=== PATIENT | female | born 1935 | race Caucasian/White ===

== ENCOUNTER → 2017-11-22 15:41 | Outpatient (CLI) | payer OTHER, SELFPAY ==
--- NOTE | 2017-11-22 15:44 | DI.RAD.S_ITS ---
PROCEDURE: XR ACUTE ABDOMEN SERIES INDICATIONS: 82 year-old female with chronic abdominal pain and diarrhea. TECHNIQUE: One view chest and two views of the abdomen were acquired. COMPARISON: [facility], CR, XR PELVIS 1 OR 2 VIEWS, 11/16/2017, 14:58. [facility], CR, XR PELVIS 1-2V, 10/22/2017, 9:43. [facility], CR, XR HIP W PEL IF DONE RT 2V, 10/22/2017, 7:39. [facility], CR, XR CHEST 1V, 10/22/2017, 10:40. FINDINGS: Surgical changes and devices: None. Chest: Lungs are clear. Heart size is normal. No pleural effusions. No pneumoperitoneum. Abdomen: Bowel gas pattern is normal, with stool in the transverse colon. No suspicious calcifications. Visualized solid organ contours appear normal. Bones: No suspicious bony lesions. Subacute fractures of the right pubic and ischial rami are again noted. IMPRESSION: 1. No imaging explanation for chronic abdominal pain. 2. Subacute right obturator ring fractures again noted. Dictated by: Chance Brandt M.D. on 11/22/2017 at 16:23 Approved by: Chance Brandt M.D. on 11/22/2017 at 16:26
[2017-11-22 16:51] LABS: RBC Urine None Seen (0-5/HPF)
[2017-11-22 17:08] LABS: Bilirubin Urine UA NEGATIVE (NEGATIVE); Color Urine UA YELLOW; Glucose Urine UA NEGATIVE (Normal); Ketones Urine UA TRACE (NEGATIVE); Leukocyte Esterase Urine UA TRACE (NEGATIVE); Nitrite Urine UA Negative (Negative); Occult Blood Urine UA NEGATIVE (Negative); Protein Urine UA NEGATIVE (Negative); Specific Gravity Urine UA 1.015 (1.000-1.035); Urobilinogen Urine UA 0.2 E.U./dL (0.2); pH Urine UA 7.5 (4.5-8.0)
[2017-11-22 17:15] LABS: Appearance Urine UA Slightly Cloudy
[2017-11-22 17:21] LABS: Add Manual Diff / Slide Review NO; Basophils Percent Auto 0.5 % (0-2); Eosinophils Percent Auto 5.5 % (2-4); Hematocrit 40.2 % (36-46); Hemoglobin 13.5 g/dL (12.0-16.0); Lymphocytes Percent Auto 27.7 % (25-40); Mean Corpuscular HGB Conc 33.5 % (30-36); Mean Corpuscular Hemoglobin 29.6 PG (26-34); Mean Corpuscular Volume 88.4 fL (80-100); Monocytes Percent Auto 7.6 % (3-14); Neutrophils Absolute Auto 4300 /uL (3000-5900); Neutrophils Percent Auto 58.7 % (50-75); Platelet Count 264 X10^3/uL (150-400); Red Blood Cell Count 4.54 X10^6/uL (4.0-5.2); Red Cell Distribution Width 13.8 % (11.6-14.8); White Blood Cell Count 7.3 X10^3/uL (4.5-11.0)
[2017-11-22 17:25] LABS: Bacteria Urine Few (2-10); Culture Indicated Urine Specimen Cultured; Squamous Epithelial Cell Urine 0-1 /HPF; WBC Urine 1-5/HPF (0-5/HPF)
[2017-11-22 17:35] LABS: Alanine Aminotransferase 26 IU/L (9-52); Albumin 4.5 g/dL (3.5-5.0); Albumin Globulin Ratio 1.3 (1.0-2.8); Alkaline Phosphatase 111 U/L (38-126); Aspartate Aminotransferase 37 IU/L (14-36); Bilirubin Total 0.4 mg/dL (0.2-1.3); Blood Urea Nitrogen 35 mg/dL (7-17); Calcium 10.8 mg/dL (8.4-10.2); Carbon Dioxide 32 mmol/L (22-32); Chloride 100 mmol/L (98-107); Estimated Glomerular Filt Rate > 60.0 mL/min (>60); Globulin 3.6 g/dL (1.7-4.1); Glucose 82 mg/dL (80-110); HEMOLYSIS 40 (0-50); Sodium 144 mmol/L (137-145); Total Protein 8.1 g/dL (6.3-8.2)
[2017-11-23 10:14] LABS: Thyroid Stimulating Hormone 3.45 uIU/mL (0.47-4.68)
[2017-11-23 12:54] LABS: Creatine Kinase 50 U/L (30-135)
== END ==
PROVIDERS: PCP Family Medicine; Visit Provider Nurse Practitioner Family
DX: K52.9 Noninfective gastroenteritis and colitis, unspecified (principal); S32.810A Multiple fractures of pelvis with stable disruption of pelvic ring, initial encounter for closed fracture; R79.89 Other specified abnormal findings of blood chemistry; M25.562 Pain in left knee; G89.29 Other chronic pain; R53.82 Chronic fatigue, unspecified; Z96.652 Presence of left artificial knee joint
CPT/HCPCS: 36415; 74022; 80053; 81001; 82550; 84443; 85025; 87086

== ENCOUNTER → 2017-11-30 12:31 | Outpatient (CLI) | payer OTHER, SELFPAY ==
[2017-11-30 14:19] LABS: Thyroid Stimulating Hormone 2.82 uIU/mL (0.47-4.68)
[2017-11-30 14:49] LABS: Vitamin D 25 Hydroxy (D3) 65.1 ng/mL (30.0-100.0)
== END ==
PROVIDERS: PCP Family Medicine; Visit Provider Specialist/Technologist Athletic Trainer
DX: M81.0 Age-related osteoporosis without current pathological fracture (principal); K52.9 Noninfective gastroenteritis and colitis, unspecified; R53.81 Other malaise; R53.82 Chronic fatigue, unspecified; R79.89 Other specified abnormal findings of blood chemistry
CPT/HCPCS: 36415; 82306; 84443

== ENCOUNTER → 2018-01-28 16:16 | Outpatient (CLI) | payer OTHER, SELFPAY ==
--- NOTE | 2018-01-28 16:17 | DI.RAD.S_ITS ---
PROCEDURE: XR PELVIS 1-2V INDICATIONS: HX of pelvic fracture. TECHNIQUE: One view(s) of the pelvis acquired. COMPARISON: [facility], CR, XR HIP W PEL IF DONE RT 2V, 10/22/2017, 7:39. [facility], CR, XR PELVIS 1-2V, 10/22/2017, 9:43. [facility] [place], CR, XR PELVIS 1 OR 2 VIEWS, 11/16/2017, 14:58. FINDINGS: Bones: Previous right ischial and pubic fractures have undergone exuberant callus formation with minimal change in alignment. 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 Irregular linear radiolucency through the right superior ramus is more prominent. This may represent bony resorption about a fracture line but is indeterminate. Soft tissues: Visualized bowel gas pattern is normal. No suspicious soft tissue calcifications. IMPRESSION: Healing of previous pelvic fractures show prominent callus formation and sclerosis, progressing since most recent prior outside study. Dictated by: Marcio Weber M.D. on 01/28/2018 at 16:38 Approved by: Marcio Weber M.D. on 01/28/2018 at 16:44
== END ==
PROVIDERS: Family Provider Family Medicine; PCP Family Medicine; Visit Provider Family Medicine
DX: S32.89XD Fracture of other parts of pelvis, subsequent encounter for fracture with routine healing (principal)
CPT/HCPCS: 72170

== ENCOUNTER 2018-03-12 15:15 | Outpatient (RCR) | payer OTHER, SELFPAY ==
--- NOTE | 2018-01-15 13:41 | PT.OIE ---
Current Diagnoses Pain in unspecified knee (01/10/18) Unspecified urinary incontinence (01/10/18) Fracture of unspecified parts of lumbosacral spine and pelvis, initial encounter for closed fracture (01/10/18) Past Medical History (Last Reviewed 11/09/17 @ 17:01 by Ana Sim DO) Hearing loss (Chronic 2015) Knee pain, left (Chronic Unknown) Osteoarthritis (Chronic 1999) Osteopenia (Chronic ~2002) Osteoporosis (Chronic ~2002) Urinary incontinence (Chronic ~2013) Anemia (Resolved ~1952) Fracture (Resolved 1939) Retinal detachment (Resolved 1998) Shoulder pain (Resolved 2014) Past Surgical History (Last Reviewed 11/09/17 @ 17:01 by Ana Sim DO) History of knee replacement Provider Visit Care Team Role Provider Type Ana Sim DO Attending Provider Physician Primary Care Provider Specialty: Family Practice Address: [address] [place] [address] Email: [email or web address] Physical Therapy Initial Evaluation PT-OP-A Visit Information Start: 01/10/18 15:14 Freq: Status: Active Protocol: Document 01/10/18 15:15 [facility] (Rec: 01/15/18 13:41 [facility] [id number]) Out-Patient Physical Therapy Visit Information Visit Information Visit Type Initial Evaluation Visit Start Time 15:15 Visit Stop Time 16:10 Total Visit Minutes 55 Visit Number 1 Number of [employer] Visits 0 Evaluation Information Evaluation Date 01/10/18 PT-OP-B Current Condition Start: 01/10/18 15:14 Freq: Status: Active Protocol: Document 01/10/18 15:15 [facility] (Rec: 01/10/18 16:19 [facility] [id number]) Current Condition History of Current Condition Onset Date 10/21/17 Current Complaints mild pain from pelvic fracture , primary c/o exacerbation of left knee pain History of Current Condition fractured pelvis Osteoarthritis left knee first TKA 2008, second 2013, knee pain persists. AFter injuring her pelvis, knee pain worsened. left LE swells, doesn't wear compression. Tried a knee brace. Tried aquatic exercise on her own for 30 min, tried to swim but can't. Has tried cold laser, ultrasound, e-stim. Prior Treatments and Tests PT, prior injections, heat, ices often especially after walking. x-ray of knee after fracture showed no problems. Has been told she doesnt have complex regional pain syndrome by 2 neurologists in [place], recent physician in [place] stated he thought she did per patient. Patient also reports prior cortisone injection left knee dissolved the outside fat pad. Future Testing and Treatments Planned None at this time. Treatment Goals Patient/Caregiver Goals Lessen the pain of left knee, increase activity level. PT-OP-C Subjective Start: 01/10/18 15:14 Freq: Status: Active Protocol: Document 01/10/18 15:15 [facility] (Rec: 01/15/18 13:41 [facility] [id number]) Patient Questionnaires Lower Extremity Functional Scale LEFS Impairment 60 to 79% Impaired (Score 17- 31) OP-PT Pain Assessment Pain Assessment Grid Paper Pain Assessment Grid Completed Yes Location r hip Pain Location Details lateral left knee Intensity 6 Scale Used Numeric (1 - 10) Description Aching Burning Chronic Tender Throbbing With Movement Frequency Frequent Pain Aggravating Factors Activity Exercise Walking Stair Climbing Pain Alleviating Factors None Pain Behaviors Pain Behaviors Guarding Wincing PT-OP-F Manual Assessment Start: 01/10/18 15:14 Freq: Status: Active Protocol: Document 01/10/18 15:15 [facility] (Rec: 01/15/18 13:41 [facility] [id number]) Manual Assessments Other Manual Assessments Other Manual Assessments Tender to palpation lateral left knee diffusely with no pinpoint area of tenderness. Observable lack of soft tissue super/lateral left knee. PT-OP-G Mobility & Gait Start: 01/10/18 15:14 Freq: Status: Active Protocol: Document 01/10/18 15:15 [facility] (Rec: 01/15/18 13:41 [facility] [id number]) OP Mobility Evaluation Bed Mobility Rolling indep Supine to and from Sit indep Transfers Sit to Stand indep but painful Functional Movements Squats painful OP Gait Assessment Gait Gait Assistance Required: Independent Assistive Devices Assistive Device None Gait Deviations General Gait Pattern Antalgic Decreased Stride Length Decreased Feet Clearance Factors Limiting Gait Function Factors Limiting Gait Function Pain Stair Climbing Evaluation Evaluation Level of Assist On Stairs Independent Devices Stair Climbing Assistive Devices Left Railing Right Railing Technique/Endurance Stair Climbing Direction Ascend and Descend Stair Climbing Technique Step to Step Number of Steps Climbed 4 Comments Stair Climbing Comments painful PT-OP-K Range of Motion Start: 01/10/18 15:14 Freq: Status: Active Protocol: Document 01/10/18 15:15 [facility] (Rec: 01/15/18 13:41 [facility] [id number]) Hip Goniometric Range of Motion Hip Measured in Degrees Left Flexion w/Knee Flexed 115 Straight Leg Raise 55 Extension 5 Abduction 40 Internal Rotation 40 External Rotation 45 Right Testing Position Supine Flexion w/Knee Flexed 120 Straight Leg Raise 60 Extension 5 Abduction 35 Internal Rotation 45 External Rotation 40 Hip ROM Limitations Hip ROM Limitations Soft Tissue Tightness Muscle Weakness Knee Goniometric Range of Motion Knee Measured in Degrees Left Knee ROM WFL No Flexion Active (degrees) 120 Extension Active (degrees) 6 Extension Passive (degrees) 5 Right Knee ROM WFL Yes Knee ROM Limitations Knee ROM Limitations Contracture Bony Restriction Ankle and Foot Goniometric Range of Motion Ankle and Foot ROM Limitations ROM Limitations Soft Tissue Tightness Comments bilateral ankle dorsiflexion to 5 deg PT-OP-M Strength Start: 01/10/18 15:14 Freq: Status: Active Protocol: Document 01/10/18 15:15 [facility] (Rec: 01/15/18 13:41 [facility] [id number]) Hip Strength Hip Manual Muscle Testing Left Flexion (L2) 4 Good Extension (S1) 3+ Fair+ Abduction 4- Good- External Rotation 3+ Fair+ Internal Rotation 4- Good- Right Flexion (L2) 4 Good Extension (S1) 3+ Fair+ Abduction 4- Good- External Rotation 3+ Fair+ Internal Rotation 4 Good Knee Strength Knee Manual Muscle Testing Left Flexion (S2) 4 Good Extension (L3) 4- Good- Reason Not Measured Pain Right Flexion (S2) 4+ Good+ Extension (L3) 4+ Good+ Ankle/Foot Strength Ankle and Foot Manual Muscle Testing Left Dorsiflexion (L4) 4+ Good+ Plantarflexion (S1) 4+ Good+ Right Dorsiflexion (L4) 4+ Good+ Plantarflexion (S1) 4+ Good+ PT-OP-Q Treatments Start: 01/10/18 15:14 Freq: Status: Active Protocol: Document 01/10/18 15:15 [facility] (Rec: 01/15/18 13:41 [facility] [id number]) Self-Care/Home Management Treatment Education Patient Education Home Exercise Program Other Education written handout issued PT-OP-R Modalities Start: 01/10/18 15:14 Freq: Status: Active Protocol: Document 01/10/18 15:15 [facility] (Rec: 01/15/18 13:41 [facility] [id number]) Hot Pack/Cold Pack Treatment Cold Pack Location left knee, pelvis Patient Position Hooklying Treatment Duration (minutes) 10 PT-OP-T Assessment and Plan Start: 01/10/18 15:14 Freq: Status: Active Protocol: Document 01/10/18 15:15 [facility] (Rec: 01/15/18 13:41 [facility] [id number]) Physical Therapy Assessment Rehab Potential Rehabilitation Potential Good Evaluation Complexity Number of Personal Factors/Comorbidities 3 or More Number of Body Systems Impaired 3 Clinical Presentation at Evaluation Evolving Impairments Impairments Activity Tolerance Gait Pain ROM Soft Tissue Mobility Strength Goals Four Impairment weakness Short Term Goal (STG) Instruct in HEP with progression as tolerated STG Duration 4 wks Jail Goal (LTG) Patient to demonstrate 5/5 muscle strength in darryl LE's LTG Duration 3 months Three Impairment soft tissue mobility: right hamstrings, hip flexors, quads , gastroc Short Term Goal (STG) Instruct in HEP STG Duration 2 wks Nps Goal (LTG) Improve ROM to WNL with patient indep with HEP LTG Duration 3 months Two Impairment gait dysfunction Nps Goal (LTG) Patient able to ambulate on level surfaces without a limp and ascend and descend stairs with minimal UE use with alternating pattern LTG Duration 3 months One Impairment pain left knee 6/10 Jail Goal (LTG) Decrease pain to no greater than 2/10 for improved function and quality of life. LTG Duration 3 months Assessment Summary Assessment Patient presents s/p pelvic fracture with primary complaint of persistent left knee pain which has worsened since pelvic fracture. Feel weakness and soft tissue tightness highly contributory. Additionally feel patient may benefit from orthotics and /or medial longitudinal arch strengthening due to increased pronation darryl feet with decreased arch height and eversion positioning darryl left greater than right Should benefit from physical therapy for pain management and progression of therapeutic exercises to address all impairment areas as noted. Physical Therapy Plan Frequency and Duration Frequency of Treatment 2x/Week Duration of Treatment 3 months Plan of Care Start Date 01/10/18 Plan of Care End Date 04/12/18 Therapeutic Interventions Therapeutic Interventions Aquatic Therapy Gait Training Home Exercise Program Manual Therapy Neuromuscular Re-education Orthotic/Prosthetic Management Patient/Caregiver Education Self-Care/Home Management Soft Tissue Mobilization Taping Therapeutic Activities Therapeutic Exercises Modalities Cold Pack/Ice Massage Electric Stimulation Hot Packs Iontophoresis Ultrasound Next Visit Focus/Plan Next Note Type Treatment Note Next Visit Plan Progression of ther ex as tolerated starting with recumbant stepper with emphasis on alignment and symmetry.
--- NOTE | 2018-01-17 16:43 | PT.OTN ---
Current Diagnoses Pain in unspecified knee (01/17/18) Unspecified urinary incontinence (01/17/18) Fracture of unspecified parts of lumbosacral spine and pelvis, initial encounter for closed fracture (01/17/18) Physical Therapy Treatment Note PT-OP-A Visit Information Start: 01/10/18 15:14 Freq: Status: Active Protocol: Document 01/17/18 15:15 [facility] (Rec: 01/17/18 16:26 [facility] [id number]) Out-Patient Physical Therapy Visit Information Visit Information Visit Type Treatment Note Visit Start Time 15:15 Visit Stop Time 16:15 Total Visit Minutes 60 Visit Number 2 PT-OP-B Current Condition Start: 01/10/18 15:14 Freq: Status: Active Protocol: Document 01/10/18 15:15 [facility] (Rec: 01/10/18 16:19 [facility] [id number]) Current Condition History of Current Condition Onset Date 10/21/17 Current Complaints mild pain from pelvic fracture , primary c/o exacerbation of left knee pain History of Current Condition fractured pelvis Osteoarthritis left knee first TKA 2008, second 2013, knee pain persists. AFter injuring her pelvis, knee pain worsened. left LE swells, doesn't wear compression. Tried a knee brace. Tried aquatic exercise on her own for 30 min, tried to swim but can't. Has tried cold laser, ultrasound, e-stim. Prior Treatments and Tests PT, prior injections, heat, ices often especially after walking. x-ray of knee after fracture showed no problems. Has been told she doesnt have complex regional pain syndrome by 2 neurologists in [place], recent physician in [place] stated he thought she did per patient. Patient also reports prior cortisone injection left knee dissolved the outside fat pad. Future Testing and Treatments Planned None at this time. Treatment Goals Patient/Caregiver Goals Lessen the pain of left knee, increase activity level. PT-OP-C Subjective Start: 01/10/18 15:14 Freq: Status: Active Protocol: Document 01/10/18 15:15 [facility] (Rec: 01/15/18 13:41 [facility] [id number]) Patient Questionnaires Lower Extremity Functional Scale LEFS Impairment 60 to 79% Impaired (Score 17- 31) OP-PT Pain Assessment Pain Assessment Grid Paper Pain Assessment Grid Completed Yes Location r hip Pain Location Details lateral left knee Intensity 6 Scale Used Numeric (1 - 10) Description Aching Burning Chronic Tender Throbbing With Movement Frequency Frequent Pain Aggravating Factors Activity Exercise Walking Stair Climbing Pain Alleviating Factors None Pain Behaviors Pain Behaviors Guarding [place]incing PT-OP-F Manual Assessment Start: 01/10/18 15:14 Freq: Status: Active Protocol: Document 01/10/18 15:15 [facility] (Rec: 01/15/18 13:41 [facility] [id number]) Manual Assessments Other Manual Assessments Other Manual Assessments Tender to palpation lateral left knee diffusely with no pinpoint area of tenderness. Observable lack of soft tissue super/lateral left knee. PT-OP-G Mobility & Gait Start: 01/10/18 15:14 Freq: Status: Active Protocol: Document 01/10/18 15:15 [facility] (Rec: 01/15/18 13:41 [facility] [id number]) OP Mobility Evaluation Bed Mobility Rolling indep Supine to and from Sit indep Transfers Sit to Stand indep but painful Functional Movements Squats painful OP Gait Assessment Gait Gait Assistance Required: Independent Assistive Devices Assistive Device None Gait Deviations General Gait Pattern Antalgic Decreased Stride Length Decreased Feet Clearance Factors Limiting Gait Function Factors Limiting Gait Function Pain Stair Climbing Evaluation Evaluation Level of Assist On Stairs Independent Devices Stair Climbing Assistive Devices Left Railing Right Railing Technique/Endurance Stair Climbing Direction Ascend and Descend Stair Climbing Technique Step to Step Number of Steps Climbed 4 Comments Stair Climbing Comments painful PT-OP-K Range of Motion Start: 01/10/18 15:14 Freq: Status: Active Protocol: Document 01/10/18 15:15 [facility] (Rec: 01/15/18 13:41 [facility] [id number]) Hip Goniometric Range of Motion Hip Measured in Degrees Left Flexion w/Knee Flexed 115 Straight Leg Raise 55 Extension 5 Abduction 40 Internal Rotation 40 External Rotation 45 Right Testing Position Supine Flexion w/Knee Flexed 120 Straight Leg Raise 60 Extension 5 Abduction 35 Internal Rotation 45 External Rotation 40 Hip ROM Limitations Hip ROM Limitations Soft Tissue Tightness Muscle Weakness Knee Goniometric Range of Motion Knee Measured in Degrees Left Knee ROM WFL No Flexion Active (degrees) 120 Extension Active (degrees) 6 Extension Passive (degrees) 5 Right Knee ROM WFL Yes Knee ROM Limitations Knee ROM Limitations Contracture Bony Restriction Ankle and Foot Goniometric Range of Motion Ankle and Foot ROM Limitations ROM Limitations Soft Tissue Tightness Comments bilateral ankle dorsiflexion to 5 deg PT-OP-M Strength Start: 01/10/18 15:14 Freq: Status: Active Protocol: Document 01/10/18 15:15 [facility] (Rec: 01/15/18 13:41 [facility] [id number]) Hip Strength Hip Manual Muscle Testing Left Flexion (L2) 4 Good Extension (S1) 3+ Fair+ Abduction 4- Good- External Rotation 3+ Fair+ Internal Rotation 4- Good- Right Flexion (L2) 4 Good Extension (S1) 3+ Fair+ Abduction 4- Good- External Rotation 3+ Fair+ Internal Rotation 4 Good Knee Strength Knee Manual Muscle Testing Left Flexion (S2) 4 Good Extension (L3) 4- Good- Reason Not Measured Pain Right Flexion (S2) 4+ Good+ Extension (L3) 4+ Good+ Ankle/Foot Strength Ankle and Foot Manual Muscle Testing Left Dorsiflexion (L4) 4+ Good+ Plantarflexion (S1) 4+ Good+ Right Dorsiflexion (L4) 4+ Good+ Plantarflexion (S1) 4+ Good+ PT-OP-Q Treatments Start: 01/10/18 15:14 Freq: Status: Active Protocol: Document 01/17/18 15:15 [facility] (Rec: 01/17/18 16:26 [facility] [id number]) Cardio Equipment Recumbent Elliptical (Biodex) Duration (Minutes) 5 Resistance 2 Therapeutic Exercises Supine Exercises 5 Supine Exercise Name quad set, Hs set Reps/Minutes 0 4 Supine Exercise Name SAQ Reps/Minutes 0 3 Supine Exercise Name SLR, bridge Reps/Minutes 10x 2 Supine Exercise Name hip ab/ER Equipment Used L2 TB Reps/Minutes 10x 1 Supine Exercise Name ball squeeze Reps/Minutes 10x Sidelying Exercises 1 Sidelying Exercise Name hip ab Reps/Minutes 10x Standing Exercises 1 Standing Exercise Name HC stretch Equipment Used BETY Reps/Minutes 2 Therapeutic Activity Therapeutic Activity 2 Name heel raises, toe raises Reps/Minutes 10 x ea Comments min UE support 1 Name tiltboard Reps/Minutes 5 min Comments bal fwd/bck EO and EC, wt shifts bal side to side Manual Therapy Treatment Taping 1 Body Location left knee Treatment Focus pain management Type of Tape Kinesio Tape Comments 2 Y strips Self-Care/Home Management Treatment Education Patient Education Home Exercise Program Other Education reviewed, further education, modification and new ex from today added: updated written handout PT-OP-R Modalities Start: 01/10/18 15:14 Freq: Status: Active Protocol: Document 01/17/18 15:15 [facility] (Rec: 01/17/18 16:43 [facility] [id number]) Hot Pack/Cold Pack Treatment Cold Pack Location left knee, pelvis Patient Position Hooklying Treatment Duration (minutes) 10 PT-OP-T Assessment and Plan Start: 01/10/18 15:14 Freq: Status: Active Protocol: Document 01/17/18 15:15 [facility] (Rec: 01/17/18 16:43 [facility] [id number]) Physical Therapy Plan Next Visit Focus/Plan Next Note Type Treatment Note Next Visit Plan assess response to last session, progress and modify ex as ok for strengthening, ROM, gait training, manual therapy and modalities as indicated.
--- NOTE | 2018-01-24 16:22 | PT.OTN ---
Current Diagnoses Pain in unspecified knee (01/24/18) Unspecified urinary incontinence (01/24/18) Fracture of unspecified parts of lumbosacral spine and pelvis, initial encounter for closed fracture (01/24/18) Physical Therapy Treatment Note PT-OP-A Visit Information Start: 01/10/18 15:14 Freq: Status: Active Protocol: Document 01/24/18 15:15 [facility] (Rec: 01/24/18 16:21 [facility] [id number]) Out-Patient Physical Therapy Visit Information Visit Information Visit Type Treatment Note Visit Start Time 15:15 Visit Stop Time 16:10 Total Visit Minutes 55 Visit Number 3 Number of INFORMATION SYSTEMS ANALYST Visits 0 Evaluation Information Evaluation Date 01/10/18 PT-OP-B Current Condition Start: 01/10/18 15:14 Freq: Status: Active Protocol: Document 01/10/18 15:15 [facility] (Rec: 01/10/18 16:19 [facility] [id number]) Current Condition History of Current Condition Onset Date 10/21/17 Current Complaints mild pain from pelvic fracture , primary c/o exacerbation of left knee pain History of Current Condition fractured pelvis Osteoarthritis left knee first TKA 2008, second 2013, knee pain persists. AFter injuring her pelvis, knee pain worsened. left LE swells, doesn't wear compression. Tried a knee brace. Tried aquatic exercise on her own for 30 min, tried to swim but can't. Has tried cold laser, ultrasound, e-stim. Prior Treatments and Tests PT, prior injections, heat, ices often especially after walking. x-ray of knee after fracture showed no problems. Has been told she doesnt have complex regional pain syndrome by 2 neurologists in [place], recent physician in [place] stated he thought she did per patient. Patient also reports prior cortisone injection left knee dissolved the outside fat pad. Future Testing and Treatments Planned None at this time. Treatment Goals Patient/Caregiver Goals Lessen the pain of left knee, increase activity level. PT-OP-C Subjective Start: 01/10/18 15:14 Freq: Status: Active Protocol: Document 01/24/18 15:15 [facility] (Rec: 01/24/18 16:22 [facility] [id number]) OP-PT Subjective Patient Comments Patient Comments reports knee really sore today. Has been trying to do her exercises but not sure doing some of them correctly. PT-OP-F Manual Assessment Start: 01/10/18 15:14 Freq: Status: Active Protocol: Document 01/10/18 15:15 [facility] (Rec: 01/15/18 13:41 [facility] [id number]) Manual Assessments Other Manual Assessments Other Manual Assessments Tender to palpation lateral left knee diffusely with no pinpoint area of tenderness. Observable lack of soft tissue super/lateral left knee. PT-OP-G Mobility & Gait Start: 01/10/18 15:14 Freq: Status: Active Protocol: Document 01/10/18 15:15 [facility] (Rec: 01/15/18 13:41 [facility] [id number]) OP Mobility Evaluation Bed Mobility Rolling indep Supine to and from Sit indep Transfers Sit to Stand indep but painful Functional Movements Squats painful OP Gait Assessment Gait Gait Assistance Required: Independent Assistive Devices Assistive Device None Gait Deviations General Gait Pattern Antalgic Decreased Stride Length Decreased Feet Clearance Factors Limiting Gait Function Factors Limiting Gait Function Pain Stair Climbing Evaluation Evaluation Level of Assist On Stairs Independent Devices Stair Climbing Assistive Devices Left Railing Right Railing Technique/Endurance Stair Climbing Direction Ascend and Descend Stair Climbing Technique Step to Step Number of Steps Climbed 4 Comments Stair Climbing Comments painful PT-OP-K Range of Motion Start: 01/10/18 15:14 Freq: Status: Active Protocol: Document 01/10/18 15:15 [facility] (Rec: 01/15/18 13:41 [facility] [id number]) Hip Goniometric Range of Motion Hip Measured in Degrees Left Flexion w/Knee Flexed 115 Straight Leg Raise 55 Extension 5 Abduction 40 Internal Rotation 40 External Rotation 45 Right Testing Position Supine Flexion w/Knee Flexed 120 Straight Leg Raise 60 Extension 5 Abduction 35 Internal Rotation 45 External Rotation 40 Hip ROM Limitations Hip ROM Limitations Soft Tissue Tightness Muscle Weakness Knee Goniometric Range of Motion Knee Measured in Degrees Left Knee ROM WFL No Flexion Active (degrees) 120 Extension Active (degrees) 6 Extension Passive (degrees) 5 Right Knee ROM WFL Yes Knee ROM Limitations Knee ROM Limitations Contracture Bony Restriction Ankle and Foot Goniometric Range of Motion Ankle and Foot ROM Limitations ROM Limitations Soft Tissue Tightness Comments bilateral ankle dorsiflexion to 5 deg PT-OP-M Strength Start: 01/10/18 15:14 Freq: Status: Active Protocol: Document 01/10/18 15:15 [facility] (Rec: 01/15/18 13:41 [facility] [id number]) Hip Strength Hip Manual Muscle Testing Left Flexion (L2) 4 Good Extension (S1) 3+ Fair+ Abduction 4- Good- External Rotation 3+ Fair+ Internal Rotation 4- Good- Right Flexion (L2) 4 Good Extension (S1) 3+ Fair+ Abduction 4- Good- External Rotation 3+ Fair+ Internal Rotation 4 Good Knee Strength Knee Manual Muscle Testing Left Flexion (S2) 4 Good Extension (L3) 4- Good- Reason Not Measured Pain Right Flexion (S2) 4+ Good+ Extension (L3) 4+ Good+ Ankle/Foot Strength Ankle and Foot Manual Muscle Testing Left Dorsiflexion (L4) 4+ Good+ Plantarflexion (S1) 4+ Good+ Right Dorsiflexion (L4) 4+ Good+ Plantarflexion (S1) 4+ Good+ PT-OP-Q Treatments Start: 01/10/18 15:14 Freq: Status: Active Protocol: Document 01/24/18 15:15 [facility] (Rec: 01/24/18 16:21 [facility] [id number]) Gym Equipment Shuttle Recovery Unilateral Squats Resistance 37 Shuttle Recovery Platform Stable Reps/Time 10 Bilateral Squats Resistance 75 Shuttle Recovery Platform Stable Reps/Time 10 Therapeutic Exercises Supine Exercises 4 Supine Exercise Name SAQ Reps/Minutes 0 3 Supine Exercise Name SLR, bridge Reps/Minutes 10x 2 Supine Exercise Name hip ab/ER Equipment Used L2 TB Reps/Minutes 10x 1 Supine Exercise Name ball squeeze Reps/Minutes 10x Sidelying Exercises 1 Sidelying Exercise Name hip ab Reps/Minutes 10x Comments verbal and manual cues for form Sitting Exercises 1 Sitting Exercise Name Hamstring curl Equipment Used L2 theraband Standing Exercises 1 Standing Exercise Name HC stretch Equipment Used BETY Reps/Minutes 2 Manual Therapy Treatment Soft Tissue Mobilization 1 Body Location left quads, IT band, HS Mobilization Type Myofascial Release Rolling Intensity/Depth Moderate Body Position Hooklying PT-OP-R Modalities Start: 01/10/18 15:14 Freq: Status: Active Protocol: Document 01/24/18 15:15 [facility] (Rec: 01/24/18 16:21 [facility] [id number]) Electric Stimulation Electric Stimulation Interferential Current (IFC) Body Location left knee Duration (Minutes) 15 Intensity 27 Contraction Type Normal Target/Sweep Sweep High/Low High Patient Position Hooklying Combined With Heat/Cold Cold Pack PT-OP-T Assessment and Plan Start: 01/10/18 15:14 Freq: Status: Active Protocol: Document 01/24/18 15:15 [facility] (Rec: 01/24/18 16:21 [facility] [id number]) Physical Therapy Assessment Goals Four Impairment weakness Short Term Goal (STG) Instruct in HEP with progression as tolerated STG Duration 4 wks Marketing Operations Assistant Goal (LTG) Patient to demonstrate 5/5 muscle strength in darryl LE's LTG Duration 3 months Three Impairment soft tissue mobility: right hamstrings, hip flexors, quads , gastroc Short Term Goal (STG) Instruct in HEP STG Duration 2 wks Residential Goal (LTG) Improve ROM to WNL with patient indep with HEP LTG Duration 3 months Two Impairment gait dysfunction Marketing Operations Assistant Goal (LTG) Patient able to ambulate on level surfaces without a limp and ascend and descend stairs with minimal UE use with alternating pattern LTG Duration 3 months One Impairment pain left knee 6/10 Residential Goal (LTG) Decrease pain to no greater than 2/10 for improved function and quality of life. LTG Duration 3 months Assessment Summary Assessment Pain persists, didn't feel tape helpful though interested in trying alternative taping technique Physical Therapy Plan Frequency and Duration Frequency of Treatment 2x/Week Duration of Treatment 3 months Plan of Care Start Date 01/10/18 Plan of Care End Date 04/12/18 Therapeutic Interventions Therapeutic Interventions Aquatic Therapy Gait Training Home Exercise Program Manual Therapy Neuromuscular Re-education Orthotic/Prosthetic Management Patient/Caregiver Education Self-Care/Home Management Soft Tissue Mobilization Taping Therapeutic Activities Therapeutic Exercises Modalities Cold Pack/Ice Massage Electric Stimulation Hot Packs Iontophoresis Ultrasound Next Visit Focus/Plan Next Note Type Treatment Note Next Visit Plan Assess fibular mobility. Progress ther ex as tolerated. Evaluate response to e-stim. Possibly try different kinesiotape tecnique
--- NOTE | 2018-01-29 15:08 | PT.OTN ---
Current Diagnoses Pain in unspecified knee (01/29/18) Unspecified urinary incontinence (01/29/18) Fracture of unspecified parts of lumbosacral spine and pelvis, initial encounter for closed fracture (01/29/18) Physical Therapy Treatment Note PT-OP-A Visit Information Start: 01/10/18 15:14 Freq: Status: Active Protocol: Document 01/29/18 12:46 [facility] (Rec: 01/29/18 13:29 [facility] [id number]) Out-Patient Physical Therapy Visit Information Visit Information Visit Type Treatment Note Visit Start Time 12:46 Visit Stop Time 13:36 Total Visit Minutes 50 Visit Number 4 Number of ASSOCIATE RESEARCH SCIENTIST Visits 0 Evaluation Information Evaluation Date 01/10/18 PT-OP-B Current Condition Start: 01/10/18 15:14 Freq: Status: Active Protocol: Document 01/10/18 15:15 [facility] (Rec: 01/10/18 16:19 [facility] [id number]) Current Condition History of Current Condition Onset Date 10/21/17 Current Complaints mild pain from pelvic fracture , primary c/o exacerbation of left knee pain History of Current Condition fractured pelvis Osteoarthritis left knee first TKA 2008, second 2013, knee pain persists. AFter injuring her pelvis, knee pain worsened. left LE swells, doesn't wear compression. Tried a knee brace. Tried aquatic exercise on her own for 30 min, tried to swim but can't. Has tried cold laser, ultrasound, e-stim. Prior Treatments and Tests PT, prior injections, heat, ices often especially after walking. x-ray of knee after fracture showed no problems. Has been told she doesnt have complex regional pain syndrome by 2 neurologists in [place], recent physician in [place] stated he thought she did per patient. Patient also reports prior cortisone injection left knee dissolved the outside fat pad. Future Testing and Treatments Planned None at this time. Treatment Goals Patient/Caregiver Goals Lessen the pain of left knee, increase activity level. PT-OP-C Subjective Start: 01/10/18 15:14 Freq: Status: Active Protocol: Document 01/29/18 12:46 [facility] (Rec: 01/29/18 13:29 [facility] [id number]) OP-PT Subjective Patient Comments Patient Comments Was unable to do anything after last appointment due to pain. Thought the EStim was too high. Couldn't make it to the gym. PT-OP-F Manual Assessment Start: 01/10/18 15:14 Freq: Status: Active Protocol: Document 01/10/18 15:15 [facility] (Rec: 01/15/18 13:41 [facility] [id number]) Manual Assessments Other Manual Assessments Other Manual Assessments Tender to palpation lateral left knee diffusely with no pinpoint area of tenderness. Observable lack of soft tissue super/lateral left knee. PT-OP-G Mobility & Gait Start: 01/10/18 15:14 Freq: Status: Active Protocol: Document 01/10/18 15:15 [facility] (Rec: 01/15/18 13:41 [facility] [id number]) OP Mobility Evaluation Bed Mobility Rolling indep Supine to and from Sit indep Transfers Sit to Stand indep but painful Functional Movements Squats painful OP Gait Assessment Gait Gait Assistance Required: Independent Assistive Devices Assistive Device None Gait Deviations General Gait Pattern Antalgic Decreased Stride Length Decreased Feet Clearance Factors Limiting Gait Function Factors Limiting Gait Function Pain Stair Climbing Evaluation Evaluation Level of Assist On Stairs Independent Devices Stair Climbing Assistive Devices Left Railing Right Railing Technique/Endurance Stair Climbing Direction Ascend and Descend Stair Climbing Technique Step to Step Number of Steps Climbed 4 Comments Stair Climbing Comments painful PT-OP-K Range of Motion Start: 01/10/18 15:14 Freq: Status: Active Protocol: Document 01/10/18 15:15 [facility] (Rec: 01/15/18 13:41 [facility] [id number]) Hip Goniometric Range of Motion Hip Measured in Degrees Left Flexion w/Knee Flexed 115 Straight Leg Raise 55 Extension 5 Abduction 40 Internal Rotation 40 External Rotation 45 Right Testing Position Supine Flexion w/Knee Flexed 120 Straight Leg Raise 60 Extension 5 Abduction 35 Internal Rotation 45 External Rotation 40 Hip ROM Limitations Hip ROM Limitations Soft Tissue Tightness Muscle Weakness Knee Goniometric Range of Motion Knee Measured in Degrees Left Knee ROM WFL No Flexion Active (degrees) 120 Extension Active (degrees) 6 Extension Passive (degrees) 5 Right Knee ROM WFL Yes Knee ROM Limitations Knee ROM Limitations Contracture Bony Restriction Ankle and Foot Goniometric Range of Motion Ankle and Foot ROM Limitations ROM Limitations Soft Tissue Tightness Comments bilateral ankle dorsiflexion to 5 deg PT-OP-M Strength Start: 01/10/18 15:14 Freq: Status: Active Protocol: Document 01/10/18 15:15 [facility] (Rec: 01/15/18 13:41 [facility] [id number]) Hip Strength Hip Manual Muscle Testing Left Flexion (L2) 4 Good Extension (S1) 3+ Fair+ Abduction 4- Good- External Rotation 3+ Fair+ Internal Rotation 4- Good- Right Flexion (L2) 4 Good Extension (S1) 3+ Fair+ Abduction 4- Good- External Rotation 3+ Fair+ Internal Rotation 4 Good Knee Strength Knee Manual Muscle Testing Left Flexion (S2) 4 Good Extension (L3) 4- Good- Reason Not Measured Pain Right Flexion (S2) 4+ Good+ Extension (L3) 4+ Good+ Ankle/Foot Strength Ankle and Foot Manual Muscle Testing Left Dorsiflexion (L4) 4+ Good+ Plantarflexion (S1) 4+ Good+ Right Dorsiflexion (L4) 4+ Good+ Plantarflexion (S1) 4+ Good+ PT-OP-Q Treatments Start: 01/10/18 15:14 Freq: Status: Active Protocol: Document 01/29/18 12:46 [facility] (Rec: 01/29/18 13:29 [facility] [id number]) Gait Training Gait Activity 1 Description MWM with gait Distance/Duration 15' Treatment Focus Minimizing L knee pain and correcting R toe off phase Manual Therapy Treatment Soft Tissue Mobilization 1 Body Location left quads, IT band, HS Mobilization Type Myofascial Release Rolling Intensity/Depth Moderate Body Position Hooklying Joint Mobilizations 1 Joint Fibulotibial joint, distal and proximal Direction Distal tib: super & anter; Proximal: posterior Grade II Body Position Sup, MWM Taping 1 Body Location left knee Treatment Focus space correction L fibular head Type of Tape Kinesio Tape Comments 3 I strips, star pattern Self-Care/Home Management Treatment Education Patient Education Home Exercise Program Other Education I/S and demonstrated proper removal of K-tape and I/S pt in proper wear time of K-tape. PT-OP-R Modalities Start: 01/10/18 15:14 Freq: Status: Active Protocol: Document 01/29/18 12:46 [facility] (Rec: 01/29/18 13:29 [facility] [id number]) Hot Pack/Cold Pack Treatment Cold Pack Location left knee Patient Position Hooklying Treatment Duration (minutes) 10 Comments Pt felt cryotherapy to pelvis was unnecessary. PT-OP-T Assessment and Plan Start: 01/10/18 15:14 Freq: Status: Active Protocol: Document 01/29/18 12:46 [facility] (Rec: 01/29/18 13:29 [facility] [id number]) Physical Therapy Assessment Assessment Summary Assessment Initially with WMW of L fibula the pt reported a little less pain with gait and weightbearing of the R LE. As gait training progressed pt reported return of pain by end or therapy and with gait. Physical Therapy Plan Next Visit Focus/Plan Next Note Type Treatment Note Next Visit Plan Assess response to Fibular mobilization, MWM activities, and different K-tape. Continue strengthening.
--- NOTE | 2018-02-05 16:29 | PT.OTN ---
Current Diagnoses Pain in unspecified knee (02/05/18) Unspecified urinary incontinence (02/05/18) Fracture of unspecified parts of lumbosacral spine and pelvis, initial encounter for closed fracture (02/05/18) Physical Therapy Treatment Note PT-OP-A Visit Information Start: 01/10/18 15:14 Freq: Status: Active Protocol: Document 02/05/18 16:18 [facility] (Rec: 02/05/18 16:29 [facility] [id number]) Out-Patient Physical Therapy Visit Information Visit Information Visit Type Treatment Note Visit Start Time 15:15 Visit Stop Time 16:15 Total Visit Minutes 60 Visit Number 5 Number of FIRE DEPARTMENT BATTALION CHIEF Visits 0 PT-OP-B Current Condition Start: 01/10/18 15:14 Freq: Status: Active Protocol: Document 01/10/18 15:15 [facility] (Rec: 01/10/18 16:19 [facility] [id number]) Current Condition History of Current Condition Onset Date 10/21/17 Current Complaints mild pain from pelvic fracture , primary c/o exacerbation of left knee pain History of Current Condition fractured pelvis Osteoarthritis left knee first TKA 2008, second 2013, knee pain persists. AFter injuring her pelvis, knee pain worsened. left LE swells, doesn't wear compression. Tried a knee brace. Tried aquatic exercise on her own for 30 min, tried to swim but can't. Has tried cold laser, ultrasound, e-stim. Prior Treatments and Tests PT, prior injections, heat, ices often especially after walking. x-ray of knee after fracture showed no problems. Has been told she doesnt have complex regional pain syndrome by 2 neurologists in [place], recent physician in [place] stated he thought she did per patient. Patient also reports prior cortisone injection left knee dissolved the outside fat pad. Future Testing and Treatments Planned None at this time. Treatment Goals Patient/Caregiver Goals Lessen the pain of left knee, increase activity level. PT-OP-C Subjective Start: 01/10/18 15:14 Freq: Status: Active Protocol: Document 02/05/18 16:18 [facility] (Rec: 02/05/18 16:29 [facility] [id number]) OP-PT Subjective Patient Comments Patient Comments Reports increased pain for several days after last PT session; whatever she did to my fibula really hurt. PT-OP-F Manual Assessment Start: 01/10/18 15:14 Freq: Status: Active Protocol: Document 01/10/18 15:15 [facility] (Rec: 01/15/18 13:41 [facility] [id number]) Manual Assessments Other Manual Assessments Other Manual Assessments Tender to palpation lateral left knee diffusely with no pinpoint area of tenderness. Observable lack of soft tissue super/lateral left knee. PT-OP-G Mobility & Gait Start: 01/10/18 15:14 Freq: Status: Active Protocol: Document 01/10/18 15:15 [facility] (Rec: 01/15/18 13:41 [facility] [id number]) OP Mobility Evaluation Bed Mobility Rolling indep Supine to and from Sit indep Transfers Sit to Stand indep but painful Functional Movements Squats painful OP Gait Assessment Gait Gait Assistance Required: Independent Assistive Devices Assistive Device None Gait Deviations General Gait Pattern Antalgic Decreased Stride Length Decreased Feet Clearance Factors Limiting Gait Function Factors Limiting Gait Function Pain Stair Climbing Evaluation Evaluation Level of Assist On Stairs Independent Devices Stair Climbing Assistive Devices Left Railing Right Railing Technique/Endurance Stair Climbing Direction Ascend and Descend Stair Climbing Technique Step to Step Number of Steps Climbed 4 Comments Stair Climbing Comments painful PT-OP-K Range of Motion Start: 01/10/18 15:14 Freq: Status: Active Protocol: Document 01/10/18 15:15 [facility] (Rec: 01/15/18 13:41 [facility] [id number]) Hip Goniometric Range of Motion Hip Measured in Degrees Left Flexion w/Knee Flexed 115 Straight Leg Raise 55 Extension 5 Abduction 40 Internal Rotation 40 External Rotation 45 Right Testing Position Supine Flexion w/Knee Flexed 120 Straight Leg Raise 60 Extension 5 Abduction 35 Internal Rotation 45 External Rotation 40 Hip ROM Limitations Hip ROM Limitations Soft Tissue Tightness Muscle Weakness Knee Goniometric Range of Motion Knee Measured in Degrees Left Knee ROM WFL No Flexion Active (degrees) 120 Extension Active (degrees) 6 Extension Passive (degrees) 5 Right Knee ROM WFL Yes Knee ROM Limitations Knee ROM Limitations Contracture Bony Restriction Ankle and Foot Goniometric Range of Motion Ankle and Foot ROM Limitations ROM Limitations Soft Tissue Tightness Comments bilateral ankle dorsiflexion to 5 deg PT-OP-M Strength Start: 01/10/18 15:14 Freq: Status: Active Protocol: Document 01/10/18 15:15 [facility] (Rec: 01/15/18 13:41 [facility] [id number]) Hip Strength Hip Manual Muscle Testing Left Flexion (L2) 4 Good Extension (S1) 3+ Fair+ Abduction 4- Good- External Rotation 3+ Fair+ Internal Rotation 4- Good- Right Flexion (L2) 4 Good Extension (S1) 3+ Fair+ Abduction 4- Good- External Rotation 3+ Fair+ Internal Rotation 4 Good Knee Strength Knee Manual Muscle Testing Left Flexion (S2) 4 Good Extension (L3) 4- Good- Reason Not Measured Pain Right Flexion (S2) 4+ Good+ Extension (L3) 4+ Good+ Ankle/Foot Strength Ankle and Foot Manual Muscle Testing Left Dorsiflexion (L4) 4+ Good+ Plantarflexion (S1) 4+ Good+ Right Dorsiflexion (L4) 4+ Good+ Plantarflexion (S1) 4+ Good+ PT-OP-Q Treatments Start: 01/10/18 15:14 Freq: Status: Active Protocol: Document 02/05/18 16:18 [facility] (Rec: 02/05/18 16:29 [facility] [id number]) Cardio Equipment Recumbent Stepper (Sci-Fit) Duration (Minutes) 5 Resistance 1 Other emphasis on neutral LE alignment Gym Equipment Shuttle Balance 1 Details chains red, standing bal, wt shifts Reps/Duration 10 min Therapeutic Exercises Sidelying Exercises 1 Sidelying Exercise Name hip ab Reps/Minutes 10x Comments verbal and manual cues for form Sitting Exercises 1 Sitting Exercise Name Hamstring curl Equipment Used L2 theraband Standing Exercises 2 Standing Exercise Name ankle df Equipment Used BETY Reps/Minutes 10x 1 Standing Exercise Name HC stretch Equipment Used BETY Reps/Minutes 2x 30 Manual Therapy Treatment Soft Tissue Mobilization 1 Body Location left IT band Mobilization Type Instrument Assisted Intensity/Depth Moderate Body Position Sidelying Comments rolling pin, muscle roller Pt instructed for home use PT-OP-R Modalities Start: 01/10/18 15:14 Freq: Status: Active Protocol: Document 02/05/18 16:18 [facility] (Rec: 02/05/18 16:29 [facility] [id number]) Hot Pack/Cold Pack Treatment Hot Pack Location left IT band Patient Position Hooklying Treatment Duration (minutes) 10 Iontophoresis Treatment Left Lateral Knee Treatment Medication Dexamethasone (-) Medication Amount (mL) (ml) 4 PT-OP-T Assessment and Plan Start: 01/10/18 15:14 Freq: Status: Active Protocol: Document 02/05/18 16:18 [facility] (Rec: 02/05/18 16:29 [facility] [id number]) Physical Therapy Assessment Goals Four Impairment weakness Short Term Goal (STG) Instruct in HEP with progression as tolerated STG Duration [address] Goal (LTG) Patient to demonstrate 5/5 muscle strength in darryl LE's LTG Duration 3 months Three Impairment soft tissue mobility: right hamstrings, hip flexors, quads , gastroc Short Term Goal (STG) Instruct in HEP STG Duration [address] Goal (LTG) Improve ROM to WNL with patient indep with HEP LTG Duration 3 months Two Impairment gait dysfunction Road Inspector Goal (LTG) Patient able to ambulate on level surfaces without a limp and ascend and descend stairs with minimal UE use with alternating pattern LTG Duration 3 months One Impairment pain left knee 6/10 Usp Goal (LTG) Decrease pain to no greater than 2/10 for improved function and quality of life. LTG Duration 3 months Assessment Summary Assessment Poor response to last session. Patient requires frequent cues for neutral LE alignment with all activities. Trial MH after manual treatment to IT band, iontophoresis. Physical Therapy Plan Frequency and Duration Frequency of Treatment 2x/Week Duration of Treatment 3 months Plan of Care Start Date 01/10/18 Plan of Care End Date 04/12/18 Therapeutic Interventions Therapeutic Interventions Aquatic Therapy Gait Training Home Exercise Program Manual Therapy Neuromuscular Re-education Orthotic/Prosthetic Management Patient/Caregiver Education Self-Care/Home Management Soft Tissue Mobilization Taping Therapeutic Activities Therapeutic Exercises Modalities Cold Pack/Ice Massage Electric Stimulation Hot Packs Iontophoresis Ultrasound Next Visit Focus/Plan Next Note Type Treatment Note Next Visit Plan Assess response to last session, progress ther ex, modalities as indicated.
--- NOTE | 2018-02-08 16:13 | PT.OTN ---
Current Diagnoses Pain in unspecified knee (02/08/18) Unspecified urinary incontinence (02/08/18) Fracture of unspecified parts of lumbosacral spine and pelvis, initial encounter for closed fracture (02/08/18) Physical Therapy Treatment Note PT-OP-A Visit Information Start: 01/10/18 15:14 Freq: Status: Active Protocol: Document 02/08/18 15:15 [facility] (Rec: 02/08/18 16:13 [facility] [id number]) Out-Patient Physical Therapy Visit Information Visit Information Visit Type Treatment Note Visit Start Time 15:15 Visit Stop Time 16:15 Total Visit Minutes 60 Visit Number 6 Number of COMPRESSION MOLDING MACHINE SETTER Visits 0 PT-OP-B Current Condition Start: 01/10/18 15:14 Freq: Status: Active Protocol: Document 01/10/18 15:15 [facility] (Rec: 01/10/18 16:19 [facility] [id number]) Current Condition History of Current Condition Onset Date 10/21/17 Current Complaints mild pain from pelvic fracture , primary c/o exacerbation of left knee pain History of Current Condition fractured pelvis Osteoarthritis left knee first TKA 2008, second 2013, knee pain persists. AFter injuring her pelvis, knee pain worsened. left LE swells, doesn't wear compression. Tried a knee brace. Tried aquatic exercise on her own for 30 min, tried to swim but can't. Has tried cold laser, ultrasound, e-stim. Prior Treatments and Tests PT, prior injections, heat, ices often especially after walking. x-ray of knee after fracture showed no problems. Has been told she doesnt have complex regional pain syndrome by 2 neurologists in [place], recent physician in [place] stated he thought she did per patient. Patient also reports prior cortisone injection left knee dissolved the outside fat pad. Future Testing and Treatments Planned None at this time. Treatment Goals Patient/Caregiver Goals Lessen the pain of left knee, increase activity level. PT-OP-C Subjective Start: 01/10/18 15:14 Freq: Status: Active Protocol: Document 02/08/18 15:15 [facility] (Rec: 02/08/18 16:13 [facility] [id number]) OP-PT Subjective Patient Comments Patient Comments States iontophoresis may have been helpful, not sure. PT-OP-F Manual Assessment Start: 01/10/18 15:14 Freq: Status: Active Protocol: Document 01/10/18 15:15 [facility] (Rec: 01/15/18 13:41 [facility] [id number]) Manual Assessments Other Manual Assessments Other Manual Assessments Tender to palpation lateral left knee diffusely with no pinpoint area of tenderness. Observable lack of soft tissue super/lateral left knee. PT-OP-G Mobility & Gait Start: 01/10/18 15:14 Freq: Status: Active Protocol: Document 01/10/18 15:15 [facility] (Rec: 01/15/18 13:41 [facility] [id number]) OP Mobility Evaluation Bed Mobility Rolling indep Supine to and from Sit indep Transfers Sit to Stand indep but painful Functional Movements Squats painful OP Gait Assessment Gait Gait Assistance Required: Independent Assistive Devices Assistive Device None Gait Deviations General Gait Pattern Antalgic Decreased Stride Length Decreased Feet Clearance Factors Limiting Gait Function Factors Limiting Gait Function Pain Stair Climbing Evaluation Evaluation Level of Assist On Stairs Independent Devices Stair Climbing Assistive Devices Left Railing Right Railing Technique/Endurance Stair Climbing Direction Ascend and Descend Stair Climbing Technique Step to Step Number of Steps Climbed 4 Comments Stair Climbing Comments painful PT-OP-K Range of Motion Start: 01/10/18 15:14 Freq: Status: Active Protocol: Document 01/10/18 15:15 [facility] (Rec: 01/15/18 13:41 [facility] [id number]) Hip Goniometric Range of Motion Hip Measured in Degrees Left Flexion w/Knee Flexed 115 Straight Leg Raise 55 Extension 5 Abduction 40 Internal Rotation 40 External Rotation 45 Right Testing Position Supine Flexion w/Knee Flexed 120 Straight Leg Raise 60 Extension 5 Abduction 35 Internal Rotation 45 External Rotation 40 Hip ROM Limitations Hip ROM Limitations Soft Tissue Tightness Muscle Weakness Knee Goniometric Range of Motion Knee Measured in Degrees Left Knee ROM WFL No Flexion Active (degrees) 120 Extension Active (degrees) 6 Extension Passive (degrees) 5 Right Knee ROM WFL Yes Knee ROM Limitations Knee ROM Limitations Contracture Bony Restriction Ankle and Foot Goniometric Range of Motion Ankle and Foot ROM Limitations ROM Limitations Soft Tissue Tightness Comments bilateral ankle dorsiflexion to 5 deg PT-OP-M Strength Start: 01/10/18 15:14 Freq: Status: Active Protocol: Document 01/10/18 15:15 [facility] (Rec: 01/15/18 13:41 [facility] [id number]) Hip Strength Hip Manual Muscle Testing Left Flexion (L2) 4 Good Extension (S1) 3+ Fair+ Abduction 4- Good- External Rotation 3+ Fair+ Internal Rotation 4- Good- Right Flexion (L2) 4 Good Extension (S1) 3+ Fair+ Abduction 4- Good- External Rotation 3+ Fair+ Internal Rotation 4 Good Knee Strength Knee Manual Muscle Testing Left Flexion (S2) 4 Good Extension (L3) 4- Good- Reason Not Measured Pain Right Flexion (S2) 4+ Good+ Extension (L3) 4+ Good+ Ankle/Foot Strength Ankle and Foot Manual Muscle Testing Left Dorsiflexion (L4) 4+ Good+ Plantarflexion (S1) 4+ Good+ Right Dorsiflexion (L4) 4+ Good+ Plantarflexion (S1) 4+ Good+ PT-OP-Q Treatments Start: 01/10/18 15:14 Freq: Status: Active Protocol: Document 02/08/18 15:15 [facility] (Rec: 02/08/18 16:13 [facility] [id number]) Cardio Equipment Recumbent Stepper (Sci-Fit) Duration (Minutes) 5 Resistance 1 Other emphasis on neutral LE alignment Gym Equipment Shuttle Recovery Unilateral Squats Resistance 75 R, Shuttle Recovery Platform Unstable Reps/Time 10 Bilateral Squats Resistance 100 Shuttle Recovery Platform Unstable Reps/Time 10 Shuttle Balance 1 Details chains red, standing bal, wt shifts Reps/Duration 10 min Therapeutic Exercises Supine Exercises 3 Supine Exercise Name SLR, bridge Reps/Minutes 10x Comments progressed bridge to leg lift Sidelying Exercises 1 Sidelying Exercise Name hip ab Reps/Minutes 10x Comments verbal and manual cues for form Sitting Exercises 1 Sitting Exercise Name Hamstring curl Equipment Used 50 lb darryl, 25 lb unil Standing Exercises 3 Standing Exercise Name Monster walks fwd, back, side Resistance L2 theraband 2 Standing Exercise Name ankle df Equipment Used BETY Reps/Minutes 10x 1 Standing Exercise Name HC stretch Equipment Used BETY Reps/Minutes 2x 30 PT-OP-R Modalities Start: 01/10/18 15:14 Freq: Status: Active Protocol: Document 02/08/18 15:15 [facility] (Rec: 02/08/18 16:13 [facility] [id number]) Electric Stimulation Electric Stimulation Interferential Current (IFC) Body Location left knee Duration (Minutes) 15 Intensity 13 Contraction Type Normal Target/Sweep Sweep High/Low High Patient Position Hooklying Combined With Heat/Cold Cold Pack Iontophoresis Treatment Left Lateral Knee Treatment Medication Dexamethasone (-) Medication Amount (mL) (ml) 4 PT-OP-T Assessment and Plan Start: 01/10/18 15:14 Freq: Status: Active Protocol: Document 02/08/18 15:15 [facility] (Rec: 02/08/18 16:13 [facility] [id number]) Physical Therapy Assessment Goals Four Impairment weakness Short Term Goal (STG) Instruct in HEP with progression as tolerated STG Duration 4 wks Assisted Goal (LTG) Patient to demonstrate 5/5 muscle strength in darryl LE's LTG Duration 3 months Three Impairment soft tissue mobility: right hamstrings, hip flexors, quads , gastroc Short Term Goal (STG) Instruct in HEP STG Duration 2 wks Drywall Mechanic Goal (LTG) Improve ROM to WNL with patient indep with HEP LTG Duration 3 months Two Impairment gait dysfunction Assisted Goal (LTG) Patient able to ambulate on level surfaces without a limp and ascend and descend stairs with minimal UE use with alternating pattern LTG Duration 3 months One Impairment pain left knee 6/10 Drywall Mechanic Goal (LTG) Decrease pain to no greater than 2/10 for improved function and quality of life. LTG Duration 3 months Assessment Summary Assessment Patient requires frequent cues for alignment, muscle activation with ther ex. Improving exercise tolerance overall. Was able to walk to PT approx 1/2 mile. Pain reported 4-5/10 today. Physical Therapy Plan Frequency and Duration Frequency of Treatment 2x/Week Duration of Treatment 3 months Plan of Care Start Date 01/10/18 Plan of Care End Date 04/12/18 Therapeutic Interventions Therapeutic Interventions Aquatic Therapy Gait Training Home Exercise Program Manual Therapy Neuromuscular Re-education Orthotic/Prosthetic Management Patient/Caregiver Education Self-Care/Home Management Soft Tissue Mobilization Taping Therapeutic Activities Therapeutic Exercises Modalities Cold Pack/Ice Massage Electric Stimulation Hot Packs Iontophoresis Ultrasound Next Visit Focus/Plan Next Note Type Treatment Note Next Visit Plan Progress with ther ex, manual treatment, modalities as neweded.
--- NOTE | 2018-02-12 16:37 | PT.OTN ---
Current Diagnoses Pain in unspecified knee (02/12/18) Unspecified urinary incontinence (02/12/18) Fracture of unspecified parts of lumbosacral spine and pelvis, initial encounter for closed fracture (02/12/18) Physical Therapy Treatment Note PT-OP-A Visit Information Start: 01/10/18 15:14 Freq: Status: Active Protocol: Document 02/12/18 16:36 SAK (Rec: 02/12/18 16:37 [facility] [id number]) Out-Patient Physical Therapy Visit Information Visit Information Visit Type Treatment Note Visit Start Time 15:15 Visit Stop Time 16:15 Visit Number 7 Evaluation Information Evaluation Date 01/10/18 PT-OP-B Current Condition Start: 01/10/18 15:14 Freq: Status: Active Protocol: Document 01/10/18 15:15 SAK (Rec: 01/10/18 16:19 SAK [id number]) Current Condition History of Current Condition Onset Date 10/21/17 Current Complaints mild pain from pelvic fracture , primary c/o exacerbation of left knee pain History of Current Condition fractured pelvis Osteoarthritis left knee first TKA 2008, second 2013, knee pain persists. AFter injuring her pelvis, knee pain worsened. left LE swells, doesn't wear compression. Tried a knee brace. Tried aquatic exercise on her own for 30 min, tried to swim but can't. Has tried cold laser, ultrasound, e-stim. Prior Treatments and Tests PT, prior injections, heat, ices often especially after walking. x-ray of knee after fracture showed no problems. Has been told she doesnt have complex regional pain syndrome by 2 neurologists in [place], recent physician in [place] stated he thought she did per patient. Patient also reports prior cortisone injection left knee dissolved the outside fat pad. Future Testing and Treatments Planned None at this time. Treatment Goals Patient/Caregiver Goals Lessen the pain of left knee, increase activity level. PT-OP-C Subjective Start: 01/10/18 15:14 Freq: Status: Active Protocol: Document 02/12/18 15:17 SAK (Rec: 02/12/18 16:08 SAK [id number]) OP-PT Subjective Patient Comments Patient Comments No change after last session. Yesterday had horrible day where she states she could hardly walk. Better ltoday. Didn't do exercises yesterday or today. PT-OP-F Manual Assessment Start: 01/10/18 15:14 Freq: Status: Active Protocol: Document 01/10/18 15:15 [facility] (Rec: 01/15/18 13:41 [facility] [id number]) Manual Assessments Other Manual Assessments Other Manual Assessments Tender to palpation lateral left knee diffusely with no pinpoint area of tenderness. Observable lack of soft tissue super/lateral left knee. PT-OP-G Mobility & Gait Start: 01/10/18 15:14 Freq: Status: Active Protocol: Document 01/10/18 15:15 [facility] (Rec: 01/15/18 13:41 [facility] [id number]) OP Mobility Evaluation Bed Mobility Rolling indep Supine to and from Sit indep Transfers Sit to Stand indep but painful Functional Movements Squats painful OP Gait Assessment Gait Gait Assistance Required: Independent Assistive Devices Assistive Device None Gait Deviations General Gait Pattern Antalgic Decreased Stride Length Decreased Feet Clearance Factors Limiting Gait Function Factors Limiting Gait Function Pain Stair Climbing Evaluation Evaluation Level of Assist On Stairs Independent Devices Stair Climbing Assistive Devices Left Railing Right Railing Technique/Endurance Stair Climbing Direction Ascend and Descend Stair Climbing Technique Step to Step Number of Steps Climbed 4 Comments Stair Climbing Comments painful PT-OP-K Range of Motion Start: 01/10/18 15:14 Freq: Status: Active Protocol: Document 01/10/18 15:15 [facility] (Rec: 01/15/18 13:41 [facility] [id number]) Hip Goniometric Range of Motion Hip Measured in Degrees Left Flexion w/Knee Flexed 115 Straight Leg Raise 55 Extension 5 Abduction 40 Internal Rotation 40 External Rotation 45 Right Testing Position Supine Flexion w/Knee Flexed 120 Straight Leg Raise 60 Extension 5 Abduction 35 Internal Rotation 45 External Rotation 40 Hip ROM Limitations Hip ROM Limitations Soft Tissue Tightness Muscle Weakness Knee Goniometric Range of Motion Knee Measured in Degrees Left Knee ROM WFL No Flexion Active (degrees) 120 Extension Active (degrees) 6 Extension Passive (degrees) 5 Right Knee ROM WFL Yes Knee ROM Limitations Knee ROM Limitations Contracture Bony Restriction Ankle and Foot Goniometric Range of Motion Ankle and Foot ROM Limitations ROM Limitations Soft Tissue Tightness Comments bilateral ankle dorsiflexion to 5 deg PT-OP-M Strength Start: 01/10/18 15:14 Freq: Status: Active Protocol: Document 01/10/18 15:15 [facility] (Rec: 01/15/18 13:41 [facility] [id number]) Hip Strength Hip Manual Muscle Testing Left Flexion (L2) 4 Good Extension (S1) 3+ Fair+ Abduction 4- Good- External Rotation 3+ Fair+ Internal Rotation 4- Good- Right Flexion (L2) 4 Good Extension (S1) 3+ Fair+ Abduction 4- Good- External Rotation 3+ Fair+ Internal Rotation 4 Good Knee Strength Knee Manual Muscle Testing Left Flexion (S2) 4 Good Extension (L3) 4- Good- Reason Not Measured Pain Right Flexion (S2) 4+ Good+ Extension (L3) 4+ Good+ Ankle/Foot Strength Ankle and Foot Manual Muscle Testing Left Dorsiflexion (L4) 4+ Good+ Plantarflexion (S1) 4+ Good+ Right Dorsiflexion (L4) 4+ Good+ Plantarflexion (S1) 4+ Good+ PT-OP-Q Treatments Start: 01/10/18 15:14 Freq: Status: Active Protocol: Document 02/12/18 15:17 [facility] (Rec: 02/12/18 16:35 [facility] [id number]) Therapeutic Exercises Prone Exercises 1 Prone Exercise Name trial quad stretch Comments painful Sidelying Exercises 2 Sidelying Exercise Name clamshell Reps/Minutes 10x 1 Sidelying Exercise Name hip ab Reps/Minutes 10x Comments verbal and manual cues for form Standing Exercises 5 Standing Exercise Name quad stretch trial Comments painful 4 Standing Exercise Name Shallow squats Reps/Minutes x 2 Standing Exercise Name ankle df Equipment Used BETY Reps/Minutes 10x 1 Standing Exercise Name HC stretch Equipment Used BETY Reps/Minutes 2x 30 Therapeutic Activity Therapeutic Activity 2 Name heel raises, toe raises Reps/Minutes 10 x ea Comments min UE support Manual Therapy Treatment Soft Tissue Mobilization 1 Body Location left IT band Mobilization Type Instrument Assisted Intensity/Depth Moderate Body Position Sidelying Comments rolling pin, muscle roller Pt instructed for home use Self-Care/Home Management Treatment Education Patient Education Home Exercise Program Other Education review and correction of performance of HEP, added shallow squats, corrected clamshell performance, hip abd performance PT-OP-R Modalities Start: 01/10/18 15:14 Freq: Status: Active Protocol: Document 02/12/18 15:17 [facility] (Rec: 02/12/18 16:35 [facility] [id number]) Iontophoresis Treatment Left Lateral Knee Treatment Medication Dexamethasone (-) Medication Amount (mL) (ml) 4 PT-OP-T Assessment and Plan Start: 01/10/18 15:14 Freq: Status: Active Protocol: Document 02/12/18 15:17 [facility] (Rec: 02/12/18 16:35 [facility] [id number]) Physical Therapy Assessment Goals Four Impairment weakness Short Term Goal (STG) Instruct in HEP with progression as tolerated STG Duration 4 wks Wage Analyst Goal (LTG) Patient to demonstrate 5/5 muscle strength in darryl LE's LTG Duration 3 months Three Impairment soft tissue mobility: right hamstrings, hip flexors, quads , gastroc Short Term Goal (STG) Instruct in HEP STG Duration 2 wks Wage Analyst Goal (LTG) Improve ROM to WNL with patient indep with HEP LTG Duration 3 months Two Impairment gait dysfunction [facility]iary Goal (LTG) Patient able to ambulate on level surfaces without a limp and ascend and descend stairs with minimal UE use with alternating pattern LTG Duration 3 months One Impairment pain left knee 6/10 [facility] Goal (LTG) Decrease pain to no greater than 2/10 for improved function and quality of life. LTG Duration 3 months Assessment Summary Assessment Patient continues with persistent pain, exacerbation 3 days after last session, cause uncertain. Trials of quad stretches in different positions painful. ligamentous testing. Most painful at joint line. Physical Therapy Plan Frequency and Duration Frequency of Treatment 2x/Week Duration of Treatment 3 months Plan of Care Start Date 01/10/18 Plan of Care End Date 04/12/18 Therapeutic Interventions Therapeutic Interventions Aquatic Therapy Gait Training Home Exercise Program Manual Therapy Neuromuscular Re-education Orthotic/Prosthetic Management Patient/Caregiver Education Self-Care/Home Management Soft Tissue Mobilization Taping Therapeutic Activities Therapeutic Exercises Modalities Cold Pack/Ice Massage Electric Stimulation Hot Packs Iontophoresis Ultrasound Next Visit Focus/Plan Next Note Type Treatment Note Next Visit Plan Progress with ther ex, manual treatment, modalities as needed.
--- NOTE | 2018-02-15 16:28 | PT.OTN ---
Current Diagnoses Pain in unspecified knee (02/15/18) Unspecified urinary incontinence (02/15/18) Fracture of unspecified parts of lumbosacral spine and pelvis, initial encounter for closed fracture (02/15/18) Physical Therapy Treatment Note PT-OP-A Visit Information Start: 01/10/18 15:14 Freq: Status: Active Protocol: Document 02/15/18 15:15 [facility] (Rec: 02/15/18 16:28 [facility] [id number]) Out-Patient Physical Therapy Visit Information Visit Information Visit Type Treatment Note Visit Start Time 15:15 Visit Stop Time 16:10 Total Visit Minutes 55 Visit Number 8 Number of [employer] Visits 0 PT-OP-B Current Condition Start: 01/10/18 15:14 Freq: Status: Active Protocol: Document 01/10/18 15:15 SAK (Rec: 01/10/18 16:19 [facility] [id number]) Current Condition History of Current Condition Onset Date 10/21/17 Current Complaints mild pain from pelvic fracture , primary c/o exacerbation of left knee pain History of Current Condition fractured pelvis Osteoarthritis left knee first TKA 2008, second 2013, knee pain persists. AFter injuring her pelvis, knee pain worsened. left LE swells, doesn't wear compression. Tried a knee brace. Tried aquatic exercise on her own for 30 min, tried to swim but can't. Has tried cold laser, ultrasound, e-stim. Prior Treatments and Tests PT, prior injections, heat, ices often especially after walking. x-ray of knee after fracture showed no problems. Has been told she doesnt have complex regional pain syndrome by 2 neurologists in [place], recent physician in [place] stated he thought she did per patient. Patient also reports prior cortisone injection left knee dissolved the outside fat pad. Future Testing and Treatments Planned None at this time. Treatment Goals Patient/Caregiver Goals Lessen the pain of left knee, increase activity level. PT-OP-C Subjective Start: 01/10/18 15:14 Freq: Status: Active Protocol: Document 02/15/18 15:15 SAK (Rec: 02/15/18 16:12 SAK [id number]) OP-PT Subjective Patient Comments Patient Comments In a lot of pain after last session. Worst pain at toe-off . PT-OP-F Manual Assessment Start: 01/10/18 15:14 Freq: Status: Active Protocol: Document 01/10/18 15:15 [facility] (Rec: 01/15/18 13:41 [facility] [id number]) Manual Assessments Other Manual Assessments Other Manual Assessments Tender to palpation lateral left knee diffusely with no pinpoint area of tenderness. Observable lack of soft tissue super/lateral left knee. PT-OP-G Mobility & Gait Start: 01/10/18 15:14 Freq: Status: Active Protocol: Document 01/10/18 15:15 [facility] (Rec: 01/15/18 13:41 [facility] [id number]) OP Mobility Evaluation Bed Mobility Rolling indep Supine to and from Sit indep Transfers Sit to Stand indep but painful Functional Movements Squats painful OP Gait Assessment Gait Gait Assistance Required: Independent Assistive Devices Assistive Device None Gait Deviations General Gait Pattern Antalgic Decreased Stride Length Decreased Feet Clearance Factors Limiting Gait Function Factors Limiting Gait Function Pain Stair Climbing Evaluation Evaluation Level of Assist On Stairs Independent Devices Stair Climbing Assistive Devices Left Railing Right Railing Technique/Endurance Stair Climbing Direction Ascend and Descend Stair Climbing Technique Step to Step Number of Steps Climbed 4 Comments Stair Climbing Comments painful PT-OP-K Range of Motion Start: 01/10/18 15:14 Freq: Status: Active Protocol: Document 01/10/18 15:15 [facility] (Rec: 01/15/18 13:41 [facility] [id number]) Hip Goniometric Range of Motion Hip Measured in Degrees Left Flexion w/Knee Flexed 115 Straight Leg Raise 55 Extension 5 Abduction 40 Internal Rotation 40 External Rotation 45 Right Testing Position Supine Flexion w/Knee Flexed 120 Straight Leg Raise 60 Extension 5 Abduction 35 Internal Rotation 45 External Rotation 40 Hip ROM Limitations Hip ROM Limitations Soft Tissue Tightness Muscle Weakness Knee Goniometric Range of Motion Knee Measured in Degrees Left Knee ROM WFL No Flexion Active (degrees) 120 Extension Active (degrees) 6 Extension Passive (degrees) 5 Right Knee ROM WFL Yes Knee ROM Limitations Knee ROM Limitations Contracture Bony Restriction Ankle and Foot Goniometric Range of Motion Ankle and Foot ROM Limitations ROM Limitations Soft Tissue Tightness Comments bilateral ankle dorsiflexion to 5 deg PT-OP-M Strength Start: 01/10/18 15:14 Freq: Status: Active Protocol: Document 01/10/18 15:15 [facility] (Rec: 01/15/18 13:41 [facility] [id number]) Hip Strength Hip Manual Muscle Testing Left Flexion (L2) 4 Good Extension (S1) 3+ Fair+ Abduction 4- Good- External Rotation 3+ Fair+ Internal Rotation 4- Good- Right Flexion (L2) 4 Good Extension (S1) 3+ Fair+ Abduction 4- Good- External Rotation 3+ Fair+ Internal Rotation 4 Good Knee Strength Knee Manual Muscle Testing Left Flexion (S2) 4 Good Extension (L3) 4- Good- Reason Not Measured Pain Right Flexion (S2) 4+ Good+ Extension (L3) 4+ Good+ Ankle/Foot Strength Ankle and Foot Manual Muscle Testing Left Dorsiflexion (L4) 4+ Good+ Plantarflexion (S1) 4+ Good+ Right Dorsiflexion (L4) 4+ Good+ Plantarflexion (S1) 4+ Good+ PT-OP-Q Treatments Start: 01/10/18 15:14 Freq: Status: Active Protocol: Document 02/15/18 15:15 [facility] (Rec: 02/15/18 16:28 [facility] [id number]) Cardio Equipment Recumbent Elliptical (Biodex) Duration (Minutes) 10 Resistance 2 Therapeutic Exercises Standing Exercises 2 Standing Exercise Name ankle df Equipment Used BETY Reps/Minutes 10x 1 Standing Exercise Name HC stretch Equipment Used BETY Reps/Minutes 2x 30 Manual Therapy Treatment Soft Tissue Mobilization 2 Body Location left quads, hamstrrings, IT band Mobilization Type Strumming Intensity/Depth Moderate Body Position Hooklying Comments palpable tightness left medial hamstring PT-OP-R Modalities Start: 01/10/18 15:14 Freq: Status: Active Protocol: Document 02/15/18 15:15 [facility] (Rec: 02/15/18 16:28 [facility] [id number]) Hot Pack/Cold Pack Treatment Hot Pack Location left quads, hamstrings, ITband Patient Position Hooklying Treatment Duration (minutes) 15 Patient Tolerance Good Comments to decrease muscle tightness and pain PT-OP-T Assessment and Plan Start: 01/10/18 15:14 Freq: Status: Active Protocol: Document 02/15/18 15:15 [facility] (Rec: 02/15/18 16:28 [facility] [id number]) Physical Therapy Assessment Goals Four Impairment weakness Short Term Goal (STG) Instruct in HEP with progression as tolerated STG Duration 4 wks Hypnotherapist Goal (LTG) Patient to demonstrate 5/5 muscle strength in darryl LE's LTG Duration 3 months Three Impairment soft tissue mobility: right hamstrings, hip flexors, quads , gastroc Short Term Goal (STG) Instruct in HEP STG Duration 2 wks Care Home Goal (LTG) Improve ROM to WNL with patient indep with HEP LTG Duration 3 months Two Impairment gait dysfunction Care Home Goal (LTG) Patient able to ambulate on level surfaces without a limp and ascend and descend stairs with minimal UE use with alternating pattern LTG Duration 3 months One Impairment pain left knee 6/10 Hypnotherapist Goal (LTG) Decrease pain to no greater than 2/10 for improved function and quality of life. LTG Duration 3 months Progress Towards Goals Progress Towards Goals Slow Progress - Other Assessment Summary Assessment Patient reports manual treatment followed by heat felt good today. Increased focus on LE IR with HC stretch for increased lateral stretching. Physical Therapy Plan Frequency and Duration Frequency of Treatment 2x/Week Duration of Treatment 3 months Plan of Care Start Date 01/10/18 Plan of Care End Date 04/12/18 Therapeutic Interventions Therapeutic Interventions Aquatic Therapy Gait Training Home Exercise Program Manual Therapy Neuromuscular Re-education Orthotic/Prosthetic Management Patient/Caregiver Education Self-Care/Home Management Soft Tissue Mobilization Taping Therapeutic Activities Therapeutic Exercises Modalities Cold Pack/Ice Massage Electric Stimulation Hot Packs Iontophoresis Ultrasound Next Visit Focus/Plan Next Note Type Treatment Note Next Visit Plan Assess response to last session, determine need for further PT.
--- NOTE | 2018-03-06 15:47 | PT.OTN ---
Current Diagnoses Pain in unspecified knee (03/06/18) Unspecified urinary incontinence (03/06/18) Fracture of unspecified parts of lumbosacral spine and pelvis, initial encounter for closed fracture (03/06/18) Physical Therapy Treatment Note PT-OP-A Visit Information Start: 01/10/18 15:14 Freq: Status: Active Protocol: Document 03/06/18 15:34 [facility] (Rec: 03/06/18 15:47 [facility] [id number]) Out-Patient Physical Therapy Visit Information Visit Information Visit Type Treatment Note Visit Start Time 14:30 Visit Stop Time 15:20 Total Visit Minutes 50 Visit Number 9 Number of CROP RESEARCH SCIENTIST Visits 0 PT-OP-B Current Condition Start: 01/10/18 15:14 Freq: Status: Active Protocol: Document 01/10/18 15:15 [facility] (Rec: 01/10/18 16:19 [facility] [id number]) Current Condition History of Current Condition Onset Date 10/21/17 Current Complaints mild pain from pelvic fracture , primary c/o exacerbation of left knee pain History of Current Condition fractured pelvis Osteoarthritis left knee first TKA 2008, second 2013, knee pain persists. AFter injuring her pelvis, knee pain worsened. left LE swells, doesn't wear compression. Tried a knee brace. Tried aquatic exercise on her own for 30 min, tried to swim but can't. Has tried cold laser, ultrasound, e-stim. Prior Treatments and Tests PT, prior injections, heat, ices often especially after walking. x-ray of knee after fracture showed no problems. Has been told she doesnt have complex regional pain syndrome by 2 neurologists in [place], recent physician in [place] stated he thought she did per patient. Patient also reports prior cortisone injection left knee dissolved the outside fat pad. Future Testing and Treatments Planned None at this time. Treatment Goals Patient/Caregiver Goals Lessen the pain of left knee, increase activity level. PT-OP-C Subjective Start: 01/10/18 15:14 Freq: Status: Active Protocol: Document 03/06/18 15:34 [facility] (Rec: 03/06/18 15:47 [facility] [id number]) OP-PT Subjective Patient Comments Patient Comments Had a bad few days after last PT session again, better today . Trying to get scheduled with pain doctor. PT-OP-F Manual Assessment Start: 01/10/18 15:14 Freq: Status: Active Protocol: Document 01/10/18 15:15 [facility] (Rec: 01/15/18 13:41 [facility] [id number]) Manual Assessments Other Manual Assessments Other Manual Assessments Tender to palpation lateral left knee diffusely with no pinpoint area of tenderness. Observable lack of soft tissue super/lateral left knee. PT-OP-G Mobility & Gait Start: 01/10/18 15:14 Freq: Status: Active Protocol: Document 01/10/18 15:15 [facility] (Rec: 01/15/18 13:41 [facility] [id number]) OP Mobility Evaluation Bed Mobility Rolling indep Supine to and from Sit indep Transfers Sit to Stand indep but painful Functional Movements Squats painful OP Gait Assessment Gait Gait Assistance Required: Independent Assistive Devices Assistive Device None Gait Deviations General Gait Pattern Antalgic Decreased Stride Length Decreased Feet Clearance Factors Limiting Gait Function Factors Limiting Gait Function Pain Stair Climbing Evaluation Evaluation Level of Assist On Stairs Independent Devices Stair Climbing Assistive Devices Left Railing Right Railing Technique/Endurance Stair Climbing Direction Ascend and Descend Stair Climbing Technique Step to Step Number of Steps Climbed 4 Comments Stair Climbing Comments painful PT-OP-K Range of Motion Start: 01/10/18 15:14 Freq: Status: Active Protocol: Document 01/10/18 15:15 [facility] (Rec: 01/15/18 13:41 [facility] [id number]) Hip Goniometric Range of Motion Hip Measured in Degrees Left Flexion w/Knee Flexed 115 Straight Leg Raise 55 Extension 5 Abduction 40 Internal Rotation 40 External Rotation 45 Right Testing Position Supine Flexion w/Knee Flexed 120 Straight Leg Raise 60 Extension 5 Abduction 35 Internal Rotation 45 External Rotation 40 Hip ROM Limitations Hip ROM Limitations Soft Tissue Tightness Muscle Weakness Knee Goniometric Range of Motion Knee Measured in Degrees Left Knee ROM WFL No Flexion Active (degrees) 120 Extension Active (degrees) 6 Extension Passive (degrees) 5 Right Knee ROM WFL Yes Knee ROM Limitations Knee ROM Limitations Contracture Bony Restriction Ankle and Foot Goniometric Range of Motion Ankle and Foot ROM Limitations ROM Limitations Soft Tissue Tightness Comments bilateral ankle dorsiflexion to 5 deg PT-OP-M Strength Start: 01/10/18 15:14 Freq: Status: Active Protocol: Document 01/10/18 15:15 [facility] (Rec: 01/15/18 13:41 [facility] [id number]) Hip Strength Hip Manual Muscle Testing Left Flexion (L2) 4 Good Extension (S1) 3+ Fair+ Abduction 4- Good- External Rotation 3+ Fair+ Internal Rotation 4- Good- Right Flexion (L2) 4 Good Extension (S1) 3+ Fair+ Abduction 4- Good- External Rotation 3+ Fair+ Internal Rotation 4 Good Knee Strength Knee Manual Muscle Testing Left Flexion (S2) 4 Good Extension (L3) 4- Good- Reason Not Measured Pain Right Flexion (S2) 4+ Good+ Extension (L3) 4+ Good+ Ankle/Foot Strength Ankle and Foot Manual Muscle Testing Left Dorsiflexion (L4) 4+ Good+ Plantarflexion (S1) 4+ Good+ Right Dorsiflexion (L4) 4+ Good+ Plantarflexion (S1) 4+ Good+ PT-OP-Q Treatments Start: 01/10/18 15:14 Freq: Status: Active Protocol: Document 03/06/18 15:34 [facility] (Rec: 03/06/18 15:47 [facility] [id number]) Therapeutic Exercises Sitting Exercises 2 Sitting Exercise Name towel scrunch Comments for strengthenng of medial longitudinal arch Therapeutic Activity Therapeutic Activity 3 Comments reassessment of LE alignment, discussion of benefits of orthotics. Manual Therapy Treatment Taping 2 Body Location left foot Treatment Focus arch support, realignment Type of Tape Kinesio Tape Self-Care/Home Management Treatment Education Other Education Superfeet orthotics; multiple types and sizes tried; Webster size F seems most appropriate. Patient to go to [employer] for certified fitter. Discussion/education regarding importance of LE alignment for improved biomechanics and reduction of pain. PT-OP-R Modalities Start: 01/10/18 15:14 Freq: Status: Active Protocol: Document 02/15/18 15:15 [facility] (Rec: 02/15/18 16:28 [facility] [id number]) Hot Pack/Cold Pack Treatment Hot Pack Location left quads, hamstrings, ITband Patient Position Hooklying Treatment Duration (minutes) 15 Patient Tolerance Good Comments to decrease muscle tightness and pain PT-OP-T Assessment and Plan Start: 01/10/18 15:14 Freq: Status: Active Protocol: Document 03/06/18 15:34 [facility] (Rec: 03/06/18 15:47 [facility] [id number]) Physical Therapy Assessment Goals Four Impairment weakness Short Term Goal (STG) Instruct in HEP with progression as tolerated STG Duration 4 wks Custodial Goal (LTG) Patient to demonstrate 5/5 muscle strength in darryl LE's LTG Duration 3 months Three Impairment soft tissue mobility: right hamstrings, hip flexors, quads , gastroc Short Term Goal (STG) Instruct in HEP STG Duration 2 wks Custodial Goal (LTG) Improve ROM to WNL with patient indep with HEP LTG Duration 3 months Two Impairment gait dysfunction [facility] Goal (LTG) Patient able to ambulate on level surfaces without a limp and ascend and descend stairs with minimal UE use with alternating pattern LTG Duration 3 months One Impairment pain left knee 6/10 [facility] Goal (LTG) Decrease pain to no greater than 2/10 for improved function and quality of life. LTG Duration 3 months Progress Towards Goals Progress Comments No significant progress with pain. Assessment Summary Assessment Patient has decreased left longitudinal arch, had previously discussed orthotics but willing to revisit discussion due to persistent pain. Recommended patient see certified fitter due to difficulty with good fit in clinic today. Physical Therapy Plan Frequency and Duration Frequency of Treatment 2x/Week Duration of Treatment 3 months Plan of Care Start Date 01/10/18 Plan of Care End Date 04/12/18 Therapeutic Interventions Therapeutic Interventions Aquatic Therapy Gait Training Home Exercise Program Manual Therapy Neuromuscular Re-education Orthotic/Prosthetic Management Patient/Caregiver Education Self-Care/Home Management Soft Tissue Mobilization Taping Therapeutic Activities Therapeutic Exercises Modalities Cold Pack/Ice Massage Electric Stimulation Hot Packs Iontophoresis Ultrasound Next Visit Focus/Plan Next Note Type Treatment Note Next Visit Plan 1 further PT session scheduled ; evaluate response to orthotics, review HEP, self- care.
--- NOTE | 2018-03-12 16:20 | PT.OTN ---
Current Diagnoses Pain in unspecified knee (03/12/18) Unspecified urinary incontinence (03/12/18) Fracture of unspecified parts of lumbosacral spine and pelvis, initial encounter for closed fracture (03/12/18) Physical Therapy Treatment Note PT-OP-A Visit Information Start: 01/10/18 15:14 Freq: Status: Active Protocol: Document 03/12/18 16:08 [facility] (Rec: 03/12/18 16:20 [facility] [id number]) Out-Patient Physical Therapy Visit Information Visit Information Visit Type Treatment Note Visit Start Time 15:15 Visit Stop Time 16:00 Total Visit Minutes 45 Visit Number 10 Number of GROCERY BUYER Visits 0 PT-OP-B Current Condition Start: 01/10/18 15:14 Freq: Status: Active Protocol: Document 01/10/18 15:15 [facility] (Rec: 01/10/18 16:19 [facility] [id number]) Current Condition History of Current Condition Onset Date 10/21/17 Current Complaints mild pain from pelvic fracture , primary c/o exacerbation of left knee pain History of Current Condition fractured pelvis Osteoarthritis left knee first TKA 2008, second 2013, knee pain persists. AFter injuring her pelvis, knee pain worsened. left LE swells, doesn't wear compression. Tried a knee brace. Tried aquatic exercise on her own for 30 min, tried to swim but can't. Has tried cold laser, ultrasound, e-stim. Prior Treatments and Tests PT, prior injections, heat, ices often especially after walking. x-ray of knee after fracture showed no problems. Has been told she doesnt have complex regional pain syndrome by 2 neurologists in [place], recent physician in [place] stated he thought she did per patient. Patient also reports prior cortisone injection left knee dissolved the outside fat pad. Future Testing and Treatments Planned None at this time. Treatment Goals Patient/Caregiver Goals Lessen the pain of left knee, increase activity level. PT-OP-C Subjective Start: 01/10/18 15:14 Freq: Status: Active Protocol: Document 03/12/18 16:08 [facility] (Rec: 03/12/18 16:20 [facility] [id number]) OP-PT Subjective Patient Comments Patient Comments Patient reports continued pain , trying to do HEP, but discouraged. Just started an anti-depressant. Went to have orthotic fitting but wasn't pleased with expertise of staff at [facility]; asks for further PT help. Also reminds PT of leg length discrepancy. PT-OP-F Manual Assessment Start: 01/10/18 15:14 Freq: Status: Active Protocol: Document 01/10/18 15:15 [facility] (Rec: 01/15/18 13:41 [facility] [id number]) Manual Assessments Other Manual Assessments Other Manual Assessments Tender to palpation lateral left knee diffusely with no pinpoint area of tenderness. Observable lack of soft tissue super/lateral left knee. PT-OP-G Mobility & Gait Start: 01/10/18 15:14 Freq: Status: Active Protocol: Document 01/10/18 15:15 [facility] (Rec: 01/15/18 13:41 [facility] [id number]) OP Mobility Evaluation Bed Mobility Rolling indep Supine to and from Sit indep Transfers Sit to Stand indep but painful Functional Movements Squats painful OP Gait Assessment Gait Gait Assistance Required: Independent Assistive Devices Assistive Device None Gait Deviations General Gait Pattern Antalgic Decreased Stride Length Decreased Feet Clearance Factors Limiting Gait Function Factors Limiting Gait Function Pain Stair Climbing Evaluation Evaluation Level of Assist On Stairs Independent Devices Stair Climbing Assistive Devices Left Railing Right Railing Technique/Endurance Stair Climbing Direction Ascend and Descend Stair Climbing Technique Step to Step Number of Steps Climbed 4 Comments Stair Climbing Comments painful PT-OP-K Range of Motion Start: 01/10/18 15:14 Freq: Status: Active Protocol: Document 01/10/18 15:15 [facility] (Rec: 01/15/18 13:41 [facility] [id number]) Hip Goniometric Range of Motion Hip Measured in Degrees Left Flexion w/Knee Flexed 115 Straight Leg Raise 55 Extension 5 Abduction 40 Internal Rotation 40 External Rotation 45 Right Testing Position Supine Flexion w/Knee Flexed 120 Straight Leg Raise 60 Extension 5 Abduction 35 Internal Rotation 45 External Rotation 40 Hip ROM Limitations Hip ROM Limitations Soft Tissue Tightness Muscle Weakness Knee Goniometric Range of Motion Knee Measured in Degrees Left Knee ROM WFL No Flexion Active (degrees) 120 Extension Active (degrees) 6 Extension Passive (degrees) 5 Right Knee ROM WFL Yes Knee ROM Limitations Knee ROM Limitations Contracture Bony Restriction Ankle and Foot Goniometric Range of Motion Ankle and Foot ROM Limitations ROM Limitations Soft Tissue Tightness Comments bilateral ankle dorsiflexion to 5 deg PT-OP-M Strength Start: 01/10/18 15:14 Freq: Status: Active Protocol: Document 01/10/18 15:15 [facility] (Rec: 01/15/18 13:41 [facility] [id number]) Hip Strength Hip Manual Muscle Testing Left Flexion (L2) 4 Good Extension (S1) 3+ Fair+ Abduction 4- Good- External Rotation 3+ Fair+ Internal Rotation 4- Good- Right Flexion (L2) 4 Good Extension (S1) 3+ Fair+ Abduction 4- Good- External Rotation 3+ Fair+ Internal Rotation 4 Good Knee Strength Knee Manual Muscle Testing Left Flexion (S2) 4 Good Extension (L3) 4- Good- Reason Not Measured Pain Right Flexion (S2) 4+ Good+ Extension (L3) 4+ Good+ Ankle/Foot Strength Ankle and Foot Manual Muscle Testing Left Dorsiflexion (L4) 4+ Good+ Plantarflexion (S1) 4+ Good+ Right Dorsiflexion (L4) 4+ Good+ Plantarflexion (S1) 4+ Good+ PT-OP-Q Treatments Start: 01/10/18 15:14 Freq: Status: Active Protocol: Document 03/12/18 16:08 [facility] (Rec: 03/12/18 16:20 [facility] [id number]) Cardio Equipment Recumbent Elliptical (Biodex) Duration (Minutes) 10 Resistance 2 Therapeutic Exercises Standing Exercises 2 Standing Exercise Name ankle df Equipment Used BETY Reps/Minutes 10x 1 Standing Exercise Name HC stretch Equipment Used BETY Reps/Minutes 2x 30 Self-Care/Home Management Treatment Education Other Education Cut 1/16th inch and 1/8th inch cork for shoe; instructed patient in wearing schedule trial starting with smallest. Reassessed Superfeet fit, got Size F in Green back in stock ; appeared to be best fit for patient. If cork inserts not helpful will obtain orthotics Activities Self-Care/Home Management Activities reviewed HEP, use of ice and heat. PT-OP-R Modalities Start: 01/10/18 15:14 Freq: Status: Active Protocol: Document 02/15/18 15:15 [facility] (Rec: 02/15/18 16:28 [facility] [id number]) Hot Pack/Cold Pack Treatment Hot Pack Location left quads, hamstrings, ITband Patient Position Hooklying Treatment Duration (minutes) 15 Patient Tolerance Good Comments to decrease muscle tightness and pain PT-OP-T Assessment and Plan Start: 01/10/18 15:14 Freq: Status: Active Protocol: Document 03/12/18 16:08 [facility] (Rec: 03/12/18 16:20 [facility] [id number]) Physical Therapy Assessment Goals Four Impairment weakness Short Term Goal (STG) Instruct in HEP with progression as tolerated STG Duration 4 wks White Mixing Operator Goal (LTG) Patient to demonstrate 5/5 muscle strength in darryl LE's LTG Duration 3 months Three Impairment soft tissue mobility: right hamstrings, hip flexors, quads , gastroc Short Term Goal (STG) Instruct in HEP STG Duration 2 wks White Mixing Operator Goal (LTG) Improve ROM to WNL with patient indep with HEP LTG Duration 3 months Two Impairment gait dysfunction White Mixing Operator Goal (LTG) Patient able to ambulate on level surfaces without a limp and ascend and descend stairs with minimal UE use with alternating pattern LTG Duration 3 months One Impairment pain left knee 6/10 White Mixing Operator Goal (LTG) Decrease pain to no greater than 2/10 for improved function and quality of life. LTG Duration 3 months Progress Towards Goals Progress Comments Patient demonstrates some mild improvements in strength but pain persists. She will try cork in shoe as instructed, if not helpful will obtain orthtics for trial. Is working with her physician regarding referral to pain specialist. Assessment Summary Assessment No further PT indicated at this time. Patient to followll-up with her physician . Physical Therapy Plan Discharge Physical Therapy Discharge Comments no significant progress, discharge from PT.
== END 2018-03-12 18:00 ==
LOC: PHYS 15:15
PROVIDERS: PCP Family Medicine; Visit Provider Family Medicine
DX: R32 Unspecified urinary incontinence (principal); M25.569 Pain in unspecified knee; S32.9XXA Fracture of unspecified parts of lumbosacral spine and pelvis, initial encounter for closed fracture
CPT/HCPCS: 97010; 97014; 97110; 97116; 97140; 97162; 97530; 97535; G0283

== ENCOUNTER 2018-03-28 12:18 | Day surgery (SDC) | payer OTHER, SELFPAY ==
[2018-03-28 12:33] VITALS: BMI 23.3
[2018-03-28] MEDS: PROPARACAINE 0.5% OPHTH SOL 2 DROPS EYE-OP (12:35)
[2018-03-28] MEDS: CATARACT EYE COMPOUND (10 DROPS/SYRINGE) 3 DROPS EYE-OP (12:40)
[2018-03-28 12:47] VITALS: BMI 23.3
[2018-03-28 12:48] VITALS: BP 140/74; PULSE 86; RESP 20; TEMP 36.6; O2SAT 100
--- NOTE | 2018-03-28 13:43 | PM.PREOP ---
Pre-operative Note Interval Note Pre-op Check: Yes History & Physical Reviewed by Physician Changes: No
[2018-03-28] MEDS: CHONDROIDTIN/SOD HYALURONATE 1.05 ML SYRINGE INTRAOCULA (14:17)
[2018-03-28] MEDS: LIDOCAINE JELLY 2% 5 ML 1 APPLIC TOP (14:18)
[2018-03-28] MEDS: MOXIFLOXACIN OPHTH DROPS 3 ML BOTTLE 2 DROPS INJ ×2 (14:18→14:19)
[2018-03-28] MEDS: PHENYLEPHRINE/LIDOCAINE VIAL (OR) 0.2 ML EYE-OP (14:19)
[2018-03-28] MEDS: BALANCED SALT IRRIG SOLN NO.2 500 ML, EPINEPHrine 1 MG IRR (14:20)
--- NOTE | 2018-03-28 14:49 | PM.OP.1 ---
Operative Date/Time/Diagnoses Date of procedure: 03/28/18 Time of procedure: 14:49 Pre-op diagnosis: Visually significant cataract, right eye Post-op diagnosis: same
--- NOTE | 2018-03-28 14:49 | PM.OP.1 ---
Procedure & Clinicians Procedure: cataract extraction with intraocular lens implant, right eye Same procedure as scheduled: Yes Surgeon: Chidi Vaughn Anesthesia Type: MAC +/- Operative Notes Procedure in detail: The patient was brought back into the operating room. Timeout was performed, the correct patient, procedure and site were confirmed. The patient's cornea was marked with a reference marker. The right eye was prepped and draped in the typical sterile fashion. A paracentesis was created left to the main wound site. 1% preservative free lidocaine was injected into the anterior chamber, then visoelastic was injected. The main wound was created with a 2.6mm Keratome and a capsulorhexis was created with a cystotome and Utrada forceps. The lens was removed with phaocemulsification and the bag was polished. The bag was inflated with viscoelastic. The cornea was marked at 180 degrees. An Gridsum ZCT 225 20.5D lens was inserted into the bag and rotated to 180 degrees. The wound was hydrated and found to be water tight. The eye was found to be at physiologic pressure. The patient tolerated the procedure well. Complications: none Condition: stable Disposition: same day surgery
[2018-03-28 14:50] VITALS: BP 147/76; PULSE 69; RESP 12; TEMP 36.7; O2SAT 98
--- NOTE | 2018-03-28 14:52 | P.OP_ITS ---
Procedure & Clinicians Procedure: cataract extraction with intraocular lens implant, right eye Same procedure as scheduled: Yes Surgeon: Chidi Vaughn Anesthesia Type: MAC +/- Operative Notes Procedure in detail: The patient was brought back into the operating room. Timeout was performed, the correct patient, procedure and site were confirmed. The patient's cornea was marked with a reference marker. The right eye was prepped and draped in the typical sterile fashion. A paracentesis was created left to the main wound site. 1% preservative free lidocaine was injected into the anterior chamber, then visoelastic was injected. The main wound was created with a 2.6mm Keratome and a capsulorhexis was created with a cystotome and Utrada forceps. The lens was removed with phaocemulsification and the bag was polished. The bag was inflated with viscoelastic. The cornea was marked at 180 degrees. An FundedByMe ZCT 225 20.5D lens was inserted into the bag and rotated to 180 degrees. The wound was hydrated and found to be water tight. The eye was found to be at physiologic pressure. The patient tolerated the procedure well. Complications: none Condition: stable Disposition: same day surgery
== END 2018-03-28 15:05 ==
LOC: OR 12:19
PROVIDERS: Family Provider Family Medicine; PCP Family Medicine; Visit Provider Ophthalmology
DX: H25.21 Age-related cataract, morgagnian type, right eye (principal)
CPT/HCPCS: J0171; J2250; J3010; V2787

== ENCOUNTER 2018-04-25 14:22 | Day surgery (SDC) | payer OTHER, SELFPAY ==
[2018-04-25] MEDS: PROPARACAINE 0.5% OPHTH SOL 2 DROPS EYE-OP (16:18)
[2018-04-25] MEDS: CATARACT EYE COMPOUND (10 DROPS/SYRINGE) 3 DROPS EYE-OP (16:20)
[2018-04-25 16:24] VITALS: BP 153/82; PULSE 72; RESP 16; TEMP 36.7; O2SAT 100; BMI 24.1
[2018-04-25] MEDS: PHENYLEPHRINE/LIDOCAINE VIAL (OR) 0.2 ML EYE-OP (17:00)
[2018-04-25] MEDS: MOXIFLOXACIN OPHTH DROPS 3 ML BOTTLE 2 DROPS INJ (17:00)
[2018-04-25] MEDS: CHONDROIDTIN/SOD HYALURONATE 1.05 ML SYRINGE INTRAOCULA (17:00)
[2018-04-25] MEDS: BALANCED SALT IRRIG SOLN NO.2 500 ML, EPINEPHrine 1 MG IRR (17:01)
[2018-04-25] MEDS: TETRACAINE 0.5% OPHTH DROPS 15 ML 2 DROPS EYE-LEFT (17:02)
--- NOTE | 2018-04-25 17:20 | PM.OP.1 ---
Procedure & Clinicians Procedure: Cataract extraction with intraocular lens implant left eye Indications: blurry vision Surgeon: Chidi Vaughn Click Yes if Unassisted: Yes Anesthesia Type: MAC +/- Operative Notes Procedure in detail: The patient was brought to the operating suite. The correct patient, surgical site and lens were confirmed. 0.5 % tetracaine drops were placed in the left eye. The cornea was marked with a reference marker. The patient was prepped and draped in the typical sterile manner. A lid speculum was placed in the eye. A paracentesis port was created with a side-port blade. 0.1 mL of 1% preservative free lidocaine was injected into the anterior chamber. Viscoelastic was injected into the anterior chamber. A 2.6mm keratome was used to create a clear corneal temporal incision. Cystotome and Utrata forceps were used to create a continuous curvilinear capsulorrhexis. Balanced salt solution was used to hydrodissect the nucleus. Phacoemulsification was used to remove the lens. The capsular bag was inflated with viscoelastic. A Velez [id number] 22.0CD lens was inserted into the capsule and rotated to 10 degrees. Viscoelastic was removed and the wound hydrated. The wound was found to be leak free and the eye was assessed to be at normal physiologic pressure. 0.1mL Vigamox was injected into the anterior chamber. The lid speculum was removed and the patient left the operating room in excellent condition. Condition: stable Disposition: same day surgery
[2018-04-25 17:22] VITALS: BP 149/76; PULSE 78; RESP 16; TEMP 36.8; O2SAT 99
--- NOTE | 2018-04-25 17:23 | P.OP_ITS ---
Procedure & Clinicians Procedure: Cataract extraction with intraocular lens implant left eye Indications: blurry vision Surgeon: Chidi Vaughn Click Yes if Unassisted: Yes Anesthesia Type: MAC +/- Operative Notes Procedure in detail: The patient was brought to the operating suite. The correct patient, surgical site and lens were confirmed. 0.5 % tetracaine drops were placed in the left eye. The cornea was marked with a reference marker. The patient was prepped and draped in the typical sterile manner. A lid speculum was placed in the eye. A paracentesis port was created with a side- port blade. 0.1 mL of 1% preservative free lidocaine was injected into the anterior chamber. Viscoelastic was injected into the anterior chamber. A 2.6mm keratome was used to create a clear corneal temporal incision. Cystotome and Utrata forceps were used to create a continuous curvilinear capsulorrhexis. Balanced salt solution was used to hydrodissect the nucleus. Phacoemulsification was used to remove the lens. The capsular bag was inflated with viscoelastic. A Velez [id number] 22.0CD lens was inserted into the capsule and rotated to 10 degrees. Viscoelastic was removed and the wound hydrated. The wound was found to be leak free and the eye was assessed to be at normal physiologic pressure. 0.1mL Vigamox was injected into the anterior chamber. The lid speculum was removed and the patient left the operating room in excellent condition. Condition: stable Disposition: same day surgery
== END 2018-04-25 17:44 | disposition home or self-care (01) ==
LOC: OR 14:23
PROVIDERS: Family Provider Family Medicine; PCP Family Medicine; Visit Provider Ophthalmology
DX: H25.12 Age-related nuclear cataract, left eye (principal)
CPT/HCPCS: J0171; J2250; J2704; V2787

== ENCOUNTER → 2018-05-07 14:52 | Outpatient (CLI) | payer OTHER, SELFPAY ==
[2018-05-10 19:06] LABS: Clostridium Difficile Tox PCR Negative for C. diff
== END ==
PROVIDERS: Family Provider Family Medicine; PCP Family Medicine; Visit Provider Family Medicine
DX: R19.7 Diarrhea, unspecified (principal)
CPT/HCPCS: 87493

== ENCOUNTER → 2018-05-10 09:41 | Outpatient (CLI) | payer OTHER, SELFPAY | PROVIDERS: PCP Family Medicine; Visit Provider Family Medicine | DX: R19.7 Diarrhea, unspecified (principal) | CPT/HCPCS: 87015; 87045; 87177; 87427; 87899 ==

== ENCOUNTER → 2018-08-26 11:14 | Outpatient (CLI) | payer OTHER, SELFPAY ==
--- NOTE | 2018-08-26 | DI.MG.S_ITS ---
BILATERAL DIGITAL SCREENING MAMMOGRAM 3D/2D WITH CAD: 08/26/2018 CLINICAL: Routine screening. Family history of breast cancer. Comparison is made to exams dated: 07/12/2017 mammogram - [facility], 04/03/2016 mammogram, and 03/29/2015 mammogram - [facility]. There are scattered fibroglandular elements in both breasts. Current study was also evaluated with a Computer Aided Detection (CAD) system. There are benign calcifications in both breasts. No significant masses, calcifications, or other findings are seen in either breast. There has been no significant interval change. IMPRESSION: There is no mammographic evidence of malignancy. A 1 year screening mammogram is recommended. This exam was interpreted at Station ID: [id number]. NOTE: For mammograms, a report in lay terms will be sent to the patient. Approximately 15% of breast malignancies will not be visualized mammographically. In the management of a palpable breast mass, a negative mammogram must not discourage biopsy of a clinically suspicious lesion. Electronically Signed By: Adán tomlinson/danelle:08/26/2018 12:44:58 letter sent: Normal Exam ACR BI-RADS Category 2: Benign Finding(s) 3342F
== END ==
PROVIDERS: Family Provider Family Medicine; PCP Family Medicine; Visit Provider Family Medicine
DX: Z12.31 Encounter for screening mammogram for malignant neoplasm of breast (principal); Z80.3 Family history of malignant neoplasm of breast
CPT/HCPCS: 77063; 77067

== ENCOUNTER → 2018-09-20 13:34 | Outpatient (CLI) | payer OTHER, SELFPAY ==
--- NOTE | 2018-09-20 13:36 | DI.RAD.S_ITS ---
This blank DEXA report has been sent in error by the PACS system. The correct and complete report will be forthcoming in 1-2 days. Thank you for your patience and understanding. Dictated by: Jonh Mcclelland M.D. on 09/20/2018 at 15:16 Approved by: Jonh Mcclelland M.D. on 09/20/2018 at 15:17
== END ==
PROVIDERS: Family Provider Family Medicine; PCP Family Medicine; Visit Provider Family Medicine
DX: M85.852 Other specified disorders of bone density and structure, left thigh (principal); Z78.0 Asymptomatic menopausal state
CPT/HCPCS: 77080

== ENCOUNTER → 2018-12-21 09:30 | Outpatient (CLI) | payer OTHER, SELFPAY ==
--- NOTE | 2018-12-21 09:32 | DI.MRI.S_ITS ---
PROCEDURE: MR LUMBAR SPINE WO CON INDICATIONS: Low back pain with left lower extremity symptoms TECHNIQUE: Noncontrast sagittal T1 spin echo and T2 fast echo, sagittal STIR, axial T1 and T2 fast spin echo through the lumbar spine. In cases with scoliosis, additional coronal T2 fast spin echo may be performed. COMPARISON: None. FINDINGS: Image quality: Excellent. Alignment and Curvature: There is normal bony alignment. Bone Marrow: Chronic appearing mild T11 compression fracture is seen. Spinal Cord: Conus medullaris terminates at the L1 .Visualized cord demonstrates normal signal and size. Paraspinous Soft Tissues: No paravertebral masses. L1-L2: Broad-based posterior disc bulge and bilateral facet disease. Mild central canal narrowing. Partial effacement of both lateral recesses with bilaterally symmetric appearance. No right foraminal stenosis. Moderate right foraminal narrowing. L2-L3: Broad-based posterior disc bulge and bilateral facet disease. Mild central canal narrowing. Partial effacement of both lateral recesses with bilaterally symmetric appearance. Mild bilateral foraminal narrowing. L3-L4: Broad-based posterior disc bulge and bilateral facet arthropathy. Mild central canal stenosis. Partial effacement of both lateral recesses with bilaterally symmetric appearance. Moderate left foraminal narrowing with nerve root compression. Mild right foraminal narrowing L4-L5: Broad-based posterior disc bulge bilateral facet arthropathy. Mild central canal narrowing. No definite left foraminal stenosis. Severe right foraminal narrowing with nerve root compression. L5-S1: Broad-based posterior disc bulge mild facet arthropathy. Superimposed central disc protrusion, with mild central canal narrowing. Partial effacement of both lateral recesses with bilaterally symmetric appearance. Mild to moderate left foraminal narrowing. Moderate to severe right foraminal stenosis with nerve root compression. IMPRESSION: Multilevel lumbar spondylosis and facet arthropathy with mild central canal stenoses. Diffuse bilateral foraminal narrowing as detailed above by spinal level. Chronic mild T11 compression fracture. Dictated by: Sekou Carroll M.D. on 12/23/2018 at 10:40 Approved by: Sekou Carroll M.D. on 12/23/2018 at 10:59
== END ==
PROVIDERS: PCP Family Medicine; Visit Provider Physical Medicine & Rehabilitation
DX: M54.5 Low back pain (principal); M47.26 Other spondylosis with radiculopathy, lumbar region; M47.27 Other spondylosis with radiculopathy, lumbosacral region; M48.061 Spinal stenosis, lumbar region without neurogenic claudication; M48.07 Spinal stenosis, lumbosacral region; M48.54XA Collapsed vertebra, not elsewhere classified, thoracic region, initial encounter for fracture
CPT/HCPCS: 72148

== ENCOUNTER → 2018-12-26 12:50 | Outpatient (CLI) | payer OTHER, SELFPAY | PROVIDERS: PCP Family Medicine; Visit Provider Physical Medicine & Rehabilitation | DX: G89.29 Other chronic pain (principal); Z96.652 Presence of left artificial knee joint; M47.27 Other spondylosis with radiculopathy, lumbosacral region; Z96.659 Presence of unspecified artificial knee joint | CPT/HCPCS: 95885; 95886; 95912 ==

== ENCOUNTER → 2018-12-31 09:15 | Outpatient (CLI) | payer OTHER, SELFPAY ==
--- NOTE | 2018-12-31 09:17 | DI.US.S_ITS ---
PROCEDURE: US ARTERIAL DUPLEX LE LT INDICATIONS: Rule out arterial vs. venous occlusions TECHNIQUE: Color and pulse Doppler interrogation was performed of the left lower extremity arterial system, with image documentation. COMPARISON: None. FINDINGS: Common femoral artery: 116 cm/sec, with triphasic flow. Deep femoral artery: 72 cm/sec, with triphasic flow. Proximal superficial femoral artery: 89 cm/sec, with triphasic flow. Mid superficial femoral artery: 111 cm/sec, with triphasic flow. Distal superficial femoral artery: 68 cm/sec, with triphasic flow. Popliteal artery: 73 cm/sec, with triphasic flow. Posterior tibial artery: 85 cm/sec, with triphasic flow seen proximally. Biphasic flow is seen in distal posterior tibial artery.. Anterior tibial artery/dorsalis pedis: 68 cm/sec, with triphasic flow seen in proximal and midportion of anterior tibial artery and biphasic flow seen in the most distal anterior tibial artery. Biphasic flow is also seen within dorsalis pedis artery. Major-scale imaging description: Mild amount of atherosclerotic calcifications are seen scattered throughout left lower extremity arteries. IMPRESSION: Findings heart suggestive of 20-49% stenosis involving left mid posterior tibial and anterior tibial arteries. Dictated by: Jonh Mcclelland M.D. on 01/01/2019 at 14:38 Approved by: Jonh Mcclelland M.D. on 01/01/2019 at 14:42
== END ==
PROVIDERS: PCP Family Medicine; Visit Provider Physical Medicine & Rehabilitation
DX: M25.562 Pain in left knee (principal); M47.27 Other spondylosis with radiculopathy, lumbosacral region; G89.29 Other chronic pain; Z96.652 Presence of left artificial knee joint
CPT/HCPCS: 93926; J0702; J2250; J3010

== ENCOUNTER → 2019-02-04 12:40 | Outpatient (CLI) | payer OTHER, SELFPAY ==
--- NOTE | 2019-02-04 | DI.RAD.S_ITS ---
PROCEDURE: FL UPPER GI W AIR INDICATIONS: Dysphagia COMPARISON: None. FINDINGS: KUB: Preprocedural hosting engineer film demonstrates a normal bowel gas pattern. No suspicious abdominal calcifications. Visualized solid organ contours appear normal. Bony structures appear unremarkable. Esophagus: Esophageal mucosa is normal on air-contrast views. On single-contrast views, there is decreased esophageal peristalsis. No strictures, extrinsic mass effects, or diverticula. No hiatal hernia. There is severe spontaneous gastroesophageal reflux to the level of the cervical esophagus Stomach: The stomach is normally distensible, with normal rugal fold thickness. No mucosal masses or ulcers. Pylorus and duodenal bulb appear normal in morphology. Duodenal folds are normal in thickness as well. IMPRESSION: Severe gastroesophageal reflux to the level of the cervical esophagus. Esophageal dysmotility. Dictated by: Sekou Carroll M.D. on 02/04/2019 at 13:50 Approved by: Sekou Carroll M.D. on 02/04/2019 at 13:51
== END ==
PROVIDERS: PCP Family Medicine; Visit Provider Internal Medicine Gastroenterology
DX: K21.9 Gastro-esophageal reflux disease without esophagitis (principal); K22.4 Dyskinesia of esophagus
CPT/HCPCS: 74247

== ENCOUNTER 2019-03-04 12:31 | Outpatient (CLI) | payer OTHER, SELFPAY ==
[2019-03-04] VITALS (10 sets, daily range): BP systolic 120–150; BP diastolic 63–81; PULSE 62–90; RESP 16–18; TEMP 36.2; O2SAT 95–100
--- NOTE | 2019-03-04 12:33 | DI.RAD.S_ITS ---
PROCEDURE: PAIN L/S TRANSFORAMINAL INJECT INDICATIONS: RADICULOPATHY FINDINGS: Fluoroscopic spot filming was performed to verify placement of spinal needles at the left side at L5-S1 needle tip localization for transforaminal epidural steroid injection. level(s), as labeled on the films. Appropriate location(s) of the needle tip(s) was confirmed by injection of iodinated contrast. IMPRESSION: Successful needle tip localization as discussed. Dictated by: Lopez De La Rosa M.D. on 03/04/2019 at 14:50 Approved by: Lopez De La Rosa M.D. on 03/04/2019 at 14:51
[2019-03-04] MEDS: MIDAZOLAM 5 MG/5 ML VIAL IV (13:31)
[2019-03-04] MEDS: fentaNYL 100 MCG/2 ML INJ 50 MCG IV (13:32)
[2019-03-04] MEDS: IOPAMIDOL 15 ML VIAL 3 ML INJ (13:37)
[2019-03-04] MEDS: BUPIVACAINE 0.25% (PF) VIAL 2 ML INJ (13:38)
[2019-03-04] MEDS: DEXAMETHASONE 10 MG/ML VIAL 20 MG INJ (13:38)
[2019-03-04] MEDS: BETAMETHASONE 30 MG/5 ML MDV 6 MG INJ (13:39)
--- NOTE | 2019-03-04 13:43 | PC.NURSE ---
ASSISTING PT OFF TABLE AND TRANSPORTING TO POST PROC AREA IN STABLE CONDITION. PT CARE PASSED OFF TO JACQUELYN Martinez RN.
--- NOTE | 2019-03-04 13:44 | PM.PROC.1 ---
Procedures Date/Time Date of procedure: 03/04/19 Time of procedure: 13:44 General Procedure description: PREOP DIAGNOSIS 1. FORMAINAL STENOSIS WITH LE SYMPTOMS POST OP DIAGNOSIS 1. FORMAINAL STENOSIS WITH LE SYMPTOMS PROCEDURES 1. FLUOROSCOPICALLY GUIDED CONTRAST CONTROLLED TRANSFORAMINAL EPIDURAL STEROID INJECTION - Left L5/S1 PHYSICIAN: Nazario Pickering DO INDICATIONS: Malaika is referred by for treatment of Foraminal Stenosis with Left LE Symptoms FINDINGS Foraminal Nerve Root Compression secondary to disc disease and facet hypertrophy DESCRIPTION OF PROCEDURE: Following review of allergy and review of potential side effects and complications, including, but not necessarily limited to, infection, allergic reaction, local tissue breakdown, stroke, temporary or permanent nerve injury, paralysis, and possible , the patient indicated that the patient understood and agreed to proceed. An informed consent document was signed by the patient, witnessed by a nurse, and placed in the patient's chart. Additionally, other treatment options including medications, modalities, and physical therapy were reviewed with the patient. After review of previous anaesthesic history and IV conscious sedation the patient was deemed safe to proceed with todays procedure with IV conscious sedation as ASA class II designation. Safety time-out was performed to confirm patient ID, procedure to be performed and site of procedure. IV sedation was accomplished with a combination of 2mg of Versed and 50mcg of Fentanyl was administered by the RN after DO order, titrated to patient comfort during the course of the procedure while the patient remained responsive to all verbal commands In the prone position following sterile prep and drape of the lumbar region, the Left L5/S1 posterior neuroforamen was identified fluoroscopically. The skin was anesthetized via a 25-gauge 1.5-inch needle with 1% lidocaine solution. At this point, a 25-gauge 3.5-inch spinal needle was atraumatically introduced and advanced under fluoroscopic guidance through the posterior Left L5/S1 neuroforamen to approximately the anterior aspect of the canal. Depth was confirmed on lateral view. Following negative aspiration, injection of approximately 1.5 cc of Isovue 200 under live fluoroscopy in the AP view confirmed excellent flow along the nerve root, into the epidural space without vascular or intrathecal uptake observed Radiological data, including multiple fluoroscopic views of the lumbosacral spine, reveal a spinal needle at the Left L5/S1 posterior neuroforamen. Subsequent views show flow of contrast material flowing superiorly and inferiorly along the nerve root confirming epidural flow. Subsequently, a test dose of 1.5 cc of 1% lidocaine solution was administered and patient was observed for two minutes for signs or symptoms of complications, including abdominal pain, shortness of breath, bilateral upper or lower extremity weakness, nausea and vomiting, prior to steroid injection. At this point, a total of 3cc or 20mg of dexamethasone and 6mg betamethasone was injected without incident. The procedure tolerated the procedure well without signs or symptoms of complications prior to transfer to the recovery area continued monitoring without incident. The patient was then transferred to the recovery area where they were observed for an appropriate time after the injection. The patient reported a VAS score of 7 prior to the procedure and a post-procedure VAS of 0. Total Fluoroscopy Time: 20.9 seconds Total Conscious Sedation Time: 24min POST OP INSTRUCTIONS The patient was provided a Pain Log to continue to record their response to the target-specific procedure prior to follow-up visit with their referring physician. Additionally, specific post-injection care instructions and a contact number to our office were provided if concerns arise regarding possible complications associated with the procedure are suspected. Nazario Pickering DO Complications: none
--- NOTE | 2019-03-04 14:11 | PC.NURSE ---
reading her book, denies visual changes, double visions or blurriness.
--- NOTE | 2019-03-04 14:17 | PC.NURSE ---
pt still unsteady on her feet at this time, warm blanket provided and sitting in the recliner. reading her book.
--- NOTE | 2019-03-04 14:17 | PC.NURSE ---
1347 pt arrived via w/c post procedure, with minimal asssist with transfer to w/c to recliner, resuming care from hayley dalal. ice water and cookies provided, tolerated well.
--- NOTE | 2019-03-04 14:34 | PC.NURSE ---
pt eating cookies , drinking water, still unsteady on her feet at this time.
--- NOTE | 2019-03-04 15:42 | PC.NURSE ---
1504 called chip, eta 1530
== END 2019-03-04 15:30 | disposition home or self-care (01) ==
PROVIDERS: PCP Family Medicine; Visit Provider Physical Medicine & Rehabilitation
DX: M48.07 Spinal stenosis, lumbosacral region (principal); M51.17 Intervertebral disc disorders with radiculopathy, lumbosacral region; M47.27 Other spondylosis with radiculopathy, lumbosacral region
CPT/HCPCS: 64483; 99152; J0702; J1100; J2250; J3010

== ENCOUNTER → 2019-07-09 10:42 | Outpatient (CLI) | payer OTHER, SELFPAY ==
--- NOTE | 2019-07-09 | DI.RAD.S_ITS ---
PROCEDURE: FL BARIUM SWALLOW INDICATIONS: Dysphagia, unspecified COMPARISON: None. FINDINGS: Function: There is normal esophageal peristalsis. No elicited gastroesophageal reflux. There is normal transit of a calibrated barium tablet through the esophagus into the stomach. Morphology: Air-contrast images demonstrate normal mucosal morphology. Single contrast views show no esophageal strictures, extrinsic mass effects, or diverticula. Limited images of the stomach demonstrate normal appearance. IMPRESSION: Normal esophagram. Dictated by: Lopez De La Rosa M.D. on 07/09/2019 at 14:41 Approved by: Lopez De La Rosa M.D. on 07/09/2019 at 14:41
== END ==
PROVIDERS: PCP Family Medicine; Visit Provider Internal Medicine Gastroenterology
DX: R13.10 Dysphagia, unspecified (principal)
CPT/HCPCS: 74220

== ENCOUNTER 2019-08-18 09:10 | Outpatient (RCR) | payer OTHER, SELFPAY ==
--- NOTE | 2019-08-18 10:26 | ST.OPIE ---
Visit Care Team Role Provider Type CARLOS Laguna Primary Care Provider [employer] Specialty: Family Practice Address: [address] [place] [address], [id number] Email: [email or web address] Joshua Chaves MD Attending Provider Non-Staff Referring Provider Specialty: Internal Medicine Address: [address] [place] [address], [id number] Email: Speech-Language Pathology Initial Evaluation PIERCING SPECIALIST Clinical Swallow Evaluation Start: 08/18/19 10:07 Freq: Status: Active Protocol: Document 08/18/19 10:10 TLC (Rec: 08/18/19 10:26 TLC [id number]) Clinical Swallow Evaluation Session Time Visit Start Time 09:30 Visit Stop Time 10:00 Total Visit Minutes 30 Visit Information Visit Number 1 Plan of Care Dates 08/18/2019-08/19/2019 Insurance Information [employer] Referral Referring Physician Dr. Joshua Chaves, Able Bodied Seaman Reason for Referral Dysphagia Setting Assessment Location Outpatient Care Visit Type Note Type Initial Evaluation Patient Information Identification Type Name History Malaika is an 84 year old female with dysphagia of solid foods. She reports ~3 times per week she has difficulty swallowing and feels like there's a blockage. She denies any difficulty with liquids. She underwent an upper GI on which revealed severe gastroesophageal reflux to the level of the cervical esophagus and esophageal dysmotility with diminished peristalsis. She underwent a barium swallow on 07/09/19 which was normal. Subjective Observations Malaika arrived on time. She was alert, oriented and cooperative during the evaluation. Findings Dysphagia Type Esophageal Impressions Based on conversation with the patient and a review of her medical records, Malaika does not report symptoms associated with oral or pharyngeal phase dysphagia. Her symptoms are consistent with findings of esophageal dysmotility and reflux. We discussed compensatory strategies and environmental modifications including small bites/sips, slow rate, alternating liquids /solids, remaining upright after meals, avoiding spicy or acidic foods, raising head of bed and avoiding eating 1-2 hours before bedtime. She was also provided with a handout on reflux precautions. Malaika was in agreement with recommendations and verbalized understanding. No further therapy warranted at this time . Patient was instructed to follow up with her PCP if symptoms worsen. An MBSS could be considered at that time. Treatment Plan Appropriate for Therapy No
== END 2019-08-19 13:12 ==
LOC: SP 09:10
PROVIDERS: PCP Nurse Practitioner; Referring Provider Internal Medicine Gastroenterology; Visit Provider Internal Medicine Gastroenterology
DX: R13.10 Dysphagia, unspecified (principal)
CPT/HCPCS: 92610

== ENCOUNTER → 2019-12-09 08:49 | Outpatient (CLI) | payer OTHER, SELFPAY ==
--- NOTE | 2019-12-09 | DI.MG.S_ITS ---
BILATERAL DIGITAL SCREENING MAMMOGRAM 3D/2D WITH CAD: 12/09/2019 CLINICAL: Routine screening. Family history of breast cancer. Comparison is made to exams dated: 08/26/2018 mammogram, 07/12/2017 mammogram - [facility], and 04/03/2016 mammogram - [facility]. There are scattered fibroglandular elements in both breasts. Current study was also evaluated with a Computer Aided Detection (CAD) system. There are benign calcifications in both breasts. No significant masses, calcifications, or other findings are seen in either breast. There has been no significant interval change. IMPRESSION: There is no mammographic evidence of malignancy. A 1 year screening mammogram is recommended. This exam was interpreted at Station ID: [id number]. NOTE: For mammograms, a report in lay terms will be sent to the patient. Approximately 15% of breast malignancies will not be visualized mammographically. In the management of a palpable breast mass, a negative mammogram must not discourage biopsy of a clinically suspicious lesion. Electronically Signed By: Mandy solares/danelle:12/09/2019 09:14:28 letter sent: Normal Exam ACR BI-RADS Category 2: Benign Finding(s) 3342F
== END ==
PROVIDERS: PCP Nurse Practitioner; Referring Provider Nurse Practitioner; Visit Provider Nurse Practitioner
DX: Z12.31 Encounter for screening mammogram for malignant neoplasm of breast (principal); Z80.3 Family history of malignant neoplasm of breast
CPT/HCPCS: 77063; 77067

== ENCOUNTER → 2019-12-15 13:56 | Outpatient (CLI) | payer OTHER, SELFPAY ==
[2019-12-16 08:41] LABS: Parathyroid Hormone Int 87 pg/mL (15-65)
== END ==
PROVIDERS: PCP Nurse Practitioner; Referring Provider Physician Assistant Medical; Visit Provider Physician Assistant Medical
DX: E83.52 Hypercalcemia (principal)
CPT/HCPCS: 36415; 83970

== ENCOUNTER → 2020-01-20 14:23 | Outpatient (CLI) | payer OTHER, SELFPAY ==
[2020-01-20 15:05] LABS: Alanine Aminotransferase 15 IU/L (<35); Albumin 4.3 g/dL (3.5-5.0); Albumin Globulin Ratio 1.4 (1.0-2.8); Alkaline Phosphatase 81 U/L (38-126); Aspartate Aminotransferase 31 IU/L (14-36); BUN Creatinine Ratio 31.7 (6-22); Bilirubin Total 0.7 mg/dL (0.2-1.3); Blood Urea Nitrogen 19 mg/dL (7-17); Calcium 9.7 mg/dL (8.4-10.2); Carbon Dioxide 26 mmol/L (22-32); Chloride 101 mmol/L (98-107); Estimated Glomerular Filt Rate > 60.0 mL/min (>60); Globulin 3.1 g/dL (1.7-4.1); Glucose 92 mg/dL (80-110); HEMOLYSIS < 15 (0-50); Magnesium 1.9 mg/dL (1.6-2.3); Sodium 135 mmol/L (137-145); Total Protein 7.4 g/dL (6.3-8.2)
[2020-01-20 15:46] LABS: Microalbumi Creatinin Ratio Ur 46.1 ug/mg CR (<30); Microalbumin Urine Random < 0.6 mg/dL (0-1.6)
[2020-01-20 15:56] LABS: Free T3, Triiodothyronine Free 3.41 pg/mL (2.77-5.27); Free T4, Direct Thyroxine 1.24 ng/dL (0.78-2.19)
== END ==
PROVIDERS: PCP Nurse Practitioner; Referring Provider Nurse Practitioner; Visit Provider Nurse Practitioner
DX: M79.89 Other specified soft tissue disorders (principal); R01.1 Cardiac murmur, unspecified
CPT/HCPCS: 36415; 80053; 82043; 82570; 83735; 84439; 84443; 84481

== ENCOUNTER → 2020-02-12 07:55 | Outpatient (CLI) | payer OTHER, SELFPAY ==
--- NOTE | 2020-02-12 08:16 | DI.ECHO.S_ITS ---
Echocardiogram Report + + :Name: PHANI STAUFFER Study Date: 02/12/2020 Height: 66 in : :[facility] Weight: 144 lb : : Gender: Female BSA: 1.7 m2 : :: 1935 Age: 84 yrs BP: 156/89 mmHg: :Reason For Study: HEART MURMUR : : Performed By: Anitha Holder : :Referring: TONY LAMAS : + + Interpretation Summary There is mild proximal septal thickening noted. The left ventricular ejection fraction is normal. There are no focal wall motion abnormalities. Diastolic parameters suggest a relaxation abnormality of the left ventricle, consistent with probable normal filling pressures. The right ventricle is normal in size and function. There is a round echodensity associated with anterior mitral leaflet without independent motion, indicating calcification. The aortic valve is also calcified with a relatively discreet calcification associated with the non-coronary cusp and in some views there is question of fusion of the non- and left coronary cusp. There is no hemodynamically significant aortic stenosis. No prior echo for comparison. Procedure: A two-dimensional transthoracic echocardiogram with color flow and Doppler was performed. The study quality was technically adequate. There is no prior echocardiogram noted for this patient. The heart rate ranged between 59-70 bpm during the study. Left Ventricle: The left ventricle is normal in size. There is mild proximal septal thickening noted. The ejection fraction is estimated to be 60-65%. The left ventricular ejection fraction is normal. There are no focal wall motion abnormalities. Diastolic parameters suggest a relaxation abnormality of the left ventricle, consistent with probable normal filling pressures. Right Ventricle: The right ventricle is normal in size and function. Atria: The left atrium is moderately dilated. Right atrial size is normal. There is no Doppler evidence for an interatrial shunt. Mitral Valve: The mitral valve leaflets are mildly calcified. There is mild mitral annular calcification. There is mild mitral regurgitation. Aortic Valve: The aortic valve is not well visualized. The aortic valve is moderately calcified. There is mild aortic valve sclerosis. There is no hemodynamically significant valvular aortic stenosis. The peak aortic velocity is 1.9 m/sec. No aortic regurgitation is present. Tricuspid Valve: The tricuspid valve is normal in structure and function. There is mild to moderate tricuspid regurgitation. The right ventricular systolic pressure is estimated to be at least 33 mmHg based on an estimated right atrial pressure of 3 mm Hg. Pulmonic Valve: The pulmonic valve is not well visualized. The pulmonic valve is not well seen, but is grossly normal. There is no pulmonic valvular regurgitation. Great Vessels: The aortic root is normal size. The ascending aorta is normal in size. The IVC is of normal diameter and collapses greater than 50% with a sniff. This suggests a low right atrial pressure of 3 mm Hg. Pericardium/ Pleura There is no pericardial effusion. There is no pleural effusion. MMode/2D Measurements & Calculations LVIDd: 3.8 cm LVOT diam: 1.8 cm LVIDs: 2.4 cm Ao root diam: 2.9 cm FS: 36.2 % asc Aorta Diam: 2.8 cm EPSS: 0.48 cm Ao Arch Diam (Prox Trans): 2.3 cm IVSd: 0.77 cm LVPWd: 0.77 cm LV rodas. diameter/BSA (cm/m^2): 2.2 LV sys. diameter/BSA (cm/m^2): 1.4 LA A2 area: 22.5 cm2 RA long axis: 5.5 cm LA A4 area: 18.3 cm2 RA area: 15.5 cm2 LA length (vol): 5.0 cm RA vol: 37.1 ml LA vol: 70.1 ml RA : 21.3 ml/m2 LA vol index: 40.3 ml/m2 IVC diam: 1.7 cm RVD1 (basal): 3.3 cm TAPSE: 1.9 cm Doppler Measurements & Calculations Ao V2 max: 198.9 cm/sec LVOT Max Michael: 90.0 cm/sec Ao V2 mean: 151.4 cm/sec LV V1 max P.2 mmHg Ao max P.8 mmHg LV V1 VTI: 24.0 cm Ao mean P.0 mmHg ARABELLA(I,D): 1.2 cm2 Ao V2 VTI: 51.8 cm ARABELLA(V,D): 1.1 cm2 sev ratio: 0.46 ARABELLA indexed to BSA (cm^2/m^2): 0.66 MV E max michael: 109.9 cm/sec TR max michael: 267.6 cm/sec MV A max michael: 114.9 cm/sec TR max P.7 mmHg MV E/A: 0.96 PA V2 max: 75.6 cm/sec Med Peak E' Michael: 5.4 cm/sec PA V2 mean: 49.5 cm/sec E/E' med: 20.5 PA mean P.1 mmHg Lat Peak E' Michael: 6.5 cm/sec PA pr(Accel): 46.5 mmHg E/E' lat: 16.8 E/e' average: 18.7 MV dec time: 0.29 sec MVA(VTI): 1.4 cm2 MV V2 mean: 78.3 cm/sec SV(LVOT): 59.7 ml MV mean P.8 mmHg MV V2 VTI: 41.4 cm Electronically signed by: Richardson Berg M.D. on Reading Physician:02/12/2020 08:26 PM
== END ==
PROVIDERS: PCP Nurse Practitioner; Referring Provider Nurse Practitioner; Visit Provider Nurse Practitioner
DX: I08.3 Combined rheumatic disorders of mitral, aortic and tricuspid valves (principal); R01.1 Cardiac murmur, unspecified
CPT/HCPCS: 93306

== ENCOUNTER → 2020-03-16 09:41 | Outpatient (CLI) | payer OTHER, SELFPAY | PROVIDERS: PCP Nurse Practitioner; Visit Provider Specialist | DX: N39.0 Urinary tract infection, site not specified (principal); N95.2 Postmenopausal atrophic vaginitis; N39.41 Urge incontinence; R39.9 Unspecified symptoms and signs involving the genitourinary system | CPT/HCPCS: 81002; 87086; 99214 ==

== ENCOUNTER → 2020-07-28 14:30 | Outpatient (CLI) | payer OTHER, SELFPAY ==
[2020-07-28 16:28] LABS: Alanine Aminotransferase 15 IU/L (<35); Albumin 4.3 g/dL (3.5-5.0); Albumin Globulin Ratio 1.3 (1.0-2.8); Alkaline Phosphatase 76 U/L (38-126); Aspartate Aminotransferase 29 IU/L (14-36); BUN Creatinine Ratio 34.6 (6-22); Bilirubin Total 0.3 mg/dL (0.2-1.3); Blood Urea Nitrogen 27 mg/dL (7-17); Calcium 10.1 mg/dL (8.4-10.2); Carbon Dioxide 30 mmol/L (22-32); Chloride 102 mmol/L (98-107); Estimated Glomerular Filt Rate > 60.0 mL/min (>60); Globulin 3.3 g/dL (1.7-4.1); Glucose 120 mg/dL (80-110); HEMOLYSIS < 15 (0-50); Potassium 4.2 mmol/L (3.4-5.1); Sodium 137 mmol/L (137-145); Total Protein 7.6 g/dL (6.3-8.2)
[2020-07-29 09:32] LABS: Parathyroid Hormone Int 69 pg/mL (15-65)
== END ==
PROVIDERS: PCP Nurse Practitioner; Referring Provider Internal Medicine; Visit Provider Internal Medicine
DX: E21.3 Hyperparathyroidism, unspecified (principal); M81.0 Age-related osteoporosis without current pathological fracture
CPT/HCPCS: 36415; 80053; 82306; 83970

== ENCOUNTER → 2020-10-15 10:07 | Outpatient (CLI) | payer OTHER, SELFPAY | PROVIDERS: PCP Nurse Practitioner; Referring Provider Nurse Practitioner; Visit Provider Nurse Practitioner | DX: M85.851 Other specified disorders of bone density and structure, right thigh (principal); Z78.0 Asymptomatic menopausal state | CPT/HCPCS: 77080 ==

== ENCOUNTER → 2020-12-09 10:07 | Outpatient (CLI) | payer OTHER, SELFPAY ==
--- NOTE | 2020-12-09 10:10 | DI.MG.S_ITS ---
BILATERAL DIGITAL SCREENING MAMMOGRAM 3D/2D WITH CAD: 12/09/2020 CLINICAL: Routine screening. Family history of breast cancer. Comparison is made to exams dated: 12/09/2019 mammogram, 08/26/2018 mammogram, and 07/12/2017 mammogram - [facility]. There are scattered fibroglandular elements in both breasts. Current study was also evaluated with a Computer Aided Detection (CAD) system. There are benign calcifications in both breasts. No significant masses, calcifications, or other findings are seen in either breast. There has been no significant interval change. IMPRESSION: BENIGN There is no mammographic evidence of malignancy. A 1 year screening mammogram is recommended. This exam was interpreted at Station ID: [id number]. NOTE: For mammograms, a report in lay terms will be sent to the patient. Approximately 15% of breast malignancies will not be visualized mammographically. In the management of a palpable breast mass, a negative mammogram must not discourage biopsy of a clinically suspicious lesion. Electronically Signed By: Kannan holman/danelle:12/09/2020 10:39:06 letter sent: Normal Exam ACR BI-RADS Category 2: Benign Finding(s) 3342F
== END ==
PROVIDERS: PCP Nurse Practitioner; Referring Provider Nurse Practitioner; Visit Provider Nurse Practitioner
DX: Z12.31 Encounter for screening mammogram for malignant neoplasm of breast (principal); Z80.3 Family history of malignant neoplasm of breast
CPT/HCPCS: 77063; 77067

== ENCOUNTER → 2021-05-03 10:34 | Outpatient (CLI) | payer OTHER, SELFPAY ==
[2021-05-04 08:06] LABS: Varicella IgG Antibody 2934 index (Immune >165)
== END ==
PROVIDERS: PCP Nurse Practitioner; Referring Provider Nurse Practitioner; Visit Provider Nurse Practitioner
DX: Z23 Encounter for immunization (principal)
CPT/HCPCS: 36415; 86787

== ENCOUNTER → 2021-05-16 15:45 | Outpatient (CLI) | payer OTHER, SELFPAY ==
--- NOTE | 2021-05-16 15:47 | DI.RAD.S_ITS ---
PROCEDURE: XR FEMUR LT MIN 2V INDICATIONS: left leg pain TECHNIQUE: 2 views of the femur were acquired. COMPARISON: None. FINDINGS: Bones: No fractures or dislocations. No suspicious bony lesions. Left knee arthroplasty with extended tibial and femoral stems. Soft tissues: No suspicious soft tissue calcifications or masses. IMPRESSION: Postsurgical sequelae. No acute fracture. No osseous lesion. If symptoms and/or clinical suspicion for pathology persist, further assessment with repeat, or advanced imaging (e.g., CT, MRI, or bone scan) may be helpful for further assessment. Dictated by: Ashish Valles M.D. on 05/16/2021 at 16:24 Approved by: Ashish Valles M.D. on 05/16/2021 at 16:57
== END ==
PROVIDERS: PCP Nurse Practitioner; Referring Provider Physician Assistant; Visit Provider Physician Assistant
DX: M79.605 Pain in left leg (principal); Z96.652 Presence of left artificial knee joint
CPT/HCPCS: 73552

== ENCOUNTER 2021-05-17 10:59 | Emergency (ER) | payer OTHER, SELFPAY ==
[2021-05-17] VITALS (7 sets, daily range): BP systolic 129–169; BP diastolic 60–70; PULSE 66–79; O2SAT 96–99; BMI 23.3
--- NOTE | 2021-05-17 12:46 | ED_ITS ---
HPI - Extremity Injury (Lower) <Praveen Matias PA-C - Last Filed: 05/17/21 18:53> General Chief Complaint: Extremity Injury, Lower Stated Complaint: Severe pain in left leg Time Seen by Provider: 05/17/21 12:03 Source: patient Mode of arrival: Wheelchair Limitations: no limitations History of Present Illness HPI Narrative: Patient is an 86-year-old female presenting to the emergency department today for an evaluation left hip pain. Patient states that she has been swimming recently and noticed the sudden onset of pain following a swim session. She states that her pain began last week and has gradually gotten worse, describing it as a sharp pain that worsens with weight-bearing. Additionally, she states that she has been taking Tylenol at home with minimal improvement in her sy mptoms. She denies additional injury. She denies fever, chills, chest pain, shortness of breath, nausea, vomiting, diarrhea, abdominal pain, cough, urinary incontinence, fecal incontinence, unusual swelling of the legs,or numbness and tingling in the bilateral lower extremities. No other concerns voiced at this time. Patient was seen at the walk-in clinic on 05/16/2021 and had a left femur x-ray performed that did not show acute abnormality. Related Data Home Medications Medication Instructions Recorded Confirmed multivitamin (Multiple Vitamins) 1 tab PO QDAY #0 02/05/17 05/16/21 megga red 1 cap PO DAILY 02/27/18 05/16/21 denosumab 60 mg/mL subcutaneous 60 mg SUBCUT [id number] 09/25/18 05/16/21 syringe (Prolia) L.acidoph, paracasei,B. lactis 10 cell PO 03/16/20 05/16/21 billion cell capsule (Digestive Advantage Advanced Probiotic) cholecalciferol (vitamin D3) 25 25 mcg PO DAILY 12/27/20 05/16/21 mcg (1,000 unit) capsule mecobalamin (vitamin B12) 1,000 1,000 mcg PO DAILY 12/27/20 05/16/21 mcg chewable tablet pregabalin 75 mg capsule 75 mg PO TID 05/25/21 Previous Rx's Medication Instructions Recorded meloxicam 15 mg tablet 15 mg PO DAILY #90 tab 08/03/20 solifenacin 10 mg tablet (Vesicare) 15 mg PO DAILY #90 tab 04/14/21 estradiol (Estrace) 1 g VAG DAILY #42.5 gram 04/22/21 Disabled Parking Permit See Rx Instructions .ROUTE 05/03/21 .COMPLEX #1 unit baclofen 5 mg tablet 5 mg PO TID #30 tab 05/23/21 tramadol 50 mg tablet 50 mg PO BID PRN #20 tab 05/25/21 metaxalone 800 mg tablet 800 mg PO TID PRN #30 tab 05/27/21 Allergies Allergy/AdvReac Type Severity Reaction Status Date / Time No Known Drug Allergies Allergy Verified 05/23/21 14:15 Review of Systems <Praveen Matias PA-C - Last Filed: 05/17/21 18:53> Constitutional Constitutional: Denies chills, Denies fatigue, Denies fever(s), Denies frequent falls, Denies lethargy and Denies weakness Eyes Eyes: Denies loss of vision ENT Ears, Nose, Mouth, and Throat: Denies dizziness and Denies neck pain Cardiovascular Cardiovascular: Denies chest pain, Denies irregular heart rhythm, Denies lightheadedness, Denies palpitations, Denies dyspnea, Denies dyspnea on exertion and Denies orthopnea Respiratory Respiratory: Denies cough, Denies dyspnea, Denies dyspnea on exertion and Denies wheezing Gastrointestinal Gastrointestinal: Denies abdominal pain, Denies change in bowel habits, Denies diarrhea, Denies nausea and Denies vomiting Genitourinary Genitourinary: Denies hematuria, Denies flank pain, Denies urinary incontinence and Denies urinary urgency Musculoskeletal Musculoskeletal: Denies back pain, Reports arthralgias (Left hip pain, left knee pain (knee pain is chronic)), Denies joint swelling, Denies muscle weakness, Denies neck pain, Denies numbness and Denies tingling Neurologic Neurologic: Denies behavioral changes, Denies confusion, Denies dizziness, Denies frequent falls, Denies loss of vision, Denies numbness, Denies tingling and Denies weakness Psychiatric Psychiatric: Denies behavioral changes and Denies confusion Endocrine Endocrine: Denies fatigue and Denies palpitations Allergic/Immunologic Allergic/Immunologic: Denies wheezing Patient History <Praveen Matias PA-C - Last Filed: 05/17/21 18:53> Medical History Anemia (~1953) Arthritis Bilateral knee pain Chronic 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 Chronic right-sided low back pain without sciatica Compression fracture of T11 vertebra Decreased range of motion of both knees Decreased range of motion of right knee Fracture (1940) Hearing loss (2016) Heart valve calcification Knee pain, left (Unknown) Knee pain, left Knee pain, right Left leg pain Lower extremity edema Lower urinary tract symptoms (LUTS) Lumbar region somatic dysfunction Lumbosacral spondylosis with radiculopathy Murmur Nocturia more than twice per night Onychomycosis Osteoarthritis (1999) Osteopenia (~2002) Osteoporosis (~2002) Other spondylosis with radiculopathy, lumbosacral region Pelvic somatic dysfunction Polyneuropathic pain Polyneuropathy Postmenopausal atrophic vaginitis Radiculopathy of lumbosacral region Retinal detachment (1998) Right shoulder pain Sacral region somatic dysfunction Segmental and somatic dysfunction of abdomen and other regions Shoulder pain (2014) Somatic dysfunction of lower extremity Swelling of lower extremity Urge incontinence Urinary incontinence (~2013) Surgical History History of knee replacement History of stem cell transplant History of total knee arthroplasty Total knee replacement status Family History Father Mental health problem Mother Heart disease Grandmother Breast cancer Social History household members: none Smoking Status: Never smoker alcohol intake: current substance use type: does not use Smoking Status: Never smoker Substance Use Type: does not use Exam <Praveen Matias PA-C - Last Filed: 05/17/21 18:53> Narrative Exam Narrative: GENERAL: 86 year old patient appears stated age. Well-developed patient, in mild distress. HEAD: Atraumatic. Normocephalic. EYES: Pupils equal round and reactive. Extraocular motions intact. No scleral icterus. No injection or drainage. ENT: Nose without bleeding, purulent drainage. Throat without erythema, tonsillar hypertrophy or exudate. Airway patent. NECK: Trachea midline. Non tender CARDIOVASCULAR: Regular rate and rhythm without murmurs, gallops, or rubs. RESPIRATORY: Clear to auscultation. Breath sounds equal bilaterally. No wheezes, rales, or rhonchi. GASTROINTESTINAL: Abdomen soft, non-tender, nondistended. EXTREMITIES: No edema. Tenderness to palpation appreciated over the lateral aspect of the left hip from the knee extending proximally to the hip. No swelling, ecchymosis, warmth appreciated throughout the left lower extremity. Gross motor function intact throughout the bilateral lower extremities. Good sensation appreciated throughout the bilateral lower extremities to light touch. BACK: Nontender without deformity or crepitance. No flank tenderness. NEURO: AOx3. SKIN: No rash or erythema of visible areas Initial Vital Signs Initial Vital Signs: Vital Signs Pulse Rate 79 05/17/21 11:16 Blood Pressure 169/68 H 05/17/21 11:16 Pulse Oximetry 99 05/17/21 11:16 <Dony Benoit MD - Last Filed: 05/31/21 01:30> Initial Vital Signs Initial Vital Signs: Vital Signs Pulse Rate 79 05/17/21 11:16 Blood Pressure 169/68 H 05/17/21 11:16 Pulse Oximetry 99 05/17/21 11:16 Course <Praveen Matias PA-C - Last Filed: 05/17/21 18:53> Course Course Narrative: IM Toradol 30 mg administered. Orders Ordered: Discontinued Medications Ketorolac Tromethamine (Ketorolac 30 Mg/Ml Vial) 30 mg IM NOW ONE Stop: 05/17/21 12:41 Last Admin: 05/17/21 13:33 Dose: 30 mg Documented by: AUAYSHA Vital Signs Vital signs: Vital Signs - 8 hr 05/17/21 11:16 05/17/21 11:30 05/17/21 12:00 Pulse Rate 79 75 66 Blood Pressure 169/68 H Pulse Oximetry 99 99 97 05/17/21 12:24 05/17/21 12:30 05/17/21 13:00 Pulse Rate 69 76 73 Blood Pressure 129/60 152/70 H Pulse Oximetry 96 98 96 05/17/21 13:30 Pulse Rate 71 Blood Pressure Pulse Oximetry 96 <Dony Benoit MD - Last Filed: 05/31/21 01:30> Orders Ordered: Discontinued Medications Ketorolac Tromethamine (Ketorolac 30 Mg/Ml Vial) 30 mg IM NOW ONE Stop: 05/17/21 12:41 Last Admin: 05/17/21 13:33 Dose: 30 mg Documented by: AUPDIKE Vital Signs Vital signs: Vital Signs - 8 hr 05/17/21 11:16 05/17/21 11:30 05/17/21 12:00 Pulse Rate 79 75 66 Blood Pressure 169/68 H Pulse Oximetry 99 99 97 05/17/21 12:24 05/17/21 12:30 05/17/21 13:00 Pulse Rate 69 76 73 Blood Pressure 129/60 152/70 H Pulse Oximetry 96 98 96 05/17/21 13:30 Pulse Rate 71 Blood Pressure Pulse Oximetry 96 MDM - Extremity Injury (Lower) <Praveen Matias PA-C - Last Filed: 05/17/21 18:53> MDM Narrative Medical decision making narrative: To consider fracture versus dislocation versus sprain versus strain. Overall history and physical examination are reassuring. Additionally, recent x-ray of the femur did not show acute abnormality when taken at the walk-in clinic. No excessive swelling, erythema, or induration appreciated on exam. Patient appears tender to palpation that the area of the TFL and hip bursa. Further, patient is not experiencing any focal neurological deficits or changes. At this time patient feels comfortable receiving an intramuscular injection of Toradol today. She agrees to plan to begin a steroid taper pack and be discharged home today. Strict return precautions discussed with the patient prior to discharge. Discharge Plan Departure Patient Disposition: Home Clinical Impression: Acute pain of left hip Instructions: DI for Hip Pain Activity Restrictions/Additional Instructions: *You have been diagnosed with acute left hip pain *What to do: *Please continue to take your regular medications as directed. [X] New medication prescriptions sent to your pharmacy: [facility] [ ] New medication written as a paper prescription [ ] No new medications given *Please follow up with your primary care provider in 2-3 days, call for an appoi ntment. Let them know you were seen in the Emergency Department and that we ask that you be seen in follow up. We will electronically transmit a record of today's note if your PCP is in our system *If you do not have a primary care provider please contact the [facility] Resource line at [phone]. They will ask some questions about your medical history and help get you set up with a doctor in the community. *Return to Emergency Department if you should have any new, worsening or concerning symptoms, such as fever greater than 101 F, shaking chills, worsening pain, persistent vomiting or other bothersome symptoms. Prescriptions: No Action megga red 1 cap PO DAILY 0RF multivitamin [Multiple Vitamins] 1 EACH tablet 1 tab PO QDAY Qty: 0 0RF Prolia 60 mg/mL syringe 60 mg SUBCUT [id number] 0RF estradiol [Estrace] 0.01 % (0.1 mg/gram) cream 1 g VAG DAILY Qty: 42.5 3RF Rx Instructions: for 12 nights, then twice a week thereafter tramadol 50 mg tablet 50 mg PO BID PRN (Reason: pain) Qty: 20 0RF Rx Instructions: Take 1 tab up to twice daily as needed for pain pregabalin 75 mg capsule 75 mg PO TID 0RF metaxalone 800 mg tablet 800 mg PO TID PRN (Reason: muscle pain) Qty: 30 1RF Rx Instructions: Take 1/2 to 1 tab up to 3x/day as needed for pain meloxicam 15 mg tablet 15 mg PO DAILY Qty: 90 3RF Hold Instructions: while on ketorolac Rx Instructions: Take 1 tab by mouth daily for pain cholecalciferol (vitamin D3) 25 mcg (1,000 unit) capsule 25 mcg PO DAILY 0RF mecobalamin (vitamin B12) 1,000 mcg tablet,chewable 1,000 mcg PO DAILY 0RF baclofen 5 mg tablet 5 mg PO TID Qty: 30 1RF Rx Instructions: Take 1 tab up to 3x/day for left leg pain/spasms Disabled Parking Permit See Rx Instructions .ROUTE .COMPLEX Qty: 1 0RF Rx Instructions: I find this patient to be medically disabled and qualify for disabled parking as indicated and signed on the accompanying disabled parking application for individuals. Digestive Advantage Advanced 10 billion cell capsule PO 0RF solifenacin [Vesicare] 10 mg tablet 15 mg PO DAILY Qty: 90 5RF Referrals: Aimee Chance ARNP [Primary Care Provider] - <Dony Benoit MD - Last Filed: 05/31/21 01:30> [facility] I was immediately available in the department for consultation. This documentation has been reviewed and I agree with assessment and plan. Supervised by Dony Benoit MD
[2021-05-17] MEDS: KETOROLAC 30 MG/ML VIAL IM (13:33)
--- NOTE | 2021-06-03 12:29 | PC.NURSE ---
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
== END 2021-05-17 14:21 | disposition home or self-care (01) ==
PROVIDERS: Emergency Provider Physician Assistant; PCP Nurse Practitioner
DX: M25.552 Pain in left hip (principal)
CPT/HCPCS: 96372; 99283; J1885

== ENCOUNTER → 2021-07-25 08:57 | Outpatient (CLI) | payer OTHER, SELFPAY ==
--- NOTE | 2021-07-25 | DI.CT.S_ITS ---
PROCEDURE: CT PELVIS W CON INDICATIONS: PAIN IN LEFT HIP AND LEG TECHNIQUE: After the administration of intravenous contrast, 5 mm thick sections acquired from the iliac crests to the symphysis. 5 mm coronal and sagittal reformats were acquired. For radiation dose reduction, the following was used: automated exposure control, adjustment of mA and/or kV according to patient size. COMPARISON: [facility], CT, CT LE LT W CON, 07/25/2021, 9:31. FINDINGS: Image quality: Excellent. Peritoneum and bowel: Bowel loops demonstrate normal wall thickness and caliber. No free fluid or air. Genitourinary: Uterus is normal. No adnexal mass. Bladder wall thickness is normal. Nodes and vessels: No iliac, pelvic, or inguinal adenopathy by size criteria. Iliac vessels demonstrate normal size and enhancement. Bones: No acute fracture or dislocation. No suspicious bony lesions. There are healing fractures of the right right superior and inferior pubic rami. [id number] degenerative disc and facet disease at L4-L5 and L5-S1. Moderate symmetric hip and SI joint degeneration. Miscellaneous: Mild stranding of the gluteus muscles at the musculotendinous junction over the greater trochanter of the left femur. No fluid collections to suggest greater trochanteric bursitis. No inguinal hernias. IMPRESSION: 1. No acute osseous abnormalities. 2. Healing fractures of the right superior and inferior pubic rami. 3. Moderate symmetric degenerative joint disease of the hips and sacroiliac joints 4. [id number] degenerative disc and facet disease in lower lumbar spine. 5. Mild stranding of the gluteus muscles at the musculotendinous junction over the left greater trochanter of femur, suggesting mild strain. Recommend clinical correlation. If clinically indicated, MRI may be helpful. There is no fluid collection over the greater trochanter to suggest greater trochanteric bursitis. Dictated by: Cachorro Pierce M.D. on 07/25/2021 at 10:25 Approved by: Cachorro Pierce M.D. on 07/25/2021 at 11:47
--- NOTE | 2021-07-25 | DI.CT.S_ITS ---
PROCEDURE: CT LE LT W CON INDICATIONS: PAIN IN LEFT HIP AND LEG TECHNIQUE: After the administration of intravenous contrast, 3 mm axial sections acquired of the left hip, left femur, and left knee with coronal and sagittal reformats. COMPARISON: None. FINDINGS: Image quality: Diagnostic. Susceptibility artifacts from left knee prosthesis are seen.. Bones: Patient is status post left total knee arthroplasty with significant beam hardening artifact seen. Mild to moderate left hip joint osteoarthritic changes are seen with joint space narrowing and subchondral sclerosis. No left hip fracture or dislocation. No suspicious intraosseous lesion. No evidence of avascular necrosis of femoral head. Alignment of left knee is anatomic. No gross hardware loosening or failure. No acute left knee fracture or dislocation. No suspicious intraosseous lesion. Soft tissues: There is no enhancing soft tissue mass or discrete drainable fluid collection. No intramuscular mass or fluid collection is seen. No significant left hip joint effusion is seen. Small to moderate left knee joint effusion is noted, no calcified intra-articular loose body. No soft tissue abnormality is seen in visualized portion of proximal to mid left lower leg. Quadriceps tendon and patellar tendon are intact. No left inguinal lymphadenopathy is seen. IMPRESSION: 1. Mild to moderate left hip joint osteoarthritis. No hip fracture or dislocation. No evidence of avascular necrosis of femoral head. No suspicious intraosseous lesion. 2. Prior left total knee arthroplasty with anatomic left knee alignment. No gross hardware loosening or failure. No left knee fracture or dislocation. 3. No area of abnormal soft tissue enhancement. No soft tissue mass or fluid collection is seen. No inguinal lymphadenopathy. 4. Suggestion of small to moderate left knee joint effusion, no calcified intra-articular loose body. No abnormal soft tissue calcifications. Dictated by: Jonh Mcclelland M.D. on 07/25/2021 at 10:17 Approved by: Jonh Mcclelland M.D. on 07/25/2021 at 10:24
[2021-07-25 09:29] LABS: BUN Creatinine Ratio 35.3 (6-22); Blood Urea Nitrogen 30 mg/dL (7-17); Estimated Glomerular Filt Rate > 60.0 mL/min (>60)
== END ==
PROVIDERS: PCP Nurse Practitioner; Referring Provider Nurse Practitioner; Visit Provider Nurse Practitioner
DX: M79.605 Pain in left leg (principal); M25.552 Pain in left hip; M16.12 Unilateral primary osteoarthritis, left hip; Z96.652 Presence of left artificial knee joint
CPT/HCPCS: 36415; 72193; 73701; 82565; 84520; Q9967

== ENCOUNTER → 2021-08-01 14:07 | Outpatient (CLI) | payer OTHER, SELFPAY ==
--- NOTE | 2021-08-01 14:07 | DI.MRI.S_ITS ---
PROCEDURE: MR HIP LT WO CON INDICATIONS: Abnormal CT of pelvis TECHNIQUE: Noncontrast coronal T1 spin echo and STIR through the bony pelvis. Coronal and axial T2 fast spin echo with fat saturation, sagittal T1 spin echo, and oblique axial T2 fast spin echo with fat saturation through the hip. COMPARISON: [facility], CT, CT PELVIS W CON, 07/25/2021, 9:31. FINDINGS: Image quality: Some images are degraded by motion artifact. Bones and joints: Remote fracture deformity of the right superior and inferior pubic rami. No intraosseous lesions or fractures. No avascular necrosis of the femoral heads. Tendons and ligaments: The gluteus medius and minimus tendons appear intact, without associated muscle atrophy. T2 hyperintense signal overlies the bilateral greater trochanters, compatible with mild bursitis. The nearby proximal iliotibial band also appears intact. The iliopsoas tendon appears intact, without adjacent bursal fluid collections or evidence for impingement syndrome. The origin of the hamstring tendon is intact at the ischial tuberosity The ligamentum teres appears intact where visualized. Labrum and cartilage: The acetabular labrum appears intact in the absence of intra-articular contrast. Signal heterogeneity and thinning of the hyaline cartilage. Soft tissues: Visualized muscles demonstrate normal bulk and internal signal. The proximal sciatic neurovascular bundle appears normal adjacent to the hamstring tendons. No free pelvic fluid. Bladder wall thickness is normal. Genitourinary structures and bowel loops appear normal where visualized. IMPRESSION: 1. Mild bilateral trochanteric bursitis. Dictated by: Marlon Toro M.D. on 08/01/2021 at 16:35 Approved by: Marlon Toro M.D. on 08/01/2021 at 16:43
== END ==
PROVIDERS: PCP Nurse Practitioner; Referring Provider Nurse Practitioner; Visit Provider Nurse Practitioner
DX: M70.62 Trochanteric bursitis, left hip (principal); M70.61 Trochanteric bursitis, right hip; R93.89 Abnormal findings on diagnostic imaging of other specified body structures; M79.605 Pain in left leg
CPT/HCPCS: 73721

== ENCOUNTER 2021-11-24 09:39 | Emergency (ER) | payer OTHER, SELFPAY ==
--- NOTE | 2021-11-24 09:50 | ED.LOWEXIN ---
HPI - Extremity Injury (Lower) General Chief Complaint: Extremity Problem,Nontraumatic Stated Complaint: Pain in left foot x 2 weeks Time Seen by Provider: 11/24/21 09:47 History of Present Illness HPI Narrative: Patient is 86-year-old female presents with left foot pain ongoing for couple of weeks. She states it is worse at nighttime so bad that she can not sleep. She has been taking meloxicam and pregabalin for some time after knee surgery and still having pain. She describes sharp shooting pain is that goes up into her leg and into her foot. No fever chills. She says during the daytime she really has no issues his pain is definitely worse at night. She denies any falling or injury. Related Data Home Medications Medication Instructions Recorded Confirmed multivitamin (Multiple Vitamins) 1 tab PO QDAY ##0 02/05/17 07/26/21 megga red 1 cap PO DAILY 02/27/18 07/26/21 denosumab 60 mg/mL subcutaneous 60 mg SUBCUT [id number] 09/25/18 07/26/21 syringe (Prolia) L.acidoph, paracasei,B. lactis 10 cell PO 03/16/20 07/26/21 billion cell capsule (Digestive Advantage Advanced Probiotic) cholecalciferol (vitamin D3) 25 25 mcg PO DAILY 12/27/20 07/26/21 mcg (1,000 unit) capsule mecobalamin (vitamin B12) 1,000 1,000 mcg PO DAILY 12/27/20 07/26/21 mcg chewable tablet ibuprofen 200 mg tablet 200 mg PO Q6H PRN 07/11/21 07/26/21 Previous Rx's Medication Instructions Recorded estradiol (Estrace) 1 g vaginal DAILY #42.5 grams 04/22/21 Disabled Parking Permit See Rx Instructions .Route 05/03/21 .COMPLEX #1 unit solifenacin 10 mg tablet (Vesicare) 15 mg PO DAILY 90 days #135 tabs 07/11/21 metaxalone 800 mg tablet 800 mg PO TID PRN muscle pain #30 07/26/21 tabs meloxicam 15 mg tablet 15 mg PO DAILY #90 tabs 08/09/21 pregabalin 75 mg capsule 75 mg PO TID #270 caps 10/01/21 gabapentin 300 mg capsule 300 mg PO BEDTIME #30 caps 11/24/21 hydrocodone 5 mg-acetaminophen 325 1 tab PO Q6H PRN pain #10 tabs 11/24/21 mg tablet Allergies Allergy/AdvReac Type Severity Reaction Status Date / Time No Known Drug Allergies Allergy Verified 07/26/21 11:58 Review of Systems Review of Systems Narrative: GENERAL: Denies chills,fever HEENT: Denies throat pain RESPIRATORY: Denies dyspnea, cough, wheezing CARDIOVASCULAR: Denies chest pain, palpitations GASTROINTESTINAL: Denies nausea, vomiting MUSCULOSKELETAL: See HPI SKIN: No rash, no laceration, no pruritus NEUROLOGIC: Denies weakness, dizziness, headache, numbness 8 point review of systems is negative except for those stated above and HPI Patient History Medical History Anemia (~1953) Arthritis Bilateral knee pain Bursitis, trochanteric Chronic 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 Chronic right-sided low back pain without sciatica Compression fracture of T11 vertebra Decreased range of motion of both knees Decreased range of motion of right knee Degenerative disc disease, lumbar Degenerative joint disease (DJD) of hip Fracture (1940) Hearing loss (2016) Heart valve calcification Knee pain, left (Unknown) Knee pain, left Knee pain, right Left leg pain Lower extremity edema Lower urinary tract symptoms (LUTS) Lumbar region somatic dysfunction Lumbosacral spondylosis with radiculopathy Murmur Muscle strain of left gluteal region Nocturia more than twice per night Onychomycosis Osteoarthritis (1999) Osteoarthritis of left hip Osteopenia (~2002) Osteoporosis (~2002) Other spondylosis with radiculopathy, lumbosacral region Pelvic somatic dysfunction Polyneuropathic pain Polyneuropathy Postmenopausal atrophic vaginitis Radiculopathy of lumbosacral region Retinal detachment (1998) Right shoulder pain Sacral region somatic dysfunction Segmental and somatic dysfunction of abdomen and other regions Shoulder pain (2014) Somatic dysfunction of lower extremity Strain of gluteus medius of left lower extremity Swelling of lower extremity Urge incontinence Urinary incontinence (~2013) Surgical History History of knee replacement History of stem cell transplant History of total knee arthroplasty Total knee replacement status Family History Father Mental health problem Mother Heart disease Grandmother Breast cancer Social History household members: none Smoking Status: Never smoker alcohol intake: current substance use type: does not use Smoking Status: Never smoker Substance Use Type: does not use Exam Initial Vital Signs Initial Vital Signs: Vital Signs Temperature 96.9 F L 11/24/21 09:51 Pulse Rate 81 11/24/21 09:51 Respiratory Rate 16 11/24/21 09:51 Blood Pressure 149/65 H 11/24/21 09:51 Pulse Oximetry 96 11/24/21 09:51 Oxygen Delivery Method 11/24/21 09:51 GENERAL: Alert pleasant 86-year-old female no acute distress CARDIOVASCULAR: peripheral pulses in tact, cap refill <2 sec RESPIRATORY: No respiratory distress, speaks in full sentences without difficulty EXTREMITIES: Normal range of motion, no clubbing or edema. Neurovascularly intact Left foot no erythema no swelling no obvious deformity strong distal pedal pulse intact Achilles intact foot is stable NEUROLOGICAL: Cranial nerves II through XII grossly intact. Normal gait and speech. SKIN: Warm, dry, no petechiae, no rashes or lesions. Course Vital Signs Vital signs: Vital Signs - 8 hr 11/24/21 09:51 11/24/21 10:14 Temperature 96.9 F L Pulse Rate 81 Respiratory Rate 16 Blood Pressure 149/65 H 139/65 Pulse Oximetry 96 Oxygen Delivery Method Room Air MDM - Extremity Injury (Lower) MDM Narrative Medical decision making narrative: Patient is describing neuropathy like pain. She is taking pregabalin which does seem to be working and most of her pain is at night. Will change her over to gabapentin. She has a tele health appointment with PCP on December 01 however her pain is quite severe will also give her a couple hydrocodone. Discharge Plan Departure Patient Disposition: Home Clinical Impression: Neuropathy Activity Restrictions/Additional Instructions: *You have been diagnosed with neuropathy *What to do: Unfortunately at this time there is not much to do but we will change your medication to see if it helps. *Continue to take medications as directed--> SENT TO [facility] Stop taking pregabalin Start taking gabapentin 300 mg at night [place] 1 tablet at night or every 6 hours only if severe pain *Follow up with your primary care provider in 2-3 days or call [phone] *Return to ER if you should have increasing pain, calling, fever redness or any new, worsening or concerning symptoms CONTROLLED SUBSTANCE DISCHARGE (Narcotoic/benzodiazepine/Flexeril/Phenergan) 1. You have been prescribed narcotic medications, it does have acetaminophen/Tylenol/paracetamol in it, DO NOT TAKE MORE THAN 4,00mg in 24 hours of Tylenol. TRAMADOL DOES NOT CONTAIN TYLENOL 2. Please understand that we cannot provide further refills of narcotics, benzodiazepines or controlled substances through the ED and her pain management will need to be through your provider. 3. While on these medications you cannot drive or operate heavy machinery. 4. You cannot sign legal documents or perform any duties such as this. 5. As long as you're taking opiate pain medications he should also be taking a stool softener such as Colace, Dulcolax, MiraLAX or prune juice, to help avoid constipation. Prescriptions: New hydrocodone-acetaminophen 5-325 mg tablet 1 tab PO Q6H PRN (Reason: pain) Qty: 10 0RF gabapentin 300 mg capsule 300 mg PO BEDTIME Qty: 30 0RF No Action megga red 1 cap PO DAILY multivitamin [Multiple Vitamins] 1 EACH tablet 1 tab PO QDAY Qty: 0 Prolia 60 mg/mL syringe 60 mg SUBCUT [id number] estradiol [Estrace] 0.01 % (0.1 mg/gram) cream 1 g VAG DAILY Qty: 42.5 3RF Rx Instructions: for 12 nights, then twice a week thereafter meloxicam 15 mg tablet 15 mg PO DAILY Qty: 90 3RF Hold Instructions: while on ketorolac Rx Instructions: Take 1 tab by mouth daily for pain pregabalin 75 mg capsule 75 mg PO TID Qty: 270 3RF cholecalciferol (vitamin D3) 25 mcg (1,000 unit) capsule 25 mcg PO DAILY mecobalamin (vitamin B12) 1,000 mcg tablet,chewable 1,000 mcg PO DAILY ibuprofen 200 mg tablet 200 mg PO Q6H PRN solifenacin [Vesicare] 10 mg tablet 15 mg PO DAILY 90 Days Qty: 135 5RF Rx Instructions: Take 15mg (1 1/2) tabs daily for urinary symptoms metaxalone 800 mg tablet 800 mg PO TID PRN (Reason: muscle pain) Qty: 30 0RF Rx Instructions: Take 1 tab up to 3x/day as needed for pain Disabled Parking Permit See Rx Instructions .ROUTE .COMPLEX Qty: 1 0RF Rx Instructions: I find this patient to be medically disabled and qualify for disabled parking as indicated and signed on the accompanying disabled parking application for individuals. Digestive Advantage Advanced 10 billion cell capsule PO Referrals: Aimee Chance ARNP [Primary Care Provider] - Visit Report Forms: Patient Portal/API
[2021-11-24 09:51] VITALS: BP 149/65; PULSE 81; RESP 16; TEMP 36.1; O2SAT 96; BMI 24.2
[2021-11-24 10:14] VITALS: BP 139/65
== END 2021-11-24 10:15 | disposition home or self-care (01) ==
PROVIDERS: Emergency Provider Emergency Medicine; PCP Nurse Practitioner
DX: G62.9 Polyneuropathy, unspecified (principal)
CPT/HCPCS: 99281

== ENCOUNTER → 2021-12-06 15:06 | Outpatient (CLI) | payer OTHER, SELFPAY | PROVIDERS: Family Provider Nurse Practitioner; PCP Nurse Practitioner; Referring Provider Nurse Practitioner; Visit Provider Nurse Practitioner ==

== ENCOUNTER → 2022-01-03 16:45 | Outpatient (CLI) | payer OTHER, SELFPAY ==
[2022-01-03 19:23] LABS: Appearance Urine UA CLEAR; Bilirubin Urine UA NEGATIVE (NEGATIVE); Color Urine UA YELLOW; Glucose Urine UA NEGATIVE (Negative); Ketones Urine UA NEGATIVE (NEGATIVE); Leukocyte Esterase Urine UA 2+ (NEGATIVE); Nitrite Urine UA NEGATIVE (Negative); Occult Blood Urine UA NEGATIVE (Negative); Protein Urine UA TRACE (Negative); Specific Gravity Urine UA 1.025 (1.000-1.035); Urobilinogen Urine UA 0.2 E.U./dL (0.2)
[2022-01-03 19:54] LABS: Culture Indicated Urine Specimen Cultured; RBC Urine 0-1/HPF (0-5/HPF); Squamous Epithelial Cell Urine 1-5 /HPF (0-5/HPF); Transitional Epi Cells Urine 5-10/HPF (0-5/HPF); WBC Urine 10-30/HPF (0-5/HPF)
[2022-01-03 19:55] LABS: Bacteria Urine Few (2-10)
== END ==
PROVIDERS: Family Provider Nurse Practitioner; PCP Nurse Practitioner; Referring Provider Nurse Practitioner; Visit Provider Nurse Practitioner
DX: R30.0 Dysuria (principal)
CPT/HCPCS: 81001; 87086

== ENCOUNTER → 2022-01-06 11:19 | Outpatient (CLI) | payer OTHER, SELFPAY ==
--- NOTE | 2022-01-06 11:22 | DI.RAD.S_ITS ---
PROCEDURE: XR KNEE RT 3V INDICATIONS: right knee pain TECHNIQUE: 3 views of the knee were acquired. COMPARISON: [facility], CR, XR KNEE ARTHRITIC SERIES BI, 12/12/2019, 9:19. [facility], CR, XR KNEE ARTHRITIC SERIES LT, 05/06/2019, 9:13. FINDINGS: Bones: No fractures or dislocations. No suspicious bony lesions. Moderate tricompartmental knee joint degeneration. Chondrocalcinosis. Soft tissues: Trace joint effusion. No suspicious soft tissue calcifications. IMPRESSION: 1. Moderate degenerative joint disease. 2. Chondrocalcinosis. Common etiologies are CPPD and hyperparathyroidism. 3. Trace knee joint effusion. Dictated by: Cachorro Pierce M.D. on 01/06/2022 at 17:15 Approved by: Cachorro Pierce M.D. on 01/06/2022 at 17:17
== END ==
PROVIDERS: Family Provider Nurse Practitioner; PCP Nurse Practitioner; Referring Provider Nurse Practitioner; Visit Provider Nurse Practitioner
DX: M11.261 Other chondrocalcinosis, right knee (principal); M17.11 Unilateral primary osteoarthritis, right knee; M25.561 Pain in right knee
CPT/HCPCS: 73562

== ENCOUNTER → 2022-02-08 16:16 | Outpatient (CLI) | payer OTHER, SELFPAY ==
[2022-02-08 17:10] LABS: Appearance Urine UA CLEAR; Bilirubin Urine UA NEGATIVE (NEGATIVE); Color Urine UA YELLOW; Glucose Urine UA NEGATIVE (Negative); Ketones Urine UA NEGATIVE (NEGATIVE); Leukocyte Esterase Urine UA TRACE (NEGATIVE); Nitrite Urine UA NEGATIVE (Negative); Occult Blood Urine UA NEGATIVE (Negative); Protein Urine UA NEGATIVE (Negative); Specific Gravity Urine UA 1.015 (1.000-1.035); Urobilinogen Urine UA 0.2 E.U./dL (0.2)
[2022-02-08 17:17] LABS: pH Urine UA 6.5 (4.5-8.0)
[2022-02-08 17:30] LABS: Bacteria Urine None Seen; Culture Indicated Urine Specimen Cultured; RBC Urine 0-1/HPF (0-5/HPF); Squamous Epithelial Cell Urine 0-1 /HPF (0-5/HPF); WBC Urine 0-1/HPF (0-5/HPF)
[2022-02-09 17:08] LABS: Hep C Virus Ab w/Reflex Quant NEGATIVE s/c (NEGATIVE)
== END ==
PROVIDERS: Family Provider Nurse Practitioner; PCP Nurse Practitioner; Referring Provider Nurse Practitioner; Visit Provider Nurse Practitioner
DX: Z11.59 Encounter for screening for other viral diseases (principal); N39.0 Urinary tract infection, site not specified
CPT/HCPCS: 36415; 81001; 86803; 87086

== ENCOUNTER → 2022-02-14 16:15 | Outpatient (CLI) | payer OTHER, SELFPAY ==
[2022-02-14 17:20] LABS: Appearance Urine UA CLEAR; Bilirubin Urine UA NEGATIVE (NEGATIVE); Color Urine UA YELLOW; Glucose Urine UA NEGATIVE (Negative); Ketones Urine UA NEGATIVE (NEGATIVE); Leukocyte Esterase Urine UA NEGATIVE (NEGATIVE); Nitrite Urine UA NEGATIVE (Negative); Occult Blood Urine UA NEGATIVE (Negative); Protein Urine UA NEGATIVE (Negative); Specific Gravity Urine UA <=1.005 (1.000-1.035); Urobilinogen Urine UA 0.2 E.U./dL (0.2)
[2022-02-14 17:38] LABS: Bacteria Urine Occasional (0-1); Culture Indicated Urine Cult Not Indicated; RBC Urine 0-1/HPF (0-5/HPF); Squamous Epithelial Cell Urine 0-1 /HPF (0-5/HPF); WBC Urine None Seen (0-5/HPF)
== END ==
PROVIDERS: Family Provider Nurse Practitioner; PCP Nurse Practitioner; Referring Provider Nurse Practitioner; Visit Provider Nurse Practitioner
DX: N39.0 Urinary tract infection, site not specified (principal); R30.9 Painful micturition, unspecified
CPT/HCPCS: 81001

== ENCOUNTER → 2022-03-15 16:18 | Outpatient (CLI) | payer OTHER, SELFPAY ==
--- NOTE | 2022-03-15 16:19 | DI.MG.S_ITS ---
BILATERAL DIGITAL SCREENING MAMMOGRAM 3D/2D WITH CAD: 03/15/2022 CLINICAL: Routine screening. Family history of breast cancer. Comparison is made to exams dated: 12/09/2020 mammogram, 12/09/2019 mammogram, and 08/26/2018 mammogram - [facility]. There are scattered areas of fibroglandular density in both breasts (category b / 25%-50% glandular tissue). Current study was also evaluated with a Computer Aided Detection (CAD) system. There are benign calcifications in both breasts. No significant masses, calcifications, or other findings are seen in either breast. There has been no significant interval change. IMPRESSION: BENIGN There is no mammographic evidence of malignancy. A 1 year screening mammogram is recommended. Based on the Tyrer Cuzick model (a risk assessment model) the patient's lifetime risk is 0.3% and her 10 year risk is 0.0%. According to the ACR, ACS, and NCCN guidelines, an annual breast MRI exam along with mammogram is recommended if the patient's lifetime risk is 20% or greater. This exam was interpreted at Station ID: [id number]. NOTE: For mammograms, a report in lay terms will be sent to the patient. Approximately 15% of breast malignancies will not be visualized mammographically. In the management of a palpable breast mass, a negative mammogram must not discourage biopsy of a clinically suspicious lesion. Electronically Signed By: Axel kirkpatrick/danelle:03/16/2022 09:12:06 letter sent: Normal Exam ACR BI-RADS Category 2: Benign Finding(s) 3342F
== END ==
PROVIDERS: Family Provider Nurse Practitioner; PCP Nurse Practitioner; Referring Provider Nurse Practitioner; Visit Provider Nurse Practitioner
DX: Z12.31 Encounter for screening mammogram for malignant neoplasm of breast (principal); Z80.3 Family history of malignant neoplasm of breast
CPT/HCPCS: 77063; 77067

== ENCOUNTER 2022-07-06 13:45 | Outpatient (RCR) | payer OTHER, SELFPAY ==
--- NOTE | 2022-06-23 17:58 | PT.OIE ---
Current Diagnoses Unspecified urinary incontinence (06/23/22) Nocturia (06/23/22) Past Medical History (Last Reviewed 01/11/22 @ 14:18 by CARLOS Laguna) Anemia (~1953) Arthritis Bilateral knee pain Bursitis, trochanteric Chronic 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 Chronic right-sided low back pain without sciatica Compression fracture of T11 vertebra Decreased range of motion of both knees Decreased range of motion of right knee Degenerative disc disease, lumbar Degenerative joint disease (DJD) of hip Fracture (1940) Frequent UTI Hearing loss (2016) Heart valve calcification Incontinence in female Knee pain, left (Unknown) Knee pain, left Knee pain, right Left leg pain Lower extremity edema Lower urinary tract symptoms (LUTS) Lumbar region somatic dysfunction Lumbosacral spondylosis with radiculopathy Murmur Muscle strain of left gluteal region Nocturia more than twice per night Onychomycosis Osteoarthritis (1999) Osteoarthritis of left hip Osteopenia (~2002) Osteoporosis (~2002) Other spondylosis with radiculopathy, lumbosacral region Pelvic somatic dysfunction Polyneuropathic pain Polyneuropathy Postmenopausal atrophic vaginitis Radiculopathy of lumbosacral region Retinal detachment (1998) Right shoulder pain Sacral region somatic dysfunction Segmental and somatic dysfunction of abdomen and other regions Shoulder pain (2014) Somatic dysfunction of lower extremity Strain of gluteus medius of left lower extremity Swelling of lower extremity Urge incontinence Urinary incontinence (~2013) Past Surgical History (Last Reviewed 01/11/22 @ 14:18 by CARLOS Laguna) History of knee replacement History of stem cell transplant History of total knee arthroplasty Total knee replacement status Visit Care Team Role Provider Type CARLOS Laguna Attending Provider Advanced Picker Family Provider Primary Care Provider Referring Provider Specialty: Family Practice Address: [address] [place] [address], [facility] Email: [email or web address] Therapy Initial Evaluation PT-OP-A Visit Information Start: 06/19/22 16:28 Freq: Status: Active Protocol: Document 06/23/22 14:33 LRN (Rec: 06/23/22 17:58 LRN [id number]) Out-Patient Physical Therapy Visit Information Visit Information Visit Type Re-Evaluation Visit Start Time 14:33 Visit Stop Time 15:22 Total Visit Minutes 49 Visit Number 07/02 Evaluation Information Evaluation Date 06/23/22 Precautions Precautions L TKA in 2016 and ~2010, Osteoporosis/Osteopenia, Osteoarthritis, L lateral thigh pain after stretching in swimming pool. PT-OP-B Current Condition Start: 06/19/22 16:28 Freq: Status: Active Protocol: Document 06/23/22 14:33 LRN (Rec: 06/23/22 17:58 LRN [id number]) Current Condition History of Current Condition Onset Date 20 yrs ago and has progressively worsened Current Complaints Taking up to 20 mg of medication for incontinence History of Current Condition Pt reports urinary incontinence for a long time requiring progressive increase use of Vesacare or Solifenacin medication causing her to dry up and she still leaks at nighttime and gets up to 1-2x/night with leakage. She feels when her medication was increased it didn't really help her level of continence. She uses a maxi-pad 1-2x/night, that she thinks is for urinary incontinence. She wears no pads during the day and rarely leaks, only when she doesn't pay attention to her having to go. She was taking Estrodial and believes she developed a UTI through repeated insertion of the cream filled tub, therefore she stopped using the cream. Prior Treatments and Tests Medications prescribed that she doesn't feel is helpful ( Vesacare or Solifenacin) Treatment Goals Patient/Caregiver Goals Pt goal is to strengthen the PF and eliminate the need for a pad at night. Prior Functional Status Baseline Function- ADL's Independent Baseline Function- Mobility Independent Baseline Function- Gait Ambs with SPC Baseline Function- Other At least 10 yrs ago was able to sleep through the night without urinary leakage. Walks 2x/day outside for 1 hr and daily ex's at home for her knee. Personal Factors Other Personal Factors That May Effect Osteoporosis/Osteopenia, Therapy/Recovery Osteoarthritis. PT-OP-C Subjective Start: 06/19/22 16:28 Freq: Status: Active Protocol: Document 06/23/22 14:33 LRN (Rec: 06/23/22 17:58 LRN [id number]) Patient Questionnaires Pelvic Pain and Urgency/Frequency Patient Symptom Scale Pelvic Pain Score ........ PT-OP-I Pelvic Floor Start: 06/19/22 16:28 Freq: Status: Active Protocol: Document 06/23/22 14:33 LRN (Rec: 06/23/22 17:58 LRN [id number]) Pelvic Floor Assessment Urine Pelvic Floor Surgery No Urinary Symptoms Urge Sensation Leakage Size Medium Nocturia 1-2 Pads Used In 24 Hours 1-2 Urine Pad Type Maxi Pad Bowel Bowel Surgery No Bowel Symptoms Constipation Bowel Movement Frequency 1/day [place] Stool Chart Comments Stool type 3-4 Perineal Descent Resting Absent Bearing Absent Contraction Ability Voluntary Contraction Weak Voluntary Relaxation Weak Manual Muscle Testing Left 3 Manual Muscle Testing Right 2 Manual Muscle Testing Anterior 3 Manual Muscle Testing Posterior 0 Muscle Endurance (Seconds) 3 Number of Quick Contractions In 10 2 Seconds Comments Pelvic Floor Comments PF strength is obtained by use of gluteals, abdominals and hip AD muscle substitution. Firm stool is felt in the rectum. PT-OP-J Posture/Palpation/Skin Start: 06/19/22 16:28 Freq: Status: Active Protocol: Document 06/23/22 14:33 LRN (Rec: 06/23/22 17:58 LRN [id number]) Posture Evaluation Position Standing Head/C-Spine Posture Forward Head T-Spine Posture Increased Kyphosis L-Spine Posture Decreased Lordosis PT-OP-K Range of Motion Start: 06/19/22 16:28 Freq: Status: Active Protocol: Document 06/23/22 14:33 LRN (Rec: 06/23/22 17:58 LRN [id number]) Lumbar Spine Range of Motion Lumbar Spine Active Degrees Testing Position Standing Flexion 45 Extension 0 Rotation Left 10 Rotation Right 20 Lateral Flexion Left 25 Lateral Flexion Right 30 Hip Goniometric Range of Motion Hip Right Passive Testing Position Supine Abduction 40 Internal Rotation 40 External Rotation 40 Left Passive Testing Position Supine Abduction 45 Internal Rotation 25 External Rotation 50 PT-OP-M Strength Start: 06/19/22 16:28 Freq: Status: Active Protocol: Document 06/23/22 14:33 LRN (Rec: 06/23/22 17:58 LRN [id number]) Hip Strength Hip Manual Muscle Testing Right Flexion (L2) 5 Normal Abduction 5 Normal Adduction 2- Poor- External Rotation 5 Normal Internal Rotation 5 Normal Left Flexion (L2) 5 Normal Abduction 5 Normal Adduction 2+ Poor+ External Rotation 2 Poor Internal Rotation 5 Normal PT-OP-Q Treatments Start: 01/02/23 16:28 Freq: Status: Active Protocol: Document 06/23/22 14:33 LRN (Rec: 06/23/22 17:58 LRN [id number]) Self-Care/Home Management Treatment Education Other Education Discussed results of evaluation, goals, and plan of care (POC). Pt agreeable to goals and POC. Pt educated in use of Bladder Diary and I/S in tracking for 1 week. Discussed use of 2 different diaries for tracking of bladder. PT-OP-T Assessment and Plan Start: 06/19/22 16:28 Freq: Status: Active Protocol: Document 06/23/22 14:33 LRN (Rec: 06/23/22 17:58 LRN [id number]) Physical Therapy Assessment Rehab Potential Rehabilitation Potential Good Evaluation Complexity Number of Personal Factors/Comorbidities 1-2 Number of Body Systems Impaired 4 or More Clinical Presentation at Evaluation Stable Impairments Impairments Activity Tolerance,Posture,ROM ,Strength Other Impairments Dry PF tissues. Possible constipation. Goals Three Impairment Pt is not able to perform a PF contraction in the absence of abdominal/gluteal/hip AD muscles. Short Term Goal (STG) Pt will be aware of the sensation of a proper PF contraction. STG Duration 08/07/22 Deli Cook Goal (LTG) Pt will be able to isolate a PF contraction without overuse of the outer abdominal, gluteal, and hip AD muscles. LTG Duration 09/21/22 Two Impairment PF weakness with urinary leakage with a strong urge Impairment Left 3/5, Right 2/5, Anterior 3/5, Posterior 0/5. Endurance: 3 secs. Quick Contractions: 2 secs. Short Term Goal (STG) Pt will be educated in urinary delay technique. STG Duration 06/30/22 Nursing Home Goal (LTG) Strengthen the PF to eliminate the need for a pad at night. LTG Duration 09/21/22 One Impairment Pt lacks appropriate self care HEP. Short Term Goal (STG) Education in proper methods for transfer with coordination of breathing, and proper vulvar/genital care. STG Duration 07/14/22 Deli Cook Goal (LTG) Pt will be independent with a self care HEP of PF/core strengthening and hip ROM exercises. LTG Duration 09/21/22 Assessment Summary Assessment Pt presents with stress urinary incontinence, with pt' s primary c/o being nighttime urinary leakage while on urinary incontinence medications. Pt doesn't feel daytime leakage is a problem because it rarely happens. The pt has PF weakness that is exacerbated by her poor posture. She is not able to perform an isolated PF contraction but demonstrates much substitution to perform a contraction. When assessed there was hardened stool palpable in the rectum; therefore constipation may be a factor in her level of incontinence. Her external PF tissues appear dry and fragile, but the pt has stopped use of her estrodial cream due to fears that it will cause a UTI. Pt may need discussion with referring physician regarding use of a possible cream to improve tissue health if there is a poor response to therapy. The pt will benefit from skilled physical therapy to achieve the above stated goals. Physical Therapy Plan Frequency and Duration Frequency of Treatment 1x/Week Plan of Care Start Date 06/23/22 Plan of Care End Date 08/07/22 Therapeutic Interventions Therapeutic Interventions Home Exercise Program,Manual Therapy,Neuromuscular Re- education,Patient/Caregiver Education,Self-Care/Home Management,Soft Tissue Mobilization,Therapeutic Activities,Therapeutic Exercises Modalities Biofeedback,Electric Stimulation Next Visit Focus/Plan Next Note Type Treatment Note Next Visit Plan Assess for bowel dysfunction & abdominal mobility & improve soft tissue (bladder) mobility if needed. Review bladder diary and make recommendation for proper fluid/food intake, Pt education in urinary delay technique. Pt education in proper Kegel without use of substitute muscles, pt education in proper vulvar/genital care, deep breathing and transfers, discuss foods, and water intake. Ex: PF/core/TA stab/hip strengthening, improve hip mobility (L hip IR, R hip ER/ AB), Pelvic stab (start Roll in/outs if tolerated).
--- NOTE | 2022-06-23 17:59 | PT.OPPOC ---
Physical, Occupational & Speech Therapy At [facility] Current Diagnoses Unspecified urinary incontinence (06/23/22) Nocturia (06/23/22) Visit Care Team Role Provider Type CARLOS Laguna Attending Provider Advanced Motor Equipment Captain Family Provider Primary Care Provider Referring Provider Specialty: Family Practice Address: [address] [place] [address], [facility] Email: [email or web address] Plan Of Care PT-OP-T Assessment and Plan Start: 06/19/22 16:28 Freq: Status: Active Protocol: Document 06/23/22 14:33 LRN (Rec: 06/23/22 17:58 LRN [id number]) Physical Therapy Assessment Rehab Potential Rehabilitation Potential Good Evaluation Complexity Number of Personal Factors/Comorbidities 1-2 Number of Body Systems Impaired 4 or More Clinical Presentation at Evaluation Stable Impairments Impairments Activity Tolerance,Posture,ROM ,Strength Other Impairments Dry PF tissues. Possible constipation. Goals Three Impairment Pt is not able to perform a PF contraction in the absence of abdominal/gluteal/hip AD muscles. Short Term Goal (STG) Pt will be aware of the sensation of a proper PF contraction. STG Duration 08/07/22 Half-Way Goal (LTG) Pt will be able to isolate a PF contraction without overuse of the outer abdominal, gluteal, and hip AD muscles. LTG Duration 09/21/22 Two Impairment PF weakness with urinary leakage with a strong urge Impairment Left 3/5, Right 2/5, Anterior 3/5, Posterior 0/5. Endurance: 3 secs. Quick Contractions: 2 secs. Short Term Goal (STG) Pt will be educated in urinary delay technique. STG Duration 06/30/22 Half-Way Goal (LTG) Strengthen the PF to eliminate the need for a pad at night. LTG Duration 09/21/22 One Impairment Pt lacks appropriate self care HEP. Short Term Goal (STG) Education in proper methods for transfer with coordination of breathing, and proper vulvar/genital care. STG Duration 07/14/22 Cutter Helper Goal (LTG) Pt will be independent with a self care HEP of PF/core strengthening and hip ROM exercises. LTG Duration 09/21/22 Assessment Summary Assessment Pt presents with stress urinary incontinence, with pt' s primary c/o being nighttime urinary leakage while on urinary incontinence medications. Pt doesn't feel daytime leakage is a problem because it rarely happens. The pt has PF weakness that is exacerbated by her poor posture. She is not able to perform an isolated PF contraction but demonstrates much substitution to perform a contraction. When assessed there was hardened stool palpable in the rectum; therefore constipation may be a factor in her level of incontinence. Her external PF tissues appear dry and fragile, but the pt has stopped use of her estrodial cream due to fears that it will cause a UTI. Pt may need discussion with referring physician regarding use of a possible cream to improve tissue health if there is a poor response to therapy. The pt will benefit from skilled physical therapy to achieve the above stated goals. Physical Therapy Plan Frequency and Duration Frequency of Treatment 1x/Week Plan of Care Start Date 06/23/22 Plan of Care End Date 08/07/22 Therapeutic Interventions Therapeutic Interventions Home Exercise Program,Manual Therapy,Neuromuscular Re- education,Patient/Caregiver Education,Self-Care/Home Management,Soft Tissue Mobilization,Therapeutic Activities,Therapeutic Exercises Modalities Biofeedback,Electric Stimulation Next Visit Focus/Plan Next Note Type Treatment Note Next Visit Plan Assess for bowel dysfunction & abdominal mobility & improve soft tissue (bladder) mobility if needed. Review bladder diary and make recommendation for proper fluid/food intake, Pt education in urinary delay technique. Pt education in proper Kegel without use of substitute muscles, pt education in proper vulvar/genital care, deep breathing and transfers, discuss foods, and water intake. Ex: PF/core/TA stab/hip strengthening, improve hip mobility (L hip IR, R hip ER/ AB), Pelvic stab (start Roll in/outs if tolerated). Plan of Care Dates Plan of Care Start Date 06/23/22 Plan of Care End Date 08/07/22 Electronically Signed by: Lillian Mills, PT 06/23/22 5139 If you are in agreement with this Plan of Care, please return a signed and dated copy. I have reviewed this Plan of Care and certify that the skilled therapy services above are required to meet the patient?s needs. Physician Signature Date Printed Name and Credentials Clinical Instructor Signature Printed Name and Credentials
--- NOTE | 2022-06-29 15:12 | PT.OTN ---
Current Diagnoses Unspecified urinary incontinence (06/29/22) Nocturia (06/29/22) Physical Therapy Treatment Note PT-OP-A Visit Information Start: 06/19/22 16:28 Freq: Status: Active Protocol: Document 06/29/22 13:49 LRN (Rec: 06/29/22 15:11 LRN [id number]) Out-Patient Physical Therapy Visit Information Visit Information Visit Type Treatment Note Visit Start Time 13:49 Visit Stop Time 14:30 Total Visit Minutes 41 Visit Number 08/02 Evaluation Information Evaluation Date 06/23/22 Precautions Precautions L TKA in 2016 and ~2010, Osteoporosis/Osteopenia, Osteoarthritis, L lateral thigh pain after stretching in swimming pool. PT-OP-B Current Condition Start: 06/19/22 16:28 Freq: Status: Active Protocol: Document 06/23/22 14:33 LRN (Rec: 06/23/22 17:58 LRN [id number]) Current Condition History of Current Condition Onset Date 20 yrs ago and has progressively worsened Current Complaints Taking up to 20 mg of medication for incontinence History of Current Condition Pt reports urinary incontinence for a long time requiring progressive increase use of Vesacare or Solifenacin medication causing her to dry up and she still leaks at nighttime and gets up to 1-2x/night with leakage. She feels when her medication was increased it didn't really help her level of continence. She uses a maxi-pad 1-2x/night, that she thinks is for urinary incontinence. She wears no pads during the day and rarely leaks, only when she doesn't pay attention to her having to go. She was taking Estrodial and believes she developed a UTI through repeated insertion of the cream filled tub, therefore she stopped using the cream. Prior Treatments and Tests Medications prescribed that she doesn't feel is helpful ( Vesacare or Solifenacin) Treatment Goals Patient/Caregiver Goals Pt goal is to strengthen the PF and eliminate the need for a pad at night. Prior Functional Status Baseline Function- ADL's Independent Baseline Function- Mobility Independent Baseline Function- Gait Ambs with SPC Baseline Function- Other At least 10 yrs ago was able to sleep through the night without urinary leakage. Walks 2x/day outside for 1 hr and daily ex's at home for her knee. Personal Factors Other Personal Factors That May Effect Osteoporosis/Osteopenia, Therapy/Recovery Osteoarthritis. PT-OP-C Subjective Start: 06/19/22 16:28 Freq: Status: Active Protocol: Document 06/29/22 13:49 LRN (Rec: 06/29/22 15:11 LRN [id number]) OP-PT Subjective Patient Comments Patient Comments States she tried drinking 80oz of fluid but was up all night . PT-OP-I Pelvic Floor Start: 06/19/22 16:28 Freq: Status: Active Protocol: Document 06/23/22 14:33 LRN (Rec: 06/23/22 17:58 LRN [id number]) Pelvic Floor Assessment Urine Pelvic Floor Surgery No Urinary Symptoms Urge Sensation Leakage Size Medium Nocturia 1-2 Pads Used In 24 Hours 1-2 Urine Pad Type Maxi Pad Bowel Bowel Surgery No Bowel Symptoms Constipation Bowel Movement Frequency 1/day [place] Stool Chart Comments Stool type 3-4 Perineal Descent Resting Absent Bearing Absent Contraction Ability Voluntary Contraction Weak Voluntary Relaxation Weak Manual Muscle Testing Left 3 Manual Muscle Testing Right 2 Manual Muscle Testing Anterior 3 Manual Muscle Testing Posterior 0 Muscle Endurance (Seconds) 3 Number of Quick Contractions In 10 2 Seconds Comments Pelvic Floor Comments PF strength is obtained by use of gluteals, abdominals and hip AD muscle substitution. Firm stool is felt in the rectum. PT-OP-J Posture/Palpation/Skin Start: 06/19/22 16:28 Freq: Status: Active Protocol: Document 06/23/22 14:33 LRN (Rec: 06/23/22 17:58 LRN [id number]) Posture Evaluation Position Standing Head/C-Spine Posture Forward Head T-Spine Posture Increased Kyphosis L-Spine Posture Decreased Lordosis PT-OP-K Range of Motion Start: 06/19/22 16:28 Freq: Status: Active Protocol: Document 06/23/22 14:33 LRN (Rec: 06/23/22 17:58 LRN [id number]) Lumbar Spine Range of Motion Lumbar Spine Active Degrees Testing Position Standing Flexion 45 Extension 0 Rotation Left 10 Rotation Right 20 Lateral Flexion Left 25 Lateral Flexion Right 30 Hip Goniometric Range of Motion Hip Right Passive Testing Position Supine Abduction 40 Internal Rotation 40 External Rotation 40 Left Passive Testing Position Supine Abduction 45 Internal Rotation 25 External Rotation 50 PT-OP-M Strength Start: 06/19/22 16:28 Freq: Status: Active Protocol: Document 06/23/22 14:33 LRN (Rec: 06/23/22 17:58 LRN [id number]) Hip Strength Hip Manual Muscle Testing Right Flexion (L2) 5 Normal Abduction 5 Normal Adduction 2- Poor- External Rotation 5 Normal Internal Rotation 5 Normal Left Flexion (L2) 5 Normal Abduction 5 Normal Adduction 2+ Poor+ External Rotation 2 Poor Internal Rotation 5 Normal PT-OP-Q Treatments Start: 06/19/22 16:28 Freq: Status: Active Protocol: Document 06/29/22 13:49 LRN (Rec: 06/29/22 15:11 LRN [id number]) Therapeutic Exercises Supine Exercises Isolated PF >< Supine Exercise Name Isolated PF >< training Reps/Minutes 12' Comments Extra time taken for PF training with phys/self phys & v cuing needed. Self-Care/Home Management Treatment Education Other Education Pt educated in woman's anatomy of the pelvic bowl. Reviewed & discussed at length pt's Bladder/bowel diary and recommendations were discussed to normalize times between voids and to decrease number of voids at nighttime. Recommended pt try to add one cup of fluid in AM and to not force urinary or bowel voiding . Education in possible reasons for long void times (ex-drop in bladder). Discussed pt's fears of restarting estrodial applications. Pt is afraid of UTI's. Recommended pt speak to referring physician regarding fears. Activities Self-Care/Home Management Activities Issued handouts for bowel/ bladder diary and Pelvic Organ Anatomy. PT-OP-T Assessment and Plan Start: 06/19/22 16:28 Freq: Status: Active Protocol: Document 06/29/22 13:49 LRN (Rec: 06/29/22 15:11 LRN [id number]) Physical Therapy Assessment Goals Three Impairment Pt is not able to perform a PF contraction in the absence of abdominal/gluteal/hip AD muscles. Short Term Goal (STG) Pt will be aware of the sensation of a proper PF contraction. STG Duration 08/07/22 Nursing Home Goal (LTG) Pt will be able to isolate a PF contraction without overuse of the outer abdominal, gluteal, and hip AD muscles. LTG Duration 09/21/22 Two Impairment PF weakness with urinary leakage with a strong urge Impairment Left 3/5, Right 2/5, Anterior 3/5, Posterior 0/5. Endurance: 3 secs. Quick Contractions: 2 secs. Short Term Goal (STG) Pt will be educated in urinary delay technique. STG Duration 06/30/22 Oil Agent Goal (LTG) Strengthen the PF to eliminate the need for a pad at night. LTG Duration 09/21/22 One Impairment Pt lacks appropriate self care HEP. Short Term Goal (STG) Education in proper methods for transfer with coordination of breathing, and proper vulvar/genital care. STG Duration 07/14/22 Oil Agent Goal (LTG) Pt will be independent with a self care HEP of PF/core strengthening and hip ROM exercises. 06/29/22: Pt I/S in PF contraction in isolation of substitute muscles. LTG Duration 09/21/22 progressed 06/29/22 Assessment Summary Assessment Quetionable whether pt was able to perform a PF contraction in the abscence of her substitute muscles (gluts , TA, hip AD's). Pt is drinking less than 1/2 her body wgt (72 oz) in oz's, ~60- 69 oz's, (one time 92 oz's resulted in a large leakage at nighttime). She repeatedly has a big gap btn voids from 10a-7p (9 hrs). Her voiding times are long at 10-15 oz. Physical Therapy Plan Frequency and Duration Frequency of Treatment 1x/Week Plan of Care Start Date 06/23/22 Plan of Care End Date 08/07/22 Next Visit Focus/Plan Next Note Type Treatment Note Next Visit Plan Review 2nd diary, focus on bowel recommendations and make recommendations for food intake. Try EMG biofeedback for isolation of PF from substitue ms. Will consider PF contraction with EStim if pt tissue health improved. Review PF contraction in abscence of substitute muscles . Consider Biofeedback for PF coontraction in abscense of substitute ms. Assess for bowel dysfunction & abdominal mobility & improve soft tissue (bladder) mobility if needed. Pt education in urinary delay technique. Pt education in proper Kegel without use of substitute muscles, pt education in proper vulvar/genital care, deep breathing and transfers, discuss foods, and water intake. Ex: PF/core/TA stab/hip strengthening, improve hip mobility (L hip IR, R hip ER/ AB), Pelvic stab (start Roll in/outs if tolerated).
--- NOTE | 2022-07-06 18:05 | PT.OTN ---
Current Diagnoses Unspecified urinary incontinence (07/06/22) Nocturia (07/06/22) Physical Therapy Treatment Note PT-OP-A Visit Information Start: 06/19/22 16:28 Freq: Status: Active Protocol: Document 07/06/22 13:46 LRN (Rec: 07/06/22 18:04 LRN [id number]) Out-Patient Physical Therapy Visit Information Visit Information Visit Type Treatment Note Visit Start Time 13:46 Visit Stop Time 14:29 Total Visit Minutes 43 Visit Number 08/30 Evaluation Information Evaluation Date 06/23/22 Precautions Precautions L TKA in 2016 and ~2010, Osteoporosis/Osteopenia, Osteoarthritis, L lateral thigh pain after stretching in swimming pool. PT-OP-B Current Condition Start: 06/19/22 16:28 Freq: Status: Active Protocol: Document 06/23/22 14:33 LRN (Rec: 06/23/22 17:58 LRN [id number]) Current Condition History of Current Condition Onset Date 20 yrs ago and has progressively worsened Current Complaints Taking up to 20 mg of medication for incontinence History of Current Condition Pt reports urinary incontinence for a long time requiring progressive increase use of Vesacare or Solifenacin medication causing her to dry up and she still leaks at nighttime and gets up to 1-2x/night with leakage. She feels when her medication was increased it didn't really help her level of continence. She uses a maxi-pad 1-2x/night, that she thinks is for urinary incontinence. She wears no pads during the day and rarely leaks, only when she doesn't pay attention to her having to go. She was taking Estrodial and believes she developed a UTI through repeated insertion of the cream filled tub, therefore she stopped using the cream. Prior Treatments and Tests Medications prescribed that she doesn't feel is helpful ( Vesacare or Solifenacin) Treatment Goals Patient/Caregiver Goals Pt goal is to strengthen the PF and eliminate the need for a pad at night. Prior Functional Status Baseline Function- ADL's Independent Baseline Function- Mobility Independent Baseline Function- Gait Ambs with SPC Baseline Function- Other At least 10 yrs ago was able to sleep through the night without urinary leakage. Walks 2x/day outside for 1 hr and daily ex's at home for her knee. Personal Factors Other Personal Factors That May Effect Osteoporosis/Osteopenia, Therapy/Recovery Osteoarthritis. PT-OP-C Subjective Start: 06/19/22 16:28 Freq: Status: Active Protocol: Document 07/06/22 13:46 LRN (Rec: 07/06/22 18:04 LRN [id number]) OP-PT Subjective Patient Comments Patient Comments Noticed with an urge, the urine flows, but without an urge it takes her longer to void, because it leaks out. Walks 1-2x/day and doesn't seem to have an urge then. PT-OP-I Pelvic Floor Start: 06/19/22 16:28 Freq: Status: Active Protocol: Document 07/06/22 13:46 LRN (Rec: 07/06/22 18:04 LRN [id number]) Pelvic Floor Assessment Prolapse Prolapse Comments No prolapse noted Contraction Ability Voluntary Contraction Weak Voluntary Relaxation Weak Manual Muscle Testing Left 3 Manual Muscle Testing Right 2 Manual Muscle Testing Anterior 3 Manual Muscle Testing Posterior 0 Muscle Endurance (Seconds) 3 Number of Quick Contractions In 10 4 Seconds Comments Pelvic Floor Comments No stool felt in rectum. PT-OP-J Posture/Palpation/Skin Start: 06/19/22 16:28 Freq: Status: Active Protocol: Document 06/23/22 14:33 LRN (Rec: 06/23/22 17:58 LRN [id number]) Posture Evaluation Position Standing Head/C-Spine Posture Forward Head T-Spine Posture Increased Kyphosis L-Spine Posture Decreased Lordosis PT-OP-K Range of Motion Start: 06/19/22 16:28 Freq: Status: Active Protocol: Document 06/23/22 14:33 LRN (Rec: 06/23/22 17:58 LRN [id number]) Lumbar Spine Range of Motion Lumbar Spine Active Degrees Testing Position Standing Flexion 45 Extension 0 Rotation Left 10 Rotation Right 20 Lateral Flexion Left 25 Lateral Flexion Right 30 Hip Goniometric Range of Motion Hip Right Passive Testing Position Supine Abduction 40 Internal Rotation 40 External Rotation 40 Left Passive Testing Position Supine Abduction 45 Internal Rotation 25 External Rotation 50 PT-OP-M Strength Start: 06/19/22 16:28 Freq: Status: Active Protocol: Document 06/23/22 14:33 LRN (Rec: 06/23/22 17:58 LRN [id number]) Hip Strength Hip Manual Muscle Testing Right Flexion (L2) 5 Normal Abduction 5 Normal Adduction 2- Poor- External Rotation 5 Normal Internal Rotation 5 Normal Left Flexion (L2) 5 Normal Abduction 5 Normal Adduction 2+ Poor+ External Rotation 2 Poor Internal Rotation 5 Normal PT-OP-Q Treatments Start: 06/19/22 16:28 Freq: Status: Active Protocol: Document 07/06/22 13:46 LRN (Rec: 07/06/22 18:04 LRN [id number]) Therapeutic Exercises Supine Exercises PF Long Holds Supine Exercise Name Long Holds Reps/Minutes 10 SH x 10 PF Quick Flicks Supine Exercise Name Quick Flicks Reps/Minutes 6' Isolated PF >< Supine Exercise Name Isolated PF >< training Reps/Minutes 12' Comments Extra time taken for PF training with phys/self phys & v cuing needed. Self-Care/Home Management Treatment Education Other Education Extensive Review of 2nd diary, focused on bowel recommendations and discussed for food intake recommendation (fiber, fluids, etc). Activities Self-Care/Home Management Activities Issued, discussed & reviewed bladder irritants. PT-OP-T Assessment and Plan Start: 06/19/22 16:28 Freq: Status: Active Protocol: Document 07/06/22 13:46 LRN (Rec: 07/06/22 18:04 LRN [id number]) Physical Therapy Assessment Goals Three Impairment Pt is not able to perform a PF contraction in the absence of abdominal/gluteal/hip AD muscles. Short Term Goal (STG) Pt will be aware of the sensation of a proper PF contraction. STG Duration 08/07/22 Online Community Manager Goal (LTG) Pt will be able to isolate a PF contraction without overuse of the outer abdominal, gluteal, and hip AD muscles. 07/06/22: Pt educated in isolation of PF from substitute muscles. LTG Duration 09/21/22 progressing Two Impairment PF weakness with urinary leakage with a strong urge Impairment Left 3/5, Right 2/5, Anterior 3/5, Posterior 0/5. Endurance: 3 secs. Quick Contractions: 2 secs. Short Term Goal (STG) Pt will be educated in urinary delay technique. STG Duration 06/30/22 Online Community Manager Goal (LTG) Strengthen the PF to eliminate the need for a pad at night. LTG Duration 09/21/22 One Impairment Pt lacks appropriate self care HEP. Short Term Goal (STG) Education in proper methods for transfer with coordination of breathing, and proper vulvar/genital care. STG Duration 07/14/22 Online Community Manager Goal (LTG) Pt will be independent with a self care HEP of PF/core strengthening and hip ROM exercises. 06/29/22: Pt I/S in PF contraction in isolation of substitute muscles. LTG Duration 09/21/22 progressed 06/29/22 Assessment Summary Assessment Per pt bladder diary, she is forcing urinating due to long times between voids. After much discussion of her bladder diary it was impressed upon the pt to not force voiding to prevent onset of cystocele or rectecele. Pt may have slight rectocele starting but not obvious. Pt is primarily having urinary leakage first in AM. Pt receptive to discussion and education of Physical Therapy Plan Frequency and Duration Frequency of Treatment 1x/Week Plan of Care Start Date 06/23/22 Plan of Care End Date 08/07/22 Next Visit Focus/Plan Next Note Type Treatment Note Next Visit Plan Might Try EMG biofeedback for isolation of PF from substitue ms. Would consider PF contraction with EStim if pt tissue health improved. Review PF contraction in abscence of substitute muscles . Consider Biofeedback for PF coontraction in abscense of substitute ms. Assess for bowel dysfunction & abdominal mobility & improve soft tissue (bladder) mobility if needed. Pt education in urinary delay technique. Pt education in proper Kegel without use of substitute muscles, pt education in proper vulvar/genital care, deep breathing and transfers, discuss foods, and water intake. Ex: PF/core/TA stab/hip strengthening, improve hip mobility (L hip IR, R hip ER/ AB), Pelvic stab (start Roll in/outs if tolerated).
--- NOTE | 2023-02-01 10:16 | PT.OPDS ---
Current Diagnoses Unspecified urinary incontinence (07/06/22) Nocturia (07/06/22) Visit Care Team Role Provider Type CARLOS Laguna Attending Provider Advanced Raw Scales Operator Family Provider Primary Care Provider Referring Provider Specialty: Family Practice Address: [address] [place] [address], [facility] Email: [email or web address] Visit Number Visit Number 08/30 Discharge Summary PT-OP-B Current Condition Start: 06/19/22 16:28 Freq: Status: Active Protocol: Document 06/23/22 14:33 LRN (Rec: 06/23/22 17:58 LRN [id number]) Current Condition History of Current Condition Onset Date 20 yrs ago and has progressively worsened Current Complaints Taking up to 20 mg of medication for incontinence History of Current Condition Pt reports urinary incontinence for a long time requiring progressive increase use of Vesacare or Solifenacin medication causing her to dry up and she still leaks at nighttime and gets up to 1-2x/night with leakage. She feels when her medication was increased it didn't really help her level of continence. She uses a maxi-pad 1-2x/night, that she thinks is for urinary incontinence. She wears no pads during the day and rarely leaks, only when she doesn't pay attention to her having to go. She was taking Estrodial and believes she developed a UTI through repeated insertion of the cream filled tub, therefore she stopped using the cream. Prior Treatments and Tests Medications prescribed that she doesn't feel is helpful ( Vesacare or Solifenacin) Treatment Goals Patient/Caregiver Goals Pt goal is to strengthen the PF and eliminate the need for a pad at night. Prior Functional Status Baseline Function- ADL's Independent Baseline Function- Mobility Independent Baseline Function- Gait Ambs with SPC Baseline Function- Other At least 10 yrs ago was able to sleep through the night without urinary leakage. Walks 2x/day outside for 1 hr and daily ex's at home for her knee. Personal Factors Other Personal Factors That May Effect Osteoporosis/Osteopenia, Therapy/Recovery Osteoarthritis. PT-OP-C Subjective Start: 06/19/22 16:28 Freq: Status: Active Protocol: Document 07/06/22 13:46 LRN (Rec: 07/06/22 18:04 LRN [id number]) OP-PT Subjective Patient Comments Patient Comments Noticed with an urge, the urine flows, but without an urge it takes her longer to void, because it leaks out. Walks 1-2x/day and doesn't seem to have an urge then. PT-OP-I Pelvic Floor Start: 06/19/22 16:28 Freq: Status: Active Protocol: Document 07/06/22 13:46 LRN (Rec: 07/06/22 18:04 LRN [id number]) Pelvic Floor Assessment Prolapse Prolapse Comments No prolapse noted Contraction Ability Voluntary Contraction Weak Voluntary Relaxation Weak Manual Muscle Testing Left 3 Manual Muscle Testing Right 2 Manual Muscle Testing Anterior 3 Manual Muscle Testing Posterior 0 Muscle Endurance (Seconds) 3 Number of Quick Contractions In 10 4 Seconds Comments Pelvic Floor Comments No stool felt in rectum. PT-OP-J Posture/Palpation/Skin Start: 06/19/22 16:28 Freq: Status: Active Protocol: Document 06/23/22 14:33 LRN (Rec: 06/23/22 17:58 LRN [id number]) Posture Evaluation Position Standing Head/C-Spine Posture Forward Head T-Spine Posture Increased Kyphosis L-Spine Posture Decreased Lordosis PT-OP-K Range of Motion Start: 06/19/22 16:28 Freq: Status: Active Protocol: Document 06/23/22 14:33 LRN (Rec: 06/23/22 17:58 LRN [id number]) Lumbar Spine Range of Motion Lumbar Spine Active Degrees Testing Position Standing Flexion 45 Extension 0 Rotation Left 10 Rotation Right 20 Lateral Flexion Left 25 Lateral Flexion Right 30 Hip Goniometric Range of Motion Hip Right Passive Testing Position Supine Abduction 40 Internal Rotation 40 External Rotation 40 Left Passive Testing Position Supine Abduction 45 Internal Rotation 25 External Rotation 50 PT-OP-M Strength Start: 06/19/22 16:28 Freq: Status: Active Protocol: Document 06/23/22 14:33 LRN (Rec: 06/23/22 17:58 LRN [id number]) Hip Strength Hip Manual Muscle Testing Right Flexion (L2) 5 Normal Abduction 5 Normal Adduction 2- Poor- External Rotation 5 Normal Internal Rotation 5 Normal Left Flexion (L2) 5 Normal Abduction 5 Normal Adduction 2+ Poor+ External Rotation 2 Poor Internal Rotation 5 Normal PT-OP-T Assessment and Plan Start: 06/19/22 16:28 Freq: Status: Active Protocol: Document 02/01/23 10:14 LRN (Rec: 02/01/23 10:16 LRN [id number]) Physical Therapy Assessment Goals Three Impairment Pt is not able to perform a PF contraction in the absence of abdominal/gluteal/hip AD muscles. Short Term Goal (STG) Pt will be aware of the sensation of a proper PF contraction. STG Duration 08/07/22 High Wire Artist Goal (LTG) Pt will be able to isolate a PF contraction without overuse of the outer abdominal, gluteal, and hip AD muscles. 07/06/22: Pt educated in isolation of PF from substitute muscles. LTG Duration 09/21/22 progressing Two Impairment PF weakness with urinary leakage with a strong urge Impairment Left 3/5, Right 2/5, Anterior 3/5, Posterior 0/5. Endurance: 3 secs. Quick Contractions: 2 secs. Short Term Goal (STG) Pt will be educated in urinary delay technique. STG Duration 06/30/22 High Wire Artist Goal (LTG) Strengthen the PF to eliminate the need for a pad at night. LTG Duration 09/21/22 One Impairment Pt lacks appropriate self care HEP. Short Term Goal (STG) Education in proper methods for transfer with coordination of breathing, and proper vulvar/genital care. STG Duration 07/14/22 Correction Goal (LTG) Pt will be independent with a self care HEP of PF/core strengthening and hip ROM exercises. 06/29/22: Pt I/S in PF contraction in isolation of substitute muscles. LTG Duration 09/21/22 progressed 06/29/22 Assessment Summary Assessment Pt was seen for 2 treatment visits with the last visit on 07/06/22. The pt called on to request cancel of all remaining visits and discharge from therapy. Goals not met, pt did not complete plan of care. Physical Therapy Plan Discharge Physical Therapy Discharge Reasons Patient Request Discharge Comments Early discharge. Thank you for your referral.
== END 2023-02-05 12:35 | disposition home or self-care (01) ==
LOC: PHYS 13:45
PROVIDERS: Family Provider Nurse Practitioner; PCP Nurse Practitioner; Referring Provider Nurse Practitioner; Visit Provider Nurse Practitioner
DX: R32 Unspecified urinary incontinence (principal); R35.1 Nocturia
CPT/HCPCS: 97110; 97162; 97535

== ENCOUNTER → 2022-08-07 14:27 | Outpatient (CLI) | payer OTHER, SELFPAY | PROVIDERS: Family Provider Nurse Practitioner; PCP Nurse Practitioner; Referring Provider Urology; Visit Provider Urology | DX: R39.15 Urgency of urination (principal) | CPT/HCPCS: 87086 ==

== ENCOUNTER → 2022-10-17 09:50 | Outpatient (CLI) | payer OTHER, SELFPAY ==
--- NOTE | 2022-10-17 10:21 | DI.DEXA.S_ITS ---
Bone Density Report Name: PAHNI STAUFFER Age: 87 Sex: Female Ethnicity: White Date of : 1935 Indication: osteopenia; monitoring treatment; Referring Provider: TONY LAMAS Study: Bone densitometry was performed. Exam Date: October 17, 2022 Accession number: [id number] Bone Density: Region BMD T-score Z-score Classification AP Spine(L1-L4) 0.961 -0.8 2.1 Normal Femoral Neck (Left) 0.649 -1.8 0.7 Osteopenia Total Hip (Left) 0.735 -1.7 0.6 Osteopenia Femoral Neck (Right) 0.635 -1.9 0.6 Osteopenia Total Hip (Right) 0.791 -1.2 1.1 Osteopenia Total Hip Mean 0.763 -1.5 0.9 Osteopenia World Health Organization criteria for BMD impression classify patients as: Normal (T-score at or above -1.0), Osteopenia (T-score between -1.0 and -2.5), or Osteoporosis (T-score at or below -2.5). 10-year Fracture Risk: FRAX not reported because: Treated for osteoporosis Previous Exams: -- Region Exam Age BMD T-score BMD Change BMD Change Date g/cm2 vs Baseline vs Previous -- AP Spine (L1-L4) 10/17/2022 87 0.961 -0.8 0.060 (6.7%)# 0.060 (6.7%)# 10/15/2020 85 0.901 -1.3 Total Hip(Left) 10/17/2022 87 0.735 -1.7 -0.046 (-5.8%)# -0.046 (-5.8%)# 10/15/2020 85 0.780 -1.3 Total Hip(Right) 10/17/2022 87 0.791 -1.2 -0.019 (-2.3%)# -0.019 (-2.3%)# 10/15/2020 85 0.809 -1.1 -- *Denotes significance at 95% confidence level, LSC for AP Spine = 0.022 g/cm2, LSC for Total Hip = 0.027 g/cm2 # Denotes dissimilar scan types or analysis methods Impression: The patient has low bone mass, based on the Right Femoral Neck T-score. No significant bone loss was observed. Discussion: PATIENT UNDER TREATMENT WITH NO SIGNIFICANT BMD LOSS SINCE LAST EXAM. In an untreated patient, BMD typically declines with age. A lack of decline or gain is usually a sign that treatment is efficacious and fracture risk is reduced. It is important to ask patients whether they are taking their medications and to encourage continued and appropriate compliance with their osteoporosis therapies to reduce fracture risk. It is also important to review their risk factors and encourage appropriate calcium and vitamin D intakes, exercise, fall prevention and other lifestyle measures. Follow-Up: Consider a repeat BMD and Vertebral Fracture Assessment (VFA) exam in 2 years or sooner if medically necessary, to reassess this patient's status. Reported by: MILAGRO ORELLANA M.D. on 10/17/2022 10:39:00 AM.
== END ==
PROVIDERS: Family Provider Nurse Practitioner; PCP Nurse Practitioner; Referring Provider Nurse Practitioner; Visit Provider Nurse Practitioner
DX: M81.0 Age-related osteoporosis without current pathological fracture (principal); Z79.83 Long term (current) use of bisphosphonates; Z78.0 Asymptomatic menopausal state
CPT/HCPCS: 77080

== ENCOUNTER → 2022-12-20 15:21 | Outpatient (CLI) | payer OTHER, SELFPAY ==
[2022-12-20 17:34] LABS: Appearance Urine UA CLEAR; Bilirubin Urine UA NEGATIVE (NEGATIVE); Color Urine UA YELLOW; Glucose Urine UA NEGATIVE (Negative); Ketones Urine UA NEGATIVE (NEGATIVE); Leukocyte Esterase Urine UA TRACE (NEGATIVE); Nitrite Urine UA NEGATIVE (Negative); Occult Blood Urine UA NEGATIVE (Negative); Protein Urine UA TRACE (Negative); Urobilinogen Urine UA 0.2 E.U./dL (0.2)
[2022-12-20 18:14] LABS: Bacteria Urine Occasional (0-1); Culture Indicated Urine Specimen Cultured; RBC Urine None Seen (0-5/HPF); Squamous Epithelial Cell Urine 0-1 /HPF (0-5/HPF); WBC Urine 5-10/HPF (0-5/HPF)
== END ==
PROVIDERS: Family Provider Nurse Practitioner; PCP Nurse Practitioner; Referring Provider Nurse Practitioner; Visit Provider Nurse Practitioner
DX: R30.0 Dysuria (principal)
CPT/HCPCS: 81001; 87086

== ENCOUNTER → 2022-12-21 11:40 | Outpatient (CLI) | payer OTHER, SELFPAY ==
--- NOTE | 2022-12-21 11:41 | DI.RAD.S_ITS ---
PROCEDURE: XR LUMBAR SPINE MIN 4V INDICATIONS: Low back pain TECHNIQUE: 5 views of the lumbar spine were acquired, including bilateral oblique views. COMPARISON: None. FINDINGS: Bones: 5 nonrib-bearing vertebrae are present. There is mild, approximately 5 millimeters of L2-L3 retrolisthesis. There is convex right scoliosis of the lumbar spine. No vertebral body compression fractures. No suspicious bony lesions. Moderate L1-L2, L2-L3 and L5-S1 degenerative disc disease. Mild L3-L4 and L4-L5 degenerative disc disease. Moderate L 2-L3, L3-L4, L4-L5 and L5-S1 facet arthropathy. Subacute or chronic right obturator ring fractures. Soft tissues: Overlying bowel gas pattern is normal. No suspicious soft tissue calcifications. Oblique images: No pars defects. IMPRESSION: 1. Multilevel degenerative disc disease. 2. Multilevel facet arthropathy. 3. No fracture. No acute osseous lesion. If symptoms and/or clinical suspicion for pathology persists, evaluation with MRI should be considered for further assessment. 4. Convex right scoliosis. 5. Subacute or chronic right obturator ring fractures. Please correlate with clinical findings. Dictated by: Bryanna Brown MD, PhD on 12/21/2022 at 13:20 Approved by: Bryanna Brown MD, PhD on 12/21/2022 at 13:21
== END ==
PROVIDERS: Family Provider Nurse Practitioner; PCP Nurse Practitioner; Referring Provider Anesthesiology; Visit Provider Anesthesiology
DX: M51.16 Intervertebral disc disorders with radiculopathy, lumbar region (principal); M51.17 Intervertebral disc disorders with radiculopathy, lumbosacral region; M47.26 Other spondylosis with radiculopathy, lumbar region; M47.27 Other spondylosis with radiculopathy, lumbosacral region; S32.89XA Fracture of other parts of pelvis, initial encounter for closed fracture; M41.9 Scoliosis, unspecified; M79.605 Pain in left leg; M70.61 Trochanteric bursitis, right hip; M25.562 Pain in left knee; M54.50 Low back pain, unspecified
CPT/HCPCS: 72110; 99214

== ENCOUNTER → 2023-01-02 13:47 | Outpatient (CLI) | payer OTHER, SELFPAY ==
--- NOTE | 2023-01-02 13:48 | DI.MRI.S_ITS ---
PROCEDURE: MR LUMBAR SPINE WO CON INDICATIONS: LLE pain, ? radiculopathy TECHNIQUE: Noncontrast sagittal T1 spin echo and T2 fast echo, sagittal STIR, and T2 fast spin echo through the lumbar spine. In cases with scoliosis, additional coronal T2 fast spin echo may be performed. COMPARISON: [facility], MR, MR LUMBAR SPINE WO CON, 12/21/2018, 9:36. FINDINGS: Image quality: Excellent. Alignment and Curvature: Rightward curvature of the lumbar spine with a Mattson angle of 22? consistent with dextroscoliosis.. Bone Marrow: Marrow is of normal overall signal. No acute vertebral body compression fractures. Spinal Cord: Conus medullaris terminates at the L1 level. Visualized cord demonstrates normal signal and size. Paraspinous Soft Tissues: No paravertebral masses. T11-12: Diffuse disc bulge with large anterior osteophytes. The foramina have mild stenosis. The central canal is mildly narrowed but patent. T12-L1: Diffuse disc bulge and disc osteophytes cause moderate bilateral foraminal stenosis. Facet and ligamentum flavum hypertrophy. Minimal central canal stenosis. L1-L2: Disc space narrowing on the right inner curvature of the spine. Diffuse disc bulge is seen with a left foraminal protrusion causing severe left foraminal stenosis and moderate right foraminal stenosis. The central canal has mild stenosis overall, however the foraminal disc bulge encroaches upon the lateral recess on the left. L2-L3: Diffuse disc bulge and disc osteophytes with facet hypertrophy worse on the left causes mild bilateral foraminal stenosis. L3-L4: Diffuse disc bulge and disc osteophytes. There is facet hypertrophy. Mild to moderate bilateral foraminal stenosis. The central canal has mild stenosis. L4-L5: Diffuse disc bulge and disc osteophytes with facet hypertrophy more severe on the right causing severe right foraminal stenosis and mild left foraminal stenosis. The central canal is patent. L5-S1: There is disc space narrowing with endplate degenerative changes and disc osteophytes with a diffuse disc bulge. There is facet hypertrophy. IMPRESSION: 1. Multilevel lumbar spondylosis and facet hypertrophy causing foraminal and central canal stenosis as detailed above. Compared to 12/21/2018 there is no significant interval change. 2. Chronic mild T11 compression fracture. 3. Dextroscoliosis. Dictated by: Qasim Myrick M.D. on 01/03/2023 at 10:02 Approved by: Qasim Myrick M.D. on 01/03/2023 at 10:21
== END ==
PROVIDERS: Family Provider Nurse Practitioner; PCP Nurse Practitioner; Referring Provider Anesthesiology; Visit Provider Anesthesiology
DX: M47.26 Other spondylosis with radiculopathy, lumbar region (principal); M47.27 Other spondylosis with radiculopathy, lumbosacral region; M41.9 Scoliosis, unspecified; M48.54XA Collapsed vertebra, not elsewhere classified, thoracic region, initial encounter for fracture
CPT/HCPCS: 72148

== ENCOUNTER → 2023-02-09 15:25 | Outpatient (CLI) | payer OTHER, SELFPAY | PROVIDERS: Family Provider Nurse Practitioner; PCP Nurse Practitioner; Referring Provider Physician Assistant Medical; Visit Provider Physician Assistant Medical | DX: N32.81 Overactive bladder (principal) | CPT/HCPCS: 87086 ==

== ENCOUNTER 2023-02-14 09:43 | Outpatient (CLI) | payer OTHER, SELFPAY ==
[2023-02-14] VITALS (8 sets, daily range): BP systolic 137–172; BP diastolic 65–77; PULSE 65–72; RESP 15–20; TEMP 36.6; O2SAT 97–99
--- NOTE | 2023-02-14 09:44 | DI.RAD.S_ITS ---
PROCEDURE: PAIN L INTERLAMINAR/CAUDAL INJ INDICATIONS: RADICULOPATHY COMPARISON: [facility], MR, MR LUMBAR SPINE WO CON, 01/02/2023, 14:17. FINDINGS: Fluoroscopic spot filming was performed to verify placement of a spinal needle at the L1-L2 level, as labeled on the films. Appropriate location of the needle tip was confirmed by injection of iodinated contrast. IMPRESSION: Intraprocedural examination within normal limits. Dictated by: Lavon Moore M.D. on 02/14/2023 at 13:06 Approved by: Lavon Moore M.D. on 02/14/2023 at 13:07
[2023-02-14] MEDS: MIDAZOLAM 2 MG/2 ML VIAL 1 MG IV (10:16)
[2023-02-14] MEDS: DEXAMETHASONE 10 MG/ML VIAL INJ (10:21)
[2023-02-14] MEDS: IOPAMIDOL 15 ML VIAL 3 ML INJ (10:22)
--- NOTE | 2023-02-14 12:27 | P.PCN_ITS ---
Date/Time/Diagnoses Date of procedure: 02/14/23 Time of procedure: 10:00 Procedure Notes Physician: Duane Núñez Total Fluoroscopy time (seconds): 23 Total sedation minutes: 13 Procedure in detail & Post-procedure care: L1-2 Interlaminar Epidural Steroid Injection Indications: Malaika is presenting for treatment of lumbar radiculopathy with low back and leg pain. Preoperative diagnosis: Lumbar radiculopathy Postoperative diagnosis: Same Focused Examination: Ax3 Mood and affect are normal Vital Signs: VSS ASA: 2 Consent: Following review of allergies and potential side effects/complications, including, but not necessarily limited to, infection, allergic reaction, local tissue breakdown, stroke, temporary or permanent nerve injury, paralysis, and possible , the patient indicated that they understood and agreed to proc eed.? An informed consent document was signed by the patient, witnessed by a nurse and placed in the patient's chart.? Additionally, other treatment options including medications and physical therapy were reviewed with the patient. All questions were answered. Site was then marked. Anesthesia: After review of previous anesthetic history and IV conscious sedation, the patient was deemed safe to proceed with today's procedure with IV conscious sedation. IV sedation was accomplished with midazolam 1 mg administered by the RN after order by Dr. Núñez. Sedation was titrated to patient comfort during the course of the procedure. Patient remained responsive to all verbal commands. Position: Prone Monitoring: NIBP, Pulse oximetry, 3 lead EKG Needle used: 18 G 3.5? Tuohy Contrast: Isovue 300M Injectate: Dexamethasone 10 mg with 1% lidocaine 2 mL Technique: The skin was prepped with chloraprep and then draped in a sterile fashion. Time out was performed as per protocol. Oxygen applied via NC. Skin and subcutaneous structures of the needle entry site was then infiltrated with 3 mL of lidocaine 1%. Under AP, lateral and contralateral oblique fluoroscopic control, the Tuohy needle was guided into the L1-2 epidural space. The space was accessed with loss of resistance technique. Isovue 300M was then injected and the spread was consistent with the epidural space. There was no evidence for intravascular or intrathecal uptake. After negative aspiration, the above- mentioned injectate was then slowly administered and the needle withdrawn. The patient expressed no unusual discomfort or paresthesias during the injection. Band-Aids applied to injection sites. EBL: less than 1 ml Complications: None Post Procedure: Patient was taken to the recovery and monitored. The patient was provided a Pain Log to continue to record the patient's response to the target- specific procedure prior to the patient's follow-up visit with the referring physician. Patient was stable upon discharge. Detailed post procedure instructions were provided. Patient was asked to call in the event of worsening pain, fever, weakness, numbness or bladder or bowel incontinence.
== END 2023-02-14 10:47 | disposition home or self-care (01) ==
LOC: RAD 09:44
PROVIDERS: Family Provider Nurse Practitioner; PCP Nurse Practitioner; Referring Provider Anesthesiology; Visit Provider Anesthesiology
DX: M54.16 Radiculopathy, lumbar region (principal)
CPT/HCPCS: 62323; 99152; J1100; J2250

== ENCOUNTER → 2023-03-20 09:25 | Outpatient (CLI) | payer OTHER, SELFPAY ==
--- NOTE | 2023-03-20 | DI.MG.S_ITS ---
BILATERAL DIGITAL SCREENING MAMMOGRAM 3D/2D WITH CAD: 03/20/2023 CLINICAL: Routine screening. Family history of breast cancer. Comparison is made to exams dated: 03/15/2022 mammogram, 12/09/2020 mammogram, and 12/09/2019 mammogram - [facility]. There are scattered areas of fibroglandular density in both breasts (category b / 25%-50% glandular tissue). Current study was also evaluated with a Computer Aided Detection (CAD) system. No significant masses, calcifications, or other findings are seen in either breast. There has been no significant interval change. IMPRESSION: NEGATIVE There is no mammographic evidence of malignancy. A 1 year screening mammogram is recommended. This exam was interpreted at Station ID: [id number]. NOTE: For mammograms, a report in lay terms will be sent to the patient. Approximately 15% of breast malignancies will not be visualized mammographically. In the management of a palpable breast mass, a negative mammogram must not discourage biopsy of a clinically suspicious lesion. Electronically Signed By: Edwige [email or web address]/[email or web address]:03/20/2023 17:14:20 letter sent: Normal Exam ACR BI-RADS Category 1: Negative [id number]
== END ==
PROVIDERS: Family Provider Nurse Practitioner; PCP Nurse Practitioner; Referring Provider Nurse Practitioner; Visit Provider Nurse Practitioner
DX: Z12.31 Encounter for screening mammogram for malignant neoplasm of breast (principal); Z80.3 Family history of malignant neoplasm of breast
CPT/HCPCS: 77063; 77067

== ENCOUNTER → 2023-05-31 10:13 | Outpatient (CLI) | payer OTHER, SELFPAY | PROVIDERS: Family Provider Nurse Practitioner; PCP Nurse Practitioner; Referring Provider Anesthesiology; Visit Provider Anesthesiology | DX: M54.50 Low back pain, unspecified (principal); M54.16 Radiculopathy, lumbar region | CPT/HCPCS: 95886; 95909 ==

== ENCOUNTER → 2023-07-04 12:07 | Outpatient (CLI) | payer OTHER, SELFPAY ==
[2023-07-04 13:15] LABS: Add Manual Diff / Slide Review NO; Basophils Absolute Auto 0 /uL (0-100); Basophils Percent Auto 0.6 % (0-2); Eosinophils Absolute Auto 300 /uL (0-450); Hemoglobin 13.5 g/dL (12.0-16.0); Lymphocytes Absolute Auto 1600 /uL (1100-4500); Lymphocytes Percent Auto 25.1 % (25-40); Mean Corpuscular HGB Conc 33.6 % (30-36); Mean Corpuscular Hemoglobin 29.5 PG (26-34); Mean Corpuscular Volume 87.8 fL (80-100); Monocytes Absolute Auto 400 /uL (0-900); Monocytes Percent Auto 6.6 % (3-14); Neutrophils Absolute Auto 3900 /uL (1500-7000); Neutrophils Percent Auto 62.7 % (50-75); Platelet Count 237 X10^3/uL (150-400); Red Blood Cell Count 4.56 X10^6/uL (4.0-5.2); Red Cell Distribution Width 13.5 % (11.6-14.8); White Blood Cell Count 6.2 X10^3/uL (4.5-11.0)
[2023-07-04 13:43] LABS: Alanine Aminotransferase 19 IU/L (<35); Albumin 4.3 g/dL (3.5-5.0); Albumin Globulin Ratio 1.3 (1.0-2.8); Alkaline Phosphatase 66 U/L (38-126); Aspartate Aminotransferase 35 IU/L (14-36); BUN Creatinine Ratio 43.3 (6-22); Bilirubin Total 0.7 mg/dL (0.2-1.3); Blood Urea Nitrogen 29 mg/dL (7-17); Calcium 10.1 mg/dL (8.4-10.2); Carbon Dioxide 28 mmol/L (22-32); Chloride 100 mmol/L (98-107); Cholesterol 225 mg/dL (140-199); Estimated Glomerular Filt Rate > 60 mL/min (>60); Globulin 3.2 g/dL (1.7-4.1); Glucose 90 mg/dL (80-110); HDL Cholesterol 75 mg/dL (40-60); HEMOLYSIS < 15 (0-50); LDL Cholesterol Calculated 135 mg/dL (<100); Potassium 4.3 mmol/L (3.4-5.1); Sodium 135 mmol/L (137-145); Total Protein 7.5 g/dL (6.3-8.2); Triglycerides 77 mg/dL (35-150)
[2023-07-04 13:58] LABS: Free T3, Triiodothyronine Free 3.69 pg/mL (2.77-5.27); Free T4, Direct Thyroxine 1.28 ng/dL (0.78-2.19)
[2023-07-04 14:12] LABS: Thyroid Stimulating Hormone 3.58 uIU/mL (0.47-4.68)
[2023-07-04 16:23] LABS: Creatinine Urine Random 28.7 mg/dL
[2023-07-04 16:29] LABS: Microalbumi Creatinin Ratio Ur 45.2 ug/mg CR (<30); Microalbumin Urine Random 1.3 mg/dL (0-1.6)
== END ==
PROVIDERS: Family Provider Nurse Practitioner; PCP Nurse Practitioner; Referring Provider Nurse Practitioner; Visit Provider Nurse Practitioner
DX: E78.5 Hyperlipidemia, unspecified (principal); M81.0 Age-related osteoporosis without current pathological fracture; Z13.6 Encounter for screening for cardiovascular disorders; Z79.899 Other long term (current) drug therapy
CPT/HCPCS: 36415; 80053; 80061; 82043; 82570; 84439; 84443; 84481; 85025

== ENCOUNTER 2023-07-04 12:09 | Outpatient (CLI) | payer OTHER, SELFPAY ==
[2023-07-04] VITALS (8 sets, daily range): BP systolic 119–144; BP diastolic 60–99; PULSE 72–78; RESP 14–22; TEMP 36.5; O2SAT 94–98
--- NOTE | 2023-07-04 13:00 | DI.RAD.S_ITS ---
PROCEDURE: PAIN L/S TRANSFORAMINAL INJECT INDICATIONS: radiculopathy COMPARISON: [facility], , PAIN L/S TRANSFORAMINAL INJECT, 03/04/2019, 13:20. FINDINGS: Fluoroscopic spot filming was performed to verify placement of spinal needles at the left L5-S1 level(s), as labeled on the films. Appropriate location(s) of the needle tip(s) was confirmed by injection of iodinated contrast. IMPRESSION: Fluoroscopic guidance utilized for an L5-S1 transforaminal epidural steroid injection. Dictated by: Aaron Tatum M.D. on 07/04/2023 at 14:55 Approved by: Aaron Tatum M.D. on 07/04/2023 at 14:55
[2023-07-04] MEDS: MIDAZOLAM 2 MG/2 ML VIAL 1 MG IV (13:05)
[2023-07-04] MEDS: DEXAMETHASONE 10 MG/ML VIAL INJ (13:13)
[2023-07-04] MEDS: iopamidoL 15 ML VIAL 3 ML INJ (13:14)
--- NOTE | 2023-07-04 13:27 | P.PCN_ITS ---
Date/Time/Diagnoses Date of procedure: 07/04/23 Time of procedure: 13:00 Procedure Notes Physician: Duane Núñez Total Fluoroscopy time (seconds): 16 Total sedation minutes: 10 Procedure in detail & Post-procedure care: Left L5-S1 Transforaminal Epidural Steroid Injection Indications: Malaika is presenting for treatment of lumbar radiculopathy with low back and leg pain. Preoperative diagnosis: Lumbar radiculopathy Postoperative diagnosis: Same Focused Examination: Ax3 Mood and affect are normal Vital Signs: VSS ASA: 2 Consent: Following review of allergies and potential side effects/complications, including, but not necessarily limited to, infection, allergic reaction, local tissue breakdown, stroke, temporary or permanent nerve injury, paralysis, and possible , the patient indicated that they understood and agreed to proceed.? An informed consent document was signed by the patient, witnessed by a nurse and placed in the patient's chart.? Additionally, other treatment options including medications and physical therapy were reviewed with the patient. All questions were answered. Site was then marked. Anesthesia: After review of previous anesthetic history and IV conscious sedation, the patient was deemed safe to proceed with today's procedure with IV conscious sedation. IV sedation was accomplished with midazolam 1 mg administered by the RN after order by Dr. Núñez. Sedation was titrated to patient comfort during the course of the procedure. Patient remained responsive to all verbal commands. Position: Prone Monitoring: NIBP, Pulse oximetry, 3 lead EKG Needle used: 22G 3.5 inch spinal needle Contrast: Isovue 300M Injectate: 10 mg Dexamethasone mixed with 1% lidocaine 1 ml and normal saline 1 mL Technique: The skin was prepped with chloraprep and draped in a sterile fashion. Time out was performed as per protocol. Oxygen applied via NC. Skin and subcutaneous structures of the needle entry site were infiltrated with 3mL of lidocaine 1%. Under fluoroscopic guidance, using an ipsilateral oblique view,?a 22 gauge 3.5 inch needle was advanced to the base of the left L5?pedicle.? The needle was advanced to the superio-posterior aspect of the neural foramen under lateral view.? Oblique and AP views were rechecked. No paresthesias noted by the patient during needle placement. In AP view and utilizing real-time digital subtraction fluoroscopy, 2 ml contrast was slowly injected. Epidural spread was observed without evidence for intravascular nor intrathecal uptake. Contrast spread was seen craniocaudally. The above injectate was then administered without paresthesias and the needle was subsequently withdrawn. Band-Aids applied to injection sites. EBL: less than 1 ml Complications: None Post Procedure: Patient was taken to the recovery and monitored. The patient was provided a Pain Log to continue to record the patient's response to the target- specific procedure prior to the patient's follow-up visit with the referring physician. Patient was stable upon discharge. Detailed post procedure instructions were provided. Patient was asked to call in the event of worsening pain, fever, weakness, numbness or bladder or bowel incontinence.
== END 2023-07-04 13:35 | disposition home or self-care (01) ==
PROVIDERS: Family Provider Nurse Practitioner; PCP Nurse Practitioner; Referring Provider Anesthesiology; Visit Provider Anesthesiology
DX: M54.16 Radiculopathy, lumbar region (principal); Z13.6 Encounter for screening for cardiovascular disorders; M81.0 Age-related osteoporosis without current pathological fracture; E78.5 Hyperlipidemia, unspecified; Z79.899 Other long term (current) drug therapy
CPT/HCPCS: 36415; 64483; 80053; 80061; 82043; 82570; 84439; 84443; 84481; 85025; 99152; J1100; J2250

== ENCOUNTER → 2023-07-23 15:14 | Outpatient (CLI) | payer OTHER, SELFPAY | LOC: LAB 15:16 | PROVIDERS: Family Provider Nurse Practitioner; PCP Nurse Practitioner; Referring Provider Urology; Visit Provider Urology | DX: N32.81 Overactive bladder (principal) | CPT/HCPCS: 87086 ==

== ENCOUNTER → 2023-08-14 15:36 | Outpatient (CLI) | payer OTHER, SELFPAY | PROVIDERS: Family Provider Nurse Practitioner; PCP Nurse Practitioner; Referring Provider Urology; Visit Provider Urology | DX: N39.41 Urge incontinence (principal); N32.81 Overactive bladder | CPT/HCPCS: 87086 ==

== ENCOUNTER → 2023-12-24 10:46 | Outpatient (CLI) | payer OTHER, SELFPAY | PROVIDERS: Family Provider Nurse Practitioner; PCP Nurse Practitioner; Visit Provider Nurse Practitioner Family | DX: S81.801A Unspecified open wound, right lower leg, initial encounter (principal) | CPT/HCPCS: 87070; 87075; 87077; 87147; 87205 ==

== ENCOUNTER → 2023-12-25 16:43 | Outpatient (CLI) | payer OTHER, SELFPAY | PROVIDERS: Family Provider Nurse Practitioner; PCP Nurse Practitioner; Referring Provider Urology; Visit Provider Urology | DX: N39.41 Urge incontinence (principal); N32.81 Overactive bladder | CPT/HCPCS: 87086 ==

== ENCOUNTER → 2024-01-09 09:21 | Outpatient (CLI) | payer OTHER, SELFPAY | LOC: WC 09:26 | PROVIDERS: Family Provider Nurse Practitioner; PCP Nurse Practitioner; Referring Provider Student in an Organized Health Care Education/Training Program; Visit Provider Surgery | DX: L97.812 Non-pressure chronic ulcer of other part of right lower leg with fat layer exposed (principal); R60.0 Localized edema; L53.9 Erythematous condition, unspecified | CPT/HCPCS: 11042; 99203; 99213 ==

== ENCOUNTER → 2024-01-16 09:02 | Outpatient (CLI) | payer OTHER, SELFPAY | PROVIDERS: Family Provider Nurse Practitioner; PCP Nurse Practitioner; Referring Provider Student in an Organized Health Care Education/Training Program; Visit Provider Nurse Practitioner Family | DX: S81.801A Unspecified open wound, right lower leg, initial encounter (principal); L98.8 Other specified disorders of the skin and subcutaneous tissue | CPT/HCPCS: 11042; 99213 ==

== ENCOUNTER → 2024-01-23 11:36 | Outpatient (CLI) | payer OTHER, SELFPAY | LOC: WC 11:36 | PROVIDERS: Family Provider Nurse Practitioner; PCP Nurse Practitioner; Referring Provider Student in an Organized Health Care Education/Training Program; Visit Provider Surgery | DX: L97.812 Non-pressure chronic ulcer of other part of right lower leg with fat layer exposed (principal) | CPT/HCPCS: 11042 ==

== ENCOUNTER → 2024-01-30 09:31 | Outpatient (CLI) | payer OTHER, SELFPAY | LOC: WC 09:32 | PROVIDERS: Family Provider Nurse Practitioner; PCP Nurse Practitioner; Referring Provider Student in an Organized Health Care Education/Training Program; Visit Provider Surgery | DX: L97.812 Non-pressure chronic ulcer of other part of right lower leg with fat layer exposed (principal); L03.115 Cellulitis of right lower limb | CPT/HCPCS: 11042 ==

== ENCOUNTER → 2024-02-06 08:56 | Outpatient (CLI) | payer OTHER, SELFPAY | PROVIDERS: Family Provider Nurse Practitioner; PCP Nurse Practitioner; Referring Provider Student in an Organized Health Care Education/Training Program; Visit Provider Surgery | DX: L97.812 Non-pressure chronic ulcer of other part of right lower leg with fat layer exposed (principal) | CPT/HCPCS: 11042 ==

== ENCOUNTER 2024-03-10 12:42 | Observation (INO) | payer OTHER, SELFPAY ==
[2024-03-10] VITALS (8 sets, daily range): BP systolic 114–163; BP diastolic 65–84; PULSE 68–87; RESP 18–19; TEMP 36.1–36.6; O2SAT 93–99; BMI 22.6
--- NOTE | 2024-03-10 13:24 | DI.RAD.S_ITS ---
PROCEDURE: XR CHEST 1V INDICATIONS: ams TECHNIQUE: One view of the chest was acquired. COMPARISON: [facility], CR, XR CHEST 1V, 10/22/2017, 10:40. FINDINGS: Surgical changes and devices: None. Lungs and pleura: Lungs are clear. No pleural effusions or pneumothorax. Mediastinum: Mediastinal contours appear normal. Heart size is normal. Bones and chest wall: No suspicious bony lesions. Overlying soft tissues appear unremarkable. IMPRESSION: No acute cardiopulmonary abnormality is seen. Dictated by: Elton Cisneros M.D. on 03/10/2024 at 14:15 Approved by: Elton Cisneros M.D. on 03/10/2024 at 14:16
--- NOTE | 2024-03-10 13:24 | DI.CT.S_ITS ---
PROCEDURE: CT HEAD/BRAIN WO CON INDICATIONS: ams TECHNIQUE: Noncontrast 4.5 mm thick angled axial sections acquired from the foramen magnum to the vertex, with coronal and sagittal reformats. For radiation dose reduction, the following was used: automated exposure control, adjustment of mA and/or kV according to patient size. COMPARISON: [facility], CR, XR CHEST 1V, 03/10/2024, 13:26. [facility], CT, CT HEAD/BRAIN WO CON, 10/22/2017, 10:56. FINDINGS: Image quality: Diagnostic. CSF spaces: Basal cisterns are patent. No extra-axial fluid collections. The ventricles are symmetric in size and shape. Brain: No intracranial bleeds or masses. There is cerebral volume loss for age, with resultant ventricular and sulcal prominence. There are periventricular and deep white matter chronic small vessel ischemic changes. There is intracranial internal carotid artery atherosclerosis. Skull and face: Calvarium and visualized facial bones appear intact, without suspicious lesions. Sinuses: Visualized sinuses and mastoids are clear. IMPRESSION: Unremarkable noncontrast head CT for age, stable from prior. Dictated by: Lavon Moore M.D. on 03/10/2024 at 12:55 Approved by: Lavon Moore M.D. on 03/10/2024 at 12:56
--- NOTE | 2024-03-10 13:25 | ED_ITS ---
HPI - Altered Mental Status General Chief Complaint: Altered Mental Status Stated Complaint: disoriented, unaware of surroundings Time Seen by Provider: 03/10/24 13:19 History of Present Illness HPI narrative: Patient is 88-year-old female past medical history of frequent UTIs, comes into the ED from home for evaluation of increased confusion. Patient presents with family member, patient was found wandering around grocery store few days ago, was able to get back home with help of police, family member at bedside states that she checked on her today and seemed more confused than normal. At time of initial evaluation patient is A&O x3 follows all commands appropriately. Not Complaining of any symptoms. Related Data Home Medications Medication Instructions Recorded Confirmed multivitamin (Multiple Vitamins 1 tab PO QDAY ##0 02/05/17 01/02/24 tablet) megga red 1 cap PO DAILY 02/27/18 01/02/24 denosumab 60 mg/mL subcutaneous 60 mg SUBCUT [id number] 09/25/18 01/02/24 syringe (Prolia) L.acidoph, paracasei,B. lactis 10 cell PO 03/16/20 01/02/24 billion cell capsule (Digestive Advantage Advanced Probiotic) cholecalciferol (vitamin D3) 25 25 mcg PO DAILY 12/27/20 01/02/24 mcg (1,000 unit) capsule mecobalamin (vitamin B12) 1,000 1,000 mcg PO DAILY 12/27/20 01/02/24 mcg chewable tablet Previous Rx's Medication Instructions Recorded Disabled Parking Permit See Rx Instructions .Route 05/03/21 .COMPLEX #1 unit gabapentin 300 mg capsule 900 mg (3 x 300 mg) PO TID 90 days 12/24/22 #810 caps venlafaxine 75 mg capsule,extended 75 mg PO BEDTIME #90 caps 09/10/23 release 24 hr meloxicam 15 mg tablet 15 mg PO DAILY #90 tabs 11/05/23 mupirocin 2 % topical ointment 1 applic topical TID #22 grams 12/24/23 ciprofloxacin HCl 500 mg tablet 500 mg PO BID #20 tabs 01/04/24 Allergies Allergy/AdvReac Type Severity Reaction Status Date / Time No Known Drug Allergies Allergy Unverified 01/02/24 11:40 Review of Systems Review of Systems Narrative: HEENT: Denies headache, eye drainage, eye irritation, head trauma, sore throat, voice change Cardiovascular: Denies any chest pain, palpitations, shortness of breath, tachycardia Respiratory: Denies any shortness of breath, cough, wheeze, stridor GI/: Denies any abdominal pain, nausea, vomiting, diarrhea, bright red blood per rectum, melanotic stools, urinary frequency, urinary retention, dysuria, hematuria MSK: Denies any joint pain, muscle pains, swelling Skin: Denies any rashes, lesions, discoloration Neuro: Denies any headache, lightheadedness, dizziness, fainting, weakness Psych: Denies SI/HI Patient History Medical History Peripheral neuropathy Lumbar spondylosis Low back pain Lumbar radiculopathy Left leg pain Elevated low density lipoprotein (LDL) cholesterol level Family history of diabetes mellitus Right foot pain Left hip pain Hip bursitis, left Frequent UTI Incontinence in female (~2019) Bursitis, trochanteric Degenerative disc disease, lumbar Osteoarthritis of left hip Muscle strain of left gluteal region Degenerative joint disease (DJD) of hip Strain of gluteus medius of left lower extremity Nocturia more than twice per night Somatic dysfunction of lower extremity Segmental and somatic dysfunction of abdomen and other regions Sacral region somatic dysfunction Pelvic somatic dysfunction Lumbar region somatic dysfunction Chronic right-sided low back pain without sciatica Lower extremity edema Urge incontinence Lower urinary tract symptoms (LUTS) Postmenopausal atrophic vaginitis Arthritis Heart valve calcification Swelling of lower extremity Murmur Decreased range of motion of both knees Bilateral knee pain Polyneuropathic pain Decreased range of motion of right knee Right shoulder pain Knee pain, right Onychomycosis Knee pain, left Radiculopathy of lumbosacral region Other spondylosis with radiculopathy, lumbosacral region Polyneuropathy Compression fracture of T11 vertebra Lumbosacral spondylosis with radiculopathy Chronic 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 Knee pain, left (Unknown) Osteoarthritis (2000) Shoulder pain (2015) Osteoporosis (~2002) Osteopenia (~2002) Fracture (1940) Anemia (~1953) Retinal detachment (1998) Hearing loss (2016) Urinary incontinence (~2013) Surgical History History of stem cell transplant Total knee replacement status History of total knee arthroplasty History of knee replacement Family History Father Mental health problem Mother Heart disease Grandmother Breast cancer Social History household members: none Smoking Status: Never smoker alcohol intake: current substance use type: does not use Smoking Status: Never smoker alcohol intake frequency: holidays/special occasions only Substance Use Type: does not use Exam Narrative Exam Narrative: General: Cooperative, comfortable, well-developed, not in acute distress HEENT: Normocephalic, atraumatic, PERRLA, normal sclera, eyelids normal, Neck: Active full range of motion, atraumatic Chest: Normal to inspection, negative crepitus, no overlying erythema ecchymosis Respiratory: Normal respiratory effort, not in acute respiratory distress, clear to auscultation bilaterally negative cough, wheeze, tachypnea, rhonchi, rales Cardiology: Regular rate rhythm negative gallop, murmur, rubs GI/: Normal to inspection, soft, nonrigid, no tenderness to palpation, exam deferred MSK: Full range of active range of motion of all 4 extremities, atraumatic Skin: No rashes lesions noted Neuro: Alert awake oriented x3, moves all 4 extremities spontaneously, cranial nerves intact, able to answer all questions appropriately follows commands appropriately Psych: Cooperative, negative suicidal or homicidal ideations Initial Vital Signs Initial Vital Signs: Vital Signs Temperature 97.5 F L 03/10/24 12:53 Pulse Rate 84 03/10/24 12:53 Respiratory Rate 18 03/10/24 12:53 Blood Pressure 114/65 03/10/24 12:53 Pulse Oximetry 97 03/10/24 12:53 Oxygen Delivery Method Room Air 03/10/24 12:53 Course Orders Ordered: ED Orders 03/10/24 13:00 Urinalysis and Microscopic Stat Urine Culture Stat 03/10/24 13:22 Complete Blood Count AUTO DIFF Stat Comprehensive Metabolic Panel Stat Lactate (Lactic Acid) Stat MAG [Magnesium] Stat PTT Partial Thromboplastin [place] Stat Prothrombin Time INR Stat TSH [Thyroid Stimulating Hormone] Stat Troponin & CK Cardiac Panel Stat EKG-12 Lead Stat 03/10/24 13:24 CT head/brain wo con Stat XR chest 1V Stat 03/10/24 13:42 Urinalysis and Microscopic Stat 03/10/24 13:59 Ammonia (NH3) Stat 03/10/24 14:14 Blood Culture Stat Sodium Chloride (Normal Saline 0.9%) 1,000 mls @ 150 mls/hr IV CONT NKECHI Last Admin: 03/10/24 14:45 Dose: 150 mls/hr Vital Signs Vital signs: Vital Signs - 8 hr 03/10/24 12:53 Temperature 97.5 F L Pulse Rate 84 Respiratory Rate 18 Blood Pressure 114/65 Pulse Oximetry 97 Oxygen Delivery Method Room Air MDM - Altered Mental Status Differential Diagnosis Differential diagnosis: Likely altered mental status, dementia, hyponatremia, other (Hypercalcemia) and subarachnoid hemorrhage Medical Records Attestation: I reviewed the patient's medical records. Lab Data Attestation: I reviewed the patient's lab results. 03/10/24 13:22 03/10/24 13:22 Labs: Lab Results 03/10/24 03/10/24 03/10/24 Range/Units 13:00 13:22 13:59 WBC 9.0 (4.5-11.0) X10^3/uL RBC 4.92 (4.0-5.2) X10^6/uL Hgb 14.5 (12.0-16.0) g/dL Hct 42.9 (36-46) % MCV 87.3 (80-100) fL MCH 29.5 (26-34) PG MCHC 33.8 (30-36) % RDW 14.0 (11.6-14.8) % Plt Count 240 (150-400) X10^3/uL Neut % (Auto) 74.4 (50-75) % Lymph % (Auto) 16.2 L (25-40) % [place] % (Auto) 9.1 (3-14) % Eos % (Auto) 0.0 L (2-4) % Baso % (Auto) 0.3 (0-2) % Neut # (Auto) 6700 (0820-1944) /uL Lymph # (Auto) 1400 (6722-7223) /uL [place] # (Auto) 800 (0-900) /uL Eos # (Auto) 0 (0-450) /uL Baso # (Auto) 0 (0-100) /uL PT 12.4 (9.4-12.5) SECONDS INR 1.1 (0.9-1.3) APTT 34 (25.1-36.5) SECONDS Sodium 136 L (137-145) mmol/L Potassium 3.8 (3.4-5.1) mmol/L Chloride 99 (98-107) mmol/L Carbon Dioxide 29 (22-32) mmol/L BUN 19 H (7-17) mg/dL Creatinine 0.86 (0.52-1.04) mg/dL Estimated GFR > 60 (>60) mL/min BUN/Creatinine Ratio 22.1 H (6-22) Glucose 112 H (80-110) mg/dL Lactate 2.2 H (0.7-2.1) mmol/L Calcium 13.0 H* (8.4-10.2) mg/dL Magnesium 1.9 (1.6-2.3) mg/dL Total Bilirubin 0.8 (0.2-1.3) mg/dL AST 37 H (14-36) IU/L ALT 31 (<35) IU/L Alkaline Phosphatase 114 (38-126) U/L Ammonia < 9 L (9-30) umol/L Total Creatine Kinase 30 (30-135) U/L Troponin I 0.026 (0.01-0.034) ng/mL Total Protein 8.0 (6.3-8.2) g/dL Albumin 4.5 (3.5-5.0) g/dL Globulin 3.5 (1.7-4.1) g/dL Albumin/Globulin Ratio 1.3 (1.0-2.8) Urine Color Yellow Urine Appearance Sl cloudy Urine pH 7.0 (4.5-8.0) Ur Specific [place] 1.010 (1.000-1.035) Urine Protein Negative (Negative) Urine Glucose (UA) Negative (Negative) g/dL Urine Ketones Negative (NEGATIVE) Urine Occult Blood Negative (Negative) Urine Nitrate Negative (Negative) Urine Bilirubin Negative (NEGATIVE) Urine Urobilinogen 1.0 (0.2) E.U./dL Ur Leukocyte Esterase 1+ H (NEGATIVE) Urine RBC None seen (0-5/HPF) Urine WBC 1-5/hpf (0-5/HPF) Ur Squamous Epith Cells 1-5 /hpf (0-5/HPF) Amorphous Sediment 2+ Urine Bacteria Few (2-10) H (None) Ur Culture Indicated? Specimen cultured Vol Urine Centrifuged 10ml (spun) ECG Data Attestation: I personally reviewed and interpreted this ECG as follows: MDM Narrative Medical decision making narrative: Patient is a 88-year-old female history of hypertension hyperlipidemia brought in by family for increased confusion. Was found wandering around grocery store a few days ago patient now more confused according to sister who checked in on her today. Patient A&O x3 however does appear pleasantly confused lab work consistent with hypercalcemia of 13, therefore will require admission for fluids and repeat lab work. The patient's management plan was discussed Dr. Londono, who agrees to admit the patient to their service and assumes care of this patient at this time. Full admission orders will be placed by the primary team. Discharge Plan Departure Patient Disposition: Admitted As Inpatient Clinical Impression: Acute metabolic encephalopathy, Hypercalcemia Admit Date/Time: 03/10/24 14:50
[2024-03-10 13:29] LABS: Appearance Urine UA SL CLOUDY; Bilirubin Urine UA NEGATIVE (NEGATIVE); Color Urine UA YELLOW; Glucose Urine UA NEGATIVE (Negative); Ketones Urine UA NEGATIVE (NEGATIVE); Leukocyte Esterase Urine UA 1+ (NEGATIVE); Nitrite Urine UA NEGATIVE (Negative); Occult Blood Urine UA NEGATIVE (Negative); Protein Urine UA NEGATIVE (Negative)
[2024-03-10 13:38] LABS: Amorphous Sediment Urine 2+; Bacteria Urine Few (2-10); Culture Indicated Urine Specimen Cultured; RBC Urine None Seen (0-5/HPF); Squamous Epithelial Cell Urine 1-5 /HPF (0-5/HPF); Urine Volume 10mL (spun); WBC Urine 1-5/HPF (0-5/HPF)
[2024-03-10 13:40] LABS: Add Manual Diff / Slide Review NO; Basophils Absolute Auto 0 /uL (0-100); Basophils Percent Auto 0.3 % (0-2); Eosinophils Absolute Auto 0 /uL (0-450); Hematocrit 42.9 % (36-46); Hemoglobin 14.5 g/dL (12.0-16.0); Lymphocytes Absolute Auto 1400 /uL (1100-4500); Lymphocytes Percent Auto 16.2 % (25-40); Mean Corpuscular HGB Conc 33.8 % (30-36); Mean Corpuscular Hemoglobin 29.5 PG (26-34); Mean Corpuscular Volume 87.3 fL (80-100); Monocytes Absolute Auto 800 /uL (0-900); Monocytes Percent Auto 9.1 % (3-14); Neutrophils Absolute Auto 6700 /uL (1500-7000); Neutrophils Percent Auto 74.4 % (50-75); Platelet Count 240 X10^3/uL (150-400); Red Blood Cell Count 4.92 X10^6/uL (4.0-5.2)
[2024-03-10 13:46] LABS: INR 1.1 (0.9-1.3); Prothrombin Time 12.4 SECONDS (9.4-12.5)
[2024-03-10 13:49] LABS: PTT Partial Thromboplastin Tim 34 SECONDS (25.1-36.5)
[2024-03-10 13:51] LABS: Alanine Aminotransferase 31 IU/L (<35); Albumin 4.5 g/dL (3.5-5.0); Albumin Globulin Ratio 1.3 (1.0-2.8); Alkaline Phosphatase 114 U/L (38-126); Aspartate Aminotransferase 37 IU/L (14-36); BUN Creatinine Ratio 22.1 (6-22); Bilirubin Total 0.8 mg/dL (0.2-1.3); Blood Urea Nitrogen 19 mg/dL (7-17); Carbon Dioxide 29 mmol/L (22-32); Chloride 99 mmol/L (98-107); Creatine Kinase 30 U/L (30-135); Estimated Glomerular Filt Rate > 60 mL/min (>60); Globulin 3.5 g/dL (1.7-4.1); Glucose 112 mg/dL (80-110); HEMOLYSIS < 15 (0-50); Potassium 3.8 mmol/L (3.4-5.1); Sodium 136 mmol/L (137-145)
[2024-03-10 13:52] LABS: Magnesium 1.9 mg/dL (1.6-2.3)
[2024-03-10 13:53] LABS: Lactate (Lactic Acid) 2.2 mmol/L (0.7-2.1)
[2024-03-10 14:03] LABS: Troponin I 0.026 ng/mL (0.01-0.034)
[2024-03-10 14:27] LABS: Ammonia (NH3) < 9 umol/L (9-30)
[2024-03-10] MEDS: SODIUM CHLORIDE 0.9% 1,000 ML 150 ML IV (14:45)
[2024-03-10 14:59] LABS: Thyroid Stimulating Hormone 2.08 uIU/mL (0.47-4.68)
--- NOTE | 2024-03-10 15:10 | P.HP_ITS ---
History of Present Illness History of Present Illness Date Patient Seen: 03/10/24 Chief complaint: disoriented, unaware of surroundings Narrative: From ED doctor: Patient is 88-year-old female past medical history of frequent UTIs, comes into the ED from home for evaluation of increased confusion. Patient presents with family member, patient was found wandering around grocery store few days ago, was able to get back home with help of police, family member at bedside states that she checked on her today and seemed more confused than normal. At time of initial evaluation patient is A&O x3 follows all commands appropriately. Not Complaining of any symptoms. Additional information: She was found wandering 2 days ago and apparently police were called and she was returned home. Her sister checked on her today and found her to be grossly confused and brought her to the emergency department. There she was found to have a calcium of 13. She was no history of hypercalcemia. Her last calcium was checked earlier this year and was normal. She denies excessive intake of calcium or issues like this in her past. She was no history of cancer or hyperparathyroidism. She was a past history of lower back pain with radiculopathy, as well as frequent urinary tract infection and lower extremity edema. She knows that she was confused. She can not really give any history in terms of the timeline of her confusion. She does live alone. She denies any memory of a specific incident or other problems. She does note she was in the hospital and that is 2023. [facility] Medical History Peripheral neuropathy Lumbar spondylosis Low back pain Lumbar radiculopathy Left leg pain Elevated low density lipoprotein (LDL) cholesterol level Family history of diabetes mellitus Right foot pain Left hip pain Hip bursitis, left Frequent UTI Incontinence in female (~2019) Bursitis, trochanteric Degenerative disc disease, lumbar Osteoarthritis of left hip Muscle strain of left gluteal region Degenerative joint disease (DJD) of hip Strain of gluteus medius of left lower extremity Nocturia more than twice per night Somatic dysfunction of lower extremity Segmental and somatic dysfunction of abdomen and other regions Sacral region somatic dysfunction Pelvic somatic dysfunction Lumbar region somatic dysfunction Chronic right-sided low back pain without sciatica Lower extremity edema Urge incontinence Lower urinary tract symptoms (LUTS) Postmenopausal atrophic vaginitis Arthritis Heart valve calcification Swelling of lower extremity Murmur Decreased range of motion of both knees Bilateral knee pain Polyneuropathic pain Decreased range of motion of right knee Right shoulder pain Knee pain, right Onychomycosis Knee pain, left Radiculopathy of lumbosacral region Other spondylosis with radiculopathy, lumbosacral region Polyneuropathy Compression fracture of T11 vertebra Lumbosacral spondylosis with radiculopathy Chronic 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 Knee pain, left (Unknown) Osteoarthritis (2000) Shoulder pain (2015) Osteoporosis (~2003) Osteopenia (~2002) Fracture (1940) Anemia (~1953) Retinal detachment (1998) Hearing loss (2016) Urinary incontinence (~2013) Surgical History History of stem cell transplant Total knee replacement status History of total knee arthroplasty History of knee replacement Family History Father Mental health problem Mother Heart disease Grandmother Breast cancer Social History household members: none Smoking Status: Never smoker alcohol intake: current substance use type: does not use Meds Home Medications and Allergies Home Medications Medication Instructions Recorded Confirmed Type meloxicam 15 mg tablet 15 mg PO DAILY #90 tabs 11/05/23 03/10/24 Rx gabapentin 300 mg capsule 900 mg PO 3XD 03/10/24 03/10/24 History venlafaxine 75 mg capsule,extended 75 mg PO ONCE PM 03/10/24 03/10/24 History release 24 hr Allergies Allergy/AdvReac Type Severity Reaction Status Date / Time No Known Drug Allergies Allergy Unverified 01/02/24 11:40 Review of Systems Review of Systems Narrative: ROS is limited by her confusion. She does deny current chest pain, abdominal pain, or any other pain in her body. She also eyes dyspnea. Exam Vital Signs (past 8 hours): - 03/10/24 12:53 03/10/24 13:10 03/10/24 13:30 Temperature 97.5 F L Pulse Rate 84 78 72 Respiratory Rate 18 Blood Pressure 114/65 Pulse Oximetry 97 93 95 Oxygen Delivery Method Room Air 03/10/24 13:30 03/10/24 14:00 03/10/24 14:00 Temperature Pulse Rate 70 Respiratory Rate Blood Pressure 136/84 161/75 H Pulse Oximetry 98 Oxygen Delivery Method 03/10/24 14:30 03/10/24 14:30 Temperature Pulse Rate 71 Respiratory Rate Blood Pressure 151/70 H Pulse Oximetry 99 Oxygen Delivery Method Room Air Oxygen Delivery Method Room Air Narrative Exam Narrative: NAD, alert and oriented to person, place, and year with fluent speech. Somewhat confused and a little anxious. Normocephalic skull, EOMI, anicteric sclera, symmetric pupils. Oropharynx unremarkable, no droop. Neck supple, midline trachea, no adenopathy. Lungs clear, normal rate and effort. Heart regular, no murmur gallop or rub. Abdomen is soft, non distended and non tender. Extremities are free of edema. Skin is free of rash or lesions. Joints are not swollen or deformed. Judgment appears to be normal. Objective Imaging Multiple studies:: Radiologist's impression: Brain CT: Unremarkable noncontrast head CT for age, stable from prior. Chest x-ray: No acute cardiopulmonary abnormality is seen. Labs 03/10/24 13:22 03/10/24 13:22 Labs: Laboratory Results - last 24 hr 03/10/24 03/10/24 03/10/24 13:00 13:22 13:59 WBC 9.0 RBC 4.92 Hgb 14.5 Hct 42.9 MCV 87.3 MCH 29.5 MCHC 33.8 RDW 14.0 Plt Count 240 Neut % (Auto) 74.4 Lymph % (Auto) 16.2 L [place] % (Auto) 9.1 Eos % (Auto) 0.0 L Baso % (Auto) 0.3 Neut # (Auto) 6700 Lymph # (Auto) 1400 [place] # (Auto) 800 Eos # (Auto) 0 Baso # (Auto) 0 PT 12.4 INR 1.1 APTT 34 Sodium 136 L Potassium 3.8 Chloride 99 Carbon Dioxide 29 BUN 19 H Creatinine 0.86 Estimated GFR > 60 BUN/Creatinine Ratio 22.1 H Glucose 112 H Lactate 2.2 H Calcium 13.0 H* Magnesium 1.9 Total Bilirubin 0.8 AST 37 H ALT 31 Alkaline Phosphatase 114 Ammonia < 9 L Total Creatine Kinase 30 Troponin I 0.026 Total Protein 8.0 Albumin 4.5 Globulin 3.5 Albumin/Globulin Ratio 1.3 TSH 2.08 Urine Color Yellow Urine Appearance Sl cloudy Urine pH 7.0 Ur Specific [place] 1.010 Urine Protein Negative Urine Glucose (UA) Negative Urine Ketones Negative Urine Occult Blood Negative Urine Nitrate Negative Urine Bilirubin Negative Urine Urobilinogen 1.0 Ur Leukocyte Esterase 1+ H Urine RBC None seen Urine WBC 1-5/hpf Ur Squamous Epith Cells 1-5 /hpf Amorphous Sediment 2+ Urine Bacteria Few (2-10) H Ur Culture Indicated? Specimen cultured Vol Urine Centrifuged 10ml (spun) Assessment & Plan Assessment & Plan narrative: 1. Hypercalcemia, present on admission and active. 2. Metabolic encephalopathy secondary to hypercalcemia, present on admission and active. 3. Lactic acidosis, present on admission and active. Plan: -IV fluids, and Calcitonin 4u/kg SQ. Monitor calcium. May repeat Q12hr for 2-4 doses if a response is seen. -check PTH to rule out per hyperparathyroidism. -monitor mental status. Full resuscitation. YOMAIRA is 9 25 if her calcium improves. Inpatient status, 2 midnights of hospital care are expected to be required to treat her calcium. Time-Based Coding :: 35 min spent with patient and on the chart (including review of chart, obtaining history, exam, reviewing outside data, placing orders, documenting exam and treatment plan, and counseling patient) on 03/10. Quality MIPS - Admit I confirm the patient?s Advance Care Plan is present, Code status is documented, Surrogate decision maker is in patient?s record [If Yes, STOP here]: Yes MIPS - Meds 'Current medications' to include all prescriptions, [id number] products, herbals, cannabis/cannabidiol products, and vitamin/mineral/dietary (nutritional) supplements. I have utilized all available resources to obtain, update, or review the patient?s current medications. [If Yes, STOP here]: Yes
[2024-03-10 15:11] LABS: Reflexed Lactate in 2 Hours Y
--- NOTE | 2024-03-10 15:19 | PC.NURSE ---
Friend Adeline lives on [facility] and will cloth picker patient when she is discharged, update her [phone]
[2024-03-10] MEDS: CALCITONIN,SALMON 400 UNITS/2 ML MDV 250 UNITS SUBCUT (16:00)
[2024-03-10 16:37] LABS: Lactate 2HR (Lactic Acid Rflx) 1.5 mmol/L (0.7-2.1)
[2024-03-10] MEDS: cefTRIAXone 1,000 MG in SODIUM CHLORIDE 0.9% 100 ML 200 MG IV (18:05)
--- NOTE | 2024-03-10 18:59 | PC.NURSE ---
Patient was brought up from ER to room 223 approx 1520. Assisted to bed, patient knows she is in hospital, knows month and year, but repeats several times that she just doesn't know whats going on and feels like her brain is not working right. Patient oriented to room and call light, bed alarm activated for safety. IV fluids infusing normal saline at 125cc per hour. Patient has been impulsive and forgetful and has attempted to get up out of bed without calling multiple times. Face and ears flushed. Denies pain, remains afebrile. Dr. Londono updated, continue to monitor.
[2024-03-10] MEDS: HEPARIN 5,000 UNIT/ML VIAL 5000 UNIT SUBCUT (20:51)
[2024-03-10] MEDS: ONDANSETRON 4 MG/2 ML INJ IV (21:48)
[2024-03-10] MEDS: SODIUM CHLORIDE 0.9% 1,000 ML 125 ML IV (23:32)
[2024-03-11] VITALS (8 sets, daily range): BP systolic 113–158; BP diastolic 64–79; PULSE 71–78; RESP 15–18; TEMP 36.2–36.5; O2SAT 97–99
[2024-03-11 04:25] LABS: Add Manual Diff / Slide Review NO; Basophils Absolute Auto 0 /uL (0-100); Basophils Percent Auto 0.3 % (0-2); Eosinophils Absolute Auto 0 /uL (0-450); Hematocrit 36.9 % (36-46); Hemoglobin 12.8 g/dL (12.0-16.0); Lymphocytes Absolute Auto 1100 /uL (1100-4500); Lymphocytes Percent Auto 11.9 % (25-40); Mean Corpuscular HGB Conc 34.6 % (30-36); Mean Corpuscular Hemoglobin 30.1 PG (26-34); Mean Corpuscular Volume 86.9 fL (80-100); Monocytes Absolute Auto 800 /uL (0-900); Monocytes Percent Auto 8.8 % (3-14); Neutrophils Absolute Auto 7100 /uL (1500-7000); Platelet Count 212 X10^3/uL (150-400); Red Blood Cell Count 4.25 X10^6/uL (4.0-5.2); Red Cell Distribution Width 13.3 % (11.6-14.8)
[2024-03-11 04:39] LABS: Alanine Aminotransferase 26 IU/L (<35); Albumin 3.7 g/dL (3.5-5.0); Albumin Globulin Ratio 1.3 (1.0-2.8); Alkaline Phosphatase 94 U/L (38-126); Aspartate Aminotransferase 34 IU/L (14-36); BUN Creatinine Ratio 19.7 (6-22); Bilirubin Total 0.5 mg/dL (0.2-1.3); Blood Urea Nitrogen 14 mg/dL (7-17); Calcium 10.3 mg/dL (8.4-10.2); Carbon Dioxide 24 mmol/L (22-32); Chloride 107 mmol/L (98-107); Estimated Glomerular Filt Rate > 60 mL/min (>60); Globulin 2.9 g/dL (1.7-4.1); Glucose 117 mg/dL (80-110); HEMOLYSIS 16 (0-50); Potassium 3.6 mmol/L (3.4-5.1); Sodium 138 mmol/L (137-145); Total Protein 6.6 g/dL (6.3-8.2)
--- NOTE | 2024-03-11 07:48 | P.PN_ITS ---
Subjective Subjective Interval history: Summary: She was admitted with a metabolic encephalopathy and hypercalcemia as well as urinary tract infection. S: She feels back to normal and wants to go home. Her calcium did correct overnight. She did appear dehydrated. She did not eat this morning and notes her appetite has been down. She denies any urinary symptoms. Exam Vital Signs (past 8 hours): - 03/11/24 00:00 03/11/24 04:00 Temperature 97.4 F L 97.1 F L Pulse Rate 78 76 Respiratory Rate 16 15 Blood Pressure 133/66 113/64 Pulse Oximetry 97 98 Oxygen Flow Rate 0 0 Oxygen Delivery Method Room Air Oxygen Flow Rate 0 Narrative Exam Narrative: NAD, alert and oriented. Fluent speech. Appropriate speech and cognition. She answers all questions without hesitation and accurately. Lungs are clear, normal rate and effort. Heart is regular, no murmur gallop or rub. Abdomen is soft, non distended. Extremities are free of edema. Objective Labs 03/11/24 04:13 03/11/24 04:13 Labs: Laboratory Results - last 24 hr 03/10/24 03/10/24 03/10/24 13:00 13:22 13:59 WBC 9.0 RBC 4.92 Hgb 14.5 Hct 42.9 MCV 87.3 MCH 29.5 MCHC 33.8 RDW 14.0 Plt Count 240 Neut % (Auto) 74.4 Lymph % (Auto) 16.2 L [place] % (Auto) 9.1 Eos % (Auto) 0.0 L Baso % (Auto) 0.3 Neut # (Auto) 6700 Lymph # (Auto) 1400 [place] # (Auto) 800 Eos # (Auto) 0 Baso # (Auto) 0 PT 12.4 INR 1.1 APTT 34 Sodium 136 L Potassium 3.8 Chloride 99 Carbon Dioxide 29 BUN 19 H Creatinine 0.86 Estimated GFR > 60 BUN/Creatinine Ratio 22.1 H Glucose 112 H Lactate 2.2 H Calcium 13.0 H* Magnesium 1.9 Total Bilirubin 0.8 AST 37 H ALT 31 Alkaline Phosphatase 114 Ammonia < 9 L Total Creatine Kinase 30 Troponin I 0.026 Total Protein 8.0 Albumin 4.5 Globulin 3.5 Albumin/Globulin Ratio 1.3 TSH 2.08 Urine Color Yellow Urine Appearance Sl cloudy Urine pH 7.0 Ur Specific [place] 1.010 Urine Protein Negative Urine Glucose (UA) Negative Urine Ketones Negative Urine Occult Blood Negative Urine Nitrate Negative Urine Bilirubin Negative Urine Urobilinogen 1.0 Ur Leukocyte Esterase 1+ H Urine RBC None seen Urine WBC 1-5/hpf Ur Squamous Epith Cells 1-5 /hpf Amorphous Sediment 2+ Urine Bacteria Few (2-10) H Ur Culture Indicated? Specimen cultured Vol Urine Centrifuged 10ml (spun) 03/10/24 03/11/24 16:07 04:13 WBC 9.0 RBC 4.25 Hgb 12.8 Hct 36.9 MCV 86.9 MCH 30.1 MCHC 34.6 RDW 13.3 Plt Count 212 Neut % (Auto) 79.0 H Lymph % (Auto) 11.9 L [place] % (Auto) 8.8 Eos % (Auto) 0.0 L Baso % (Auto) 0.3 Neut # (Auto) 7100 H Lymph # (Auto) 1100 [place] # (Auto) 800 Eos # (Auto) 0 Baso # (Auto) 0 PT INR APTT Sodium 138 Potassium 3.6 Chloride 107 Carbon Dioxide 24 BUN 14 Creatinine 0.71 Estimated GFR > 60 BUN/Creatinine Ratio 19.7 Glucose 117 H Lactate 1.5 Calcium 10.3 H Magnesium Total Bilirubin 0.5 AST 34 ALT 26 Alkaline Phosphatase 94 Ammonia Total Creatine Kinase Troponin I Total Protein 6.6 Albumin 3.7 Globulin 2.9 Albumin/Globulin Ratio 1.3 TSH Urine Color Urine Appearance Urine pH Ur Specific [place] Urine Protein Urine Glucose (UA) Urine Ketones Urine Occult Blood Urine Nitrate Urine Bilirubin Urine Urobilinogen Ur Leukocyte Esterase Urine RBC Urine WBC Ur Squamous Epith Cells Amorphous Sediment Urine Bacteria Ur Culture Indicated? Vol Urine Centrifuged [facility] Medical History Peripheral neuropathy Lumbar spondylosis Low back pain Lumbar radiculopathy Left leg pain Elevated low density lipoprotein (LDL) cholesterol level Family history of diabetes mellitus Right foot pain Left hip pain Hip bursitis, left Frequent UTI Incontinence in female (~2020) Bursitis, trochanteric Degenerative disc disease, lumbar Osteoarthritis of left hip Muscle strain of left gluteal region Degenerative joint disease (DJD) of hip Strain of gluteus medius of left lower extremity Nocturia more than twice per night Somatic dysfunction of lower extremity Segmental and somatic dysfunction of abdomen and other regions Sacral region somatic dysfunction Pelvic somatic dysfunction Lumbar region somatic dysfunction Chronic right-sided low back pain without sciatica Lower extremity edema Urge incontinence Lower urinary tract symptoms (LUTS) Postmenopausal atrophic vaginitis Arthritis Heart valve calcification Swelling of lower extremity Murmur Decreased range of motion of both knees Bilateral knee pain Polyneuropathic pain Decreased range of motion of right knee Right shoulder pain Knee pain, right Onychomycosis Knee pain, left Radiculopathy of lumbosacral region Other spondylosis with radiculopathy, lumbosacral region Polyneuropathy Compression fracture of T11 vertebra Lumbosacral spondylosis with radiculopathy Chronic 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 Knee pain, left (Unknown) Osteoarthritis (2000) Shoulder pain (2015) Osteoporosis (~2002) Osteopenia (~2002) Fracture (1940) Anemia (~1953) Retinal detachment (1998) Hearing loss (2015) Urinary incontinence (~2013) Surgical History History of stem cell transplant Total knee replacement status History of total knee arthroplasty History of knee replacement Family History Father Mental health problem Mother Heart disease Grandmother Breast cancer Social History household members: none Smoking Status: Never smoker alcohol intake: current substance use type: does not use Assessment & Plan Assessment & Plan narrative: 1. Hypercalcemia, present on admission and active. Calcium is improved to 10.3. 2. Metabolic encephalopathy secondary to hypercalcemia, present on admission and active. 3. Lactic acidosis, present on admission and active. 4. Urinary tract infection, present on admission and active. Plan: -IV fluids, and Calcitonin 4u/kg SQ. Monitor calcium. This is improved to 10.3. -check PTH to rule out per hyperparathyroidism. PTH is pending. -monitor mental status. This appears to be back to baseline. -continue antibiotics and follow cultures. -PT and OT evaluations to assess discharge planning needs. Full resuscitation. YOMAIRA is 03/12 if her calcium and mental status improves. Inpatient status, 2 midnights of hospital care are expected to be required to treat her calcium. Time-Based Coding :: [TOTAL MINUTES] spent with patient and on the chart (including review of chart, obtaining history, exam, reviewing outside data, placing orders, documenting exam and treatment plan, and counseling patient) on [DATE]. Quality VTE Deep Vein Thrombosis/Pulmonary Embolism Present on Admission: No
[2024-03-11] MEDS: SODIUM CHLORIDE 0.9% 1,000 ML 125 ML IV ×2 (08:00→15:37)
[2024-03-11] MEDS: HEPARIN 5,000 UNIT/ML VIAL 5000 UNIT SUBCUT ×2 (08:21→21:15)
--- NOTE | 2024-03-11 12:19 | CM.DANOTE ---
DCP Assessment Note Pt is an 88yo F here with low calcium/suspected UTI/acute confusion. PCP was Aimee Chance, now Claudia Calderón but has yet to meet with her yet Payer [facility] and self pay POULTRY PROCESSOR reviewed EMR. PT pending. YOMAIRA unknown at this time. POULTRY PROCESSOR met with pt and sister Nancy in room. Pt lives alone at [facility]. Sister Nancy is her emergency contact, and she lives on [address]. Pt uses a cane and walking sticks at baseline, no hx of HH or SNF. Open to HH if indicated, no preference for agency. pt reports things have been going well in the [facility] apartments at [place]. Reports she has yet to meet with Dr. Calderón since Aimee chance left, hopeful for sooner appointment since her stay in the hospital. Sister Nancy reports she would transport home. POULTRY PROCESSOR reached out to TCM OP team about f/u appointment/potential need for increased assistance at [facility] sooner? per TCM, appt scheduled for 03/[address] Calderón. POULTRY PROCESSOR shared this with pt, excited and in agreement with plan. P: YOMAIRA pending, maybe tomorrow? PT eval pending, f/u if HH ref needed. transport with sister. CM team will continue to follow closely VIRY De Leon Discharge Planning/Care Management CM Discharge Assessment Start: 03/11/24 12:17 Freq: Status: Active Protocol: Document 03/11/24 12:17 (Rec: 03/11/24 12:18 [id number]) Discharge Planning Assessment Assigned Engineering Operator VIRY Yanez DPOA/Assigned Designee Name sister Cruz Contact Information [phone] Advance Directives? Yes Advance Directives on File No History Provided By Patient,Medical Record Prior Living Arrangements House Household Members none Type of transporation used prior to Drives own vehicle admit Independent with ADL's Yes Is patient alert and oriented? Yes DME Already Rented / Owned Cane Discharge Plan Home Transportation Arrangement sister in POV Additional Comment pending PT eval SNF/HH Preference no HH preference Whiteboard Updated in Patient Room with Yes name and ext. # of Engineering Operator Review Status In Process Please Provide Date Initial DC 03/11/24 Assessment Was Performed Next Review Type Continued Stay Review
--- NOTE | 2024-03-11 14:40 | PT.IIE ---
Current Diagnoses Hypercalcemia (03/10/24) Surgical History (Last Reviewed 03/10/24 @ 15:12 by Jose E Londono MD) History of knee replacement History of stem cell transplant History of total knee arthroplasty Total knee replacement status Medical History (Last Reviewed 03/10/24 @ 15:12 by Jose E Londono MD) Anemia (~1953) Arthritis Bilateral knee pain Bursitis, trochanteric Chronic 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 Chronic right-sided low back pain without sciatica Compression fracture of T11 vertebra Decreased range of motion of both knees Decreased range of motion of right knee Degenerative disc disease, lumbar Degenerative joint disease (DJD) of hip Elevated low density lipoprotein (LDL) cholesterol level Family history of diabetes mellitus Fracture (1940) Frequent UTI Hearing loss (2015) Heart valve calcification Hip bursitis, left Incontinence in female (~2019) Knee pain, left (Unknown) Knee pain, left Knee pain, right Left hip pain Left leg pain Low back pain Lower extremity edema Lower urinary tract symptoms (LUTS) Lumbar radiculopathy Lumbar region somatic dysfunction Lumbar spondylosis Lumbosacral spondylosis with radiculopathy Murmur Muscle strain of left gluteal region Nocturia more than twice per night Onychomycosis Osteoarthritis (1999) Osteoarthritis of left hip Osteopenia (~2002) Osteoporosis (~2002) Other spondylosis with radiculopathy, lumbosacral region Pelvic somatic dysfunction Peripheral neuropathy Polyneuropathic pain Polyneuropathy Postmenopausal atrophic vaginitis Radiculopathy of lumbosacral region Retinal detachment (1998) Right foot pain Right shoulder pain Sacral region somatic dysfunction Segmental and somatic dysfunction of abdomen and other regions Shoulder pain (2014) Somatic dysfunction of lower extremity Strain of gluteus medius of left lower extremity Swelling of lower extremity Urge incontinence Urinary incontinence (~2013) Physical Therapy Inpatient Evaluation/Re-Eval M1 PT/OT-IP Prior Functional Status Start: 03/11/24 16:10 Freq: NEEDED Status: Active Protocol: Document 03/11/24 14:40 AB (Rec: 03/11/24 16:29 AB [id number]) Medical Review Prior Functional Status Medical History Reviewed Yes Communication able to make needs known; with confusion Mobility and Gait pt stated that she was independent with all mobilities and ambulation without AD indoors but occasionally uses a SPC; uses a SPC for outdoor mobility; pt stated that she still drives Social History Household Members none Living Arrangements House Number of Floors (Floors) One Floor Number of Stairs To Enter/Railing? pt lives at [facility]: one step to enter her apartment per pt Home Environment Standard Height Toilet,Walk in Shower,Built-In Shower Seat Home Equipment Straight Cane,Raised Toilet Seat w/Armrests,Hand Held Shower,Grab Bars Near Toilet, Grab Bars In Shower M2 PT-IP Current Condition Start: 03/11/24 16:10 Freq: NEEDED Status: Active Protocol: Document 03/11/24 14:40 AB (Rec: 03/11/24 16:29 AB [id number]) Physical Therapy Current Condition Current Condition Evaluation Date 03/11/24 Treatment Diagnosis acute metabolic encephalopathy ; hypercalcemia; difficulty in walking Onset Date 03/10/24 M3 PT-IP Subjective Start: 03/11/24 16:10 Freq: NEEDED Status: Active Protocol: Document 03/11/24 14:40 AB (Rec: 03/11/24 16:29 AB [id number]) Subjective Physical Therapy Visit Type Type Initial Evaluation Visit Start Time 14:40 Visit Stop Time 15:10 Number of SIGNALER Visits 0 Physical Therapy Visit Comments Patient Comments requesting to use the toilet Therapy Pain Assessment Pain Present Pain Present Denied Pain M4 PT-IP Mobility and Gait Start: 03/11/24 16:10 Freq: NEEDED Status: Active Protocol: Document 03/11/24 14:40 AB (Rec: 03/11/24 16:29 AB [id number]) PT-Bed Mobility Assessment Supine to Sit Supine to Sit Standby Assistance Sit to Supine Sit to Supine Standby Assistance PT-Transfer Assessment Sit to and From Stand Sit to and from Stand Contact Guard Assistance,1 Person Assistance,Use of Upper Extremities Equipment Transfer Assistive Device Gait Belt,Front Wheeled Walker Orthotic/Prosthetic Devices or Brace: No Transfers Transfer Destination Toilet Transfer Technique ambulated Transfer Ability Level of Assist Standby Assistance,Contact Guard Assistance,1 Person Assistance,Use of Upper Extremities Comments Mobility Comments checked on pt and pt midway of getting out of the bed. pt stated that she has to use the toilet but can wait. informed pt that she has to call for assistance. pt stated that she knows but it is not urgent to go to the toilet. pt has decrease safety awareness and with confusion. pt agreed to do PT. obtained PLOF and home set up. pt completed supine to sit SBA. able to sit on EOb SBA. completed sit to stand CGA and ambulated to the toilet using FWW CGA. pt required cues for safety. completed sit to stand from the toilet CGA and ambulated towards the sink using FWW SBA. able to stand holding on to FWW.counter for suport while completing handwashing. pt needs cues for safety. pt ambulated to the chair using fWW SBA. Assessed ambulation without AD and completed in room ~ 20 ft min A and cues. presents with unsteady gait and with (+) shakiness/tremors. pt sat on EOB. Assessed ambulation using SPC and pt completed in room ~ 25 ft SBA to CGA and cues. pt requested to go back to bed. sit to supine SBA. positioned pt on the bed. call light and table placed within reach. informed pt regarding safety and to use SPC at all time at home and pt agreed. requested OT eval order for ADL needs and cognitive assessment. informed child welfare caseworker and hospitalist. Gait Assessment Gait Gait Assistance Required: Standby Assistance,Contact Guard Assist,Minimum Assistance,1 Person Assist Distance (Feet) 25 Able to Maintain Weight Bearing Status Yes During Gait Assistive Devices Assistive Device None,Gait Belt,Straight Cane, Front Wheeled Walker Orthotic/Prosthetic Devices or Brace: No Gait Deviations General Gait Pattern Antalgic,Decreased Stride Length,Decreased Feet Clearance Factors Limiting Gait Function Factors Limiting Gait Function Decreased Activity Tolerance, Decreased Strength,Difficulty Following Directions,Poor Balance,Poor Safety Awareness PT-Balance Assessment Sitting Balance and Reactions Static Sitting Balance Ability Good Dynamic Sitting Balance Ability Good Standing Balance and Reactions Static Standing Balance Ability Fair Dynamic Standing Balance Ability Fair Device Used SPC M5 PT-IP Objective Assessments Start: 03/11/24 16:10 Freq: NEEDED Status: Active Protocol: Document 03/11/24 14:40 AB (Rec: 03/11/24 16:29 AB [id number]) Orientation Orientation/Cognition Level of Alertness Confusional State Orientation Name Safety Awareness Decreased Safety Awareness Memory Description Short Term Impaired,Drafter Electrical Impaired Gross Range of Motion Lower Extremity ROM Assessment Within Functional Limits Strength Lower Extremity Strength Assessment Left Impaired Hip 4-/5 Knee 4-/5 Comments Strength Comments RLE: 4+/5 Coordination Assessment Gross Coordination Gross Coordination WNL Sensation Assessment Sensation Gross Sensation WNL Muscle Tone Muscle Tone WNL Yes M6 PT-IP Treatment Start: 03/11/24 16:10 Freq: NEEDED Status: Active Protocol: Document 03/11/24 14:40 AB (Rec: 03/11/24 16:29 AB [id number]) Physical Therapy Treatment Education Education Provided Safety M7 PT-IP Assessment and Plan Start: 03/11/24 16:10 Freq: NEEDED Status: Active Protocol: Document 03/11/24 14:40 AB (Rec: 03/11/24 16:29 AB [id number]) PT Summary Assessment and Plan Potential Rehabilitation Potential Fair Status of Condition at Evaluation Evolving Summary Impairments Strength,Balance,Coordination, Tone,Cognition,Bed Mobility, Transfers,Gait,Activity Tolerance Progress Towards Goals Slow Progress due to Pain Assessment Summary pt is an 88 y/o F who presented to the ED with increase confusion. pt admitted for acture metabolic encephalopathy and hypercalcemia. pt requiring SBA with bed mobility, CGA with ambulation using FWW/SPC. assessed ambulation without AD and pt needing min A and with unsteady gait. Recommending use of AD at this time. pt has been using SPC on/off prior to admission. pt continues to have confusion and decrease safety awareness affecting independence. Requested OT eval order to hospitalist. pt lives at [facility] and will need assistance at home. pt will require home health services. will continuet o assess. Goals Bed Mobility Goal Independent Transfer Goal Independent,Cane Gait Goal Independent,Cane Gait Distance 200 Other Goals improve transfers, ambulation without AD mod I ~ 300 ft up/down 1 step without AD/ using SPC mod I Days to Meet Goals 10 Frequency of Treatment Frequency Of Treatment Once a Day Treatment Plan Physical Therapy Treatment Plan Bed Mobility Training,Transfer Training,Gait Training, Therapeutic Exercise,Balance Retraining,Discharge Planning, Hot or Cold Pack,Neuromuscular Re-ed,Coordination Retraining Precautions Other Precautions safety Recommendations To Nursing Amount of Assist Needed 1 Person Assist Discharge Recommendations PT Discharge Recommendations Home with Assistance,Home Health Transportation Needs at Discharge Private Vehicle,Wheelchair/ Cabulance
[2024-03-11] MEDS: cefTRIAXone 1,000 MG in SODIUM CHLORIDE 0.9% 100 ML 200 MG IV (17:19)
[2024-03-12] VITALS: BP 147/65; PULSE 71; RESP 14; TEMP 36.2; O2SAT 97
[2024-03-12 04:00] VITALS: BP 129/68; PULSE 79; RESP 14; TEMP 36.3; O2SAT 97
[2024-03-12 04:23] LABS: Add Manual Diff / Slide Review NO; Basophils Absolute Auto 0 /uL (0-100); Basophils Percent Auto 0.2 % (0-2); Eosinophils Absolute Auto 0 /uL (0-450); Hematocrit 33.4 % (36-46); Hemoglobin 11.7 g/dL (12.0-16.0); Lymphocytes Absolute Auto 1100 /uL (1100-4500); Lymphocytes Percent Auto 17.3 % (25-40); Mean Corpuscular HGB Conc 34.9 % (30-36); Mean Corpuscular Hemoglobin 30.1 PG (26-34); Mean Corpuscular Volume 86.1 fL (80-100); Monocytes Absolute Auto 500 /uL (0-900); Monocytes Percent Auto 7.7 % (3-14); Neutrophils Absolute Auto 4800 /uL (1500-7000); Neutrophils Percent Auto 74.8 % (50-75); Platelet Count 217 X10^3/uL (150-400); Red Blood Cell Count 3.88 X10^6/uL (4.0-5.2); Red Cell Distribution Width 13.6 % (11.6-14.8); White Blood Cell Count 6.5 X10^3/uL (4.5-11.0)
[2024-03-12 04:34] LABS: Alanine Aminotransferase 42 IU/L (<35); Albumin 3.1 g/dL (3.5-5.0); Albumin Globulin Ratio 1.1 (1.0-2.8); Alkaline Phosphatase 78 U/L (38-126); Aspartate Aminotransferase 43 IU/L (14-36); BUN Creatinine Ratio 11.5 (6-22); Bilirubin Total 0.5 mg/dL (0.2-1.3); Blood Urea Nitrogen 6 mg/dL (7-17); Calcium 9.9 mg/dL (8.4-10.2); Carbon Dioxide 24 mmol/L (22-32); Chloride 107 mmol/L (98-107); Estimated Glomerular Filt Rate > 60 mL/min (>60); Globulin 2.9 g/dL (1.7-4.1); Glucose 100 mg/dL (80-110); HEMOLYSIS < 15 (0-50); Sodium 135 mmol/L (137-145)
[2024-03-12 08:00] VITALS: BP 136/70; PULSE 70; RESP 16; TEMP 36.3; O2SAT 98
--- NOTE | 2024-03-12 08:16 | P.PN_ITS ---
Subjective Subjective Interval history: Summary: She was admitted with confusion, hypercalcemia, and possible urinary tract infection. Subjective: She was closer to her baseline today from her perspective in her sister's perspective. She will be staying with her sister for a while after discharge. Urine culture was equivocal, we will stop antibiotics at 3 days. She denies any headache. Her slums score was 22/30. Exam Vital Signs (past 8 hours): - 03/12/24 04:00 Temperature 97.3 F L Pulse Rate 79 Respiratory Rate 14 Blood Pressure 129/68 Pulse Oximetry 97 Oxygen Flow Rate 0 Oxygen Delivery Method Room Air Oxygen Flow Rate 0 Narrative Exam Narrative: NAD, alert and oriented. Fluent speech. Lungs are clear, normal rate and effort. Heart is regular, no murmur gallop or rub. Abdomen is soft, non distended. Extremities are free of edema. Objective Labs 03/12/24 04:06 03/12/24 04:06 Labs: Laboratory Results - last 24 hr 03/12/24 04:06 WBC 6.5 RBC 3.88 L Hgb 11.7 L Hct 33.4 L MCV 86.1 MCH 30.1 MCHC 34.9 RDW 13.6 Plt Count 217 Neut % (Auto) 74.8 Lymph % (Auto) 17.3 L [place] % (Auto) 7.7 Eos % (Auto) 0.0 L Baso % (Auto) 0.2 Neut # (Auto) 4800 Lymph # (Auto) 1100 [place] # (Auto) 500 Eos # (Auto) 0 Baso # (Auto) 0 Sodium 135 L Potassium 3.0 L Chloride 107 Carbon Dioxide 24 BUN 6 L Creatinine 0.52 Estimated GFR > 60 BUN/Creatinine Ratio 11.5 Glucose 100 Calcium 9.9 Total Bilirubin 0.5 AST 43 H ALT 42 H Alkaline Phosphatase 78 Total Protein 6.0 L Albumin 3.1 L Globulin 2.9 Albumin/Globulin Ratio 1.1 [facility] Medical History Peripheral neuropathy Lumbar spondylosis Low back pain Lumbar radiculopathy Left leg pain Elevated low density lipoprotein (LDL) cholesterol level Family history of diabetes mellitus Right foot pain Left hip pain Hip bursitis, left Frequent UTI Incontinence in female (~2019) Bursitis, trochanteric Degenerative disc disease, lumbar Osteoarthritis of left hip Muscle strain of left gluteal region Degenerative joint disease (DJD) of hip Strain of gluteus medius of left lower extremity Nocturia more than twice per night Somatic dysfunction of lower extremity Segmental and somatic dysfunction of abdomen and other regions Sacral region somatic dysfunction Pelvic somatic dysfunction Lumbar region somatic dysfunction Chronic right-sided low back pain without sciatica Lower extremity edema Urge incontinence Lower urinary tract symptoms (LUTS) Postmenopausal atrophic vaginitis Arthritis Heart valve calcification Swelling of lower extremity Murmur Decreased range of motion of both knees Bilateral knee pain Polyneuropathic pain Decreased range of motion of right knee Right shoulder pain Knee pain, right Onychomycosis Knee pain, left Radiculopathy of lumbosacral region Other spondylosis with radiculopathy, lumbosacral region Polyneuropathy Compression fracture of T11 vertebra Lumbosacral spondylosis with radiculopathy Chronic 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 Knee pain, left (Unknown) Osteoarthritis (1999) Shoulder pain (2015) Osteoporosis (~2002) Osteopenia (~2002) Fracture (1940) Anemia (~1952) Retinal detachment (1998) Hearing loss (2015) Urinary incontinence (~2013) Surgical History History of stem cell transplant Total knee replacement status History of total knee arthroplasty History of knee replacement Family History Father Mental health problem Mother Heart disease Grandmother Breast cancer Social History household members: none Smoking Status: Never smoker alcohol intake: current substance use type: does not use Assessment & Plan Assessment & Plan narrative: 1. Hypercalcemia, present on admission and active. Calcium is improved to 10.3. 2. Metabolic encephalopathy secondary to hypercalcemia, present on admission and active. 3. Lactic acidosis, present on admission and active. 4. Urinary tract infection, present on admission and active. Plan: -stop IV fluids -MRI brain to rule out evidence of occult stroke. -PTH is pending -anticipate discharge later today with follow up with PCP to review PTH and repeat calcium in the next 2 weeks. -complete 3 days of antibiotics. Full resuscitation. YOMAIRA is 03/12 if her calcium and mental status improves. Inpatient status, 2 midnights of hospital care are expected to be required to treat her calcium. Time-Based Coding :: [TOTAL MINUTES] spent with patient and on the chart (including review of chart, obtaining history, exam, reviewing outside data, placing orders, documenting exam and treatment plan, and counseling patient) on [DATE]. Quality VTE Deep Vein Thrombosis/Pulmonary Embolism Present on Admission: No
[2024-03-12] MEDS: HEPARIN 5,000 UNIT/ML VIAL 5000 UNIT SUBCUT (09:03)
[2024-03-12] MEDS: GABAPENTIN 300 MG CAPSULE 900 MG PO (09:03)
--- NOTE | 2024-03-12 09:45 | OT.IP.EVAL ---
Current Diagnoses Hypercalcemia (03/10/24) Past Medical History (Last Reviewed 03/10/24 @ 15:12 by Jose E Londono MD) Anemia (~1953) Arthritis Bilateral knee pain Bursitis, trochanteric Chronic 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 Chronic right-sided low back pain without sciatica Compression fracture of T11 vertebra Decreased range of motion of both knees Decreased range of motion of right knee Degenerative disc disease, lumbar Degenerative joint disease (DJD) of hip Elevated low density lipoprotein (LDL) cholesterol level Family history of diabetes mellitus Fracture (1940) Frequent UTI Hearing loss (2015) Heart valve calcification Hip bursitis, left Incontinence in female (~2019) Knee pain, left (Unknown) Knee pain, left Knee pain, right Left hip pain Left leg pain Low back pain Lower extremity edema Lower urinary tract symptoms (LUTS) Lumbar radiculopathy Lumbar region somatic dysfunction Lumbar spondylosis Lumbosacral spondylosis with radiculopathy Murmur Muscle strain of left gluteal region Nocturia more than twice per night Onychomycosis Osteoarthritis (1999) Osteoarthritis of left hip Osteopenia (~2002) Osteoporosis (~2002) Other spondylosis with radiculopathy, lumbosacral region Pelvic somatic dysfunction Peripheral neuropathy Polyneuropathic pain Polyneuropathy Postmenopausal atrophic vaginitis Radiculopathy of lumbosacral region Retinal detachment (1998) Right foot pain Right shoulder pain Sacral region somatic dysfunction Segmental and somatic dysfunction of abdomen and other regions Shoulder pain (2014) Somatic dysfunction of lower extremity Strain of gluteus medius of left lower extremity Swelling of lower extremity Urge incontinence Urinary incontinence (~2013) Surgical History (Last Reviewed 03/10/24 @ 15:12 by Jose E Londono MD) History of knee replacement History of stem cell transplant History of total knee arthroplasty Total knee replacement status Occupational Therapy Inpatient Evaluation/Re-Eval M1 PT/OT-IP Prior Functional Status Start: 03/11/24 16:10 Freq: NEEDED Status: Active Protocol: Document 03/12/24 08:45 [facility] (Rec: 03/12/24 12:47 [facility] [id number]) Medical Review Prior Functional Status Medical History Reviewed Yes Communication able to make needs known; with confusion Mobility and Gait pt stated that she was independent with all mobilities and ambulation without AD indoors but occasionally uses a SPC; uses a SPC for outdoor mobility; pt stated that she still drives Activities of Daily Living and IADL's Pt states prior independent with all ADL,IADL, and drives. Social History Household Members none Living Arrangements House Number of Floors (Floors) One Floor Number of Stairs To Enter/Railing? pt lives at [facility]: one step to enter her apartment per pt Home Environment Standard Height Toilet,Walk in Shower,Built-In Shower Seat Home Equipment Straight Cane,Raised Toilet Seat w/Armrests,Hand Held Shower,Grab Bars Near Toilet, Grab Bars In Shower M2 OT-IP Current Condition Start: 03/12/24 12:18 Freq: Status: Active Protocol: Document 03/12/24 08:45 [facility] (Rec: 03/12/24 12:47 [facility] [id number]) Occupational Therapy Current Condition Current Condition Evaluation Date 03/12/24 Treatment Diagnosis Hypercalcemia resulting in acute metabolic encephalopathy , UTI Diagnosis Onset Date 03/10/24 M3 OT- IP Subjective and Pain Start: 03/12/24 12:18 Freq: Status: Active Protocol: Document 03/12/24 08:45 [facility] (Rec: 03/12/24 12:47 [facility] [id number]) OT- Subjective Occupational Therapy Visit Type Type Initial Evaluation Visit Start Time 08:45 Visit Stop Time 09:45 Occupational Therapy Visit Comments Patient Comments Pt's sister present at the end of the session. Patient/Caregiver Goals To go home. OT Pain Assessment Pain When Pain Assessed At Rest Pain Present Pain Present Denied Pain M4 OT- IP ADL's Start: 03/12/24 12:18 Freq: Status: Active Protocol: Document 03/12/24 08:45 [facility] (Rec: 03/12/24 12:47 [facility] [id number]) OT LCC-Oxhg-Egophrs General Evaluation Self-Feeding Ability Independent OT ADL-Grooming General Evaluation Grooming Ability Independent OT ADL-Oral Care General Eval Oral Care Ability Independent OT ADL-Dressing General Eval Lower Body Dressing Ability Independent OT ADL-Toileting General Evaluation Toileting Ability Independent OT ADL-Bathing Comments OT Bathing Comments NOt performed, would benefit from supervision. M5 OT- IP IADL's Start: 03/12/24 12:18 Freq: Status: Active Protocol: Document 03/12/24 08:45 [facility] (Rec: 03/12/24 12:47 [facility] [id number]) OT-Instrumental Activities of Daily Living Deficits IADL Deficits Identified Deficits Home Safety Awareness Home Safety Comments Pt aware not thinking as well as usual, but insistent that she will be able to drive now. At this time due to pt's confusion would be best for her to stay at her sister's house or have her sister stay with her initially. Medication Management Medication Management Comments Pt will benefit from supervision. Money Management Money Management Comments Pt will benefit from assist. Meal Preparation Meal Preparation Comments Pt will benefit from assist. Couples Therapist Couples Therapist Comments Pt will benefit from assist. Driving Driving Concerns Identified Regarding Safety M6 OT- IP Functional Cognition Start: 03/12/24 12:18 Freq: Status: Active Protocol: Document 03/12/24 08:45 [facility] (Rec: 03/12/24 12:47 [facility] [id number]) Cognitive Factors Limiting Selfcare Function Cognitive Ability Level of Alertness Alert,Confusional State Patient Orientation Name,Age,Birthday,Month,Date, Year,Day of Week,Place, Situation Attention Span Ability Capable of Focused Attention, Capable of Sustained Attention Ability to Follow Commands Able to Follow One Step Commands Memory Description Short Term Impaired,Working Impaired Safety Awareness Underestimates Need for Assistance Cognitive Tests SLUMS Pt scored 22/30 which implies mild cognitive deficits- pt also has UTI. Pt not able to recall 1/5 objects after time passed, not able to draw the hour hands correctly on the clock after time given and able to answer 3/4 questions right after time passed. Cognitive Comments Cognitive Assessment Comments Pt having difficulty with her thinking at this time and partially may also be due to pt not having her hearing aid present at the hospital. Pt unable to complete [place] Making Part B which implies severe impairments for mental flexibility, executive functioning, task switching, visual attention, and speed of processing. Pt strongly suggested not to drive at this time, pt's sister agreed. OT- Vision and Hearing OT- Hearing Assessment OT- Hearing Assessment Hearing Impaired,Use of Hearing Aids OT- Vision Assessment Visual Acuity Glasses All The Time Visual Attentiveness WFL Occular Pursuits WFL Visual Convergence WFL Visual Keller WFL Vision Assessment Comments Pt states does not always wear her glasses. M7 OT- IP Mobility and Balance Start: 03/12/24 12:18 Freq: Status: Active Protocol: Document 03/12/24 08:45 [facility] (Rec: 03/12/24 12:47 [facility] [id number]) OT-Transfer Assessment Sit to and From Stand Sit to and from Stand Standby Assistance Transfers Transfer Ability Standby Assistance Technique Transfer Destination Chair Transfer Technique Stand Step Pivot Devices Transfer Assistive Devices Front Wheeled Walker Comments Mobility Comments SBA with FWW in the room. OT- Balance Assessment Sitting Balance and Reactions Static Sitting Balance Ability Normal Dynamic Sitting Balance Ability Good Standing Balance and Reactions Static Standing Balance Ability Good Dynamic Standing Balance Ability Fair M8 OT- IP Objective Assessments Start: 03/12/24 12:18 Freq: Status: Active Protocol: Document 03/12/24 08:45 [facility] (Rec: 03/12/24 12:47 [facility] [id number]) OT Gross Range of Motion Upper Extremity Range of Motion Assessment Within Functional Limits OT Strength Upper Extremity Strength Assessment Within Functional Limits OT- Coordination Assessment Upper Extremity Finger to Nose Test Right UE Impaired Comments Coordination Comments Initially right finger off and able to touch her nose accurately after several attempts. M9 OT- IP Assessment and Plan Start: 03/12/24 12:18 Freq: Status: Active Protocol: Document 03/12/24 08:45 [facility] (Rec: 03/12/24 12:47 [facility] [id number]) OT Summary Assessment and Plan Potential Rehabilitation Potential Good Analytic Complexity at Evaluation Moderate Summary OT Impairments Balance,Functional Cognition, Functional Mobility,Bathing, Shower Transfers Progress Towards Goals Progressing Toward Goals Assessment Summary Pt MOD complexity and main barriers are high level balance, IADL needs, and scored 22/30 on the SLUMS which implies mild neurocognitive disorder. Pt not able to complete [place] Making Part B which alternating between numbers and letter. Pt not able to complete the assessment implies severe impairments for visual attention, speed of processing, executive function , mental flexibility, and task switching. Pt's sister agreed to stay with her initially especially as pt not thinking well at this time. Pt to go home with assist and home health. Goals Dressing Goal Independent Toileting Goal Independent Bathing Goal Independent Toilet Transfer Goal Independent Shower Transfer Goal Independent Days to Meet Goals 5 Frequency of Treatment Frequency Of Treatment Once a Day Treatment Plan OT Treatment Plan ADL Training,Functional Cognition Training,Functional Mobility,Patient/Family Education,Discharge Planning Discharge Recommendations OT Discharge Recommendations Home with 08/01 Assist Available,Home Health Transportation Needs at Discharge Private Vehicle
--- NOTE | 2024-03-12 10:14 | DI.MRI.S_ITS ---
PROCEDURE: MR HEAD/BRAIN WO CON INDICATIONS: confusion r/o CVA TECHNIQUE: Non-contrast axial T1 spin echo, axial T2 fast spin echo, sagittal and axial FLAIR, coronal T2 fast spin echo, axial gradient echo, axial diffusion and ADC through the brain. COMPARISON: [facility], CT, CT HEAD/BRAIN WO CON, 03/10/2024, 13:32. FINDINGS: Image quality: Excellent. CSF spaces: Ventricles appear symmetric in size and shape. Basal cisterns are patent. No extra-axial fluid collections. Brain: No intracranial bleeds or mass effects. There is cerebral volume loss for age. There are periventricular and deep white matter chronic small vessel ischemic changes. Brainstem appears normal. Diffusion-weighted images show no acute infarct. No chronic ischemic insults. Normal intravascular flow voids are present. Skull and face: Calvarial bone marrow is normal in signal. Bilateral lens replacements. Otherwise, the orbits are unremarkable. Sinuses: Sinuses and mastoids are clear. IMPRESSION: No acute or subacute infarct. No acute intracranial abnormalities. Age-related global volume loss and chronic microvascular ischemic changes. Dictated by: Elton Cisneros M.D. on 03/12/2024 at 11:45 Approved by: Elton Cisneros M.D. on 03/12/2024 at 11:47
[2024-03-12] MEDS: POTASSIUM CHLORIDE 20 MEQ TAB 40 MEQ PO (10:39)
--- NOTE | 2024-03-12 11:37 | PT.IPTN ---
Current Diagnoses Hypercalcemia (03/10/24) Physical Therapy Treatment Note M2 PT-IP Current Condition Start: 03/11/24 16:10 Freq: NEEDED Status: Active Protocol: Document 03/11/24 14:40 AB (Rec: 03/11/24 16:29 AB [id number]) Physical Therapy Current Condition Current Condition Evaluation Date 03/11/24 Treatment Diagnosis acute metabolic encephalopathy ; hypercalcemia; difficulty in walking Onset Date 03/10/24 M3 PT-IP Subjective Start: 03/11/24 16:10 Freq: NEEDED Status: Active Protocol: Document 03/12/24 12:01 TS (Rec: 03/12/24 12:12 TS [id number]) Subjective Physical Therapy Visit Type Type Treatment Note Visit Start Time 11:37 Visit Stop Time 12:00 Notes Sister in the room Number of RACE STEWARD Visits 1 Physical Therapy Visit Comments Patient Comments Pt found resting in chair, she is agreeable to PT. M4 PT-IP Mobility and Gait Start: 03/11/24 16:10 Freq: NEEDED Status: Active Protocol: Document 03/12/24 12:01 TS (Rec: 03/12/24 12:12 TS [id number]) PT-Transfer Assessment Sit to and From Stand Sit to and from Stand Contact Guard Assistance,1 Person Assistance,Use of Upper Extremities Equipment Transfer Assistive Device None,Gait Belt Orthotic/Prosthetic Devices or Brace: No Comments Mobility Comments STS with no AD CGA, pt uses BUE support pushing from arms of the chair. She ambulates ~ 500' CGA/SBA with SPC, has x1LOB uses wall for balance. Pt ambulates back to room, all needs met. Gait Assessment Gait Gait Assistance Required: Standby Assistance,Contact Guard Assist,1 Person Assist Distance (Feet) 500 Able to Maintain Weight Bearing Status Yes During Gait Assistive Devices Assistive Device Gait Belt,Straight Cane Orthotic/Prosthetic Devices or Brace: No Gait Deviations General Gait Pattern Antalgic,Decreased Stride Length,Decreased Feet Clearance Factors Limiting Gait Function Factors Limiting Gait Function Decreased Activity Tolerance, Decreased Strength,Difficulty Following Directions,Poor Balance,Poor Safety Awareness PT-Balance Assessment Sitting Balance and Reactions Static Sitting Balance Ability Good Dynamic Sitting Balance Ability Good Standing Balance and Reactions Static Standing Balance Ability Fair Dynamic Standing Balance Ability Fair Device Used SPC M5 PT-IP Objective Assessments Start: 03/11/24 16:10 Freq: NEEDED Status: Active Protocol: Document 03/11/24 14:40 AB (Rec: 03/11/24 16:29 AB [id number]) Orientation Orientation/Cognition Level of Alertness Confusional State Orientation Name Safety Awareness Decreased Safety Awareness Memory Description Short Term Impaired,Skiver Sock Linings Impaired Gross Range of Motion Lower Extremity ROM Assessment Within Functional Limits Strength Lower Extremity Strength Assessment Left Impaired Hip 4-/5 Knee 4-/5 Comments Strength Comments RLE: 4+/5 Coordination Assessment Gross Coordination Gross Coordination WNL Sensation Assessment Sensation Gross Sensation WNL Muscle Tone Muscle Tone WNL Yes M6 PT-IP Treatment Start: 03/11/24 16:10 Freq: NEEDED Status: Active Protocol: Document 03/12/24 12:01 TS (Rec: 03/12/24 12:12 TS [id number]) Physical Therapy Treatment Education Education Provided Safety M7 PT-IP Assessment and Plan Start: 03/11/24 16:10 Freq: NEEDED Status: Active Protocol: Document 03/12/24 12:01 TS (Rec: 03/12/24 12:12 TS [id number]) PT Summary Assessment and Plan Potential Rehabilitation Potential Fair Summary Impairments Strength,Balance,Coordination, Tone,Cognition,Bed Mobility, Transfers,Gait,Activity Tolerance Progress Towards Goals Progressing Toward Goals Assessment Summary Malaika is making some progress with her mobility. She is CGA for STS with use of no AD. She ambulates long distances with use of SPC. She has x1LOB while ambulating and used wall for balance support. She is to d/c home with her sister to watch her and with HHPT. PT is recommending home with assist and HHPT. Goals Bed Mobility Goal Independent Transfer Goal Independent,Cane Gait Goal Independent,Cane Gait Distance 200 Other Goals improve transfers, ambulation without AD mod I ~ 300 ft up/down 1 step without AD/ using SPC mod I Days to Meet Goals 10 Frequency of Treatment Frequency Of Treatment Once a Day Treatment Plan Physical Therapy Treatment Plan Bed Mobility Training,Transfer Training,Gait Training, Therapeutic Exercise,Balance Retraining,Discharge Planning, Hot or Cold Pack,Neuromuscular Re-ed,Coordination Retraining Precautions Other Precautions safety Recommendations To Nursing Amount of Assist Needed Standby Assistance Discharge Recommendations PT Discharge Recommendations Home with Assistance,Home Health Transportation Needs at Discharge Private Vehicle
[2024-03-12 11:42] VITALS: BP 153/78; PULSE 69; RESP 16; TEMP 36.4; O2SAT 98
--- NOTE | 2024-03-12 11:54 | CM.DPNOTE ---
Addendum entered by VIRY De Leon 03/12/24 12:13: Per chart review, pt to dc today. CC Jocelyn to scan f2f into chart and share dc information with Tanya from [facility] SL Addendum entered by VIRY De Leon 03/12/24 11:59: Add to previous note, confirmed plan for f/u august with PCP with sister and pt for 03/21 at 0930. Pt and sister report verbal understanding this f/u appointment is necessary to continue to have the opportunity to work with [facility] SL Original Note: DCP Note INSTRUCTOR OF EDUCATION reviewed EMR. Per hospitalist in morning rounds, brain MRI pending. Per OT, SLUMS of 22, may stay with sister on [place]. Per provider, dc today vs tomorrow. INSTRUCTOR OF EDUCATION placed referral with [facility] due to potential for [place]. Tanya agreed to review. Likely able to accept. INSTRUCTOR OF EDUCATION met with pt and sister in room. report plan now is for pt to dc home to [place] with sister to stay with her there. INSTRUCTOR OF EDUCATION gave them [facility] information. INSTRUCTOR OF EDUCATION answered questions about healthcare/financial POA, encouraged pt to either find previously completed ppwk vs complete new POA paperwork. Pt and sister Deny other DCP needs at this time. INSTRUCTOR OF EDUCATION completed f2f and order for HH. P: anticipate dc home to [place] today Sunday vs tomorrow with [facility] to follow. Sister to transport. CM team will continue to follow as needed VIRY De Leon
--- NOTE | 2024-03-12 12:07 | PM.DS.1 ---
History of Present Illness History of Present Illness Chief complaint: disoriented, unaware of surroundings Narrative: From ED doctor: Patient is 88-year-old female past medical history of frequent UTIs, comes into the ED from home for evaluation of increased confusion. Patient presents with family member, patient was found wandering around grocery store few days ago, was able to get back home with help of police, family member at bedside states that she checked on her today and seemed more confused than normal. At time of initial evaluation patient is A&O x3 follows all commands appropriately. Not Complaining of any symptoms. Additional information: She was found wandering 2 days ago and apparently police were called and she was returned home. Her sister checked on her today and found her to be grossly confused and brought her to the emergency department. There she was found to have a calcium of 13. She was no history of hypercalcemia. Her last calcium was checked earlier this year and was normal. She denies excessive intake of calcium or issues like this in her past. She was no history of cancer or hyperparathyroidism. She was a past history of lower back pain with radiculopathy, as well as frequent urinary tract infection and lower extremity edema. She knows that she was confused. She can not really give any history in terms of the timeline of her confusion. She does live alone. She denies any memory of a specific incident or other problems. She does note she was in the hospital and that is 2023. Discharge Providers Provider Date of admission: 03/10/24 14:50 Discharge Date: 03/12/24 Primary care physician: CARLOS Laguna Consults: 03/11/24 09:19 Consult to Physical Therapy Evaluate & Treat Comment: Physician Instructions: Evaluate and Treat 03/11/24 15:53 Consult to Occupational Therapy Evaluate & Treat Comment: Physician Instructions: Evaluate and treat 03/12/24 11:53 Consult to Home Health Routine Comment: Reason For Exam: RN/PT/OT Discharge provider: Jose E Londono MD Summary Hospital Course Discharge Diagnosis: 1. Hypercalcemia, present on admission and resolved. Calcium is improved to 10.3. 2. Metabolic encephalopathy secondary to hypercalcemia, present on admission and improved. 3. Lactic acidosis, present on admission and resolved. 4. Urinary tract infection, present on admission and improved. Hospital Course: She was admitted with confusion and had hypercalcemia as well as a possible UTI. She was treated with calcitonin and IV fluids with improvement of her calcium. A PTH was obtained in his pending at the time of discharge. She was given ceftriaxone while here and we will go home on cephalexin. Her urinary culture revealed early growth on day 1, and then 3 or more organisms on final. She was no history of hypercalcemia. An MRI of the brain was obtained and was unremarkable. Her sister did feel that she was fairly close to baseline and was going to take her home with her after the hospital discharge. She has a follow up appointment their PCP on March 21. She needs a repeat CMP to recheck calcium at that time as well as follow up on the pending PTH. She appeared dehydrated at the time of presentation. Slums score was 22/30. Status at Discharge Cognitive/behavioral status at discharge: oriented Functional status at discharge: independent ambulation Overall status at discharge: patient is back to baseline Time Spent with Patient Time spent: Greater than 30 minutes Exam Vital Signs (past 8 hours): - 03/12/24 08:00 03/12/24 11:42 Temperature 97.3 F L 97.6 F Pulse Rate 70 69 Respiratory Rate 16 16 Blood Pressure 136/70 153/78 H Pulse Oximetry 98 98 Oxygen Flow Rate 0 0 Oxygen Delivery Method Room Air Oxygen Flow Rate 0 Narrative Exam Narrative: NAD, alert and oriented. Fluent speech. Lungs are clear, normal rate and effort. Heart is regular, no murmur gallop or rub. Abdomen is soft, non distended. Extremities are free of edema. Objective Imaging Multiple studies:: Radiologist's impression: MRI brain: No acute or subacute infarct. No acute intracranial abnormalities. Age-related global volume loss and chronic microvascular ischemic changes. Head CT: Unremarkable noncontrast head CT for age, stable from prior. Chest x-ray: No acute cardiopulmonary abnormality is seen. Labs 03/12/24 04:06 03/12/24 04:06 Labs: Laboratory Results - last 24 hr 03/12/24 04:06 WBC 6.5 RBC 3.88 L Hgb 11.7 L Hct 33.4 L MRI brain: MCV 86.1 MCH 30.1 MCHC 34.9 RDW 13.6 Plt Count 217 Neut % (Auto) 74.8 Lymph % (Auto) 17.3 L [place] % (Auto) 7.7 Eos % (Auto) 0.0 L Baso % (Auto) 0.2 Neut # (Auto) 4800 Lymph # (Auto) 1100 [place] # (Auto) 500 Eos # (Auto) 0 Baso # (Auto) 0 Sodium 135 L Potassium 3.0 L Chloride 107 Carbon Dioxide 24 BUN 6 L Creatinine 0.52 Estimated GFR > 60 BUN/Creatinine Ratio 11.5 Glucose 100 Calcium 9.9 Total Bilirubin 0.5 AST 43 H ALT 42 H Alkaline Phosphatase 78 Total Protein 6.0 L Albumin 3.1 L Globulin 2.9 Albumin/Globulin Ratio 1.1 [facility] Medical History Peripheral neuropathy Lumbar spondylosis Low back pain Lumbar radiculopathy Left leg pain Elevated low density lipoprotein (LDL) cholesterol level Family history of diabetes mellitus Right foot pain Left hip pain Hip bursitis, left Frequent UTI Incontinence in female (~2019) Bursitis, trochanteric Degenerative disc disease, lumbar Osteoarthritis of left hip Muscle strain of left gluteal region Degenerative joint disease (DJD) of hip Strain of gluteus medius of left lower extremity Nocturia more than twice per night Somatic dysfunction of lower extremity Segmental and somatic dysfunction of abdomen and other regions Sacral region somatic dysfunction Pelvic somatic dysfunction Lumbar region somatic dysfunction Chronic right-sided low back pain without sciatica Lower extremity edema Urge incontinence Lower urinary tract symptoms (LUTS) Postmenopausal atrophic vaginitis Arthritis Heart valve calcification Swelling of lower extremity Murmur Decreased range of motion of both knees Bilateral knee pain Polyneuropathic pain Decreased range of motion of right knee Right shoulder pain Knee pain, right Onychomycosis Knee pain, left Radiculopathy of lumbosacral region Other spondylosis with radiculopathy, lumbosacral region Polyneuropathy Compression fracture of T11 vertebra Lumbosacral spondylosis with radiculopathy Chronic 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 Knee pain, left (Unknown) Osteoarthritis (2000) Shoulder pain (2015) Osteoporosis (~2002) Osteopenia (~2002) Fracture (1940) Anemia (~1953) Retinal detachment (1998) Hearing loss (2016) Urinary incontinence (~2013) Surgical History History of stem cell transplant Total knee replacement status History of total knee arthroplasty History of knee replacement Family History Father Mental health problem Mother Heart disease Grandmother Breast cancer Social History household members: none Smoking Status: Never smoker alcohol intake: current substance use type: does not use Discharge Assessment & Plan Assessment and Plan Assessment: 1. Hypercalcemia, present on admission and resolved. Calcium is improved to 10.3. 2. Metabolic encephalopathy secondary to hypercalcemia, present on admission and improved. 3. Lactic acidosis, present on admission and resolved. 4. Urinary tract infection, present on admission and improved. Plan of Treatment: Discharge home with cephalexin q.i.d. for 3 additional days and follow up as scheduled on March 21 with Crystal khan. Needs a repeat CMP and follow up on pending PTH. If her calcium is elevated again we will need to continue workup for etiology. Discharge Plan Discharge Plan Patient Disposition: Home Provider Discharge Comment: Improved mental status, stable for discharge home with sister. We will continue antibiotics for 7 more days for possible urinary tract infection. PCP follow up as scheduled for March 21, we will need repeat CMP at that time to recheck calcium. Discharge orders & Medications Prescriptions: New cephalexin 500 mg capsule 500 mg PO QID Qty: 10 0RF Continued venlafaxine 75 mg capsule,extended release 24hr 75 mg PO ONCE PM Discontinued meloxicam 15 mg tablet 15 mg PO DAILY Qty: 90 0RF Hold Instructions: while on ketorolac Rx Instructions: Take 1 tab by mouth daily for pain gabapentin 300 mg capsule 900 mg PO 3XD Follow up/Referrals: Aimee Chance ARNP [Primary Care Provider] - Discharge Health Status Multidrug resistant organism: No MDRO Diet/Activity/Treatments Diet: Regular Skin/Wound/Dressing Care Report to your healthcare provider any signs of infection, such as:: chills, fever and increased pain Visit Report/Discharge Packet Instructions: DI for Urinary Tract Infection (UTI), DI for Hypercalcemia Stand Alone Forms: Patient Portal/API Discharge Data Primary Care Provider: Aimee Chance Attending Provider: Jose E Londono Admit Date/Time: 03/10/24 14:50 Quality VTE Deep Vein Thrombosis/Pulmonary Embolism Present on Admission: No
[2024-03-12 13:36] LABS: Calcium 10.4 mg/dL (8.7-10.3); Parathyroid Hormone, Intact 76 pg/mL (15-65)
--- NOTE | 2024-03-12 14:07 | PC.NURSE ---
Day shift: DIscharge instructions gone over with patient and patient's friend. All questions answered, patient stated understanding. PIV and tele removed prior to discharge. PCT Nesha escorted patient via wheelchair to exit. All belongings with patient.
== END 2024-03-12 14:00 | disposition home or self-care (01) ==
LOC: ED 14:51 → AC 17:20
PROVIDERS: Admitting Provider Hospitalist; Emergency Provider Student in an Organized Health Care Education/Training Program; Family Provider Nurse Practitioner; PCP Nurse Practitioner; Referring Provider Student in an Organized Health Care Education/Training Program; Visit Provider Hospitalist
DX: R41.0 Disorientation, unspecified (principal); E83.52 Hypercalcemia; G93.41 Metabolic encephalopathy; E87.20 Acidosis, unspecified
CPT/HCPCS: 36415; 70450; 70551; 71045; 80053; 81001; 82140; 82310; 82550; 83605; 83735; 83970; 84443; 84484; 85025; 85610; 85730; 87040; 87086; 96361; 96365; 96366; 96372; 96375; 97116; 97129; 97162; 97166; 97530; 97535; 99284; G0378; J0630; J0696; J1644; J2405

== ENCOUNTER 2024-03-18 12:29 | Inpatient (IN) | payer OTHER, SELFPAY ==
[2024-03-10 14:55] VITALS: BMI 22.6
[2024-03-18] VITALS (13 sets, daily range): BP systolic 132–201; BP diastolic 75–95; PULSE 70–95; RESP 13–26; TEMP 36.3–36.6; O2SAT 94–97; BMI 20.9
--- NOTE | 2024-03-18 12:47 | DI.RAD.S_ITS ---
PROCEDURE: XR CHEST 1V INDICATIONS: altered mental status TECHNIQUE: One view of the chest was acquired. COMPARISON: [facility], RICK, XR CHEST 1V, 03/10/2024, 13:26. [facility], RICK, XR CHEST 1V, 10/22/2017, 10:40. FINDINGS: Surgical changes and devices: None. Lungs and pleura: Lungs are clear. No pleural effusions or pneumothorax. Mediastinum: Mediastinal contours appear normal. Heart size is normal. Bones and chest wall: No suspicious bony lesions. Overlying soft tissues appear unremarkable. IMPRESSION: No acute cardiopulmonary abnormality is seen. Dictated by: Aaron Tatum M.D. on 03/18/2024 at 13:10 Approved by: Aaron Tatum M.D. on 03/18/2024 at 13:11
--- NOTE | 2024-03-18 12:55 | EKG_ITS ---
[facility] [address] [place] [address] Test Date: 2024-03-18 Pat Name: Malaika Perkins Department: [facility] Room: Gender: Female Flat Clothier: KAVITHA : 1935 Requested By: Order Number: [id number] Reading MD: Suman Padilla MD Measurements Intervals [place] Rate: 76 P: 83 NM: 176 QRS: 35 QRSD: 84 T: 104 QT: 358 QTc: 402 Interpretive Statements Normal sinus rhythm Nonspecific ST and T wave abnormality Electronically Signed On 03-18-2024 16:11:47 PDT by Suman Padilla MD
[2024-03-18 13:05] LABS: Add Manual Diff / Slide Review NO; Basophils Absolute Auto 0 /uL (0-100); Basophils Percent Auto 0.2 % (0-2); Eosinophils Absolute Auto 0 /uL (0-450); Hemoglobin 14.2 g/dL (12.0-16.0); Lymphocytes Absolute Auto 800 /uL (1100-4500); Lymphocytes Percent Auto 7.8 % (25-40); Mean Corpuscular HGB Conc 34.6 % (30-36); Mean Corpuscular Hemoglobin 30.1 PG (26-34); Mean Corpuscular Volume 86.9 fL (80-100); Monocytes Absolute Auto 800 /uL (0-900); Monocytes Percent Auto 8.4 % (3-14); Neutrophils Absolute Auto 8400 /uL (1500-7000); Neutrophils Percent Auto 83.6 % (50-75); Platelet Count 260 X10^3/uL (150-400); Red Blood Cell Count 4.72 X10^6/uL (4.0-5.2); Red Cell Distribution Width 13.9 % (11.6-14.8); White Blood Cell Count 10.1 X10^3/uL (4.5-11.0)
[2024-03-18 13:11] LABS: Alanine Aminotransferase 80 IU/L (<35); Albumin 4.2 g/dL (3.5-5.0); Albumin Globulin Ratio 1.2 (1.0-2.8); Alkaline Phosphatase 110 U/L (38-126); Ammonia (NH3) < 9 umol/L (9-30); Aspartate Aminotransferase 64 IU/L (14-36); BUN Creatinine Ratio 26.1 (6-22); Bilirubin Total 0.7 mg/dL (0.2-1.3); Blood Urea Nitrogen 23 mg/dL (7-17); Carbon Dioxide 34 mmol/L (22-32); Chloride 98 mmol/L (98-107); Estimated Glomerular Filt Rate > 60 mL/min (>60); Globulin 3.4 g/dL (1.7-4.1); Glucose 179 mg/dL (80-110); HEMOLYSIS < 15 (0-50); Potassium 3.1 mmol/L (3.4-5.1); Sodium 139 mmol/L (137-145); Total Protein 7.6 g/dL (6.3-8.2)
[2024-03-18] MEDS: SODIUM CHLORIDE 0.9% 1,000 ML 1000 ML IV (13:21)
--- NOTE | 2024-03-18 13:31 | ED_ITS ---
HPI - Altered Mental Status General Chief Complaint: Altered Mental Status Stated Complaint: AMS Time Seen by Provider: 03/18/24 13:31 Source: patient and family Mode of arrival: Ambulatory History of Present Illness HPI narrative: Patient is a 88-year-old female history of frequent UTIs comes into the ED for evaluation of increased confusion. Patient was seen here previously by me for similar symptoms at that time was found to be hypercalcemic and admitted. Patient does live at home alone. Patient is brought in by family member again due to persistent confusion. States that she has been intermittently staying with the patient has been compliant with the antibiotics that she was sent home with for her urinary tract infection. No other trauma or falls, at time of evaluation patient is A&O x3 follows commands no focal deficits but does appear pleasantly confused. Review of records show patient with improved calcium after fluids and calcitonin, was instructed to have follow up with PCP on 03/21, PTH was still pending at time of discharge. Related Data Home Medications Medication Instructions Recorded Confirmed venlafaxine 75 mg capsule,extended 75 mg PO ONCE PM 03/10/24 03/10/24 release 24 hr Previous Rx's Medication Instructions Recorded cephalexin 500 mg capsule 500 mg PO QID #10 caps 03/12/24 Allergies Allergy/AdvReac Type Severity Reaction Status Date / Time No Known Drug Allergies Allergy Unverified 01/02/24 11:40 Review of Systems Review of Systems Narrative: HEENT: Denies headache, eye drainage, eye irritation, head trauma, sore throat, voice change Cardiovascular: Denies any chest pain, palpitations, shortness of breath, tachycardia Respiratory: Denies any shortness of breath, cough, wheeze, stridor GI/: Denies any abdominal pain, nausea, vomiting, diarrhea, bright red blood per rectum, melanotic stools, urinary frequency, urinary retention, dysuria, hematuria MSK: Denies any joint pain, muscle pains, swelling Skin: Denies any rashes, lesions, discoloration Neuro: Denies any headache, lightheadedness, dizziness, fainting, weakness Psych: Denies SI/HI Patient History Medical History Peripheral neuropathy Lumbar spondylosis Low back pain Lumbar radiculopathy Left leg pain Elevated low density lipoprotein (LDL) cholesterol level Family history of diabetes mellitus Right foot pain Left hip pain Hip bursitis, left Frequent UTI Incontinence in female (~2020) Bursitis, trochanteric Degenerative disc disease, lumbar Osteoarthritis of left hip Muscle strain of left gluteal region Degenerative joint disease (DJD) of hip Strain of gluteus medius of left lower extremity Nocturia more than twice per night Somatic dysfunction of lower extremity Segmental and somatic dysfunction of abdomen and other regions Sacral region somatic dysfunction Pelvic somatic dysfunction Lumbar region somatic dysfunction Chronic right-sided low back pain without sciatica Lower extremity edema Urge incontinence Lower urinary tract symptoms (LUTS) Postmenopausal atrophic vaginitis Arthritis Heart valve calcification Swelling of lower extremity Murmur Decreased range of motion of both knees Bilateral knee pain Polyneuropathic pain Decreased range of motion of right knee Right shoulder pain Knee pain, right Onychomycosis Knee pain, left Radiculopathy of lumbosacral region Other spondylosis with radiculopathy, lumbosacral region Polyneuropathy Compression fracture of T11 vertebra Lumbosacral spondylosis with radiculopathy Chronic 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 Knee pain, left (Unknown) Osteoarthritis (2000) Shoulder pain (2015) Osteoporosis (~2002) Osteopenia (~2002) Fracture (1940) Anemia (~1952) Retinal detachment (1998) Hearing loss (2015) Urinary incontinence (~2013) Surgical History History of stem cell transplant Total knee replacement status History of total knee arthroplasty History of knee replacement Family History Father Mental health problem Mother Heart disease Grandmother Breast cancer Social History household members: none Smoking Status: Never smoker alcohol intake: current substance use type: does not use Smoking Status: Never smoker alcohol intake frequency: holidays/special occasions only Substance Use Type: does not use Exam Narrative Exam Narrative: General: Cooperative, comfortable, well-developed, not in acute distress HEENT: Normocephalic, atraumatic, PERRLA, normal sclera, eyelids normal, Neck: Active full range of motion, atraumatic Chest: Normal to inspection, negative crepitus, no overlying erythema ecchymosis Respiratory: Normal respiratory effort, not in acute respiratory distress, clear to auscultation bilaterally negative cough, wheeze, tachypnea, rhonchi, rales Cardiology: Regular rate rhythm negative gallop, murmur, rubs GI/: Normal to inspection, soft, nonrigid, no tenderness to palpation, exam deferred MSK: Full range of active range of motion of all 4 extremities, atraumatic Skin: No rashes lesions noted Neuro: Alert awake oriented x3, moves all 4 extremities spontaneously, cranial nerves intact, able to answer all questions appropriately follows commands appropriately, NIH of 0 neurovascularly intact does appear pleasantly confused Psych: Cooperative, negative suicidal or homicidal ideations Initial Vital Signs Initial Vital Signs: Vital Signs Temperature 97.4 F L 03/18/24 12:34 Pulse Rate 95 H 03/18/24 12:34 Respiratory Rate 20 03/18/24 12:34 Blood Pressure 132/80 03/18/24 12:34 Pulse Oximetry 94 03/18/24 12:34 Oxygen Delivery Method Room Air 03/18/24 12:34 Course Orders Ordered: ED Orders 03/18/24 12:45 Ammonia (NH3) Stat Complete Blood Count AUTO DIFF Stat Comprehensive Metabolic Panel Stat 03/18/24 12:47 XR chest 1V Stat EKG-12 Lead Stat 03/18/24 13:04 Consult to RESPIRATORY CARE INSTRUCTOR - Shipping Clerk Stat 03/18/24 13:51 CT head/brain wo con Stat 03/18/24 15:39 Urine Drug Screen, Rapid Stat Discontinued Medications Sodium Chloride (Normal Saline 0.9%) 1,000 mls @ 1,000 mls/hr IV BOLUS ONE Stop: 03/18/24 14:18 Last Infusion: 03/18/24 15:39 Dose: Infused Documented By: Admin: 03/18/24 13:21 Dose: 1,000 mls/hr Documented By: CHARLIE Vital Signs Vital signs: Vital Signs - 8 hr 03/18/24 12:34 03/18/24 12:44 03/18/24 13:00 Temperature 97.4 F L Pulse Rate 95 H 85 Respiratory Rate 20 22 Blood Pressure 132/80 169/81 H Pulse Oximetry 94 94 Oxygen Delivery Method Room Air 03/18/24 13:00 03/18/24 13:30 03/18/24 13:30 Temperature Pulse Rate 75 77 Respiratory Rate 19 21 Blood Pressure 174/75 H Pulse Oximetry 95 97 Oxygen Delivery Method 03/18/24 14:00 03/18/24 14:00 03/18/24 14:30 Temperature Pulse Rate 70 70 Respiratory Rate 13 21 Blood Pressure 189/86 H Pulse Oximetry 94 96 Oxygen Delivery Method 03/18/24 15:00 03/18/24 15:31 03/18/24 15:33 Temperature Pulse Rate 71 79 74 Respiratory Rate 17 17 Blood Pressure Pulse Oximetry 97 94 96 Oxygen Delivery Method 03/18/24 15:33 03/18/24 16:00 03/18/24 16:00 Temperature Pulse Rate 74 Respiratory Rate 14 Blood Pressure 201/95 H 172/81 H Pulse Oximetry 94 Oxygen Delivery Method MDM - Altered Mental Status Differential Diagnosis Differential diagnosis: Likely altered mental status, other (Electrolyte abnormality) and subarachnoid hemorrhage Lab Data 03/18/24 12:45 03/18/24 12:45 Labs: Lab Results 03/18/24 03/18/24 Range/Units 12:45 15:39 WBC 10.1 (4.5-11.0) X10^3/uL RBC 4.72 (4.0-5.2) X10^6/uL Hgb 14.2 (12.0-16.0) g/dL Hct 41.0 (36-46) % MCV 86.9 (80-100) fL MCH 30.1 (26-34) PG MCHC 34.6 (30-36) % RDW 13.9 (11.6-14.8) % Plt Count 260 (150-400) X10^3/uL Neut % (Auto) 83.6 H (50-75) % Lymph % (Auto) 7.8 L (25-40) % [place] % (Auto) 8.4 (3-14) % Eos % (Auto) 0.0 L (2-4) % Baso % (Auto) 0.2 (0-2) % Neut # (Auto) 8400 H (8278-4089) /uL Lymph # (Auto) 800 L (6073-0072) /uL [place] # (Auto) 800 (0-900) /uL Eos # (Auto) 0 (0-450) /uL Baso # (Auto) 0 (0-100) /uL Sodium 139 (137-145) mmol/L Potassium 3.1 L (3.4-5.1) mmol/L Chloride 98 (98-107) mmol/L Carbon Dioxide 34 H (22-32) mmol/L BUN 23 H (7-17) mg/dL Creatinine 0.88 (0.52-1.04) mg/dL Estimated GFR > 60 (>60) mL/min BUN/Creatinine Ratio 26.1 H (6-22) Glucose 179 H (80-110) mg/dL Calcium 14.0 H* (8.4-10.2) mg/dL Total Bilirubin 0.7 (0.2-1.3) mg/dL AST 64 H (14-36) IU/L ALT 80 H (<35) IU/L Alkaline Phosphatase 110 (38-126) U/L Ammonia < 9 L (9-30) umol/L Total Protein 7.6 (6.3-8.2) g/dL Albumin 4.2 (3.5-5.0) g/dL Globulin 3.4 (1.7-4.1) g/dL Albumin/Globulin Ratio 1.2 (1.0-2.8) U Opiates 300ng/mL cut Negative (Negative) Ur Oxycodone Screen Negative (Negative) Urine Methadone Screen Negative (Negative) Ur Barbiturates Screen Negative (Negative) U Tricyclic Antidepress Negative (Negative) Ur Phencyclidine Scrn Negative (Negative) Ur Amphetamines Screen Negative (Negative) U Methamphetamines Scrn Negative (Negative) Ur MDMA Scrn (Ecstasy) Negative (Negative) U Benzodiazepines Scrn Negative (Negative) Urine Cocaine Screen Negative (Negative) U Marijuana (THC) Screen Negative (Negative) Urine pH Normal (Normal) Urine Specific [place] Normal (Normal) Ur Creatinine Normal (Normal) Urine Dip Bedside Urine Glucose Negative Bedside Urine Bilirubin - Negative Bedside Urine Ketone - Negative Urine Specific [place] 1.020 Bedside Urine Occult Blood - Negative Bedside Urine pH 6.0 Bedside Urine Protein - Negative Bedside Urine Urobilinogen - Negative Bedside Urine Nitrite - Negative Bedside Urine Leukocytes - Negative Esterase Imaging Data CT scan - head: Radiologist's Impression: [address] [address] [address] Scan Report Signed Patient: Malaika Perkins MR#: [id number] : 1935 Acct:[id number] Age/Sex: 88 / F Date of Service: 03/18/24 Loc: ED Accession Number: [id number] Procedure: CT head/brain wo con Ordering Provider: Kevin Griffin D.O. PROCEDURE: CT HEAD/BRAIN WO CON INDICATIONS: Mental status change TECHNIQUE: Noncontrast 4.5 mm thick angled axial sections acquired from the foramen magnum to the vertex, with coronal and sagittal reformats. For radiation dose reduction, the following was used: automated exposure control, adjustment of mA and/or kV according to patient size. COMPARISON: [facility], CT, CT HEAD/BRAIN WO CON, 10/22/2017, 10:56. [facility], MR, MR HEAD/BRAIN WO CON, 03/12/2024, 10:46. [facility], CT, CT HEAD/BRAIN WO CON, 03/10/2024, 13:32. FINDINGS: Image quality: Diagnostic. CSF spaces: Basal cisterns are patent. No extra-axial fluid collections. The ventricles are symmetric in size and shape. Brain: No intracranial bleeds or masses. There is cerebral volume loss for age, with resultant ventricular and sulcal prominence. There are periventricular and deep white matter chronic small vessel ischemic changes. There is intracranial internal carotid artery atherosclerosis. Skull and face: Calvarium and visualized facial bones appear intact, without suspicious lesions. Sinuses: Visualized sinuses and mastoids are clear. 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 This is considered to be a benign, incidental finding. IMPRESSION: Unremarkable intracranial study for age. No significant change from the prior. Chest x-ray: Radiologist's Impression: PROCEDURE: XR CHEST 1V INDICATIONS: altered mental status TECHNIQUE: One view of the chest was acquired. COMPARISON: [facility], CR, XR CHEST 1V, 03/10/2024, 13:26. [facility], CR, XR CHEST 1V, 10/22/2017, 10:40. FINDINGS: Surgical changes and devices: None. Lungs and pleura: Lungs are clear. No pleural effusions or pneumothorax. Mediastinum: Mediastinal contours appear normal. Heart size is normal. Bones and chest wall: No suspicious bony lesions. Overlying soft tissues appear unremarkable. IMPRESSION: No acute cardiopulmonary abnormality is seen. MDM Narrative Medical decision making narrative: Patient is a 88-year-old female with past medical history of hypercalcemia, frequent UTIs comes into the ED from home for evaluation of altered mental status. Patient was found to have hypercalcemia at 14. Patient is confused therefore will require admission to the hospital for metabolic encephalopathy secondary to hypercalcemia The patient's management plan was discussed Dr. Alaniz, who agrees to admit the patient to their service and assumes care of this patient at this time. Full admission orders will be placed by the primary team. Discharge Plan Departure Patient Disposition: Admitted As Inpatient Clinical Impression: Acute metabolic encephalopathy, Hypercalcemia Admit Date/Time: 03/18/24 16:13
--- NOTE | 2024-03-18 13:51 | DI.CT.S_ITS ---
PROCEDURE: CT HEAD/BRAIN WO CON INDICATIONS: Mental status change TECHNIQUE: Noncontrast 4.5 mm thick angled axial sections acquired from the foramen magnum to the vertex, with coronal and sagittal reformats. For radiation dose reduction, the following was used: automated exposure control, adjustment of mA and/or kV according to patient size. COMPARISON: [facility], CT, CT HEAD/BRAIN WO CON, 10/22/2017, 10:56. [facility], MR, MR HEAD/BRAIN WO CON, 03/12/2024, 10:46. [facility], CT, CT HEAD/BRAIN WO CON, 03/10/2024, 13:32. FINDINGS: Image quality: Diagnostic. CSF spaces: Basal cisterns are patent. No extra-axial fluid collections. The ventricles are symmetric in size and shape. Brain: No intracranial bleeds or masses. There is cerebral volume loss for age, with resultant ventricular and sulcal prominence. There are periventricular and deep white matter chronic small vessel ischemic changes. There is intracranial internal carotid artery atherosclerosis. Skull and face: Calvarium and visualized facial bones appear intact, without suspicious lesions. Sinuses: Visualized sinuses and mastoids are clear. 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 This is considered to be a benign, incidental finding. IMPRESSION: Unremarkable intracranial study for age. No significant change from the prior. Dictated by: Lavon Moore M.D. on 03/18/2024 at 13:30 Approved by: Lavon Moore M.D. on 03/18/2024 at 13:32
[2024-03-18 15:50] LABS: UR Morphine/Opiate cutoff 300 Negative (Negative); Ur Creatinine Normal (Normal); Ur Specific Gravity Normal (Normal); Urine Amphetamines Negative (Negative); Urine Barbiturates Negative (Negative); Urine Benzodiazepines Negative (Negative); Urine Cocaine Negative (Negative); Urine MDMA Negative (Negative); Urine Methadone Negative (Negative); Urine Methamphetamines Negative (Negative); Urine Oxycodone Negative (Negative); Urine Phencyclidine Negative (Negative); Urine Tetrahydrocannabinol Negative (Negative); Urine Tricyclic Antidepressant Negative (Negative); Urine pH Normal (Normal)
--- NOTE | 2024-03-18 16:32 | PM.HP.1 ---
History of Present Illness History of Present Illness Date Patient Seen: 03/18/24 Time Patient Seen: 16:33 Chief complaint: AMS Narrative: This is an 88 year old female who presents today with confusion. She was recently admitted with hypercalcemia, calcium improved with fluids and calcitonin. She has had declining appetite the last few days, along with worsening confusion and was brought in for further evaluation. She was unable to see any PCP after her last discharge. Repeat labs today showed a calcium of 14. Previous labs showed a mildly elevated PTH level, consistent with hyperparathyroidism. She was admitted for further management. [facility] Medical History Peripheral neuropathy Lumbar spondylosis Low back pain Lumbar radiculopathy Left leg pain Elevated low density lipoprotein (LDL) cholesterol level Family history of diabetes mellitus Right foot pain Left hip pain Hip bursitis, left Frequent UTI Incontinence in female (~2019) Bursitis, trochanteric Degenerative disc disease, lumbar Osteoarthritis of left hip Muscle strain of left gluteal region Degenerative joint disease (DJD) of hip Strain of gluteus medius of left lower extremity Nocturia more than twice per night Somatic dysfunction of lower extremity Segmental and somatic dysfunction of abdomen and other regions Sacral region somatic dysfunction Pelvic somatic dysfunction Lumbar region somatic dysfunction Chronic right-sided low back pain without sciatica Lower extremity edema Urge incontinence Lower urinary tract symptoms (LUTS) Postmenopausal atrophic vaginitis Arthritis Heart valve calcification Swelling of lower extremity Murmur Decreased range of motion of both knees Bilateral knee pain Polyneuropathic pain Decreased range of motion of right knee Right shoulder pain Knee pain, right Onychomycosis Knee pain, left Radiculopathy of lumbosacral region Other spondylosis with radiculopathy, lumbosacral region Polyneuropathy Compression fracture of T11 vertebra Lumbosacral spondylosis with radiculopathy Chronic 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 Knee pain, left (Unknown) Osteoarthritis (2000) Shoulder pain (2014) Osteoporosis (~2002) Osteopenia (~2002) Fracture (1940) Anemia (~195) Retinal detachment (1998) Hearing loss (2016) Urinary incontinence (~2013) Surgical History History of stem cell transplant Total knee replacement status History of total knee arthroplasty History of knee replacement Family History Father Mental health problem Mother Heart disease Grandmother Breast cancer Social History household members: none Smoking Status: Never smoker alcohol intake: current substance use type: does not use Meds Home Medications and Allergies Home Medications Medication Instructions Recorded Confirmed Type venlafaxine 75 mg capsule,extended 75 mg PO ONCE PM 03/10/24 03/18/24 History release 24 hr cephalexin 500 mg capsule 500 mg PO QID #10 caps 03/12/24 03/18/24 Rx Allergies Allergy/AdvReac Type Severity Reaction Status Date / Time No Known Drug Allergies Allergy Unverified 01/02/24 11:40 Review of Systems Review of Systems Narrative: All other systems reviewed with the patient and are negative unless otherwise stated. Exam Vital Signs (past 8 hours): - 03/18/24 12:34 03/18/24 12:44 03/18/24 13:00 Temperature 97.4 F L Pulse Rate 95 H 85 Respiratory Rate 20 22 Blood Pressure 132/80 169/81 H Pulse Oximetry 94 94 Oxygen Delivery Method Room Air 03/18/24 13:00 03/18/24 13:30 03/18/24 13:30 Temperature Pulse Rate 75 77 Respiratory Rate 19 21 Blood Pressure 174/75 H Pulse Oximetry 95 97 Oxygen Delivery Method 03/18/24 14:00 03/18/24 14:00 03/18/24 14:30 Temperature Pulse Rate 70 70 Respiratory Rate 13 21 Blood Pressure 189/86 H Pulse Oximetry 94 96 Oxygen Delivery Method 03/18/24 15:00 03/18/24 15:31 03/18/24 15:33 Temperature Pulse Rate 71 79 74 Respiratory Rate 17 17 Blood Pressure Pulse Oximetry 97 94 96 Oxygen Delivery Method 03/18/24 15:33 03/18/24 16:00 03/18/24 16:00 Temperature Pulse Rate 74 Respiratory Rate 14 Blood Pressure 201/95 H 172/81 H Pulse Oximetry 94 Oxygen Delivery Method Oxygen Delivery Method Room Air Narrative Exam Narrative: General:? Patient is well developed and well nourished, in no distress at this time. HEENT:? Normocephalic, atraumatic, extraocular muscles intact, oral pharynx is clear and mucous membranes are dry. Lungs:? CTA b/l no wheezing rhonchi or rales. Cardio:?RRR no m/r/g. Abdomen: S NT ND. Musculoskeletal:? Muscle strength and tone are equal within normal limits, no deformity. Extremities: No edema or joint effusions. No cyanosis or clubbing. Neuro: lethargic, confused Objective ECG Impression: NSR no T wave abnormalities, normal intervals. Labs 03/18/24 12:45 03/18/24 12:45 Labs: Laboratory Results - last 24 hr 03/18/24 03/18/24 12:45 15:39 WBC 10.1 RBC 4.72 Hgb 14.2 Hct 41.0 MCV 86.9 MCH 30.1 MCHC 34.6 RDW 13.9 Plt Count 260 Neut % (Auto) 83.6 H Lymph % (Auto) 7.8 L [place] % (Auto) 8.4 Eos % (Auto) 0.0 L Baso % (Auto) 0.2 Neut # (Auto) 8400 H Lymph # (Auto) 800 L [place] # (Auto) 800 Eos # (Auto) 0 Baso # (Auto) 0 Sodium 139 Potassium 3.1 L Chloride 98 Carbon Dioxide 34 H BUN 23 H Creatinine 0.88 Estimated GFR > 60 BUN/Creatinine Ratio 26.1 H Glucose 179 H Calcium 14.0 H* Total Bilirubin 0.7 AST 64 H ALT 80 H Alkaline Phosphatase 110 Ammonia < 9 L Total Protein 7.6 Albumin 4.2 Globulin 3.4 Albumin/Globulin Ratio 1.2 U Opiates 300ng/mL cut Negative Ur Oxycodone Screen Negative Urine Methadone Screen Negative Ur Barbiturates Screen Negative U Tricyclic Antidepress Negative Ur Phencyclidine Scrn Negative Ur Amphetamines Screen Negative U Methamphetamines Scrn Negative Ur MDMA Scrn (Ecstasy) Negative U Benzodiazepines Scrn Negative Urine Cocaine Screen Negative U Marijuana (THC) Screen Negative Urine pH Normal Urine Specific [place] Normal Ur Creatinine Normal Assessment & Plan Assessment & Plan narrative: 1. Hypercalcemia, hyperparathyroidism - Last admit patient was given IV fluids and calcitonin, no bisphosphonate was given per my review of documentation on review of orders from that admission. Ordered single dose of zolendronic acid today. - will start cinalacet 30 mg BID in addition. - continue IV fluids - PT/OT consultations - PTH slightly elevated, but in setting of high calcium likely represents a hyperparathyroidism - will check Vit D level as well. Will resend another PTH level. 2. Acute metabolic encephalopathy due to #1 - continue above management. - SLUMS last admission with improvement in encephalopathy at that time was . Likely a component of chronic cognitive impairment as well. 3. Recent acute cystitis - will stop additional antibiotics at this time, no symptoms reported and has completed sufficient treatment. Code: Full, surrogate is patient's sister DVT: Lovenox daily I have utilized all available immediate resources to obtain, update, or review the patient's current medications. Dispo: patient admitted under inpatient status. Unclear if will be able to discharge home or possible SNF, will have PT/OT evaluations. Lives at [facility]. Additional history obtained via discussions with the ER provider. These discussions contributed to the creation of the above assessment and plan. I have reviewed patient's presenting documentation, labs, and imaging personally. Time-Based Coding :: [TOTAL MINUTES] spent with patient and on the chart (including review of chart, obtaining history, exam, reviewing outside data, placing orders, documenting exam and treatment plan, and counseling patient) on [DATE].
--- NOTE | 2024-03-18 16:57 | CM.IDA ---
Initial DCP Assessment Note Patient is 88 y/o female who presents to ED with sister due to concern for patient's increased confusion, AMS, decreased eating and mobility. Patient had similar presentation and admission to the hospital from 03/10/24-03/12/24 due to concern for AMS, elevated calcium, and UTI. Patient discharged with [facility] referral and PCP f/u appt with plans for patient's sister to stay with patient. Patient has new PCP appt scheduled with Dr. Calderón for 03/21/24, patient has [facility]. GREEN TIRE INSPECTOR enters room to meet with patient and present in room with patient's sister Nancy. Patient is A/O to place, person and self. Nancy states she is planning to become patient's medical DPOA and Nancy's spouse is planning to become patient's financial DPOA, it is reported that they are planning to meet with a notary regarding setting this up. Patient presents pleasantly confused and states I don't know to most questions. Patient acknowledges she has not been feeling well lately and acknowledges increase in confusion. Patient states she does not know of her POLST status and does not know of her wishes, patient's sister is not aware of this either. 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 This GREEN TIRE INSPECTOR clarified that patient lives in a [facility] in [place] that is called [place], it was confirmed that patient does not live at [facility]. It is reported that patient resides alone. It is reported that patient's sister spent several nights staying with patient at her home since patient's recent d/c and she noticed that patient has not really been eating, staying in bed, not showering and sleeping a lot. It is reported that patient can ambulate to the bathroom and utilize the toilet. There is concern for patient's ability to be home alone at this time. It is reported that patient drives at baseline but has not been driving or leaving the house since recent hospitalization. This GREEN TIRE INSPECTOR provides sister with senior resource guide and discusses assisted care options and provides lists of private pay and agency lists of caregivers. It is reported by patient's sister that patient should be able to afford this out of pocket expense. Per recent hospitalization, patient's SLUMs score is 22/30. GREEN TIRE INSPECTOR calls [facility] , it is reported that HH services have not yet started due to the need for patient's PCP establish care appt with Dr. Calderón. Tanya at [facility] states that patient has not been answering the phone when they have called to attempt to schedule services for after PCP appt. Per ED provider, patient is to be admitted due to concern for Acute metabolic encephalopathy and Hypercalcemia. GREEN TIRE INSPECTOR discusses patient with [facility] primary care clinic correctional counselor/case manager and patient's recent admission and patient's appt may need to be rescheduled. GREEN TIRE INSPECTOR informs Tanya at [facility] of patient's admission as well. Plan: Patient admitted for further evaluation and treatment, DCP to follow up with PT/OT, follow up with sister regarding establishing DPOA and [employer] care plans, f/u with PCP clinic regarding appt, f/u with [facility]. BRAULIO [place] Discharge Planning/Care Management CM Discharge Assessment Start: 03/18/24 16:46 Freq: Status: Active Protocol: Document 03/18/24 16:47 LN (Rec: 03/18/24 16:55 LN [id number]) Discharge Planning Assessment Assigned Wall And Floor Tiler BRAULIO Kearns DPOA/Assigned Designee Name Sister: Nancy Barba Contact Information [phone] Advance Directives? No Advance Directives on File No History Provided By Patient,Family Member,Medical Record Has Patient been admitted in last 30 Yes days? Comment Patient was admitted from 03/10-03/12/24 at [facility] due to concern for AMS, UTI and Hypercalcemia. Prior Living Arrangements House Comment Patient resides in [facility]. Household Members none Type of transporation used prior to Drives own vehicle admit Independent with ADL's No Is patient alert and oriented? Yes: A/O to self, place and person Needs Assistance With Eating,Grooming,Meal Prep, Managing Medications,Home Chores / Shopping Community Services used prior to Home Health Nurse admission: Comment Patient was referred to [facility] for PT, OT, and RN but did not start services yet, services were set to start after patient's appt with new PCP Dr. Calderón. DME Already Rented / Owned Elevated Toilet Seat,FWW / Walker,Cane Comment Patient and sister unable to determine preference at this time. GREEN TIRE INSPECTOR provides sister with caregiver and laborer marine [employer] care resources. Transportation Arrangement sister in [facility] Additional Comment [facility] referral already in place, follow up with [facility] regarding plan of care to continue referral. Please Provide Date Initial DC 03/18/24 Assessment Was Performed
[2024-03-18] MEDS: SODIUM CHLORIDE 0.9% 1,000 ML 150 ML IV (17:36)
[2024-03-18] MEDS: ZOLEDRONIC ACID 4 MG in SODIUM CHLORIDE 0.9% 100 ML 315 MG IV (17:55)
[2024-03-18 22:30] LABS: Alanine Aminotransferase 63 IU/L (<35); Albumin 3.4 g/dL (3.5-5.0); Albumin Globulin Ratio 1.1 (1.0-2.8); Alkaline Phosphatase 95 U/L (38-126); Aspartate Aminotransferase 49 IU/L (14-36); BUN Creatinine Ratio 24.7 (6-22); Bilirubin Total 0.5 mg/dL (0.2-1.3); Blood Urea Nitrogen 19 mg/dL (7-17); Carbon Dioxide 33 mmol/L (22-32); Chloride 101 mmol/L (98-107); Estimated Glomerular Filt Rate > 60 mL/min (>60); Globulin 3.1 g/dL (1.7-4.1); Glucose 167 mg/dL (80-110); HEMOLYSIS < 15 (0-50); Sodium 137 mmol/L (137-145); Total Protein 6.5 g/dL (6.3-8.2)
[2024-03-18 22:35] LABS: Potassium 2.7 mmol/L (3.4-5.1)
[2024-03-18] MEDS: POTASSIUM CHLORIDE 20 MEQ/15 ML UDC 40 MEQ PO (22:54)
[2024-03-19] VITALS (7 sets, daily range): BP systolic 104–147; BP diastolic 67–84; PULSE 73–97; RESP 16–20; TEMP 36.2–36.7; O2SAT 88–98
[2024-03-19] MEDS: POTASSIUM CHLORIDE IN WATER 10 MEQ/100 ML PIGGYBACK 100 MEQ IV ×6 (00:40→14:56)
[2024-03-19 07:12] LABS: Add Manual Diff / Slide Review NO; Basophils Absolute Auto 0 /uL (0-100); Basophils Percent Auto 0.2 % (0-2); Eosinophils Absolute Auto 0 /uL (0-450); Hematocrit 33.8 % (36-46); Hemoglobin 11.6 g/dL (12.0-16.0); Lymphocytes Absolute Auto 1100 /uL (1100-4500); Lymphocytes Percent Auto 11.2 % (25-40); Mean Corpuscular HGB Conc 34.3 % (30-36); Mean Corpuscular Hemoglobin 29.9 PG (26-34); Mean Corpuscular Volume 87.3 fL (80-100); Monocytes Absolute Auto 800 /uL (0-900); Monocytes Percent Auto 8.8 % (3-14); Neutrophils Absolute Auto 7600 /uL (1500-7000); Neutrophils Percent Auto 79.8 % (50-75); Platelet Count 201 X10^3/uL (150-400); Red Blood Cell Count 3.88 X10^6/uL (4.0-5.2); Red Cell Distribution Width 13.9 % (11.6-14.8); White Blood Cell Count 9.5 X10^3/uL (4.5-11.0)
[2024-03-19 07:18] LABS: Albumin 3.3 g/dL (3.5-5.0); Chloride 105 mmol/L (98-107); HEMOLYSIS < 15 (0-50); Potassium 3.2 mmol/L (3.4-5.1); Sodium 139 mmol/L (137-145)
[2024-03-19 07:27] LABS: Alanine Aminotransferase 61 IU/L (<35); Albumin Globulin Ratio 1.1 (1.0-2.8); Alkaline Phosphatase 91 U/L (38-126); Aspartate Aminotransferase 48 IU/L (14-36); BUN Creatinine Ratio 22.1 (6-22); Bilirubin Total 0.5 mg/dL (0.2-1.3); Blood Urea Nitrogen 15 mg/dL (7-17); Calcium 12.5 mg/dL (8.4-10.2); Carbon Dioxide 33 mmol/L (22-32); Estimated Glomerular Filt Rate > 60 mL/min (>60); Globulin 2.9 g/dL (1.7-4.1); Glucose 106 mg/dL (80-110); Magnesium 1.8 mg/dL (1.6-2.3); Total Protein 6.2 g/dL (6.3-8.2)
[2024-03-19] MEDS: ENOXAPARIN 40 MG/0.4 ML SYRINGE SUBCUT (09:45)
[2024-03-19] MEDS: SODIUM CHLORIDE 0.9% 1,000 ML 150 ML IV (12:49)
--- NOTE | 2024-03-19 14:37 | P.PN_ITS ---
Subjective Subjective Interval history: 88 F admitted with hypercalcemia. Calcium high still at 12.5 but improving with fluids. given previous calcitonin will not give currently. Mentation is improving today. No complaints. Exam Vital Signs (past 8 hours): - 03/19/24 08:00 03/19/24 12:00 Temperature 98.1 F 98.1 F Pulse Rate 80 84 Respiratory Rate 16 17 Blood Pressure 130/84 130/84 Pulse Oximetry 98 94 Oxygen Delivery Method Nasal Cannula Oxygen Flow Rate 2 Narrative Exam Narrative: General:? Patient is well developed and well nourished, in no distress at this time. HEENT:? Normocephalic, atraumatic, extraocular muscles intact, oral pharynx is clear and mucous membranes are dry. Lungs:? CTA b/l no wheezing rhonchi or rales. Cardio:?RRR no m/r/g. Abdomen: S NT ND. Musculoskeletal:? Muscle strength and tone are equal within normal limits, no deformity. Extremities: No edema or joint effusions. No cyanosis or clubbing. Neuro: lethargic, confused Objective Labs 03/19/24 06:20 03/19/24 06:20 Labs: Laboratory Results - last 24 hr 03/18/24 03/18/24 03/19/24 15:39 22:08 06:20 WBC 9.5 RBC 3.88 L Hgb 11.6 L Hct 33.8 L MCV 87.3 MCH 29.9 MCHC 34.3 RDW 13.9 Plt Count 201 Neut % (Auto) 79.8 H Lymph % (Auto) 11.2 L [place] % (Auto) 8.8 Eos % (Auto) 0.0 L Baso % (Auto) 0.2 Neut # (Auto) 7600 H Lymph # (Auto) 1100 [place] # (Auto) 800 Eos # (Auto) 0 Baso # (Auto) 0 Sodium 137 139 Potassium 2.7 L* 3.2 L Chloride 101 105 Carbon Dioxide 33 H 33 H BUN 19 H 15 Creatinine 0.77 0.68 Estimated GFR > 60 > 60 BUN/Creatinine Ratio 24.7 H 22.1 H Glucose 167 H 106 Calcium 13.0 H* 12.5 H Phosphorus 2.0 L Magnesium 1.8 Total Bilirubin 0.5 0.5 AST 49 H 48 H ALT 63 H 61 H Alkaline Phosphatase 95 91 Total Protein 6.5 6.2 L Albumin 3.4 L 3.3 L Globulin 3.1 2.9 Albumin/Globulin Ratio 1.1 1.1 25-OH Vitamin D Total 55.0 U Opiates 300ng/mL cut Negative Ur Oxycodone Screen Negative Urine Methadone Screen Negative Ur Barbiturates Screen Negative U Tricyclic Antidepress Negative Ur Phencyclidine Scrn Negative Ur Amphetamines Screen Negative U Methamphetamines Scrn Negative Ur MDMA Scrn (Ecstasy) Negative U Benzodiazepines Scrn Negative Urine Cocaine Screen Negative U Marijuana (THC) Screen Negative Urine pH Normal Urine Specific [place] Normal Ur Creatinine Normal [facility] Medical History Peripheral neuropathy Lumbar spondylosis Low back pain Lumbar radiculopathy Left leg pain Elevated low density lipoprotein (LDL) cholesterol level Family history of diabetes mellitus Right foot pain Left hip pain Hip bursitis, left Frequent UTI Incontinence in female (~2019) Bursitis, trochanteric Degenerative disc disease, lumbar Osteoarthritis of left hip Muscle strain of left gluteal region Degenerative joint disease (DJD) of hip Strain of gluteus medius of left lower extremity Nocturia more than twice per night Somatic dysfunction of lower extremity Segmental and somatic dysfunction of abdomen and other regions Sacral region somatic dysfunction Pelvic somatic dysfunction Lumbar region somatic dysfunction Chronic right-sided low back pain without sciatica Lower extremity edema Urge incontinence Lower urinary tract symptoms (LUTS) Postmenopausal atrophic vaginitis Arthritis Heart valve calcification Swelling of lower extremity Murmur Decreased range of motion of both knees Bilateral knee pain Polyneuropathic pain Decreased range of motion of right knee Right shoulder pain Knee pain, right Onychomycosis Knee pain, left Radiculopathy of lumbosacral region Other spondylosis with radiculopathy, lumbosacral region Polyneuropathy Compression fracture of T11 vertebra Lumbosacral spondylosis with radiculopathy Chronic 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 Knee pain, left (Unknown) Osteoarthritis (2000) Shoulder pain (2014) Osteoporosis (~2002) Osteopenia (~2002) Fracture (1940) Anemia (~1953) Retinal detachment (1998) Hearing loss (2016) Urinary incontinence (~2013) Surgical History History of stem cell transplant Total knee replacement status History of total knee arthroplasty History of knee replacement Family History Father Mental health problem Mother Heart disease Grandmother Breast cancer Social History household members: none Smoking Status: Never smoker alcohol intake: current substance use type: does not use Assessment & Plan Assessment & Plan narrative: 1. Hypercalcemia, hyperparathyroidism - Last admit patient was given IV fluids and calcitonin, no bisphosphonate was given per my review of documentation on review of orders from that admission. Ordered single dose of zolendronic acid on 03/18 - cinacalcet is non-formulary, will prescribe as outpatient to hopefully start while in the hospital. 30 mg BID to start. - continue IV fluids, calcium improving to 12.5 today. Will continue to follow. Hopefully can get cinacalcet before evening dose today. Sent to [facility] pharmacy locally. - PT/OT consultations - PTH slightly elevated previous admit, but in setting of high calcium likely represents a hyperparathyroidism. Will repeat to see if any change. - Vit D level okay at 55. 2. Acute metabolic encephalopathy due to #1 - continue above management. - SLUMS last admission with improvement in encephalopathy at that time was . Likely a component of chronic cognitive impairment as well. 3. Recent acute cystitis - will stop additional antibiotics at this time, no symptoms reported and has completed sufficient treatment. Code: Full, surrogate is patient's sister DVT: Lovenox daily I have utilized all available immediate resources to obtain, update, or review the patient's current medications. Dispo: patient admitted under inpatient status. Unclear if will be able to discharge home or possible SNF, will have PT/OT evaluations. Lives at [facility] (not [facility]) Additional history obtained via discussions with the pharmacist, case management director and sister. These discussions contributed to the creation of the above assessment and plan. I have reviewed patient's presenting documentation, labs, and imaging personally. Time-Based Coding :: [TOTAL MINUTES] spent with patient and on the chart (including review of chart, obtaining history, exam, reviewing outside data, placing orders, documenting exam and treatment plan, and counseling patient) on [DATE].
[2024-03-19] MEDS: SODIUM,POTASSIUM PHOSPHATES PACKET 2 EACH PO (17:04)
[2024-03-20] VITALS: BP 124/74; PULSE 69; RESP 17; TEMP 36.7; O2SAT 99
[2024-03-20 04:00] VITALS: BP 147/82; PULSE 67; RESP 18; TEMP 36.7; O2SAT 99
[2024-03-20 06:53] LABS: Add Manual Diff / Slide Review NO; Basophils Absolute Auto 0 /uL (0-100); Basophils Percent Auto 0.5 % (0-2); Eosinophils Absolute Auto 0 /uL (0-450); Hemoglobin 12.3 g/dL (12.0-16.0); Lymphocytes Absolute Auto 1400 /uL (1100-4500); Lymphocytes Percent Auto 15.3 % (25-40); Mean Corpuscular HGB Conc 34.3 % (30-36); Mean Corpuscular Hemoglobin 30.1 PG (26-34); Mean Corpuscular Volume 87.8 fL (80-100); Monocytes Absolute Auto 800 /uL (0-900); Monocytes Percent Auto 8.7 % (3-14); Neutrophils Absolute Auto 7000 /uL (1500-7000); Neutrophils Percent Auto 75.5 % (50-75); Platelet Count 171 X10^3/uL (150-400); White Blood Cell Count 9.3 X10^3/uL (4.5-11.0)
[2024-03-20 06:56] LABS: Phosphorous 2.2 mg/dL (2.8-4.1)
[2024-03-20 06:57] LABS: Alanine Aminotransferase 58 IU/L (<35); Albumin 3.4 g/dL (3.5-5.0); Albumin Globulin Ratio 1.3 (1.0-2.8); Alkaline Phosphatase 97 U/L (38-126); Aspartate Aminotransferase 44 IU/L (14-36); BUN Creatinine Ratio 17.5 (6-22); Bilirubin Total 0.7 mg/dL (0.2-1.3); Blood Urea Nitrogen 11 mg/dL (7-17); Calcium 11.4 mg/dL (8.4-10.2); Carbon Dioxide 28 mmol/L (22-32); Chloride 105 mmol/L (98-107); Estimated Glomerular Filt Rate > 60 mL/min (>60); Globulin 2.7 g/dL (1.7-4.1); Glucose 93 mg/dL (80-110); HEMOLYSIS < 15 (0-50); Magnesium 1.7 mg/dL (1.6-2.3); Potassium 3.7 mmol/L (3.4-5.1); Sodium 137 mmol/L (137-145); Total Protein 6.1 g/dL (6.3-8.2)
[2024-03-20 08:00] VITALS: BP 175/86; PULSE 83; RESP 16; TEMP 36.9; O2SAT 97
[2024-03-20] MEDS: ENOXAPARIN 40 MG/0.4 ML SYRINGE SUBCUT (08:12)
[2024-03-20] MEDS: SODIUM,POTASSIUM PHOSPHATES PACKET 2 EACH PO (09:58)
[2024-03-20] MEDS: MAGNESIUM CHLORIDE 64 MG TABLET 128 MG PO (09:58)
[2024-03-20 12:00] VITALS: BP 138/69; PULSE 76; RESP 16; TEMP 36.6; O2SAT 97
[2024-03-20 13:36] LABS: Calcium 12.6 mg/dL (8.7-10.3); Parathyroid Hormone, Intact 96 pg/mL (15-65)
--- NOTE | 2024-03-20 13:40 | P.PN_ITS ---
Subjective Subjective Interval history: 88 F admitted with hypercalcemia. Calcium high still at 11.4 but improving with fluids. given previous calcitonin will not give currently. Mentation is improving today. No complaints. Ordered PT/OT today. Exam Vital Signs (past 8 hours): - 03/20/24 08:00 03/20/24 12:00 Temperature 98.5 F 97.9 F Pulse Rate 83 76 Respiratory Rate 16 16 Blood Pressure 175/86 H 138/69 Pulse Oximetry 97 97 Oxygen Delivery Method Room Air Oxygen Flow Rate 2 Narrative Exam Narrative: General:? Patient is well developed and well nourished, in no distress at this time. HEENT:? Normocephalic, atraumatic, extraocular muscles intact, oral pharynx is clear and mucous membranes are dry. Lungs:? CTA b/l no wheezing rhonchi or rales. Cardio:?RRR no m/r/g. Abdomen: S NT ND. Musculoskeletal:? Muscle strength and tone are equal within normal limits, no deformity. Extremities: No edema or joint effusions. No cyanosis or clubbing. Neuro: alert, oriented to person and situation Objective Labs 03/20/24 05:45 03/20/24 05:45 Labs: Laboratory Results - last 24 hr 03/19/24 03/20/24 06:20 05:45 WBC 9.3 RBC 4.10 Hgb 12.3 Hct 36.0 MCV 87.8 MCH 30.1 MCHC 34.3 RDW 14.0 Plt Count 171 Neut % (Auto) 75.5 H Lymph % (Auto) 15.3 L Garrard % (Auto) 8.7 Eos % (Auto) 0.0 L Baso % (Auto) 0.5 Neut # (Auto) 7000 Lymph # (Auto) 1400 Garrard # (Auto) 800 Eos # (Auto) 0 Baso # (Auto) 0 Sodium 137 Potassium 3.7 Chloride 105 Carbon Dioxide 28 BUN 11 Creatinine 0.63 Estimated GFR > 60 BUN/Creatinine Ratio 17.5 Glucose 93 Calcium 11.4 H Phosphorus 2.2 L Magnesium 1.7 Total Bilirubin 0.7 AST 44 H ALT 58 H Alkaline Phosphatase 97 Total Protein 6.1 L Albumin 3.4 L Globulin 2.7 Albumin/Globulin Ratio 1.3 PTH Intact 96 H Calcium (PTH Intact) 12.6 H PTH Intact Intraop Comment [facility] Medical History Peripheral neuropathy Lumbar spondylosis Low back pain Lumbar radiculopathy Left leg pain Elevated low density lipoprotein (LDL) cholesterol level Family history of diabetes mellitus Right foot pain Left hip pain Hip bursitis, left Frequent UTI Incontinence in female (~2019) Bursitis, trochanteric Degenerative disc disease, lumbar Osteoarthritis of left hip Muscle strain of left gluteal region Degenerative joint disease (DJD) of hip Strain of gluteus medius of left lower extremity Nocturia more than twice per night Somatic dysfunction of lower extremity Segmental and somatic dysfunction of abdomen and other regions Sacral region somatic dysfunction Pelvic somatic dysfunction Lumbar region somatic dysfunction Chronic right-sided low back pain without sciatica Lower extremity edema Urge incontinence Lower urinary tract symptoms (LUTS) Postmenopausal atrophic vaginitis Arthritis Heart valve calcification Swelling of lower extremity Murmur Decreased range of motion of both knees Bilateral knee pain Polyneuropathic pain Decreased range of motion of right knee Right shoulder pain Knee pain, right Onychomycosis Knee pain, left Radiculopathy of lumbosacral region Other spondylosis with radiculopathy, lumbosacral region Polyneuropathy Compression fracture of T11 vertebra Lumbosacral spondylosis with radiculopathy Chronic 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 Knee pain, left (Unknown) Osteoarthritis (1999) Shoulder pain (2014) Osteoporosis (~2002) Osteopenia (~2002) Fracture (1940) Anemia (~195) Retinal detachment (1998) Hearing loss (2016) Urinary incontinence (~2013) Surgical History History of stem cell transplant Total knee replacement status History of total knee arthroplasty History of knee replacement Family History Father Mental health problem Mother Heart disease Grandmother Breast cancer Social History household members: none Smoking Status: Never smoker alcohol intake: current substance use type: does not use Assessment & Plan Assessment & Plan narrative: 1. Hypercalcemia, hyperparathyroidism - Last admit patient was given IV fluids and calcitonin, no bisphosphonate was given per my review of documentation on review of orders from that admission. Ordered single dose of zolendronic acid on 10/1 - cinacalcet is non-formulary, will prescribe as outpatient to hopefully start while in the hospital. 30 mg BID to start. Recommend outpatient evaluation for further discussion as to surgical candidacy for primary hyperparathyroidism. - continue IV fluids, calcium improving to 11.4 today. Will continue to follow. Hopefully can get cinacalcet before evening dose today. Sent to [facility] pharmacy locally yesterday - PT/OT consultations ordered - PTH slightly elevated previous admit, but in setting of high calcium likely represents a hyperparathyroidism. Repeat this admission higher in 90s. - Vit D level okay at 55. 2. Acute metabolic encephalopathy due to #1 - continue above management. - SLUMS last admission with improvement in encephalopathy at that time was . Likely a component of chronic cognitive impairment as well. 3. Recent acute cystitis - will stop additional antibiotics at this time, no symptoms reported and has completed sufficient treatment. Code: Full, surrogate is patient's sister DVT: Lovenox daily I have utilized all available immediate resources to obtain, update, or review the patient's current medications. Dispo: patient admitted under inpatient status. Unclear if will be able to discharge home or possible SNF, will have PT/OT evaluations. Lives at [facility] (not [facility]) Additional history obtained via discussions with the pharmacist, piano case and bench assembler and sister. These discussions contributed to the creation of the above assessment and plan. I have reviewed patient's presenting documentation, labs, and imaging personally. Time-Based Coding :: [TOTAL MINUTES] spent with patient and on the chart (including review of chart, obtaining history, exam, reviewing outside data, placing orders, documenting exam and treatment plan, and counseling patient) on [DATE].
--- NOTE | 2024-03-20 13:58 | CM.DPC ---
DCP Cont. Reviewed EMR and team rounds for status updates. PASTRYCOOK'S ASSISTANT assisted with explaining pt's Durable Power of Power Press Supervisor forms with sister, Malaika. Later called to speak with her but she was unavailable, spoke with sister's spouse re: the need to hire more care in the home once pt is discharged. Discussed the caregiving resources locally available, and explained the process of calling and setting up the care. He will share this with her sister this evening, and will notify the PASTRYCOOK'S ASSISTANT on Sunday if they have additional questions or need more assistance with this.
--- NOTE | 2024-03-20 14:16 | PT.IIE ---
Current Diagnoses Hypercalcemia (03/18/24) Surgical History (Last Reviewed 03/10/24 @ 15:12 by Jose E Londono MD) History of knee replacement History of stem cell transplant History of total knee arthroplasty Total knee replacement status Medical History (Last Reviewed 03/10/24 @ 15:12 by Jose E Londono MD) Anemia (~1953) Arthritis Bilateral knee pain Bursitis, trochanteric Chronic 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 Chronic right-sided low back pain without sciatica Compression fracture of T11 vertebra Decreased range of motion of both knees Decreased range of motion of right knee Degenerative disc disease, lumbar Degenerative joint disease (DJD) of hip Elevated low density lipoprotein (LDL) cholesterol level Family history of diabetes mellitus Fracture (1940) Frequent UTI Hearing loss (2015) Heart valve calcification Hip bursitis, left Incontinence in female (~2019) Knee pain, left (Unknown) Knee pain, left Knee pain, right Left hip pain Left leg pain Low back pain Lower extremity edema Lower urinary tract symptoms (LUTS) Lumbar radiculopathy Lumbar region somatic dysfunction Lumbar spondylosis Lumbosacral spondylosis with radiculopathy Murmur Muscle strain of left gluteal region Nocturia more than twice per night Onychomycosis Osteoarthritis (1999) Osteoarthritis of left hip Osteopenia (~2002) Osteoporosis (~2002) Other spondylosis with radiculopathy, lumbosacral region Pelvic somatic dysfunction Peripheral neuropathy Polyneuropathic pain Polyneuropathy Postmenopausal atrophic vaginitis Radiculopathy of lumbosacral region Retinal detachment (1998) Right foot pain Right shoulder pain Sacral region somatic dysfunction Segmental and somatic dysfunction of abdomen and other regions Shoulder pain (2014) Somatic dysfunction of lower extremity Strain of gluteus medius of left lower extremity Swelling of lower extremity Urge incontinence Urinary incontinence (~2013) Physical Therapy Inpatient Evaluation/Re-Eval M1 PT/OT-IP Prior Functional Status Start: 03/20/24 13:34 Freq: NEEDED Status: Active Protocol: Document 03/20/24 14:16 DLM (Rec: 03/20/24 14:45 DLM [id number]) Medical Review Prior Functional Status Medical History Reviewed Yes Diet/Fluid Consistency Regular Communication WFL Mobility and Gait Independent without device in house, uses cane in community as needed Activities of Daily Living and IADL's Independent, drives Prior Functional Level (Other details) after hospital discharge her Sister was staying with her, she has been sleeping a lot but able to ambulate to the bathroom as needed Social History Household Members none Living Arrangements House Number of Floors (Floors) One Floor Number of Stairs To Enter/Railing? 1 steps Home Environment Walk in Shower,Built-In Shower Seat Home Equipment Front Wheel Walker,Straight Cane,Raised Toilet Seat w/ Armrests,Hand Held Shower,Grab Bars Near Toilet,Grab Bars In Shower Additional Social History Comment lives in [facility], Sister lives on [facility] health care services were planned after last hospitalization but did not start before she returned to ED M2 PT-IP Current Condition Start: 03/20/24 13:34 Freq: NEEDED Status: Active Protocol: Document 03/20/24 14:16 DLM (Rec: 03/20/24 14:45 DLM [id number]) Physical Therapy Current Condition Current Condition Evaluation Date 03/20/24 Treatment Diagnosis AMS, decreased balance and impaired gait Onset Date 03/18/24 M3 PT-IP Subjective Start: 03/20/24 13:34 Freq: NEEDED Status: Active Protocol: Document 03/20/24 14:16 DLM (Rec: 03/20/24 14:45 DLM [id number]) Subjective Physical Therapy Visit Type Type Initial Evaluation Visit Start Time 15:45 Visit Stop Time 14:16 Notes 31 minutes Number of WARP TYING MACHINE KNOTTER Visits 0 Physical Therapy Visit Comments Patient Comments she reports she is not feeling well, also nauseated Patient Goals she can not state goal Therapy Pain Assessment Pain When Pain Assessed During Mobility Pain Present Pain Present Denied Pain M4 PT-IP Mobility and Gait Start: 03/20/24 13:34 Freq: NEEDED Status: Active Protocol: Document 03/20/24 14:16 DLM (Rec: 03/20/24 14:45 DLM [id number]) PT-Bed Mobility Assessment Rolling Level of Assist Independent Supine to Sit Supine to Sit Independent Sit to Supine Sit to Supine Independent Scooting Scooting to Edge of Bed Independent PT-Transfer Assessment Sit to and From Stand Sit to and from Stand Minimal Assistance,Use of Upper Extremities Equipment Transfer Assistive Device None,Gait Belt Transfers Transfer Destination Chair Transfer Technique Stand Step Pivot Transfer Ability Level of Assist Minimal Assistance,Use of Upper Extremities Comments Mobility Comments She is dependent on UE support for sit to stand. She shows decreased standing balance with initial standing and needs UE support or assist to manage her balance. Attempted activity with cane but it did not provide enough support for her balance at this time. Gait Assessment Gait Gait Assistance Required: Contact Guard Assist,Minimum Assistance Distance (Feet) 150 Assistive Devices Assistive Device Gait Belt,Front Wheeled Walker Gait Deviations General Gait Pattern Decreased Stride Length, Decreased Feet Clearance, Flexed Trunk,Step-to Gait Factors Limiting Gait Function Factors Limiting Gait Function Decreased Activity Tolerance, Decreased Sensation,Difficulty Following Directions,Poor Balance Comments Gait Comments Gait attempted without device but pt needs moderate assistance with poor step size and very flexed posture. Gait with cane she needs min assist with very flexed posture and a short shuffling gait pattern. Gait with FWW she stands more erect ( although still flexed) with improved feet clearance and improved stride length. She describes fatigue and feeling nauseated after gait in the [place]ablo. Pt left up in the recliner with her needs close and chair alarm in place. PT-Balance Assessment Sitting Balance and Reactions Static Sitting Balance Ability Good Dynamic Sitting Balance Ability Good Standing Balance and Reactions Static Standing Balance Ability Fair Dynamic Standing Balance Ability Poor Balance Tests Single Limb Standing unable without UE support or assist Romberg unstable in narrow base of support, worse eyes closed Tandem Standing unable without assist M5 PT-IP Objective Assessments Start: 03/20/24 13:34 Freq: NEEDED Status: Active Protocol: Document 03/20/24 14:16 DLM (Rec: 03/20/24 14:45 DLM [id number]) Orientation Orientation/Cognition Level of Alertness Alert Orientation Name,Month,Year,Place Language Function Ability Hard of Hearing Safety Awareness Decreased Safety Awareness Memory Description Short Term Impaired Comments she has difficulty following instructions but shows good effort, she reports not feeling well but can not give any details, she has especially difficult time processing any numbers, she could not find her room after gait in the [place] even with verbal cues, she can physically use call light but does not understand what to use it for Gross Range of Motion Upper Extremity ROM Assessment Within Functional Limits Lower Extremity ROM Assessment Within Functional Limits Strength Upper Extremity Strength Assessment Within Functional Limits Lower Extremity Strength Assessment Bilaterally Impaired Hip hip flex 4+/5 Coordination Assessment Gross Coordination Gross Coordination Impaired Assessment Coordination Comments mild to moderate decrease Sensation Assessment Comments Sensation Comments hx neuropathy, she denies any numbness/tingling when asked Muscle Tone Muscle Tone WNL Yes M6 PT-IP Treatment Start: 03/20/24 13:34 Freq: NEEDED Status: Active Protocol: Document 03/20/24 14:16 DLM (Rec: 03/20/24 14:45 DLM [id number]) Physical Therapy Treatment Education Education Provided Safety M7 PT-IP Assessment and Plan Start: 03/20/24 13:34 Freq: NEEDED Status: Active Protocol: Document 03/20/24 14:16 DLM (Rec: 03/20/24 14:45 DLM [id number]) PT Summary Assessment and Plan Potential Rehabilitation Potential Good Status of Condition at Evaluation Evolving Summary Impairments Strength,Balance,Cognition, Transfers,Gait,Activity Tolerance Assessment Summary Malaika Hernandez is alert and up to the chair with nursing today. She agreed to work with Physical Therapy. She describes not feeling well but can not give many details. She presents with decreased standing balance and impaired gait this visit as well as impaired cognition. She could benefit from SNF rehab at discharge to help with her functional recovery. She discharged home from the hospital with her Sister on but was readmitted . If her family does not want her to go SNF she will need 24/7 assistance and home health PT. Goals Bed Mobility Goal Independent Transfer Goal Independent Gait Goal Independent Gait Distance 300 feet Other Goals up/down one step with SBA Days to Meet Goals 10 Frequency of Treatment Frequency Of Treatment Once a Day Treatment Plan Physical Therapy Treatment Plan Transfer Training,Gait Training,Therapeutic Exercise, Balance Retraining,Discharge Planning,Neuromuscular Re-ed, Coordination Retraining Precautions Other Precautions fall risk with cognitive impairment and decreased standing balance Recommendations To Nursing Amount of Assist Needed 1 Person Assist Discharge Recommendations PT Discharge Recommendations Home with 24/7 Assist Available,Home vs SNF Other Discharge Recommendations Will need 24/7 assist with home health if she discharges home, unclear if her Sister can continue to stay with her Transportation Needs at Discharge Private Vehicle
--- NOTE | 2024-03-20 14:28 | DIET.CONS ---
Dietary Consultation Note Admission Date: 03/18/2024 16:13 Assessment: 88 y F admitted for hypercalcemia, AMS. Nutrition screened for low MNA. Met w/ pt at bedside. Cup of Ensure was off to side, pt reports liking it. Reports decrease in appetite, unsure how long/when started, but does note weight loss around ~10 lb. Per EMR 10 lb weight loss in 10 days. Per ABLE BODIED TANKERMAN note, pt had not been eating much since last d/c from hospital. Pt unable to provide diet recall at this time. Agreeable to NFPE- mild loss temples, clavicle region, mild loss interosseous, moderate subcutaneous fat loss buccal and orbital fat pads Ht: 167.64 cm Wt: 58.967 kg BMI: 20.9 UBW: 63.503 kg on 03/10/24 (-7% weight loss in 10 days, severe) Last BM: 03/20/24 (03/20/24 13:49) MNA: 9 Emmanuel Score: 21 Diet: 03/18/24 Dinner General (Regular) Diet Diet Modifications: Nutrition Percent Meal Consumed 25% 03/20/24 10:37 Percent Meal Consumed 50% 03/19/24 18:34 Percent Meal Consumed 75% 03/19/24 09:00 Labs: RBC 4.10 X10^6/uL (4.0-5.2) 03/20/24 05:45 Hgb 12.3 g/dL (12.0-16.0) 03/20/24 05:45 Hct 36.0 % (36-46) 03/20/24 05:45 Creatinine 0.63 mg/dL (0.52-1.04) 03/20/24 05:45 Nutrition Diagnosis: Moderate acute protein calorie malnutrition r/t decreased po intakes with confusion as evidenced by 7% weight loss in 10 days (severe), acute metabolic encephalopathy, mild muscle mass loss (temporalis, deltoid, trapezius, interosseous), mild subcutaneous fat loss (buccal and orbital fat pads), BMI underweight for age (20.9) Interventions: 1. ONS from original to Enlive BID EER: [id number] (25-30 kcals/kg per BMI) 75-90 g protein (1.25-1.5 per PCM) Monitoring/Evaluations: po intakes, ons tolerance Electronically Signed by: Hannah Chance 03/20/24 14:[address] [id number]
[2024-03-20 16:00] VITALS: BP 119/59; BP 154/87; PULSE 68; PULSE 72; RESP 16; RESP 18; TEMP 36.3; TEMP 36.6; O2SAT 94; O2SAT 95
[2024-03-20] MEDS: SODIUM CHLORIDE 0.9% 1,000 ML 150 ML IV (16:00)
--- NOTE | 2024-03-20 17:10 | OT.IP.EVAL ---
Current Diagnoses Hypercalcemia (03/18/24) Past Medical History (Last Reviewed 03/10/24 @ 15:12 by Jose E Londono MD) Anemia (~1953) Arthritis Bilateral knee pain Bursitis, trochanteric Chronic 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 Chronic right-sided low back pain without sciatica Compression fracture of T11 vertebra Decreased range of motion of both knees Decreased range of motion of right knee Degenerative disc disease, lumbar Degenerative joint disease (DJD) of hip Elevated low density lipoprotein (LDL) cholesterol level Family history of diabetes mellitus Fracture (1940) Frequent UTI Hearing loss (2015) Heart valve calcification Hip bursitis, left Incontinence in female (~2019) Knee pain, left (Unknown) Knee pain, left Knee pain, right Left hip pain Left leg pain Low back pain Lower extremity edema Lower urinary tract symptoms (LUTS) Lumbar radiculopathy Lumbar region somatic dysfunction Lumbar spondylosis Lumbosacral spondylosis with radiculopathy Murmur Muscle strain of left gluteal region Nocturia more than twice per night Onychomycosis Osteoarthritis (1999) Osteoarthritis of left hip Osteopenia (~2002) Osteoporosis (~2002) Other spondylosis with radiculopathy, lumbosacral region Pelvic somatic dysfunction Peripheral neuropathy Polyneuropathic pain Polyneuropathy Postmenopausal atrophic vaginitis Radiculopathy of lumbosacral region Retinal detachment (1998) Right foot pain Right shoulder pain Sacral region somatic dysfunction Segmental and somatic dysfunction of abdomen and other regions Shoulder pain (2014) Somatic dysfunction of lower extremity Strain of gluteus medius of left lower extremity Swelling of lower extremity Urge incontinence Urinary incontinence (~2013) Surgical History (Last Reviewed 03/10/24 @ 15:12 by Jose E Londono MD) History of knee replacement History of stem cell transplant History of total knee arthroplasty Total knee replacement status Occupational Therapy Inpatient Evaluation/Re-Eval M1 PT/OT-IP Prior Functional Status Start: 03/20/24 13:34 Freq: NEEDED Status: Active Protocol: Document 03/20/24 16:52 [facility] (Rec: 03/20/24 17:08 [facility] [id number]) Medical Review Prior Functional Status Medical History Reviewed Yes Diet/Fluid Consistency Regular Communication WFL Mobility and Gait Independent without device in house, uses cane in community as needed Activities of Daily Living and IADL's Independent, drives Prior Functional Level (Other details) after hospital discharge her Sister was staying with her, she has been sleeping a lot but able to ambulate to the bathroom as needed Social History Household Members none Living Arrangements House Number of Floors (Floors) One Floor Number of Stairs To Enter/Railing? 1 steps Home Environment Walk in Shower,Built-In Shower Seat Home Equipment Front Wheel Walker,Straight Cane,Raised Toilet Seat w/ Armrests,Hand Held Shower,Grab Bars Near Toilet,Grab Bars In Shower Additional Social History Comment lives in [facility], Sister lives on [facility] health care services were planned after last hospitalization but did not start before she returned to ED M2 OT-IP Current Condition Start: 03/20/24 16:50 Freq: Status: Active Protocol: Document 03/20/24 16:52 [facility] (Rec: 03/20/24 17:08 [facility] [id number]) Occupational Therapy Current Condition Current Condition Evaluation Date 03/20/24 Treatment Diagnosis AMS, Hypercalcemia Diagnosis Onset Date 03/18/24 M3 OT- IP Subjective and Pain Start: 03/20/24 16:50 Freq: Status: Active Protocol: Document 03/20/24 16:52 [facility] (Rec: 03/20/24 17:08 [facility] [id number]) OT- Subjective Occupational Therapy Visit Type Type Initial Evaluation Visit Start Time 16:13 Visit Stop Time 16:45 Occupational Therapy Visit Comments Patient Comments Pt agreed to work with OT. Patient/Caregiver Goals Pt did not state. OT Pain Assessment Pain When Pain Assessed At Rest Pain Present Pain Present Denied Pain M4 OT- IP ADL's Start: 03/20/24 16:50 Freq: Status: Active Protocol: Document 03/20/24 16:52 [facility] (Rec: 03/20/24 17:08 [facility] [id number]) OT [id number] Comments OT Self-Feeding Comments Not at meal time. OT ADL-Grooming General Evaluation Grooming Ability Minimal Assistance Areas Needing Assistance Combing/Brushing Hair Comments OT Grooming Comments COLLIN for completeness to brush her hair. VC to find the comb on the counter top. OT ADL-Oral Care General Eval Oral Care Ability Standby Assistance Comments Oral Care Comments VC for sequence and completeness. OT ADL-Dressing Comments OT Dressing Comments Not performed. OT ADL-Toileting Comments OT Toileting Comments Not performed. OT ADL-Bathing Comments OT Bathing Comments Pt will need assist. M5 OT- IP IADL's Start: 03/20/24 16:50 Freq: Status: Active Protocol: Document 03/20/24 16:52 [facility] (Rec: 03/20/24 17:08 [facility] [id number]) OT-Instrumental Activities of Daily Living Deficits IADL Deficits Identified Deficits Home Safety Awareness Awareness of Need for Assistance at Home Decreased Awareness Ability to Problem Solve Emergency Unable to Problem Solve Situations Home Safety Comments Pt very confused, forgetful, however realizes she is not thinking well. Medication Management Medication Management Comments Pt's sister has been assist her since last admission. Money Management Money Management Caregiver Provides Assistance Meal Preparation Meal Preparation Caregiver Provides Assist Certified Physical Therapist Assistant Certified Physical Therapist Assistant Caregiver Provides Assist Driving Driving Concerns Identified Regarding Safety M6 OT- IP Functional Cognition Start: 03/20/24 16:50 Freq: Status: Active Protocol: Document 03/20/24 16:52 [facility] (Rec: 03/20/24 17:08 [facility] [id number]) Cognitive Factors Limiting Selfcare Function Cognitive Ability Level of Alertness Confusional State Patient Orientation Name Attention Span Ability Unable to Focus,Unable to Sustain Attention Ability to Follow Commands Able to Follow One Step Commands with Increased Time, Able to Follow One Step Commands with Repetition Memory Description Short Term Impaired,Flight Technician Impaired,Working Impaired Cognitive Comments Cognitive Assessment Comments Pt just orientated to her name and knows that she is in the hospital. Pt know that her birthday is on but not able to give the numbers of [birth year]. Pt does not know when she was born and states she is 11 years old. Pt not able to get the words out to identify body parts during light touch. Pt would keep repeating 178 at times when not knowing the answer to a question. Pt not able to do immediate recall that she was going to brush her teeth after repeating it to her 5 times and then able to recall that she was going to brush her teeth for 30 seconds but after getting to the sink forget again. OT- Vision and Hearing OT- Vision Assessment Visual Acuity Glasses All The Time Vision Assessment Comments Pt's glasses not in the hospital and not able to read the clock. Pt bumping into the bed on the left side with the FWW. M7 OT- IP Mobility and Balance Start: 03/20/24 16:50 Freq: Status: Active Protocol: Document 03/20/24 16:52 [facility] (Rec: 03/20/24 17:08 [facility] [id number]) OT-Transfer Assessment Sit to and From Stand Sit to and from Stand Contact Guard Assistance Transfers Transfer Ability Contact Guard Assistance Technique Transfer Destination Bed,Chair Devices Transfer Assistive Devices Gait Belt,Front Wheeled Walker Comments Mobility Comments CGA with FWW, at times assist to cue her to have the FWW closer to her. OT- Balance Assessment Sitting Balance and Reactions Static Sitting Balance Ability Good Dynamic Sitting Balance Ability Good Standing Balance and Reactions Static Standing Balance Ability Fair Dynamic Standing Balance Ability Poor M8 OT- IP Objective Assessments Start: 03/20/24 16:50 Freq: Status: Active Protocol: Document 03/20/24 16:52 [facility] (Rec: 03/20/24 17:08 [facility] [id number]) OT Gross Range of Motion Upper Extremity Range of Motion Assessment Within Functional Limits OT Strength Upper Extremity Strength Assessment Within Functional Limits OT- Coordination Assessment Comments Coordination Comments grossly intact for finger to nose OT Sensation Assessment Comments Summary Comments Pt not able to get the words out to identify the body part when touched. M9 OT- IP Assessment and Plan Start: 03/20/24 16:50 Freq: Status: Active Protocol: Document 03/20/24 16:52 [facility] (Rec: 03/20/24 17:08 [facility] [id number]) OT Summary Assessment and Plan Potential Rehabilitation Potential Good Analytic Complexity at Evaluation Moderate Summary OT Impairments Balance,Coordination, Functional Cognition, Functional Mobility,Self- Feeding,Grooming,Dressing, Toileting,Bathing,Toilet Transfers,Shower Transfers, Activity Tolerance Progress Towards Goals Slow Progress due to Medical Issues,Slow Progress due to Activity Tolerance,Slow Progress due to Cognition Assessment Summary Pt MOD complexity and here due to hypercalcemia/AMS and just discharged on 03/12/24 with Hypercalemia and UTI. Pt is very confused and at this time just orientated to her name mainly. Pt having poor immediate recall this time. Last admit pt scored 22/30 on the SLUMS, however today pt would probably not be able to get a score due to increased confusion. To attempt SLUMS when pt is more medically stable. At this time best for pt to go to skilled rehab versus home with 24/ home health versus may need memory care pending progress and medical findings. Goals Self-Feeding Goal Standby Assistance Grooming Goal Standby Assistance Dressing Goal Standby Assistance Toileting Goal Standby Assistance Bathing Goal Standby Assistance Toilet Transfer Goal Standby Assistance Shower Transfer Goal Standby Assistance OT-Other Goals Goals based on no devices for ADL's and mobility needs. Days to Meet Goals 20 Frequency of Treatment Other frequency 5x/week Treatment Plan OT Treatment Plan ADL Training,Functional Cognition Training,Functional Mobility,Patient/Family Education,Discharge Planning Discharge Recommendations OT Discharge Recommendations Home with 08/01 Assist Available,Home Health,SNF Rehab,Home vs SNF Transportation Needs at Discharge Private Vehicle,Wheelchair/ Cabulance
[2024-03-20 20:00] VITALS: BP 154/93; PULSE 78; RESP 18; TEMP 36.6; O2SAT 95
[2024-03-20] MEDS: VENLAFAXINE ER 75 MG CAP PO (21:33)
[2024-03-21 04:00] VITALS: BP 128/88; PULSE 74; RESP 18; TEMP 37; O2SAT 96
[2024-03-21 06:26] LABS: Add Manual Diff / Slide Review NO; Basophils Absolute Auto 0 /uL (0-100); Basophils Percent Auto 0.3 % (0-2); Eosinophils Absolute Auto 0 /uL (0-450); Hematocrit 32.7 % (36-46); Hemoglobin 11.3 g/dL (12.0-16.0); Lymphocytes Absolute Auto 1100 /uL (1100-4500); Lymphocytes Percent Auto 12.8 % (25-40); Mean Corpuscular HGB Conc 34.5 % (30-36); Mean Corpuscular Hemoglobin 30.1 PG (26-34); Mean Corpuscular Volume 87.2 fL (80-100); Monocytes Absolute Auto 700 /uL (0-900); Monocytes Percent Auto 7.7 % (3-14); Neutrophils Absolute Auto 7000 /uL (1500-7000); Neutrophils Percent Auto 79.2 % (50-75); Platelet Count 181 X10^3/uL (150-400); Red Blood Cell Count 3.75 X10^6/uL (4.0-5.2); White Blood Cell Count 8.8 X10^3/uL (4.5-11.0)
[2024-03-21 06:53] LABS: Alanine Aminotransferase 43 IU/L (<35); Albumin 3.1 g/dL (3.5-5.0); Albumin Globulin Ratio 1.2 (1.0-2.8); Alkaline Phosphatase 95 U/L (38-126); Aspartate Aminotransferase 35 IU/L (14-36); BUN Creatinine Ratio 11.9 (6-22); Bilirubin Total 0.6 mg/dL (0.2-1.3); Blood Urea Nitrogen 7 mg/dL (7-17); Calcium 9.9 mg/dL (8.4-10.2); Carbon Dioxide 28 mmol/L (22-32); Chloride 104 mmol/L (98-107); Estimated Glomerular Filt Rate > 60 mL/min (>60); Globulin 2.6 g/dL (1.7-4.1); Glucose 100 mg/dL (80-110); HEMOLYSIS < 15 (0-50); Magnesium 1.5 mg/dL (1.6-2.3); Potassium 3.3 mmol/L (3.4-5.1); Sodium 135 mmol/L (137-145); Total Protein 5.7 g/dL (6.3-8.2)
[2024-03-21 06:55] LABS: Phosphorous 1.9 mg/dL (2.8-4.1)
[2024-03-21 08:00] VITALS: BP 109/60; PULSE 78; RESP 18; TEMP 36.6; O2SAT 96
--- NOTE | 2024-03-21 08:02 | P.PN_ITS ---
Subjective Subjective Interval history: 88 F admitted with hypercalcemia. Calcium high still at 11.4 but improving with fluids. given previous calcitonin will not give currently. Mentation is improving today. No complaints. Ordered PT/OT today. S: She is more awake. No confusion. No nausea or vomiting. Exam Vital Signs (past 8 hours): - 03/21/24 04:00 Temperature 98.6 F Pulse Rate 74 Respiratory Rate 18 Blood Pressure 128/88 Pulse Oximetry 96 Oxygen Flow Rate 0 Oxygen Delivery Method Room Air Oxygen Flow Rate 0 Narrative Exam Narrative: NAD, alert and oriented. Fluent speech. Lungs are clear, normal rate and effort. Heart is regular, no murmur gallop or rub. Abdomen is soft, non distended. Extremities are free of edema. Objective Labs 03/21/24 06:00 03/21/24 06:00 Labs: Laboratory Results - last 24 hr 03/19/24 03/21/24 06:20 06:00 WBC 8.8 RBC 3.75 L Hgb 11.3 L Hct 32.7 L MCV 87.2 MCH 30.1 MCHC 34.5 RDW 14.0 Plt Count 181 Neut % (Auto) 79.2 H Lymph % (Auto) 12.8 L Rawlins % (Auto) 7.7 Eos % (Auto) 0.0 L Baso % (Auto) 0.3 Neut # (Auto) 7000 Lymph # (Auto) 1100 Raw[place]ins # (Auto) 700 Eos # (Auto) 0 Baso # (Auto) 0 Sodium 135 L Potassium 3.3 L Chloride 104 Carbon Dioxide 28 BUN 7 Creatinine 0.59 Estimated GFR > 60 BUN/Creatinine Ratio 11.9 Glucose 100 Calcium 9.9 Phosphorus 1.9 L Magnesium 1.5 L Total Bilirubin 0.6 AST 35 ALT 43 H Alkaline Phosphatase 95 Total Protein 5.7 L Albumin 3.1 L Globulin 2.6 Albumin/Globulin Ratio 1.2 PTH Intact 96 H Calcium (PTH Intact) 12.6 H PTH Intact Intraop Comment [facility] Medical History Peripheral neuropathy Lumbar spondylosis Low back pain Lumbar radiculopathy Left leg pain Elevated low density lipoprotein (LDL) cholesterol level Family history of diabetes mellitus Right foot pain Left hip pain Hip bursitis, left Frequent UTI Incontinence in female (~2019) Bursitis, trochanteric Degenerative disc disease, lumbar Osteoarthritis of left hip Muscle strain of left gluteal region Degenerative joint disease (DJD) of hip Strain of gluteus medius of left lower extremity Nocturia more than twice per night Somatic dysfunction of lower extremity Segmental and somatic dysfunction of abdomen and other regions Sacral region somatic dysfunction Pelvic somatic dysfunction Lumbar region somatic dysfunction Chronic right-sided low back pain without sciatica Lower extremity edema Urge incontinence Lower urinary tract symptoms (LUTS) Postmenopausal atrophic vaginitis Arthritis Heart valve calcification Swelling of lower extremity Murmur Decreased range of motion of both knees Bilateral knee pain Polyneuropathic pain Decreased range of motion of right knee Right shoulder pain Knee pain, right Onychomycosis Knee pain, left Radiculopathy of lumbosacral region Other spondylosis with radiculopathy, lumbosacral region Polyneuropathy Compression fracture of T11 vertebra Lumbosacral spondylosis with radiculopathy Chronic 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 Knee pain, left (Unknown) Osteoarthritis (1999) Shoulder pain (2015) Osteoporosis (~2002) Osteopenia (~2002) Fracture (1940) Anemia (~195) Retinal detachment (1998) Hearing loss (2016) Urinary incontinence (~2013) Surgical History History of stem cell transplant Total knee replacement status History of total knee arthroplasty History of knee replacement Family History Father Mental health problem Mother Heart disease Grandmother Breast cancer Social History household members: none Smoking Status: Never smoker alcohol intake: current substance use type: does not use Assessment & Plan Assessment & Plan narrative: 1. Hypercalcemia, hyperparathyroidism. Present on admission and improving. - Last admit patient was given IV fluids and calcitonin, no bisphosphonate was given per my review of documentation on review of orders from that admission. Ordered single dose of zolendronic acid on 03/18 - cinacalcet is non-formulary, will prescribe as outpatient to hopefully start while in the hospital. 30 mg BID to start. Recommend outpatient evaluation for further discussion as to surgical candidacy for primary hyperparathyroidism. - discontinue IV fluids, calcium improved. - PTH slightly elevated previous admit, but in setting of high calcium likely represents a hyperparathyroidism. Repeat this admission higher in 90s. - Vit D level okay at 55. 2. Acute metabolic encephalopathy due to #1. Present on admission and improved. - continue above management. - SLUMS last admission with improvement in encephalopathy at that time was . Likely a component of chronic cognitive impairment as well. 3. Hypokalemia, hypophosphatemia. New and active. 4. Recent acute cystitis. Not present on admission are active. - will stop additional antibiotics at this time, no symptoms reported and has completed sufficient treatment. Code: Full, surrogate is patient's sister DVT: Lovenox daily I have utilized all available immediate resources to obtain, update, or review the patient's current medications. Dispo: patient admitted under inpatient status. Unclear if will be able to discharge home or possible SNF, will have PT/OT evaluations. [facility] Time-Based Coding :: [TOTAL MINUTES] spent with patient and on the chart (including review of chart, obtaining history, exam, reviewing outside data, placing orders, documenting exam and treatment plan, and counseling patient) on [DATE].
[2024-03-21] MEDS: MAGNESIUM SULFATE 2 GM/50 ML PIGGYBACK IV (08:56)
[2024-03-21] MEDS: ENOXAPARIN 40 MG/0.4 ML SYRINGE SUBCUT (08:56)
[2024-03-21] MEDS: POTASSIUM PHOSPHATE 45 MMOL in SODIUM CHLORIDE 0.9% 500 ML 85.833 MMOL IV (09:03)
[2024-03-21 12:00] VITALS: BP 129/66; PULSE 81; RESP 18; TEMP 36.6; O2SAT 96
--- NOTE | 2024-03-21 13:55 | CM.DPNOTE ---
DCP Continued: Reviewed EMR and team rounds for pt?s medical status. Per hospitalist, patient could be medically cleared to discharge tomorrow, 03/22. DCP entered room, introduced self and role. Present in the room was pt's sister, Nancy. Per sister, herself and her are the patient's Healthcare POA and Financial POA, respectively; did not have a copy to show to this DCP but assured that the hospital has a copy. Pt sister stated she was able to access pt's bank account today and pay her bills. DCP discussed with sister having more care and monitoring for pt due to pt's mentation. Per sister, this has been discussed with her and they have been calling private caregivers. They are hopeful to establish a private caregiver for 4-5 hrs/day for the patient as well as sister being nearby, sometimes sleeping at the patient's [facility] for initial care needs. DCP discussed medical terminologist care planning and pt sister insisted that they want to try having her home first. DCP offered contact with [facility] for LTC consultation and pt sister appreciative. DCP discussed home health and offered Medicare choice list. Pt sister stated she wanted to review the options with her was open to having RN and HH Aide services, post discharge. Plan: Anticipating discharge home with sister to transport on Sunday, 03/22. Family coordinating private caregivers and possible consultation with alf care services. CM Team to follow for HH agency choice for referral prior to discharge. CM Team will continue to follow for coordination of discharge plans. SHIRAZ Maurer
--- NOTE | 2024-03-21 14:10 | OT.IP.TRT ---
Current Diagnoses Hypercalcemia (03/18/24) Occupational Therapy Treatment Note M2 OT-IP Current Condition Start: 03/20/24 16:50 Freq: Status: Active Protocol: Document 03/20/24 16:52 [facility] (Rec: 03/20/24 17:08 [facility] [id number]) Occupational Therapy Current Condition Current Condition Evaluation Date 03/20/24 Treatment Diagnosis AMS, Hypercalcemia Diagnosis Onset Date 03/18/24 M3 OT- IP Subjective and Pain Start: 03/20/24 16:50 Freq: Status: Active Protocol: Document 03/21/24 14:27 [facility] (Rec: 03/21/24 14:41 [facility] [id number]) OT- Subjective Occupational Therapy Visit Type Type Progress Note Visit Start Time 14:10 Visit Stop Time 14:26 Occupational Therapy Visit Comments Patient Comments Pt agreed to do cognitive assessment. Patient/Caregiver Goals TO go home. OT Pain Assessment Pain When Pain Assessed At Rest Pain Present Pain Present Denied Pain M6 OT- IP Functional Cognition Start: 03/20/24 16:50 Freq: Status: Active Protocol: Document 03/21/24 14:27 [facility] (Rec: 03/21/24 14:41 [facility] [id number]) Cognitive Factors Limiting Selfcare Function Cognitive Ability Level of Alertness Alert Patient Orientation Name,Age,Birthday,Month,Date, Year,Day of Week,Place Attention Span Ability Capable of Focused Attention, Capable of Sustained Attention Ability to Follow Commands Able to Follow One Step Commands Memory Description Short Term Impaired,Working Impaired Cognitive Tests SLUMS Pt scored 19/30 on the SLUMS which implies dementia. Pt scored 22/30 on last visit on 03/12/24 with admission of hypercalcemia/UTI, and acute encephalopathy. Pt probably getting closer to her baseline . Cognitive Comments Cognitive Assessment Comments Pt thinking better today but still having decreased memory and problem solving. Pt is aware that she is not thinking well but feels that she can drive. However, pt admits that her sister does not want her to drive and therefore to hold off of driving for now. M9 OT- IP Assessment and Plan Start: 03/20/24 16:50 Freq: Status: Active Protocol: Document 03/21/24 14:27 [facility] (Rec: 03/21/24 14:41 [facility] [id number]) OT Summary Assessment and Plan Potential Rehabilitation Potential Good Analytic Complexity at Evaluation Moderate Summary OT Impairments Balance,Functional Mobility, Grooming,Dressing,Toileting, Bathing,Toilet Transfers, Shower Transfers Progress Towards Goals Progressing Toward Goals,Slow Progress due to Cognition Assessment Summary Pt thinking better but still will benefit from 24/7 assist at home if going home versus SNF. Pt would probably benefit from memory care as well. Goals Self-Feeding Goal Standby Assistance Grooming Goal Standby Assistance Dressing Goal Standby Assistance Toileting Goal Standby Assistance Bathing Goal Standby Assistance Toilet Transfer Goal Standby Assistance Shower Transfer Goal Standby Assistance OT-Other Goals Goals based on no devices for ADL's and mobility needs. Days to Meet Goals 10 Frequency of Treatment Other frequency 5x/week Treatment Plan OT Treatment Plan ADL Training,Functional Cognition Training,Functional Mobility,Patient/Family Education,Discharge Planning Discharge Recommendations OT Discharge Recommendations Home with 24/7 Assist Available,Home Health,SNF Rehab,Home vs SNF Transportation Needs at Discharge Private Vehicle
--- NOTE | 2024-03-21 16:00 | PT.IPTN ---
Current Diagnoses Hypercalcemia (03/18/24) Physical Therapy Treatment Note M2 PT-IP Current Condition Start: 03/20/24 13:34 Freq: NEEDED Status: Active Protocol: Document 03/20/24 14:16 DLM (Rec: 03/20/24 14:45 DLM [id number]) Physical Therapy Current Condition Current Condition Evaluation Date 03/20/24 Treatment Diagnosis AMS, decreased balance and impaired gait Onset Date 03/18/24 M3 PT-IP Subjective Start: 03/20/24 13:34 Freq: NEEDED Status: Active Protocol: Document 03/21/24 16:43 TS (Rec: 03/21/24 16:57 TS [id number]) Subjective Physical Therapy Visit Type Type Treatment Note Visit Start Time 16:00 Visit Stop Time 16:15 Number of SHRIMPING BOAT CAPTAIN Visits 1 Physical Therapy Visit Comments Patient Comments Reports she's not doing well, she is agreeable to PT. M4 PT-IP Mobility and Gait Start: 03/20/24 13:34 Freq: NEEDED Status: Active Protocol: Document 03/21/24 16:43 TS (Rec: 03/21/24 16:57 TS [id number]) PT-Bed Mobility Assessment Rolling Level of Assist Independent Supine to Sit Supine to Sit Independent Sit to Supine Sit to Supine Independent Scooting Scooting to Edge of Bed Independent PT-Transfer Assessment Sit to and From Stand Sit to and from Stand Contact Guard Assistance Equipment Transfer Assistive Device Gait Belt,Front Wheeled Walker Comments Mobility Comments Pt performs bed Ind. She ambulates ~300'SBA/CGA with FWW. She requires some cues to avoid lewis/objects in hallway, she tends to drift to the left. Sit to supine into bed Ind. Pt was left in bed, all needs met. Gait Assessment Gait Gait Assistance Required: Standby Assistance,Contact Guard Assist Distance (Feet) 300 Assistive Devices Assistive Device Gait Belt,Front Wheeled Walker Gait Deviations General Gait Pattern Decreased Stride Length, Decreased Feet Clearance, Flexed Trunk,Step-to Gait Factors Limiting Gait Function Factors Limiting Gait Function Decreased Activity Tolerance, Decreased Sensation,Difficulty Following Directions,Poor Balance PT-Balance Assessment Sitting Balance and Reactions Static Sitting Balance Ability Good Dynamic Sitting Balance Ability Good Standing Balance and Reactions Static Standing Balance Ability Fair Dynamic Standing Balance Ability Fair Device Used FWW M5 PT-IP Objective Assessments Start: 03/20/24 13:34 Freq: NEEDED Status: Active Protocol: Document 03/20/24 14:16 DLM (Rec: 03/20/24 14:45 DLM [id number]) Orientation Orientation/Cognition Level of Alertness Alert Orientation Name,Month,Year,Place Language Function Ability Hard of Hearing Safety Awareness Decreased Safety Awareness Memory Description Short Term Impaired Comments she has difficulty following instructions but shows good effort, she reports not feeling well but can not give any details, she has especially difficult time processing any numbers, she could not find her room after gait in the [place] even with verbal cues, she can physically use call light but does not understand what to use it for Gross Range of Motion Upper Extremity ROM Assessment Within Functional Limits Lower Extremity ROM Assessment Within Functional Limits Strength Upper Extremity Strength Assessment Within Functional Limits Lower Extremity Strength Assessment Bilaterally Impaired Hip hip flex 4+/5 Coordination Assessment Gross Coordination Gross Coordination Impaired Assessment Coordination Comments mild to moderate decrease Sensation Assessment Comments Sensation Comments hx neuropathy, she denies any numbness/tingling when asked Muscle Tone Muscle Tone WNL Yes M6 PT-IP Treatment Start: 03/20/24 13:34 Freq: NEEDED Status: Active Protocol: Document 03/21/24 16:43 TS (Rec: 03/21/24 16:57 TS [id number]) Physical Therapy Treatment Education Education Provided Safety M7 PT-IP Assessment and Plan Start: 03/20/24 13:34 Freq: NEEDED Status: Active Protocol: Document 03/21/24 16:43 TS (Rec: 03/21/24 16:57 TS [id number]) PT Summary Assessment and Plan Potential Rehabilitation Potential Good Summary Impairments Strength,Balance,Cognition, Transfers,Gait,Activity Tolerance Progress Towards Goals Progressing Toward Goals Assessment Summary Malaika Hernandez is making some progress with her mobility this session. She progressed her gait to ~300'SBA/CGA with FWW. She requires some cues to avoid lewis and objects in the hallway. Recommend pt use walker at d/c, pt sttes she has a FWW. PT is recommending home with 08/01 assist and HHPT . Goals Bed Mobility Goal Independent Transfer Goal Independent Gait Goal Independent Gait Distance 300 feet Other Goals up/down one step with SBA Days to Meet Goals 10 Frequency of Treatment Frequency Of Treatment Once a Day Treatment Plan Physical Therapy Treatment Plan Transfer Training,Gait Training,Therapeutic Exercise, Balance Retraining,Discharge Planning,Neuromuscular Re-ed, Coordination Retraining Recommendations To Nursing Amount of Assist Needed 1 Person Assist Discharge Recommendations PT Discharge Recommendations Home with 24/7 Assist Available,Home Health Other Discharge Recommendations Pt states she has a FWW at home. Transportation Needs at Discharge Private Vehicle
[2024-03-21 20:00] VITALS: BP 123/71; PULSE 74; RESP 16; TEMP 36.8; O2SAT 94
[2024-03-21] MEDS: CINACALCET 30 MG 30 EACH PO (21:30)
[2024-03-21] MEDS: VENLAFAXINE ER 75 MG CAP PO (21:30)
[2024-03-22 04:00] VITALS: BP 161/94; PULSE 74; RESP 15; TEMP 36.7; O2SAT 96
[2024-03-22 07:57] LABS: BUN Creatinine Ratio 14.8 (6-22); Blood Urea Nitrogen 9 mg/dL (7-17); Calcium 8.9 mg/dL (8.4-10.2); Carbon Dioxide 28 mmol/L (22-32); Chloride 103 mmol/L (98-107); Estimated Glomerular Filt Rate > 60 mL/min (>60); Glucose 97 mg/dL (80-110); HEMOLYSIS < 15 (0-50); Magnesium 1.8 mg/dL (1.6-2.3); Phosphorous 2.3 mg/dL (2.8-4.1); Potassium 3.8 mmol/L (3.4-5.1); Sodium 132 mmol/L (137-145)
[2024-03-22 08:00] VITALS: BP 154/81; PULSE 71; RESP 18; TEMP 36.8; O2SAT 96
[2024-03-22] MEDS: ENOXAPARIN 40 MG/0.4 ML SYRINGE SUBCUT (09:39)
[2024-03-22] MEDS: CINACALCET 30 MG 30 EACH PO (09:39)
[2024-03-22] MEDS: SODIUM,POTASSIUM PHOSPHATES PACKET 2 EACH PO (09:40)
[2024-03-22] MEDS: SODIUM CHLORIDE 0.9% FLUSH 10 ML IV (09:41)
--- NOTE | 2024-03-22 11:27 | PM.DS.1 ---
History of Present Illness History of Present Illness Date Patient Seen: 03/22/24 Time Patient Seen: 08:38 Date of Onset of Symptoms: 03/18/24 Chief complaint: AMS Narrative: This is an 88 year old female who presents today with confusion. She was recently admitted with hypercalcemia, calcium improved with fluids and calcitonin. She has had declining appetite the last few days, along with worsening confusion and was brought in for further evaluation. She was unable to see any PCP after her last discharge. Repeat labs today showed a calcium of 14. Previous labs showed a mildly elevated PTH level, consistent with hyperparathyroidism. She was admitted for further management. Discharge Providers Provider Date of admission: 03/18/24 16:13 Discharge Date: 03/22/24 Primary care physician: Claudia Calderón DO Consults: 03/18/24 13:04 Consult to REGIONAL SALES DIRECTOR - Able Bodied Watchman Stat Comment: Able Bodied Watchman Consult needed for:: No caregiver at home Unable to care for self Lives alone 03/20/24 12:16 Consult to Physical Therapy Evaluate & Treat Comment: Physician Instructions: Evaluate and Treat 03/20/24 12:17 Consult to Occupational Therapy Evaluate & Treat Comment: Physician Instructions: Evaluate and treat 03/22/24 11:23 Consult to Home Health Routine Comment: metabolic encephalopathy, Hypercalcemia Reason For Exam: Set up HH RN, FILLER SHREDDER, REGIONAL SALES DIRECTOR for discharge home Discharge provider: Brayden Cook MD Summary Hospital Course Discharge Diagnosis: 1. Hypercalcemia due to hyperparathyroidism. 2. Acute metabolic encephalopathy due to #1. 3. Hypokalemia, hypophosphatemia. 4. Recent acute cystitis. Hospital Course: 88-year-old woman under the primary care of Dr. Claudia Calderón with a history of known hyperparathyroidism dating back several years was admitted with confusion and elevated calcium level of 14. She was given IV fluids, calcitonin and no bisphosphonates as she had received a dose of zoledronic acid on recent hospitalization 1 week prior. Calcium improved with these therapies to 8.9 on the day of discharge. Confusion also cleared and she appeared to be at baseline, with some suggestion of possible chronic cognitive impairment. She was started on cinacalcet on 03/21/2024 and prescribed the same at the time of discharge. hypokalemia and hypophosphatemia were corrected and improved at the time of discharge. a recent UTI had been treated and no further antibiotics were administered with recent culture negative. She is feeling well and interested in discharge home. No other issues arose. The question of surgical versus ongoing medical management of hyperparathyroidism is deferred to outpatient follow-up. Status at Discharge Cognitive/behavioral status at discharge: oriented Functional status at discharge: independent ambulation Overall status at discharge: patient is back to baseline Time Spent with Patient Time spent: Greater than 30 minutes Exam Vital Signs (past 8 hours): - 03/22/24 04:00 03/22/24 08:00 Temperature 98.0 F 98.2 F Pulse Rate 74 71 Respiratory Rate 15 18 Blood Pressure 161/94 H 154/81 H Pulse Oximetry 96 96 Oxygen Flow Rate 0 Oxygen Delivery Method Room Air Oxygen Flow Rate 0 Objective Labs 03/21/24 06:00 03/22/24 07:30 Labs: Laboratory Results - last 24 hr 03/22/24 07:30 Sodium 132 L Potassium 3.8 Chloride 103 Carbon Dioxide 28 BUN 9 Creatinine 0.61 Estimated GFR > 60 BUN/Creatinine Ratio 14.8 Glucose 97 Calcium 8.9 Phosphorus 2.3 L Magnesium 1.8 PFS Medical History Peripheral neuropathy Lumbar spondylosis Low back pain Lumbar radiculopathy Left leg pain Elevated low density lipoprotein (LDL) cholesterol level Family history of diabetes mellitus Right foot pain Left hip pain Hip bursitis, left Frequent UTI Incontinence in female (~2020) Bursitis, trochanteric Degenerative disc disease, lumbar Osteoarthritis of left hip Muscle strain of left gluteal region Degenerative joint disease (DJD) of hip Strain of gluteus medius of left lower extremity Nocturia more than twice per night Somatic dysfunction of lower extremity Segmental and somatic dysfunction of abdomen and other regions Sacral region somatic dysfunction Pelvic somatic dysfunction Lumbar region somatic dysfunction Chronic right-sided low back pain without sciatica Lower extremity edema Urge incontinence Lower urinary tract symptoms (LUTS) Postmenopausal atrophic vaginitis Arthritis Heart valve calcification Swelling of lower extremity Murmur Decreased range of motion of both knees Bilateral knee pain Polyneuropathic pain Decreased range of motion of right knee Right shoulder pain Knee pain, right Onychomycosis Knee pain, left Radiculopathy of lumbosacral region Other spondylosis with radiculopathy, lumbosacral region Polyneuropathy Compression fracture of T11 vertebra Lumbosacral spondylosis with radiculopathy Chronic 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 Knee pain, left (Unknown) Osteoarthritis (2000) Shoulder pain (2015) Osteoporosis (~2003) Osteopenia (~2002) Fracture (1940) Anemia (~1953) Retinal detachment (1998) Hearing loss (2016) Urinary incontinence (~2013) Surgical History History of stem cell transplant Total knee replacement status History of total knee arthroplasty History of knee replacement Family History Father Mental health problem Mother Heart disease Grandmother Breast cancer Social History household members: none Smoking Status: Never smoker alcohol intake: current substance use type: does not use Discharge Plan Discharge Plan Patient Disposition: Home Health Service Provider Discharge Comment: Followup with Dr. Claudia Calderón 1 week Discharge orders & Medications Prescriptions: New cinacalcet 30 mg tablet 30 mg PO BID Qty: 60 0RF Continued venlafaxine 75 mg capsule,extended release 24hr 75 mg PO ONCE PM Rx Instructions: Has not been taking. Discontinued cephalexin 500 mg capsule 500 mg PO QID Qty: 10 0RF Rx Instructions: Has not completed prescription. Follow up/Referrals: Claudia Calderón DO [Primary Care Provider] - Visit Report/Discharge Packet Instructions: DI for Hypercalcemia, Encephalopathy Stand Alone Forms: Patient Portal/API, Stroke Signs & Symptoms Discharge Data Primary Care Provider: Claudia Calderón Quality MIPS - Admit I confirm the patient?s Advance Care Plan is present, Code status is documented, Surrogate decision maker is in patient?s record [If Yes, STOP here]: Yes MIPS - Meds 'Current medications' to include all prescriptions, [id number] products, herbals, cannabis/cannabidiol products, and vitamin/mineral/dietary (nutritional) supplements. I have utilized all available resources to obtain, update, or review the patient?s current medications. [If Yes, STOP here]: Yes MIPS - DC The patient has a history of heart transplant or Left Ventricular Assist Device (LVAD). If yes, STOP here.: No The patient has current or prior documentation of left ventricular ejection fraction (LVEF) less than or equal to 40%, or moderate or severely depressed left ventricular systolic function.: No A. The patient was prescribed or already taking an Angiotensin-Converting Enzyme (JOSE CRUZ) Inhibitor, or Angiotensin Receptor Krys (ARB).: No B. The patient was prescribed or already taking a beta-krys. [If Yes to Both A & B, STOP here]: No Patient not prescribed/taking JOSE CRUZ or ARB, no reason given.: No Patient not prescribed/taking beta-krys, no reason given.: No PROFEE Charge Codes Discharge inpatient/observation: [id number]
--- NOTE | 2024-03-22 12:07 | PT-IP ANOTE ---
Pt refused PT, she is to d/c home today.
--- NOTE | 2024-03-22 12:16 | CM.DPC ---
DCP Discharge Home with HH Per MD, pt is medically stable to discharge home today with family support and HH and discharge orders placed. MITZI confirmed that pt's initial appointment with new PCP Dr. Calderón was switched from yesterday 03/21 (since pt was still admitted) to 03/28/24 and sent WebEx to the Anesthesia Technician informing Onna that pt will discharge home today. MITZI met bedside with pt and sister and they confirm they are agreeable with d/c home today and wrote down pt's upcoming PCP appointment date and currently have [facility] RN coming to the house on Sunday but MITZI provided [facility] Program brochure as well as Adilson was concerned that HH services might be delayed since pt not yet established with PCP and family was agreeable with [facility] referral as backup. MITZI secure emailed [facility] with new referral along with F2F and HH orders and also sent to [facility] as well. Sister confirms that she will be staying a couple days with the pt at her [place] duplex and then Private CG set up for Sunday and pt will not have 08/01 PP CGs but will have CG multiple days a week for multiple hours and then will determine if pt safe to remain at home or needs LTC facility. MITZI updated RN and INCLUSION SPECIAL EDUCATION TEACHER and pt very eager to get home quickly today and MITZI and sister attempted to encourage pt to allow for additional support at home to reduce her risk of readmission again or further injury once home. VIRY Kearney
--- NOTE | 2024-03-22 13:03 | PC.NURSE ---
Gave pt their home medication, cinacalcet 30 mg, from the pharmacy at 1250 PM today, prior to discharge home.
--- NOTE | 2024-03-22 13:32 | PC.NURSE ---
The pt's sister was concerned about an old wound care dressing that was on the pt's R caal. Per pt and pt's sister, the bandage had been left on the pt's caal since 02/06/24 and that was the pt's last wound care visit. Pt wanted was concerned how the wound looked prior to discharge so per pt's request this RN removed the dressing from 02/06/24. The wound had no redness/erythema, no drainage, no open wound present--the wound had an intact scab over the wound and no openings present. Pt and pt's sister were happy with the way the wound looked and refused to have a dressing placed over the old wound.
== END 2024-03-22 13:15 | disposition home health service (06) | DRG 643 ==
LOC: ED 16:13 → AC 16:13
PROVIDERS: Internal Medicine; Admitting Provider Internal Medicine; Emergency Provider Student in an Organized Health Care Education/Training Program; Family Provider Nurse Practitioner; PCP Family Medicine; Referring Provider Student in an Organized Health Care Education/Training Program; Visit Provider Internal Medicine
DX: E21.3 Hyperparathyroidism, unspecified (principal); G93.41 Metabolic encephalopathy; E87.6 Hypokalemia; Z87.440 Personal history of urinary (tract) infections
CPT/HCPCS: 36415; 70450; 71045; 80048; 80053; 80305; 81003; 82140; 82306; 82310; 83735; 83970; 84100; 85025; 93005; 93010; 96360; 96361; 97116; 97129; 97162; 97166; 99284; 99285; J1650; J3475; J3489

== ENCOUNTER → 2024-04-07 11:39 | Outpatient (CLI) | payer OTHER, SELFPAY ==
[2024-03-18 16:59] VITALS: BMI 20.9
[2024-04-07 13:20] LABS: BUN Creatinine Ratio 37.3 (6-22); Blood Urea Nitrogen 31 mg/dL (7-17); Calcium 8.7 mg/dL (8.4-10.2); Carbon Dioxide 26 mmol/L (22-32); Chloride 101 mmol/L (98-107); Estimated Glomerular Filt Rate > 60 mL/min (>60); Glucose 105 mg/dL (80-110); HEMOLYSIS < 15 (0-50); Magnesium 1.7 mg/dL (1.6-2.3); Phosphorous 3.9 mg/dL (2.8-4.1); Potassium 4.6 mmol/L (3.4-5.1); Sodium 135 mmol/L (137-145)
== END ==
LOC: LAB 11:40
PROVIDERS: PCP Family Medicine; Referring Provider Family Medicine; Visit Provider Family Medicine
DX: Z09 Encounter for follow-up examination after completed treatment for conditions other than malignant neoplasm (principal); E83.52 Hypercalcemia; G93.41 Metabolic encephalopathy; E83.42 Hypomagnesemia
CPT/HCPCS: 36415; 80048; 83735; 84100

== ENCOUNTER → 2024-04-23 11:17 | Outpatient (CLI) | payer OTHER, SELFPAY ==
[2024-03-18 16:59] VITALS: BMI 20.9
[2024-04-23 13:12] LABS: Alanine Aminotransferase 14 IU/L (<35); Albumin 3.8 g/dL (3.5-5.0); Albumin Globulin Ratio 1.4 (1.0-2.8); Alkaline Phosphatase 88 U/L (38-126); Aspartate Aminotransferase 31 IU/L (14-36); BUN Creatinine Ratio 61.8 (6-22); Bilirubin Total 0.4 mg/dL (0.2-1.3); Blood Urea Nitrogen 42 mg/dL (7-17); Calcium 9.8 mg/dL (8.4-10.2); Carbon Dioxide 26 mmol/L (22-32); Chloride 103 mmol/L (98-107); Estimated Glomerular Filt Rate > 60 mL/min (>60); Globulin 2.7 g/dL (1.7-4.1); Glucose 91 mg/dL (80-110); HEMOLYSIS < 15 (0-50); Phosphorous 3.6 mg/dL (2.8-4.1); Potassium 4.7 mmol/L (3.4-5.1); Sodium 134 mmol/L (137-145); Total Protein 6.5 g/dL (6.3-8.2)
== END ==
PROVIDERS: PCP Family Medicine; Referring Provider Family Medicine; Visit Provider Family Medicine
DX: E83.52 Hypercalcemia (principal); R79.89 Other specified abnormal findings of blood chemistry; E21.3 Hyperparathyroidism, unspecified; E87.6 Hypokalemia; E83.39 Other disorders of phosphorus metabolism; G93.41 Metabolic encephalopathy
CPT/HCPCS: 36415; 80053; 84100

== ENCOUNTER → 2024-06-19 14:56 | Outpatient (CLI) | payer OTHER, SELFPAY ==
[2024-03-18 16:59] VITALS: BMI 20.9
[2024-06-19 17:48] LABS: Hemoglobin 12.6 g/dL (12.0-16.0); Mean Corpuscular HGB Conc 33.1 % (30-36); Mean Corpuscular Hemoglobin 29.9 PG (26-34); Mean Corpuscular Volume 90.2 fL (80-100); Platelet Count 242 X10^3/uL (150-400); Red Blood Cell Count 4.21 X10^6/uL (4.0-5.2); Red Cell Distribution Width 14.2 % (11.6-14.8); White Blood Cell Count 6.8 X10^3/uL (4.5-11.0)
[2024-06-19 18:29] LABS: BUN Creatinine Ratio 38.8 (6-22); Blood Urea Nitrogen 38 mg/dL (7-17); Calcium 10.3 mg/dL (8.4-10.2); Carbon Dioxide 29 mmol/L (22-32); Chloride 103 mmol/L (98-107); Estimated Glomerular Filt Rate 56 mL/min (>60); Glucose 99 mg/dL (80-110); HEMOLYSIS < 15 (0-50); Sodium 135 mmol/L (137-145)
[2024-06-19 18:46] LABS: Vitamin D 25 Hydroxy (D3) 76.5 ng/mL (30.0-100.0)
[2024-06-21 09:08] LABS: Calcium 10.2 mg/dL (8.7-10.3); Parathyroid Hormone, Intact 59 pg/mL (15-65)
== END ==
PROVIDERS: PCP Family Medicine; Referring Provider Family Medicine; Visit Provider Family Medicine
DX: E83.52 Hypercalcemia (principal); M81.0 Age-related osteoporosis without current pathological fracture; D64.9 Anemia, unspecified; E83.42 Hypomagnesemia
CPT/HCPCS: 36415; 80048; 82306; 82310; 83970; 85027

== ENCOUNTER → 2024-08-27 16:11 | Outpatient (CLI) | payer OTHER, SELFPAY ==
[2024-03-18 16:59] VITALS: BMI 20.9
[2024-08-27 17:09] LABS: BUN Creatinine Ratio 39.1 (6-22); Blood Urea Nitrogen 36 mg/dL (7-17); Calcium 11.2 mg/dL (8.4-10.2); Carbon Dioxide 30 mmol/L (22-32); Chloride 100 mmol/L (98-107); Estimated Glomerular Filt Rate > 60 mL/min (>60); Glucose 95 mg/dL (80-110); HEMOLYSIS < 15 (0-50); Potassium 4.9 mmol/L (3.4-5.1); Sodium 138 mmol/L (137-145)
[2024-08-29 08:36] LABS: Parathyroid Hormone Int 80 pg/mL (15-65)
== END ==
PROVIDERS: PCP Family Medicine; Referring Provider Family Medicine; Visit Provider Family Medicine
DX: D64.9 Anemia, unspecified (principal); E83.42 Hypomagnesemia
CPT/HCPCS: 36415; 80048; 83970

== ENCOUNTER → 2024-08-30 11:50 | Outpatient (CLI) | payer OTHER, SELFPAY ==
[2024-03-18 16:59] VITALS: BMI 20.9
[2024-08-30 12:00] LABS: Appearance Urine UA SL CLOUDY; Bilirubin Urine UA NEGATIVE (NEGATIVE); Color Urine UA YELLOW; Glucose Urine UA NEGATIVE (Negative); Ketones Urine UA NEGATIVE (NEGATIVE); Leukocyte Esterase Urine UA NEGATIVE (NEGATIVE); Nitrite Urine UA NEGATIVE (Negative); Occult Blood Urine UA NEGATIVE (Negative); Protein Urine UA NEGATIVE (Negative); Specific Gravity Urine UA 1.015 (1.000-1.035); Urobilinogen Urine UA 0.2 E.U./dL (0.2)
[2024-08-30 12:36] LABS: Bacteria Urine None Seen; Culture Indicated Urine Cult Not Indicated; RBC Urine None Seen (0-5/HPF); Squamous Epithelial Cell Urine 0-1 /HPF (0-5/HPF); Urine Volume 10mL (spun); WBC Urine None Seen (0-5/HPF)
== END ==
PROVIDERS: PCP Family Medicine; Referring Provider Family Medicine; Visit Provider Family Medicine
DX: R30.0 Dysuria (principal)
CPT/HCPCS: 81001

== ENCOUNTER → 2024-09-18 16:30 | Outpatient (CLI) | payer OTHER, SELFPAY ==
[2024-03-18 16:59] VITALS: BMI 20.9
== END ==
LOC: LAB 16:34
PROVIDERS: PCP Family Medicine; Referring Provider Urology; Visit Provider Urology
DX: N39.41 Urge incontinence (principal); N32.81 Overactive bladder
CPT/HCPCS: 87086

== ENCOUNTER → 2024-10-07 14:20 | Outpatient (CLI) | payer OTHER, SELFPAY ==
[2024-03-18 16:59] VITALS: BMI 20.9
== END ==
PROVIDERS: PCP Family Medicine; Referring Provider Family Medicine; Visit Provider Surgery
DX: L97.819 Non-pressure chronic ulcer of other part of right lower leg with unspecified severity (principal); S81.801A Unspecified open wound, right lower leg, initial encounter; R60.0 Localized edema; Z79.01 Long term (current) use of anticoagulants
CPT/HCPCS: 11104; 99213

== ENCOUNTER → 2024-10-14 11:35 | Outpatient (CLI) | payer OTHER, SELFPAY ==
[2024-03-18 16:59] VITALS: BMI 20.9
== END ==
PROVIDERS: PCP Family Medicine; Referring Provider Family Medicine; Visit Provider Surgery
DX: L97.812 Non-pressure chronic ulcer of other part of right lower leg with fat layer exposed (principal); R60.0 Localized edema
CPT/HCPCS: 11042

== ENCOUNTER → 2024-10-21 09:58 | Outpatient (CLI) | payer OTHER, SELFPAY ==
[2024-03-18 16:59] VITALS: BMI 20.9
== END ==
LOC: WC 09:58
PROVIDERS: PCP Family Medicine; Referring Provider Family Medicine; Visit Provider Surgery
DX: S81.801A Unspecified open wound, right lower leg, initial encounter (principal); L98.8 Other specified disorders of the skin and subcutaneous tissue
CPT/HCPCS: 99212; 99213

== ENCOUNTER → 2024-10-28 14:57 | Outpatient (CLI) | payer OTHER, SELFPAY ==
[2024-03-18 16:59] VITALS: BMI 20.9
[2024-10-28 16:27] LABS: Alanine Aminotransferase 19 IU/L (<35); Albumin 4.1 g/dL (3.5-5.0); Albumin Globulin Ratio 1.5 (1.0-2.8); Alkaline Phosphatase 83 U/L (38-126); Aspartate Aminotransferase 33 IU/L (14-36); BUN Creatinine Ratio 45.3 (6-22); Bilirubin Total 0.2 mg/dL (0.2-1.3); Blood Urea Nitrogen 39 mg/dL (7-17); Calcium 10.1 mg/dL (8.4-10.2); Carbon Dioxide 28 mmol/L (22-32); Chloride 103 mmol/L (98-107); Estimated Glomerular Filt Rate > 60 mL/min (>60); Globulin 2.8 g/dL (1.7-4.1); Glucose 96 mg/dL (70-99); HEMOLYSIS < 15 (0-50); Potassium 4.6 mmol/L (3.4-5.1); Sodium 138 mmol/L (137-145); Total Protein 6.9 g/dL (6.3-8.2)
[2024-10-31 08:36] LABS: Parathyroid Hormone Int 50 pg/mL (15-65)
== END ==
PROVIDERS: PCP Family Medicine; Referring Provider Family Medicine; Visit Provider Family Medicine
DX: E83.52 Hypercalcemia (principal); E21.3 Hyperparathyroidism, unspecified
CPT/HCPCS: 36415; 80053; 83970

== ENCOUNTER → 2024-12-04 11:58 | Outpatient (ROUT) | payer OTHER, SELFPAY ==
[2024-03-18 16:59] VITALS: BMI 20.9
== END ==
LOC: LAB 12:00
PROVIDERS: PCP Family Medicine
DX: Z48.817 Encounter for surgical aftercare following surgery on the skin and subcutaneous tissue (principal)
CPT/HCPCS: 87070; 87077; 87205

== ENCOUNTER → 2025-03-27 15:18 | Outpatient (CLI) | payer OTHER, SELFPAY ==
[2024-03-18 16:59] VITALS: BMI 20.9
== END ==
PROVIDERS: PCP Family Medicine; Referring Provider Urology; Visit Provider Urology
DX: N32.81 Overactive bladder (principal)
CPT/HCPCS: 87086